=== PATIENT | male | born 1950 | race Caucasian/White ===

== ENCOUNTER 2023-10-17 10:30 | Outpatient (OUT) | payer MEDICARE, SELFPAY ==
[2023-10-17 12:21] LABS: Basophils Absolute Auto 0.1 10^3/uL (0.0-0.1); Basophils Percent Auto 1.1 % (0.2-2.0); Eosinophils Absolute Auto 0.2 10^3/uL (0.0-0.7); Eosinophils Percent Auto 2.1 % (0.9-7.0); Hematocrit 42.1 % (42.0-54.0); Hemoglobin 12.8 g/dL (14.0-18.0); Immature Granulocytes Abs Auto 0.03 10^3/uL (0.00-0.03); Immature Granulocytes Pct Auto 0.4 % (0.0-0.5); Lymphocytes Absolute Auto 1.3 10^3/uL (1.2-3.8); Lymphocytes Percent Auto 15.9 % (20.5-60.0); Mean Corpuscular HGB Conc 30.4 g/dL (29.9-35.2); Mean Corpuscular Hemoglobin 26.2 pg (25.9-34.0); Mean Corpuscular Volume 86.1 fL (80.0-94.0); Mean Platelet Volume 9.7 fL (9.5-13.5); Monocytes Absolute Auto 0.6 10^3/uL (0.3-0.8); Monocytes Percent Auto 7.6 % (1.7-12.0); Neutrophils Absolute Auto 5.9 10^3/uL (1.4-6.5); Neutrophils Percent Auto 72.9 % (43.0-75.0); Platelet Count 208 10^3/uL (150-450); Red Blood Count 4.89 10^6/uL (4.70-6.10); Red Cell Distribution Width 13.6 % (11.0-15.0)
[2023-10-17 12:27] LABS: Bilirubin Urine NEGATIVE (NEGATIVE); Blood Urine MODERATE (NEGATIVE); Clarity Urine CLEAR (CLEAR); Color Urine YELLOW (YELLOW); Glucose Urine UA >=1000 mg/dL (NEGATIVE); Ketones Urine NEGATIVE (NEGATIVE); Leukocyte Esterase Urine NEGATIVE (NEGATIVE); Nitrite Urine NEGATIVE (NEGATIVE); Protein Urine 30 mg/dL (NEG/TRACE); Specific Gravity Urine 1.025 (1.005-1.025); Urobilinogen Urine 0.2 EU/dL (0.2-1.0); pH Urine 5.5 (5.0-9.0)
[2023-10-17 12:43] LABS: Alanine Aminotransferase 48 U/L (16-63); Albumin Globulin Ratio 0.9; Albumin Level 3.4 g/dL (3.4-5.0); Alkaline Phosphatase 182 U/L (46-116); Anion Gap 10.2; Aspartate Amino Transferase 22 U/L (15-37); BUN Creatinine Ratio 10.6; Bilirubin Total 1.9 mg/dL (0.2-1.0); Calcium 9.2 mg/dL (8.5-10.1); Carbon Dioxide 30.9 mmol/L (21.0-32.0); Chloride 106 mmol/L (98-107); Estimated GFR (African America >60 (>=60); Estimated GFR (Non-African Ame >60 (>=60); Globulin 3.6 g/dL; Glucose 119 mg/dL (74-106); Potassium 4.1 mmol/L (3.5-5.1); Sodium 143 mmol/L (136-145)
== END 2023-10-17 10:31 | disposition home or self-care (01) ==
LOC: LAB 10-21 10:30
PROVIDERS: PCP Nurse Practitioner Family; Visit Provider Nurse Practitioner Family
DX: R53.83 Other fatigue (principal)
CPT/HCPCS: 36415; 80053; 81003; 85025; 87086

== ENCOUNTER 2024-12-23 11:33 | Emergency (ER) | payer MEDICARE, SELFPAY ==
[2024-12-23] VITALS (16 sets, daily range): BP systolic 109–131; BP diastolic 75–89; PULSE 76–92; TEMP 36.6; O2SAT 93–100; BMI 29.6
--- NOTE | 2024-12-23 11:45 | CA_ITS ---
Patient Name: PAU BAUER MR#: [id number] : 1950 Exam Date: 12/23/2024 Ordering Doctor: Karine Brower . ECHOCARDIOGRAM REPORT PROCEDURE: CA ECHO W/ CON INDICATIONS: LV thrombus COMPARISON: None. DESCRIPTION: LIMITED ECHOCARDIOGRAM Real-time transthoracic echocardiography with 2D and contrast study. QUALITY: Technical quality was good. LEFT VENTRICLE: Normal chamber size. Mild concentric left ventricular hypertrophy. D-shaped septum suggestive of right ventricular pressure and volume overload. LV EF: Global left ventricular systolic function is mildly decreased. Visual estimation of left ventricular ejection fraction is 40-45%. Diffuse hypokinesis. Probable heavy trabeculation of the apex; however, possible small apical thrombus cannot be ruled out. DIASTOLIC: Unable to assess diastolic function. ATRIAL SEPTUM: Inadequately seen. LEFT ATRIUM: Severe dilatation. RIGHT ATRIUM: Severe dilatation. RIGHT VENTRICLE:Moderate dilatation. Right ventricular systolic function is reduced. TRICUSPID VALVE: Normal mobility and thickness. MITRAL VALVE: Normal mobility and thickness. AORTIC VALVE: Normal trileaflet appearance. Normal leaflet mobility. AORTIC ROOT: Normal diameter and appearance. PULMONIC VALVE: Normal thickness and mobility. PERICARDIUM: No evidence of pericardial effusion. IVC: Mild dilatation. Measuring 2.2cm with no collapse. CONCLUSION: 1. Global left ventricular systolic function is mildly reduced; visually estimated ejection fraction is 40 to 45% 2. Probable apical trabeculation, however a small apical thrombus cannot be ruled out 3. The right ventricle is moderately dilated with reduced systolic function 4. Severe biatrial dilatation A Limited echocardiogram was performed Adult Echocardiography Procedure Report Left Ventricle LVEDD (3.7 - 5.6 cm): 5.31 cm LVESD (2.2 - 4.0 cm): 4.41 cm LVIVS thickness (0.6 - 1.2 cm): 1.20 cm LVPW thickness (0.5 - 1.0 cm): 1.19 cm LVOT Diameter 2.33 cm Left Ventricular Ejection Fraction: 45.28 % Left Atrium LA Volume Index (2D A2C): 91.56 ml/m2 Left Atrium Systolic Dimension: 6.11 cm Mitral Valve Right Ventricle RV Internal Diastolic Dimension: 4.58 cm Aorta AO Root Diam: 3.39 cm Aortic Valve Tricuspid Valve Pulmonic Valve Right Atrium Right Atrium Systolic Pressure: 215.67 ml, 215.67 ml Dictated by: Domenico Nielsen M.D. on 12/23/2024 at 13:23 Approved by: Domenico Nielsen M.D. on 12/23/2024 at 13:32
[2024-12-23 12:01] LABS: Basophils Absolute Auto 0.1 10^3/uL (0.0-0.1); Basophils Percent Auto 1.1 % (0.2-2.0); Eosinophils Absolute Auto 0.2 10^3/uL (0.0-0.7); Eosinophils Percent Auto 2.1 % (0.9-7.0); Hematocrit 44.3 % (42.0-54.0); Hemoglobin 13.9 g/dL (14.0-18.0); Immature Granulocytes Abs Auto 0.02 10^3/uL (0.00-0.03); Immature Granulocytes Pct Auto 0.3 % (0.0-0.5); Lymphocytes Absolute Auto 1.2 10^3/uL (1.2-3.8); Lymphocytes Percent Auto 15.2 % (20.5-60.0); Mean Corpuscular HGB Conc 31.4 g/dL (29.9-35.2); Mean Corpuscular Hemoglobin 25.7 pg (25.9-34.0); Mean Platelet Volume 9.8 fL (9.5-13.5); Monocytes Absolute Auto 0.5 10^3/uL (0.3-0.8); Monocytes Percent Auto 6.7 % (1.7-12.0); Neutrophils Absolute Auto 5.9 10^3/uL (1.4-6.5); Neutrophils Percent Auto 74.6 % (43.0-75.0); Platelet Count 188 10^3/uL (150-450); Red Cell Distribution Width 14.3 % (11.0-15.0)
[2024-12-23 12:14] LABS: INR 1.09; Prothrombin Time 11.5 sec (9.0-11.6)
--- OUTSIDE RECORDS SUMMARY | 2024-12-23 12:14 | XMS_ITS | CCD ---
Author Organization [facility] Care Team Providers Care Ore Buyer Name Role Phone PHYSICIAN, DEFAULT Admitting Unavailable PHYSICIAN, DEFAULT Attending Unavailable PHYSICIAN, DEFAULT Admitting Unavailable PHYSICIAN, DEFAULT Attending Unavailable PHYSICIAN, DEFAULT Admitting Unavailable PHYSICIAN, DEFAULT Attending Unavailable Jose Armando De La Cruz Unavailable Felipe Fajardo Unavailable Unavailable Sheree Greco Unavailable DO Sheree Greco Primary Care Provider MD Elo Tapia Attending Provider MD Aman Beck Referring Provider DO Sheree Greco Primary Care Provider DO Sheree Greco Attending Provider Lottie Castillo Unavailable DO Sheree Greco Primary Care Provider DO Sheree Greco Attending Provider Sheree Greco Attending Unavailable Sheree Greco Primary Care Unavailable Sheree Greco Admitting Unavailable ASAD ESPARZA Attending Unavailable Michelle Vieyra Attending Unavailable Michelle Vieyra Admitting Unavailable SHEREE GRECO Primary Care Unavailable SHEREE GRECO Primary Care Unavailable Macie Lau Attending Unavailable Macie Lau Admitting Unavailable [place] Attending Unavailab Anna Funes Admitting Unavailab le SHEREE GRECO Primary Care Unavailable Allergies Allergy Classification Reported Allergen(s) Allergy Type Date of Onset Reaction(s) Facility (2 sources) No Alert Propensity to adverse reactions to drug 2 [facility] (1 source) Egg; Translations: [Egg Allergy] Propensity to adverse reactions to drug (disorder) [facility] Repository Medications Current Medications Medication Drug Class(es) Dates Sig (Normalized) Sig (Original) apixaban 5 mg oral tablet (20 sources) Factor Xa Inhibitor Start: 06-25-2021 take 1 tablet by mouth twice daily Apixaban (Eliquis) 5 mg tablet Active 5 MG PO Twice daily May 15, 2022 12:00am aspirin 81 mg delayed release oral tablet (20 sources) Platelet Aggregation Inhibitor, Nonsteroidal Anti-inflammatory Drug Start: 05-15-2022 take 81 mg by mouth once daily Aspirin Active 81 MG PO Daily May 15, 2022 12:00am Aspirin 81 MG TA BS Quantity: 0 Refills: 0 Ordered: 08-Apr-2022 DO Active take 1 tablet by mouth once luh y Aspirin 81 MG 1 tablet Orally Once a day Active azithromycin 250 mg oral tablet (1 source) Macrolide Antimicrobial Start: 09-01-2023 Zithro max Z-Wes 250 MG as directed Orally once a day for 5 days Aug, Active clobetasol propionate 0.5 mg/ml topical cream (4 sources) Corticosteroid Start: 09-08-2023 Clobetasol Propionate 0.05 % 1 application Externally Twice a day for 14 days Aug, Active Start: 09-08-2023 Clobetasol Pro pionate 0.05 % 1 application Externally Twice a day for 14 days Aug, Active dapagliflozin 10 mg oral tablet (4 sources) Sodium-Glucose Cotransporter 2 Inhibitor Start: 03-05-2024 take 1 tablet by mouth once daily Dapagliflozin Propanediol (Farxiga) 10 mg tablet Active 10 MG PO Daily March 05, 2024 12:00am take 1 tablet by shayla th every twenty-four hours Farxiga 10 MG 1 tablet Orally Once a day Active metFORMIN (20 sources) Biguanide Start: 04-02-2024 take 1 tablet by mouth twice daily at mealtime Metformin Active 0 .ROUTE .COMPLEX 180 April 02, 2024 7:04am TAKE 1 TABLET BY MOUTH TWICE DAILY WITH A MEAL Start: 02-18-2022 End: 04-02-2024 take 500 mg by mouth twice daily Metformin Discontinued 500 MG PO Twice daily May 15, 2022 12:00am March 31, 2024 1:32pm 24 hr metoprolol succinate 50 mg extended release oral tablet (20 sources) beta-Adrenergic Rubens Start: 06-11-2024 take 100 mg by mouth once daily Metoprolol Succinate Active 100 MG PO Daily June 11, 2024 12:00am Start: 06-11-2024 take 50 mg by mouth once daily Metoprolol Succinate Active 50 MG PO Daily June 11, 2024 12:00am Start: 05-15-2022 End: 06-11-2024 take 50 mg by mouth twice daily Metoprolol Succinate Discontinued 50 MG PO Twice daily May 15, 2022 12:00am June 11, 2024 10:44am Start: 10-03-2021 take 1 tablet by shayla th twice daily Metoprolol Tartrate 50 MG Oral Tablet TAKE 1 TABLET BY MOUTH TWICE DAILY Quantity: 180 Refills: 0 Ordered: 07-Jan-2022 DO Start : 03-Oct-2021 Active microencapsulated potassium chloride 10 meq extended release oral tablet (11 sources) Start: 03-05-2024 take 10 mEq by mouth twice daily Potassium Chloride Active 10 MEQ PO Twice daily March 05, 2024 12:00am take 1 tablet by mouth every twe lve hours Klor-Con M10 10 MEQ 1 tablet with food Orally Twice a day for 30 day(s) Active sacubitril 49 mg / valsartan 51 mg oral tablet (20 sources) Angiotensin 2 Receptor Rubens Start: 03-05-2024 take 1 tablet by mouth twice daily Sacubitril-Valsartan (Entresto) 49-51 mg tablet Active 1 TAB PO Twice daily March 05, 2024 12:00am Start: 05-15-2022 End: 03-05-2024 take 1 tablet by mouth twice daily Sacubitril-Valsartan (Entresto) 24-26 mg Tablet Discontinued 1 TAB PO Twice daily May 15, 2022 12:00am March 05, 2024 7:17am take 1 tablet by shayla th every twelve hours Entresto 49-51 MG 1 tablet Orally bid for 14 days Active Entresto 24-26 M G Oral for 14 Days Active Completed/Discontinued Medications Medication Drug Class(es) Dates Sig (Normalized) Sig (Original) atorvastatin 10 mg oral tablet (20 sources) HMG-CoA Reductase Inhibitor Start: 02-18-2022 End: 03-18-2024 take 10 mg by mouth once daily Atorvastatin Discontinued 10 MG PO Daily May 15, 2022 12:00am March 18, 2024 1:56pm furosemide 40 mg oral tablet (20 sources) Loop Diuretic Start: 01-08-2022 End: 03-15-2024 take 40 mg by mouth once daily Furosemide Discontinued 40 MG PO Daily May 15, 2022 12:00am March 15, 2024 10:25am take 1 tablet by mouth every oth er day Furosemide 40 MG 1 tablet Orally Every other day for 30 days Active take 1 tablet by mouth every oth er day Furosemide 20 MG 1 tablet Orally Every other day for 30 days Active take 1 tablet by mouth every eig ht hours Furosemide 20 MG 1 tablet Orally tid for 30 day(s) Active methylPREDNISolone (8 sources) Corticosteroid Start: 01-06-2019 Depo-Medrol 40 mg Dec, 60 mg Potassium (8 sources) Potassium TABS Q uantity: 0 Refills: 0 Ordered: 08-Apr-2022 DO Active Problems Active Problems Problem Classification Problem Date Documented Da te Episodic/Chronic Cardiac dysrhythmias (16 sources) Permanent atrial fibrillation; Translations: [Chronic atrial fibrillation] Chronic Chronic obstructive pulmonary disease and bronchiectasis (1 source) Bronchitis, not specified as acute or chronic Episodic Coronary atherosclerosis and other heart disease (4 sources) Coronary arteriosclerosis; Translations: [Atherosclerotic heart disease of [place] coronary artery without angina pectoris] 03-04-2024 Chronic Diabetes mellitus without complication (16 sources) Type 2 diabetes mellitus without complication; Translations: [Type 2 diabetes mellitus without complications] Onset: 03-06-2022 Resolved: 03-06-2022 Chronic Disorders of lipid metabolism (15 sources) Mixed hyperlipidemia; Translations: [Mixed hyperlipidemia] Onset: 05-05-2024 Chronic Essential hypertension (15 sources) Essential hypertension; Translations: [Essential (primary) hypertension] Onset: 05-05-2024 Chronic Fluid and electrolyte disorders (8 sources) Hypokalemia; Translations: [Hypokalemia] Episodic Melanomas of skin (20 sources) Malignant melanoma of head and neck ; Translations: [Malignant melanoma of skin of ear and external auditory canal] Chronic Other gastrointestinal disorders (2 sources) History of bypass of stomach; Translations: [Bariatric surgery status] 05-17-2022 Episodic Other non-epithelial cancer of skin (8 sources) History of malignant neoplasm of skin; Translations: [Personal history of other malignant neoplasm of skin] Episodic Other screening for suspected conditions (not mental disorders or infectious disease) (4 sources) Encounter for screening for malignant neoplasm of prostate; Translations: [Encounter for screening for malignant neoplasm of colon] Onset: 05-05-2024 Episodic Other skin disorders (1 source) Rash and other nonspecific skin eruption Episodic Residual codes; unclassified (2 sources) No current problems or disability; Translations: [Other specified conditions influencing health status] Onset: 04-16-2022 Episodic Residual codes; unclassified (3 sources) Localized edema; Translations: [Edema] 03-15-2024 Episodic Past or Other Problems Problem Classification Problem Date Documented Da te Episodic/Chronic Other ear and sense organ disorders (1 source) Disorder of left external ear, unspecified Onset: 03-06-2022 Resolved: 03-06-2022 Episodic Results Test Name Value Interpretation Reference Range Facility Consent Formson 12-20-2024 Consent Forms [id number] FF [facility] US Echocardiogram Completeon 12-17-2024 US Echocardiogram Complete APPROVED REPORT EXAM: Comprehensive 2D, Doppler, and color-flow Echocardiogram BSA: 2.13 m2BP: 130/90 mmHg Rhythm: Atrial Fibrillation Indications: Paroxysmal atrial fibrillation:Acute combined systolic (congestive) and diastolic (congestive) heart failure Past Med. Hx: Afib, CAD, HLD, Former Smoker Echo Enhancing Agent Indication: Rule out apical thrombus Agent(s) / Amount(s) Used: Definity cc Conclusion Left ventricular systolic function is mild to moderately decreased. LVEF is 40-45%. There is global hypokinesis of the left ventricle. Echo contrast is indicated for questionable chronic thrombus. Cannot rule out left ventricular thrombus. Left atrium is moderately dilated. Right atrium is moderately dilated. Mild aortic regurgitation. Moderate mitral regurgitation. Moderate tricuspid regurgitation. The RVSP is 53.9 mmHg, consistent with moderate pulmonary hypertension. Left Ventricle The left ventricle is normal size. There is normal left ventricular wall thickness. Left ventricular systolic function is mild to moderately decreased. LVEF is 40-45%. There is global hypokinesis of the left ventricle. Unable to asses diastolic function in the setting of atrial fibrillation. Echo contrast is indicated for questionable chronic thrombus. Cannot rule out left ventricular thrombus. Right Ventricle Right ventricle is borderline dilated. The right ventricular systolic function is normal. Atria Left atrium is moderately dilated. Right atrium is moderately dilated. Aortic Valve Aortic valve is trileaflet. Aortic valve leaflets are mildly thickened. Adequate excursion of aortic valve leaflets. There is no aortic valvular stenosis. Mild aortic regurgitation. Mitral Valve Mitral valve leaflets are mildly thickened. Moderate mitral regurgitation. Tricuspid Valve The tricuspid valve is normal in structure. Moderate tricuspid regurgitation. The RVSP is 53.9 mmHg, consistent with moderate pulmonary hypertension. Pulmonic Valve Pulmonic valve is not well visualized. Trace pulmonic regurgitation. Great Vessels The aortic root is normal in size. The IVC is dilated. The IVC collapses <50% with inspiration. RAP 15 mmHg. Pericardium There is no pericardial effusion. 2D Dimensions RV Minor (Base)4.02 cmLV EDV (Teich) 128.92 mL IVSd 0.88 cm M: 0.6 - 1.0LV ESV (Teich) 78.54 mL LVDd 5.19 cm M: 4.2 - 5.9Left Atrium 4.90 cm M: 3.0 - 4.0 PWd 0.88 cm M: 0.6 - 1.2Aortic Root 3.11 cm M: < 4.0 LVDs 4.20 (2.1 - 4.0 cm) LV Bmlf906.29 g LVOT Diameter 2.18 cm IVC2.20 (<= 2.1cm) M-Mode Dimensions TAPSE 1.4 (>1.7) LV Volume - Method of Disks (Haq's) Single Plane 2D LV VolumesBiplane 2D LV Volumes LV EDV B1I752.3 mLLV EDV BP140.17 mL M: 62 - 150 LV ESV A4C75.1 mLLV ESV BP78.4 mL LVEF(%) A4C44.1 %LVEF(%) BP44.04 % M: 52 - 72 LV EDV H9F441.8 mLLV EDV BP Index65.80 mL/m2 M: 34 - 74 LV ESV A2C79.1 mLSV (BP)61.73 mL LVEF(%) A2C42.2 %SV (BP) Index28.95 mL/m2 CO BP5.3 L/min Left Atrium Volume Systole (Method of Disks) Single Plane 4 CH 146.45 mL Right Atrium Area Systole RA Systolic Area A4C34.57 cm2RA Systolic Vol F4F055.70 mL Aortic Valve AoV Peak Velocity1.06 m/sLVOT Peak Velocity0.77 m/s AO Mean Velocity0.70 m/sLVOT Mean Velocity0.47 m/s AO Peak PG4.45 mmHgLVOT Peak PG2.35 mmHg AO Mean PG2.27 mmHgLVOT Mean PG1.07 mmHg AO V2 VTI19.47 cmLVOT V1 VTI14.90 cm FLORENCIO (Vmax)2.70 sw6DVKC Area 3.72 cm2 FLORENCIO (VTI)2.85 cm2SV (LVOT) 55.40 mL Indexed FLORENCIO (VTI)1.33 cm2/m2 Mitral Valve MV Max Zdbxikjp089.53 m/sMV PHT34.76 ms MV E Max Velocity0.66 m/sMVA (PHT)6.33 cm2 MV Decel. Gazx644.86 msMR BUX690.96 cm MR Peak Velocity5.06 m/s TDI Med e' Velocity7.17 cm/sMV E / Medial e' 9.27 Lat e' Mrendxcw09.92 cm/sMV E / Lateral e' 6.09 TV S'8.64 cm/s Pulmonary Valve PV Peak Velocity0.62 m/sPV Peak PG1.54 mmHg [place] End Diastolic Jaguar.109.87 m/s PV Mean PG0.90 mmHg Tricuspid Valve TR Peak Velocity3.03 m/s TR Peak PG36.75 mmHg Final Signed (Electronic Signature): Ulises Head MD 12/20/24 8:42 am Technologist: [facility] Provider Orderson 12-13-2024 Provider Orders [id number] [facility] Orders Onlyon 11-25-2024 Orders Only [id number] Anna Bauer T 1950 M Date Provider Department Center 11/25/2024 GRICELDA CARUSO Family History Family history unknown: Yes Normal [facility] Office Visiton 06-16-2024 Follow-up visit [id number] Anna Bauer T 1950 M Date Provider Department Center 06/16/2024 [facility]8-ASAD ESPARZA Hos Family History Family history unknown: Yes Level of Service:00947 [place] OFFICE/OUTPATIENT ESTABLISHED LOW MDM 20 MIN Normal [facility] Orders Onlyon 06-16-2024 Orders Only [id number] Anna Bauer T 1950 Date Provider Department Center 06/16/2024 GRICELDA CARUSO Family History Family history unknown: Yes Normal [facility] Coding Summaryon 06-03-2024 Coding Summary HTMLBase 64 HfukkbarXQk9uBi+PGhlYWQ+P L6UWXKwP63ytHDdwA7eH4QQIM lOSywgQVBQTElOSyIgbmFtZT1 kaXNjZXJu IC8+IH9bHAVbMgtamTSmz1N4w AB7G07fpo9bLRsmxFU0SDOmZq Bgjmnjd0gdnUv5ZDtcHbxeFdD t HBFvfR30KCG7qF65Wp18mNPwo MVoh3orbIu5FxCvSACdYPT3fO lhEQuta2JpDGXoK13gxUFjv0N 6 MEIncUtldRRfXcUohQO0gH2pW Haqdnlaa2pcvvhaUhr0oh00oG Rcv6G3gGC9E9YdudI6OJNwuHK g WvgtzBFYmJ0lrwbsl8draoyvX tMbMCAcQGk0MBg9PROabVnsNd BcBC17QVB5GSRmlaZbO7EeJCO s fZwjZyO6v2Y2Yl4KY2ZEWxcjC 1VNTUFSWTwvdGQ+WJ67rj72I9 JmRoblMtc5YQGxUEP7kCD7oQ0 n BICuIWjoz2A9lNN6P5UmvmQid c8ua8ymNWXkVBmeG74niNVhx9 M5WZOwyQY7AOPokOkuVhNvgU0 3 Oyc+JEVubClgd1NrWdkfx3kbv 2ggcBd0ZnuoTESozeAvjEiqEY J3n3ItPd7mMYBxbAY3sCV2nE1 i LrHnByC1RJdiH031JkOmwWUzI uehR30dB2AbpJG+NYOsNwb1YN FcqLiqLX1yN7WcPVTyzrvjbNG m bBzaMK2aVRGdfkflRFJdqQ0lX EHlD7l3DbNpCbN8ISyeP2RsXZ EixmiuQh39yK9dXfTyJuD3QTn u J2EnacG2LQFwsHXaVOvxIUJ2X 61mb9G9IBWoAZIaCNT6cWD0yO 1hbGlnbjogbGVmdDsgdmVydGl j FAvqSYcqH806IYXvsRpiZiLwT GluZyBEYXRlOiAgMDgvMDgvMj AyNDwvdGQ+KUCwHEU4wUjzTCD n wKKdZSfaZp1hfUnwtLoyXI3gY FIlwhqwAECtfH4mMVGxdKDixI zcLS3qNLIpdoijv123KmQtIXG 0 OIYgxFQdH1QtvB2sOmHkZCAoH JGrM8QqtYNkEZsbX988EJooXx G5SJRtswIeC0ZyXAAujHvuUjU 0 b1N7Ez2Vz8HhlmmhY4SgcVAtO wPhHpmsHRz7R3OiFehwvWO+PC 98GORwPG53LBr7EQQ7oGueGLw i WYMpZ3ZfkC0vBmHwSIWrHMPxV yc+PHRhYmxlIHdpZHRoPScxMD IzLnMqhNewAT8vBw4yNDYxQFL v rSghuHCiXuLws8kkVXVzZYtsQ Y8drAviG9GshTX3TMSzb6r8Gq 52O19bC4MobZI+XDKeiAQ7fFU 0 zI8qKkTaXjQ5QKodS695KmDti CTlShzlo6qfw5ktzQh2PhL1SC IpjoPnpYcrMOG6o3DtRn38R23 s IHdpZHRoPSIxNSUiIHZhbGlnb e8tlF4dCg4+FANewQA4zGF0mL 3vEeCiXlS4YKtlR753GjJccPT v Ymhsh0wqi1jefRv3YoTcNEBlj fTymYfcLBD3x0DrSb70D6XrbP tba6CqUza1dy96rVSlx8V7oMY 9 F1ZyNNAvknobhURawAnlCU9dO WGqsumfFFXcqC3zWEOzU9a6Wd UgVxP0GMmzY8YkzlI5UQKmgOI g MJWedSDAdL9oscynt0ikwqloK eUhSIOwYWa6XDk5PRCwqWmoSn CfYZC5EbJ5RXY7tVGapW0sqLl n xvlxlJ4gTfz+LQM5cPWoeAPWN K4yLixxwWX+CSIwGCI6hLzqXV tjIRDuhI1iVMOsC9d8DmUfOeI 1 QCsiT3CfqgI7XQWcaETpPYFnq PFGpR8tmnixw1efxyoeOkOaHK ByBFf1DJz7QYAzhSdzAuLaDIZ 0 QqH4DXD6kNDgfM3elUpilwefc G9wOyc+JjufiLizTND4FOo6P5 GfCcr3HDHcbZewAH9pcFMlDBy u Cy9npFvikHguVP5uPMOuqfaam 372DnDjn3ebPYQaxPCyAUmsUM N7Y07mz1M1SCVhYIThIUG7bPO 4 xG4ejHphxckkgJLrdNksoqRom JxtWJocCJlfF783TZSgrWccUi IqFTq6W5HhAzb4CDYxaUffCE6 n wIDjOLolGv1yzBrnzZjzBV5kK OJyekhgs956BbCja2huXGYqnY IvPJygMTQ6G53of9I4AYPwPVY w ONJ6yWE8pZ3dsGfxviickSJyq DlxwhUmgYrlVThgDTytT907ST EmkZlzDiCtbHk8R2QpAfq0NTD z zWxcZT7cwXJiUBykSb9buNooj IbsQT9wKTUrimplu714UjHih4 icSOVvcQPtYXzdAQH2P96or4P 6 BJRiVTOeEBB8xPZ1qL7dgKimm jogbGVmdDsgdmVydGljYWwtYW tfT837CZAgoUkiXmMuvArxurR g PYsoBQc6H2DhArrrbRQ+PC90Y ZYsSK39uXKqoGMvb0sdmCq0Im RySEOsXRQ6fJlhOIkwg6UnMTC t W66inLKwx2H2GDJksObcgADxN pVvsQW9aT2gYLpxdwdmp0oore smQfdvl7ruel38bH24Y89qJUr p QKMzUUYcLFHdARDduSgcpk1cd G9wIi8+IKWhnOX5rLP5jH6qHC McDyP6PNumH800BbZojTXwPdv j c8vuu4lqzAe9MeI7JUEmchFev TzhPPJ4n8PvAz79E51kAJmsXM AwHBPpILFaVDBkuStjqg1wyL5 w Ii8+LCCwmPD0kQG7gO3oOlPpI qK5KMbfO756CmMfoHSnWagyL3 9aT0IulFQ+HONvFjx2VTScaDa s ON0olGNuNLhfPw7gGMY7AzZcX cPuICpfO3AuYBUvcevpvysfqK N3HOHlGSTppC42Ja7oaOwkAGJ w qRYLrF3hccptu3gdxmztWiBiB CLkHJr0CIz1ZPGumYgtPjXbDW Z5KyS1PBO6qZWzlC8tsPynkpw g rC2xD8ArGYUwngrrNp28zS7nU vBeDpV6IApkNfd+I6VUDVEBTT CIDM3XR9RtISkDQUHBVA48NV6 8 nSXpd7M0ePT4H1LpCUDstswui tifbWH5AWXdDKNtqF97bYLrQS bzDs1bo8K3a534PIGeZZTmpZ6 7 Tg3tgEmdSPJhcIXMlR3upgafg 3oaaebaExVaQCHpZLt3YGf6YV PjbLblFmTyEPF7MsZ4DSQ4iIY h qF5gsYcoddheuT8vZjq+MDMvM kCjOTl8MPfpfBU+UFOuXKM2uG tnAKfpTCFweW4yNTTsP1w5YoB w XaI2RQjjL1RlJIHhwneeKo22c W9vIdRbBdK6SXfwP9HhssQ6NY EgpTEnQNitVDA1L90gq0R0ZSX w VZPoODU8lBC6aU6zeZbfwiamf GVmdDsgdmVydGljYWwtYWxpZ2 67OXWkrCqiYdm5UOroFZVsSS8 0 ZC92cNNxs4W4lDB1J1WyBOMbs dejuzazsQR8LGOmWERspM89yQ UpLYrwEy8di1O7x077KQYiKVJ w oU03Wn0mgQbpEMQxuBVIaX0eq qijm7yehxvuJaSiQFWhPWg9FT n2GVRdeJegMiYxEAZ0EtK7GHB 0 yUCxqT2jfYpvquyehH1nLde+T UFMRTwvdGQ+JAEuGSR9nOgqZC ncVGMflM5aJVNpD7d6KmDuEgI 1 JGssI0VaUXDftdlfYm20dG4aM lQiWiZ2ZMarZ9QkuoW2VJDwzL AgKShnWLC1D58dr3Y3ZKEwJNC w SDA8eSV4fX7odXrvmchdhVZol UmkzgFjaProHKvyOXdzK166XB WjbGlkCzScAIBtGR2eyUkvvDC + XX18ea47L5YaRjqgBsv0BUVjF DL3uJF3tD2nUELlXEibq8B4pZ B0Q9HlwjAqbe5fr9mwFHWeYEt g Y39nbIQji2N8CREoyPT8HOHga QflFuPubL36Atm+PGNvbGdyb3 QjDdcub5rgq0zgeTt3SeMzLRR g kgGgtIdlOQW4n0IxHn89D79cJ HdpZHRoPSIzMCUiIHZhbGlnbj 4jnS0jQs1+JESijBI2lJZ0jW0 i LqWbSvM7SSoiA128LqTmhHBcA pqjr5wcv1vpvSs2TpSeWGJgtx EljOlzDWC5l9XoZz77L8FclOa y t7ZpLiy1ki49fDVqz3D1yXN0F 7RfZVTmcecbiFZxqPkuZX8lJL JwbquuDUDeaO9cJQKkI8c8XaE w PsI9JXzfN0BcegZ1BLHayUVkI CPuaULKnS5wgoqff2yxaqppCk OfERFrLJl4NMu5ZMQzvKvfUfH s VPU5CgX3HQO9oXAygX0whZjty xdmeH5sFcx+IQp5w9qmbAGqVF 8dkEL3XT39IB91mJCfe4K6qDH 9 X4VdZAAftmrqcrxccHQ8LYJeR QCeiI09Nw4wmGqePb0qJMWzQT S3LITdcQGyH9IgpC1tSnPcXLY w OAQwR1JgcJVyHBxwY933MHlaP fA3EXOnmsDbW8BhGKNvaLdpLz B1i2O1Jl9IBV36QM44AC29hLX g p0P4fCR6G1RxXYFddygvfowgy MI1ZGMpFLWnyJ42Ct4zoHsbDs 8fNSQiJSF4BLAmkETqD7MyjD8 y FpJuRWJcFQHwC5AtjHBsXHkjP 865PDirKrR6CRQyduBgE4VdCZ WecItfLpM6j3W8Xq6TYq93AV2 0 NT15lWGan8M3fHO7A9UhWKFfg eocltiebTT8WXZtZJIktO12Dq 7opCclFv1uGDBbHOD0ATUcyIO z G7BhoB5nQxGrNSGhIAVyW8Yus ICxUBkqF497MSqhBpD6LRZzrd UvO8TpXEObzFqfWuE9q7L3Dt6 Q RSiqcih0F6NhWnuahDL+PC90Y LFdQI46nEAmiUTrp7lmuSu0Sw YwYNBpQHR1zErqXLbvx6RmUAF t Y29 (more content not included)... Normal [facility] ED Clinical Summaryon 2023 ED Clinical Summary [facility] - Emergency Department [address] [place] [address] [id number] ED Clinical Summary PERSON INFORMATION Name: PAU BAUER Age: 74 Years Sex: MALE : 1950 MRN: Acct#: Visit Reason: Eye problem; RT EYE REDNESS Arrival: 05/23/2024 19:08:54 Discharge: 05/23/2024 19:47:00 LOS: 000 00:39 Check In: 05/23/2024 19:08:54 Checkout:05/23/2024 19:47:00 Address: [address] [place] [id number] PCP: SHEREE GRECO PROVIDER INFORMATION Provider Role Assigned Unassigned Christina Gould YEAST DISTILLER Nurse 05/23/2024 19:12:21 Macie Lau-C ED PA 05/23/2024 19:13:34 VITALS INFORMATION Vital Sign Triage Latest Temperature Tympanic Temperature Temporal Artery Pulse Rate 105 bpm 105 bpm O2 Sat 95 % 95 % Respiratory Rate 16 br/min 16 br/min Blood Pressure /80 mmHg /80 mmHg MEDICAL INFORMATION Medications Given: Allergy Information: Egg Allergy PHYSICIAN DOCUMENTATION DISCHARGE INFORMATION: Discharge Disposition: Home Discharge Location: Home PATIENT EDUCATION INFORMATION Instructions: Subconjunctival Hemorrhage Follow-Up: With: Address: When: DEONTE LEONEUGENE [address] [place] [address] Within 1 to 2 days DIAGNOSIS: 1:Conjunctival hemorrhage of right eye Patient Understands: Yes - Patient/family/caregiver verbalizes understanding of instructions given Comment: Normal [facility] ED Patient Summaryon 024 ED Patient Summary [facility] - Emergency Department [address] [place] [address] PATIENT DISCHARGE INSTRUCTIONS Patient Information Name: PAU BAUER Age: 74 Years Date of : 1950 Reason For Visit: Eye problem; RT EYE REDNESS Arrival Time: 05/23/2024 19:08:54 Primary Care Physician: SHEREE GRECO Attending Physician: Juan Negron MD Comment: Visit Diagnosis: Diagnoses This Visit Conjunctival hemorrhage of right eye (H11.31) Eye problem ([id number]) The Pharmacy at [facility] is open Friday through Friday from 9A to 6P and Friday and Friday from 9A to 5P Prescription Information: If you have been given a prescription for narcotics, seek immediate medical attention if you have any difficulty breathing or any sudden status changes such as confusion and sleepiness. If you or anyone you know is experiencing suicidal thoughts, mental health, alcohol and/or drug addiction problems; contact the [facility], [facility]–1983 19/05 Crisis Hotline -Text 0MLVW ct 965602. If you received any narcotics, sedation, or any other medication that causes drowsiness for the next 24 hours, unless otherwise directed: ? Do not drive a car. ? Do not operate machinery such as power tools, lawn mowers, drills, sewing machines, or stoves ? Avoid alcoholic beverages and drugs for allergies, nerves, or sleep ? Do not make important personal or business decisions or sign any legal documents With: Address: When: ALEXANDRO LEON [address] [place] [id number] Within 1 to 2 days Medication Information: The exam and treatment you received today in the [facility] Emergency Department were for an urgent problem and are not intended as complete care. It is important for you to follow up with a doctor, nurse practitioner, or physician?s food trades assistants for ongoing care. If your symptoms become worse or you do not improve as expected and you are unable to reach your usual health care provider, you should return to the Emergency Department, we are available 24 hours a day. For those patients who have received Radiology results, the interpretation of your X-ray as given to you by our Emergency Department physician is only a preliminary report. The Radiologist will review your films and if there is a change in the diagnosis you will be notified by phone. Please make sure you have provided a working phone number so we can reach you if necessary. In the event that you had a lab culture while you were a patient in the Emergency Department, you will be notified by phone if there is a need to change your antibiotic. Please make sure you have provided a working phone number so we can reach you if necessary. [facility] Emergency Department has provided you with a complete list of medications post discharge. Please inform your gas shovel operator/provider of your visit and for further instruction on these medications. Any specific questions regarding your chronic medications and dosages should be discussed with your primary care physician(s) and/or pharmacist. Additional medications on your home medication list not specifically addressed. Please contact the ordering physician if you have questions about these medications. apixaban (Eliquis 5 mg oral tablet) 1 tab(s) Oral (given by mouth) 2 times per day. aspirin (aspirin 81 mg oral tablet) 1 tab(s) Oral (given by mouth) every day. atorvastatin (atorvastatin 10 mg oral tablet) TAKE 1 TABLET BY MOUTH ONCE DAILY. dapagliflozin (Farxiga 10 mg oral tablet) 1 tab(s) Oral (given by mouth) every day. TAKE 1 TABLET BY MOUTH IN THE MORNING. furosemide (furosemide 40 mg oral tablet) 1 tab(s) Oral (given by mouth). metFORMIN (metFORMIN 500 mg oral tablet) 1 tab(s) Oral (given by mouth) 2 times per day. metoprolol (Metoprolol Tartrate 50 mg oral tablet) 1 tab(s) Oral (given by mouth) 2 times per day. nivolumab 240 Milligram Intravenous. Repeat every 14 days. potassium chloride (potassium chloride 99 mg oral tablet) 2 tab(s) Oral (given by mouth) once a day (in the evening). sacubitril-valsartan (Entresto 24 mg-26 mg oral tablet) 1 tab(s) Oral (given by mouth) 2 times per day. Visit Information Allergies: Substance Reaction Symptoms Type Comments Egg Allergy Drug Vital Signs: Vitals and Measurements this Visit (last charted value for your 05/23/2024 visit) Vital Signs This Visit Temperature Oral: 36.9 DegC Peripheral Pulse Rate: 105 bpm Respiratory Rate: 16 br/min Systolic Blood Pressure: 123 mmHg Diastolic Blood Pressure: 80 mmHg SpO2: 95 % Oxygen Therapy: Room air Measurements This Visit Height/Length Measured: 177.80 cm Weight Measured: 98.88 kg Weight Dosin.880 kg Body Mass Index: 31.28 kg/m2 Problems List: Problem Onset Comments Atrial fibrillation 10/27/[address] James Ramachandran's records CAD (coronary kymberly (more content not included)... Normal [facility] Alanine aminotransferase [En zymatic activity/volume] in Serum or PlasmaOrdered By: Sheree Greco on 05-05-2024 ALT [Catalytic activity/Vol] 8 U/L [facility] Comment on above: Order Comment: Reaso n for Exam Type 2 diabetes mellitus without complication, without long- Performed By: #### L IPID, CMP wRFX A1C, TSH3 wRFLX #### [facility] [address] Albumin [Mass/volume] in Ser um or Plasma by Bromocresol green (BCG) dye binding methoOrdered By: Sheree rGeco on 05-05-2024 Albumin BCG dye [Mass/Vol] 3.9 g/dL 3.5-5.7 [facility] Alkaline phosphatase [Enzyma tic activity/volume] in Serum or PlasmaOrdered By: Sheree Greco on 05-05-2024 ALP [Catalytic activity/Vol] 130 U/L High 34-104 [facility] Comment on above: Order Comment: Reaso n for Exam Type 2 diabetes mellitus without complication, without long- Performed By: #### L IPID, CMP wRFX A1C, TSH3 wRFLX #### [facility] [address] Aspartate aminotransferase [ Enzymatic activity/volume] in Serum or PlasmaOrdered By: Sheree Greco on 05-05-2024 AST [Catalytic activity/Vol] 11 U/L Low 13-39 [facility] Comment on above: Order Comment: Reaso n for Exam Type 2 diabetes mellitus without complication, without long- Performed By: #### L IPID, CMP wRFX A1C, TSH3 wRFLX #### [address] Automated basophil %Ordered By: Sheree Greco on 05-05-2024 Basophils/100 WBC (Bld) 1.1 % . [facility] Comment on above: Order Comment: Reaso n for Exam Type 2 diabetes mellitus without complication, without long- Performed By: #### C BC, PSAS, URMACRERAT #### [address] Automated basophil countOrde red By: Sheree Greco on 05-05-2024 Basophils (Bld) [#/Vol] 0.1 10*3/uL 0.0-0.2 [facility] Comment on above: Order Comment: Reaso n for Exam Type 2 diabetes mellitus without complication, without long- Result Comment: PERF ORMED BY: [place] [address] PATHOLOGIST PACKING AND STAMPING MACHINE OPERATOR ENZO VELASCO M.D. Performed By: #### C BC, PSAS, URMACRERAT #### [address] Automated blood monocyte cou ntOrdered By: Sheree Greco on 05-05-2024 Monocytes (Bld) [#/Vol] 0.4 10*3/uL 0.0-0.8 [facility] Comment on above: Order Comment: Reaso n for Exam Type 2 diabetes mellitus without complication, without long- Performed By: #### C BC, PSAS, URMACRERAT #### [facility] [address] Automated eosinophil %Ordere d By: Sheree Rojasjosefa on 05-05-2024 Eosinophils/100 WBC (Bld) 2.5 % . [facility] Comment on above: Order Comment: Reaso n for Exam Type 2 diabetes mellitus without complication, without long- Performed By: #### C BC, PSAS, URMACRERAT #### [address] Automated eosinophil countOr dered By: Sheree Estescrescencio on 05-05-2024 Eosinophils (Bld) [#/Vol] 0.1 10*3/uL 0.0-0.45 [facility] Comment on above: Order Comment: Reaso n for Exam Type 2 diabetes mellitus without complication, without long- Performed By: #### C BC, PSAS, URMACRERAT #### [facility] [address] [place] [address] Automated monocyte %Ordered By: Sheree Estescrescencio on 05-05-2024 Monocytes/100 WBC (Bld) 7.9 % . [facility] Comment on above: Order Comment: Reaso n for Exam Type 2 diabetes mellitus without complication, without long- Performed By: #### C BC, PSAS, URMACRERAT #### [facility] [address] [place] [address] Automated neutrophil %Ordere d By: Sheree Rojasjosefa on 05-05-2024 Neutrophils/100 WBC (Bld) 66.3 % . [facility] Comment on above: Order Comment: Reaso n for Exam Type 2 diabetes mellitus without complication, without long- Performed By: #### C BC, PSAS, URMACRERAT #### [facility] [address] [place] [address] [place] Bilirubin.total [Mass/volume ] in Serum or PlasmaOrdered By: Sheree Greco on 05-05-2024 Bilirubin [Mass/Vol] 1.3 mg/dL High 0.3-1.0 [facility] Comment on above: Samples from patient s who have taken Naproxen have shown spurious elevation in Total Bilirubin levels. A metabolite of Naproxen, O-desmethylnaproxen, has been shown to interfere with the Jendrassik-Grof method for measuring Total Bilirubin. Order Comment: Reaso n for Exam Type 2 diabetes mellitus without complication, without long- Result Comment: Samp les from patients who have taken Naproxen have shown spurious elevation in Total Bilirubin levels. A metabolite of Naproxen, O-desmethylnaproxen, has been shown to interfere with the Jendrassik-Grof method for measuring Total Bilirubin. Performed By: #### L IPID, CMP wRFX A1C, TSH3 wRFLX #### [facility] [address] [place] [address] CMP with reflex to A1Con Albumin [Mass/Vol] 3.9 g/dL Normal 3.5-5.7 [facility] Comment on above: Order Comment: Reaso n for Exam Type 2 diabetes mellitus without complication, without long- Performed By: #### L IPID, CMP wRFX A1C, TSH3 wRFLX #### [facility] [address] [place] [id number] [facility] GFR/1.73 sq M.predicted MDRD (S/P/Bld) [Vol rate/Area] mL/min/{1.73_m2} Normal [facility] Comment on above: Order Comment: Reaso n for Exam Type 2 diabetes mellitus without complication, without long- Performed By: #### L IPID, CMP wRFX A1C, TSH3 wRFLX #### [facility] [address] [place] [id number] [facility] Calcium [Mass/volume] in Ser um or PlasmaOrdered By: Sheree Greco on 05-05-2024 Calcium [Mass/Vol] 9.2 mg/dL 8.6-10.3 [facility] Comment on above: Order Comment: Reaso n for Exam Type 2 diabetes mellitus without complication, without long- Performed By: #### L IPID, CMP wRFX A1C, TSH3 wRFLX #### [facility] [address] [place] [address] [place] Carbon dioxide, total [Moles /volume] in Serum or PlasmaOrdered By: Sheree Greco on 05-05-2024 CO2 [Moles/Vol] 29.2 mmol/L 21.0-31.0 [facility] Comment on above: Order Comment: Reaso n for Exam Type 2 diabetes mellitus without complication, without long- Performed By: #### L IPID, CMP wRFX A1C, TSH3 wRFLX #### [facility] [address] [place] [address] [place] Chloride [Moles/volume] in S anahy or PlasmaOrdered By: Sheree Greco on 05-05-2024 Chloride [Moles/Vol] 106 mmol/L 98-107 [facility] Comment on above: Order Comment: Reaso n for Exam Type 2 diabetes mellitus without complication, without long- Performed By: #### L IPID, CMP wRFX A1C, TSH3 wRFLX #### [facility] [address] [place] [address] [place] Cholesterol [Mass/volume] in Serum or PlasmaOrdered By: Sheree Greco on 05-05-2024 Cholesterol [Mass/Vol] 110 mg/dL Low 140-200 [facility] Comment on above: Chol less than 200 m g/dl low riskChol 201-239 mg/dl borderline riskChol 240 mg/dl and greater high risk Order Comment: Reaso n for Exam Type 2 diabetes mellitus without complication, without long- Result Comment: Chol less than 200 mg/dl low risk Chol 201-239 mg/dl borderline risk Chol 240 mg/dl and greater high risk Performed By: #### L IPID, CMP wRFX A1C, TSH3 wRFLX #### [facility] [address] [place] [id number] [place] Cholesterol in LDL Calc [Mas s/Vol]Ordered By: Sheree Greco on 05-05-2024 Cholesterol in LDL [Mass/Vol] 57 mg/dL 0-100 [facility] Comment on above: LDL ATP III CLASSIFI CATIONLDL less than 100 mg/dL OptimalLDL 100-129 mg/dL Near or above optimalLDL 130-159 mg/dL Borderline highLDL 160-189 mg/dL HighLDL greater than 189 mg/dL Very high Cholesterol in VLDL Calc [Ma ss/Vol]Ordered By: Sheree Greco on 05-05-2024 Cholesterol in VLDL [Mass/Vol] 14 mg/dL [facility] Complete Blood Count Auto Di ffon 05-05-2024 Mean Corpuscular HGB Conc 31.9 g/dL Low 32.5-35.6 [facility] Comment on above: Order Comment: Reaso n for Exam Type 2 diabetes mellitus without complication, without long- Performed By: #### C BC, PSAS, URMACRERAT #### [facility] [address] NRBC% 0.1 /100{WBC} Normal 0-0.5 [facility] Comment on above: Order Comment: Reaso n for Exam Type 2 diabetes mellitus without complication, without long- Performed By: #### C BC, PSAS, URMACRERAT #### [facility] [address] [place] [id number] [place] Creatinine [Mass/volume] in Serum or PlasmaOrdered By: Sheree Greco on 05-05-2024 Creatinine [Mass/Vol] 1.01 mg/dL 0.70-1.30 [facility] Comment on above: Order Comment: Reaso n for Exam Type 2 diabetes mellitus without complication, without long- Performed By: #### L IPID, CMP wRFX A1C, TSH3 wRFLX #### [facility] [address] [place] [id number] [place] Creatinine [Mass/volume] in UrineOrdered By: Sheree Greco on 05-05-2024 Creatinine (U) [Mass/Vol] 110.00 mg/dL [facility] Comment on above: No reference range e stablished Erythrocyte distribution wid th [Ratio] by Automated countOrdered By: Sheree Greco on 05-05-2024 Erythrocyte distribution width (RBC) [Ratio] 15.0 % High 12.0-14.8 [facility] Comment on above: Order Comment: Reaso n for Exam Type 2 diabetes mellitus without complication, without long- Performed By: #### C BC, PSAS, URMACRERAT #### [facility] [address] [place] [address] [place] Erythrocytes [#/volume] in B lood by Automated countOrdered By: Sheree Greco on 05-05-2024 RBC (Bld) [#/Vol] 4.93 10*6/uL 3.90-5.60 [facility] Comment on above: Order Comment: Reaso n for Exam Type 2 diabetes mellitus without complication, without long- Performed By: #### C BC, PSAS, URMACRERAT #### [facility] [address] [place] [address] [place] Glucose [Mass/volume] in Ser um or PlasmaOrdered By: Sheree Greco on 05-05-2024 Glucose [Mass/Vol] 94 mg/dL 70-100 [facility] Comment on above: Order Comment: Reaso n for Exam Type 2 diabetes mellitus without complication, without long- Performed By: #### L IPID, CMP wRFX A1C, TSH3 wRFLX #### [facility] [address] [place] [address] [place] Hematocrit [Volume Fraction] of Blood by Automated countOrdered By: Sheree Greco on 05-05-2024 Hematocrit (Bld) [Volume fraction] 39.1 % 38.8-50.0 [facility] Comment on above: Order Comment: Reaso n for Exam Type 2 diabetes mellitus without complication, without long- Performed By: #### C BC, PSAS, URMACRERAT #### [facility] [address] [place], [place] [id number] [place] Hemoglobin [Mass/volume] in BloodOrdered By: Sheree Greco on 05-05-2024 Hemoglobin (Bld) [Mass/Vol] 12.5 g/dL Low 13.0-17.0 [facility] Comment on above: Order Comment: Reaso n for Exam Type 2 diabetes mellitus without complication, without long- Performed By: #### C HALLIE PSASJANEYMACRERAT #### [facility] [address] Leukocytes [#/volume] correc maksim for nucleated erythrocytes in Blood by Automated counOrdered By: Sheree Greco on 05-05-2024 WBC corrected for nucl RBC Auto (Bld) [#/Vol] 5.6 10*3/uL 4.1-10.5 [facility] Leukocytes [#/volume] in Blo od by Automated countOrdered By: Sheree Greco on 05-05-2024 WBC (Bld) [#/Vol] 5.6 10*3/uL 4.1-10.5 [facility] Comment on above: Order Comment: Reaso n for Exam Type 2 diabetes mellitus without complication, without long- Performed By: #### C SIRENA STERLING URMACREARTURO #### [facility] [address] Lipid Panelon 05-05-2024 LDL Cholesterol,Calculated 57 mg/dL Normal 0-100 [facility] Comment on above: Order Comment: Reaso n for Exam Type 2 diabetes mellitus without complication, without long- Result Comment: LDL ATP III CLASSIFICATION LDL less than 100 mg/dL Optimal LDL 100-129 mg/dL Near or above optimal LDL 130-159 mg/dL Borderline high LDL 160-189 mg/dL High LDL greater than 189 mg/dL Very high Performed By: #### L IPID, CMP wRFX A1C, TSH3 wRFLX #### [facility] [address] Triglyceride w/Reflex 72 mg/dL Normal 0-149 [facility] Comment on above: Order Comment: Reaso n for Exam Type 2 diabetes mellitus without complication, without long- Result Comment: TRIG ATP III CLASSIFICATION TRIG less than 150 mg/dL Normal TRIG 150-199 mg/dL Borderline high TRIG 200-500 mg/dL High TRIG greater than 500 mg/dL Very high Standard traceable to the Center for Disease Conrtrol and Prevention (CDC) test method. Performed By: #### L IPID, CMP wRFX A1C, TSH3 wRFLX #### [facility] [address] VLDL CHOLESTEROL 14 mg/dL Normal [facility] Comment on above: Order Comment: Reaso n for Exam Type 2 diabetes mellitus without complication, without long- Performed By: #### L IPID, CMP wRFX A1C, TSH3 wRFLX #### [address] Lymphocytes [#/volume] in Bl ood by Automated countOrdered By: Sheree Greco on 05-05-2024 Lymphocytes (Bld) [#/Vol] 1.2 10*3/uL 1.00-4.8 [facility] Comment on above: Order Comment: Reaso n for Exam Type 2 diabetes mellitus without complication, without long- Performed By: #### C BC, PSAS, URMACRERAT #### [address] Lymphocytes/100 leukocytes i n Blood by Automated countOrdered By: Sheree Greco on 05-05-2024 Lymphocytes/100 WBC (Bld) 22.2 % . [facility] Comment on above: Order Comment: Reaso n for Exam Type 2 diabetes mellitus without complication, without long- Performed By: #### C BC, PSAS, URMACRERAT #### [address] MCH [Entitic mass] by Automa maksim countOrdered By: Sheree Greco on 05-05-2024 MCH (RBC) [Entitic mass] 25.3 pg Low 27.5-35.2 [facility] Comment on above: Order Comment: Reaso n for Exam Type 2 diabetes mellitus without complication, without long- Performed By: #### C BC, PSAS, URMACRERAT #### [address] MCHC Auto (RBC) [Mass/Vol]Or dered By: Sheree Greco on 05-05-2024 MCHC (RBC) [Mass/Vol] 31.9 g/dL Low 32.5-35.6 [facility] MCV [Entitic volume] by Auto mated countOrdered By: Sheree Greco on 05-05-2024 MCV (RBC) [Entitic vol] 79.3 fL Low 83.5-101 [facility] Comment on above: Order Comment: Reaso n for Exam Type 2 diabetes mellitus without complication, without long- Performed By: #### C BC, PSAS, URMACRERAT #### [facility] [address] MicroAlb Creat Ratio,Uon Creatinine, Urine (Random) 110.00 mg/dL Normal [facility] Comment on above: Order Comment: Reaso n for Exam Type 2 diabetes mellitus without complication, without long- Result Comment: No r eference range established Performed By: #### C BC, PSAS, URMACRERAT #### [facility] [address] Microalbumin/Creatinin e Ratio 63.6 mg/g High 0.0-30.0 [facility] Comment on above: Order Comment: Reaso n for Exam Type 2 diabetes mellitus without complication, without long- Result Comment: 30-3 00 mg/g indicates an increased risk for diabetic nephropathy. Greater than 300 mg/g is consistent with clinical nephropathy. (Am. J. Kidney Disease 1995, 25:107) PERFORMED BY: [place] [address] PATHOLOGIST PACKING AND STAMPING MACHINE OPERATOR ENZO VELASCO M.D. Performed By: #### C BC, PSAS, URMACRERAT #### [facility] [address] Microalbumin [Mass/volume] i n UrineOrdered By: Sheree Greco on 05-05-2024 Albumin DL <= 20 mg/L (U) [Mass/Vol] 7.0 mg/dL High 0.0-1.8 [facility] Comment on above: Order Comment: Reaso n for Exam Type 2 diabetes mellitus without complication, without long- Performed By: #### C BC, PSAS, URMACRERAT #### [facility] [address] [place] [address] Neutrophils [#/volume] in Bl ood by Automated countOrdered By: Sheree Greco on 05-05-2024 Neutrophils (Bld) [#/Vol] 3.7 10*3/uL 1.8-7.7 [facility] Comment on above: Order Comment: Reaso n for Exam Type 2 diabetes mellitus without complication, without long- Performed By: #### C BC, PSAS, URMACRERAT #### [facility] [address] [place] [address] No Panel InformationOrdered By: Sheree Greco on 05-05-2024 Estimated GFR (CKD-EPI) > 60.0 mL/Min [facility] Creatinine Clearance (Chem N/A [facility] Nucleated erythrocytes [Pres ence] in Blood by Automated countOrdered By: Sheree Greco on 05-05-2024 Nucleated RBC Auto Ql (Bld) 0.1 /100{WBC} 0-0.5 [facility] PSA Screen (Yearly Only)on 0 05-05-2024 PSA Screen (Yearly Only) 0.870 ng/mL Normal 0.000-4.00 0 [facility] Comment on above: Order Comment: Reaso n for Exam Type 2 diabetes mellitus without complication, without long- Result Comment: Christal otoole tumor marker results determined by assays using different manufacturers or methods may not be comparable. [facility] robotic machine tender production and method: HYUN UNICEL DXI, CHEMILUMINESCENT IMMUNOASSAY. PERFORMED BY: [place] [address] PATHOLOGIST PACKING AND STAMPING MACHINE OPERATOR ENZO VELASCO M.D. Performed By: #### C BC, PSAS, URMACRERAT #### [facility] [address] [place] [address] Platelet mean volume [Entiti c volume] in Blood by Automated countOrdered By: Sheree Greco on 05-05-2024 Platelet mean volume (Bld) [Entitic vol] 8.2 fL 6.6-10.1 [facility] Comment on above: Order Comment: Reaso n for Exam Type 2 diabetes mellitus without complication, without long- Performed By: #### C BC, PSAS, URMACRERAT #### [facility] [address] [place] [address] [place] Platelets [#/volume] in Bloo d by Automated countOrdered By: Sheree Greco on 05-05-2024 Platelets (Bld) [#/Vol] 173 10*3/uL 150-450 [facility] Comment on above: Order Comment: Reaso n for Exam Type 2 diabetes mellitus without complication, without long- Performed By: #### C BC, PSAS, URMACRERAT #### [facility] [address] Potassium [Moles/volume] in Serum or PlasmaOrdered By: Sheree Greco on 05-05-2024 Potassium [Moles/Vol] 4.0 mmol/L 3.5-5.1 [facility] Comment on above: Order Comment: Reaso n for Exam Type 2 diabetes mellitus without complication, without long- Performed By: #### L IPID, CMP wRFX A1C, TSH3 wRFLX #### [facility] [address] Prostate specific Ag [Mass/v olume] in Serum or PlasmaOrdered By: Sheree Greco on 05-05-2024 Prostate specific Ag [Mass/Vol] 0.870 ng/mL 0.000-4.00 0 [facility] Comment on above: Serial tumor marker results determined by assays using different manufacturers or methods may not be comparable.[facility] robotic machine tender production and method:Online Prasad DXI, CHEMILUMINESCENT IMMUNOASSAY. Protein [Mass/volume] in Ser um or PlasmaOrdered By: Sheree Greco on 05-05-2024 Protein [Mass/Vol] 6.4 g/dL 6.4-8.9 [facility] Comment on above: Order Comment: Reaso n for Exam Type 2 diabetes mellitus without complication, without long- Performed By: #### L IPID, CMP wRFX A1C, TSH3 wRFLX #### [facility] [address] [place] [address] [place] Serum globulin measurement b y calculation (mass/volume)Ordered By: Sheree Fannie on 05-05-2024 Globulin (S) [Mass/Vol] 2.5 g/dL [facility] Comment on above: Order Comment: Reaso n for Exam Type 2 diabetes mellitus without complication, without long- Performed By: #### L IPID, CMP wRFX A1C, TSH3 wRFLX #### [facility] [address] Serum or plasma albumin/glob ulin mass ratioOrdered By: Sheree Greco on 05-05-2024 Albumin/Globulin [Mass ratio] 1.6 {ratio} [facility] Comment on above: Order Comment: Reaso n for Exam Type 2 diabetes mellitus without complication, without long- Performed By: #### L IPID, CMP wRFX A1C, TSH3 wRFLX #### [facility] [address] [place] [address] Serum or plasma anion gap de terminationOrdered By: Sheree Greco on 05-05-2024 Anion gap [Moles/Vol] 7.8 mmol/L 6.0-15.0 [facility] Comment on above: Order Comment: Reaso n for Exam Type 2 diabetes mellitus without complication, without long- Performed By: #### L IPID, CMP wRFX A1C, TSH3 wRFLX #### [facility] [address] [place] [address] Serum or plasma high density lipoprotein (HDL) cholesterol measurementOrdered By: Sheree Greco on 05-05-2024 Cholesterol in HDL [Mass/Vol] 39 mg/dL - [facility] Comment on above: HDL CHOL ATP-III CLA SSIFICATION Cardiovascular RiskHDL > or equal to 60 mg/dL LOWHDL < 40 mg/dL HIGH Order Comment: Reaso n for Exam Type 2 diabetes mellitus without complication, without long- Result Comment: HDL CHOL ATP-III CLASSIFICATION Cardiovascular Risk HDL > or equal to 60 mg/dL LOW HDL < 40 mg/dL HIGH Performed By: #### L IPID, CMP wRFX A1C, TSH3 wRFLX #### [facility] [address] [place] [id number] [facility] Serum or plasma total choles terol/high density lipoprotein (HDL) cholesterol mass ratOrdered By: Sheree Greco on 05-05-2024 Cholesterol.total/Chol esterol in HDL [Mass ratio] 2.8 {ratio} <5.0 [facility] Comment on above: Order Comment: Reaso n for Exam Type 2 diabetes mellitus without complication, without long- Performed By: #### L IPID, CMP wRFX A1C, TSH3 wRFLX #### [facility] [address] [place] [address] [place] Sodium [Moles/volume] in Ser um or PlasmaOrdered By: Sheree Greco on 05-05-2024 Sodium [Moles/Vol] 139 mmol/L 136-145 [facility] Comment on above: Order Comment: Reaso n for Exam Type 2 diabetes mellitus without complication, without long- Performed By: #### L IPID, CMP wRFX A1C, TSH3 wRFLX #### [facility] [address] Thyroid Stim Hormone w/Rflxo n 05-05-2024 Thyroid Stim Hormone w/Rflx 4.30 u[iU]/mL Normal 0.45-5.33 [facility] Comment on above: Order Comment: Reaso n for Exam Type 2 diabetes mellitus without complication, without long- Result Comment: PERF ORMED BY: [place] [address] PATHOLOGIST PACKING AND STAMPING MACHINE OPERATOR ENZO VELASCO M.D. Performed By: #### L IPID, CMP wRFX A1C, TSH3 wRFLX #### [facility] [address] [id number] [place] Thyrotropin [Units/volume] i n Serum or PlasmaOrdered By: Sheree Greco on 05-05-2024 TSH Qn 4.30 m[IU]/L 0.45-5.33 [facility] Triglyceride [Mass/volume] i n Serum or PlasmaOrdered By: Sheree Greco on 05-05-2024 Triglyceride [Mass/Vol] 72 mg/dL 0-149 [facility] Comment on above: TRIG ATP III CLASSIF ICATIONTRIG less than 150 mg/dL NormalTRIG 150-199 mg/dL Borderline highTRIG 200-500 mg/dL High TRIG greater than 500 mg/dL Very highStandard traceable to the Center for Disease Conrtrol and Prevention (CDC) test method. Urea nitrogen [Mass/volume] in Serum or PlasmaOrdered By: Sheree Greco on 05-05-2024 Urea nitrogen [Mass/Vol] 17 mg/dL 05-20 [facility] Comment on above: Order Comment: Reaso n for Exam Type 2 diabetes mellitus without complication, without long- Performed By: #### L IPID, CMP wRFX A1C, TSH3 wRFLX #### [facility] [address] Urine microalbumin/creatinin e mass ratioOrdered By: Sheree Greco on 05-05-2024 Albumin/Creatinine DL <= 20 mg/L (U) [Mass ratio] 63.6 mg/g High 0.0-30.0 [facility] Comment on above: 30-300 mg/g indicate s an increased risk for diabetic nephropathy. Greater than 300 mg/g is consistent with clinical nephropathy. (Am. J. Kidney Disease 1995, 25:107) Coding Summaryon 03-19-2024 Coding Summary HTMLBase 64 DsdewbvfEYg6fQy+PGhlYWQ+P M2LJEKhH67jtTGvdO4wW0KEIH lOSywgQVBQTElOSyIgbmFtZT1 kaXNjZXJu IC8+IO5fNUOnTqtocIEga2X7d YY6O69hou8cMEbukVV2OVOmRv Qjeqfqg7vaqFe0ZNoiEbjzJtU t GSCnfZ34WTJ8lX40Ur76mUBda GYgt0nqdOb0PcVnBLRvCWY1vN pmXQlgy7LnYGEoI67bnQMmy5I 6 CRFtuTtjtHBgTpNnfSY7qQ6iT Amimsfib4ntvdiqLtu3wc94aW Lbb6T1pIG2K4QbwgY0XBIetZF g JhbtiIFVaL7mdzebc9xhccvmI rJvRXByOSp1HXa6WTBisSdhIf QoEO71CEX2IXVollBdF4RiCCJ s bMipUrL9j9K6Ln3JF4YGUrfcM 1VNTUFSWTwvdGQ+HT96vh38F5 QqMnwiKfm0MWTxSRN4dPF1dP0 n RTLqNUnvk8N3bHB0U1HaqpUxk w9nf9nfRGStWGxlP68wkOTsx4 G0CPTipYW2DILuoWnuPxAorO4 3 Oyc+SHBhaKkbv2InJzyzc4jdr 8paiAi2PehbGCAehvTvrXnuRZ T7s4KeEo5hPKUnmGL9sQQ1zT7 i DgJqDuT5MXyxA625MqJzkSBoN iikR12aA9TsgWD+YPQuCvx5NS VynWsjGT3nF8OmMLVnlkqkpSZ m pSuqOI0oGWJkqmjpPSVtjU9zH ONaI6o9CgLcCfJ1LBdbI7MxVH FqroyuPd45pN1eNfOhFwB0LQb u J1QdrtE8GUJelRQmQZbxVQW4H 13ow5L2XHVbFQNhFUZ9wWG7vN 1hbGlnbjogbGVmdDsgdmVydGl j JHkgTJagZ164SWPgqEqnZfCjT GluZyBEYXRlOiAgMDUvMjQvMj AyNDwvdGQ+UOWbPWJ5lJncCAX n lENsJRvaPc9reGdecHllFU4qW DZrddwkOKZifI9nRZSymCDobC lxCA3iDFHygocjy248BaTeTWM 0 NEVeaLYnW2AylM6rOrUrRFCoU VYbL3CaxVMvIUivP594CTgjVz X5CUKepcNmF1LvRSHeqWcgAnC 0 g7A5Pi0Xw6UsgzplQ0VkyHSwY oOuKghyVSh8Z6JnBcltlRC+PC 95ZXTzJO30RHi5PMD1hXarWDs i AGXqP5ArkK7iKlIxUAHyYXEgR yc+PHRhYmxlIHdpZHRoPScxMD SmInOyhDvoPI1wIt4lAOZjOXP v zBuxaOKrHoCva8nvTGAzGQneV Y8jfYyiA5VynCL5HKRto8b9Vp 47K18bB3GizUQ+RBIhkOB6sUI 0 hN2rVqOjOhW8EHluH632QtQax YShCabyh8sjx7wwkIg8ToU7MU SrymGczAxvQTV3r7UaMj04S37 s IHdpZHRoPSIxNSUiIHZhbGlnb c1puQ5jRo7+DHHcaLA7iLP2rV 1kDyCjUuK1SDraY976DoZavVM v Lzkrn2anf1lieZr8LzHwDBUrp fMrzTlwTZD0y1JgPl95Y4DgdG nnw9XhIzq8tr49ySIyb9W4yFX 9 P8OnKTDitfgkuSLxhNhwMC6jG XLllljbTSZwpY5gHNDdI5q0Bw UhGbX9LTxbK9AnwnB2CLIjeHE g FSLszZTGfK9kwuemd3fglfybH zWnILXoHGu1EHr0CROyfBdgMf EnCZP5JaS2JXW0hQEtcP3neDn n irpycH9bXla+GRJ3tQVhdNLQO Q5xGrssdEG+CPPyVNW5pGgqFF rlSWXpyK4yLAAwW4h2SjAhSgU 1 ETzbO1FjvzN4ZJDbzRImWOZfi WMQtC4wcifcr4oygkonAiDkWO CdXBp0OPs6NFTbqItgNkFgOVI 0 FvD0SVX7hEDfkQ0ciIlpcvsml G9wOyc+UvwlzNkgXNV3WBs7V2 YbHrt4XZXbqIawSW8mzYXlPVp u Hf9okIurwMhjGF9eZMMhemjtg 116TmWxg3ztSIYbcLLjKZxcDN S3J81sx8W3ISOfASKaOIR2vLL 4 hM5jvKjnqfifvFFrnFmtblWzg HmiFNeeLBroI706SMIqvJfeSt BhUMr0M4UcAiy9ZZLxgVtdHG2 n hBUoCXfjOl7epRkveIrnTC2fI TPvhqfmf411CyDke7bdPTUxkR RnJVamSXY8L45gw0K1WMGlRAQ w VIH1mHX9sY1xlVlniohddOEfm KhahzMrsKslXUcfLGedF242SZ OtdBhgXaTwtDb6K5WhXpw8ZGB z sQadMZ5ocDBuGWpjQx5vuKjev NeyLB1nIDBbgmrus015IgNvc6 ahDPQhlOKiDZpcKRB7D53kx3Y 6 RQPxXRQwSVA7jTS5vR5aqSdul jogbGVmdDsgdmVydGljYWwtYW bcT583YHXcdApkNoWkqDtgeqU g PAibEZm2M9OfNrgalKG+PC90Y TIeUR66vNAxzJFvd3eajQe9Vi YqASTtKRA5aAbeDDiaw9MxWHY t C79unJVfk4Z6YZNibVvzsVGhC dBubGN6pK2pECcozluzy8xole rtPghnw7dwwh79mZ78O17bKHa p CLZpVNNdCTVaCVKcjKpjdp3gq G9wIi8+EPSqqPK9fDB1fH6iAA RtTuS1HHddQ203TvUouZIbOwh j f3cim8zikPp6JoX5ZTWtxcDqh JlkUES2k4CfYz68T15iIOiwHG McFZMgBBOcGOQwyQjlvw0mmH1 w Ii8+MYCinNX8lBM7aZ7cBhFlB fM9IRwoB575ImYlnUXxIrqdS4 8mL6LwoUW+ICDfZds0DMMmwXx s SZ9ydNHqSEklGk8mKAE6MjDsD sXrCWdyE9WmMFObumiezwxilY Q5PGEfXIWroG54Cc6ulZcwODE w fRMFmF9hmaynm9gbuhkeCuBtK GEuIIs9FRg1PEXeeTnvFjQsKY F2QmF0PKY1nWUryG3rwYgjnzz g tG4fM1ZiCUZtkggaKy61lN9xF vOpNcM7BHfpWxx+L5SHPGAAYI KTCO3DK2UuAYgZIYDAVX39BN0 8 iNGxd1L7jSL5O4OfPHDwptmcy jlekQH1VRUcLZIgnA48jURnAL gcCh1tg3R5x927MIKdDFSifY2 7 Ws2xyGgqKRRxgIWLpU2hoiwvy 0ejpqzbHkGaFWUoPCg4HTq0FQ FwtUmeEtNwUQN0CmL6MXA1eGG h kB1eoNzjinoacP5kGok+MDMvM wPkCCr7TIwmpLY+UXMtKLI9tZ zvYUsnPIOicM3pBBBxF7a5PpX w KtG5FVyyB5NyKVGfcxeeRw92d O7qUeDsGvK6XLhyT5GaeuG7MS LfuGLiWQwtZAF5H39hx7A0ZEZ w UXOfGWH2hVX3yL1nzHuacfgyj GVmdDsgdmVydGljYWwtYWxpZ2 51ZNBbeFutBhj5OPrgCOUvYX8 0 UE45nAZau3M7nDN7R0PpNGHap bpnlmcdhUJ0YZFhZJLvuC37vT VnFCwoHp4su1K1i725XEGiRUV w kM24Rn3oeGgmQVNhpJKFqK2wc gqcd5ydwfmeFzMfHLVaSEf7YE q8YUPhyQxwLsIkYJB0FvH2DIR 0 lLMquK4knZgghjhkrQ8bFys+T UFMRTwvdGQ+HCZuSRO3qAtlRE dcTISugY4aNCIeA6g4BmDaPfX 1 JAyyZ6RpDGXjdffqKd21vK8iH hFrEjN3WEycC9EhabM9KEQenG QdDOsvEPT5A12ae9Y8INHdSMB w HEV3iJM5sN8fnDtpotvzkIJzp QjvfpSknSgsCHklQNqeE639KV MzgFidZmUiARKxVU7euQkvmOK + ZW06lj32A6XgYcvmWqy9KARhV EF3aZK5zK6mCXLtLImnk0M6nK L6Y4NypzPoaj6da2ojQROaPWi g J14uaLDpu7H6PUBypUL2WGXwq RfrMnCefS38Yxq+PGNvbGdyb3 AxPpwng8dls2gpiRl4BzNxMRD g xbEnqGmhGZK1u8OlCj30V31hV HdpZHRoPSIzMCUiIHZhbGlnbj 7jvD6aJs8+DDLsfZN1bCN9oO6 i UwVpQeZ4TFfvT023RoBtgZJdZ toyv0sdh2vxyRk3JnFeKHRhox PbnEzlKKB4e2YxYw21D9PfbAt y q5RhCdc5sf16pGUxc8T9sSS4H 3BqSZHbejpiaJZzzTttOM5qJH TwujhvJNNftY1qPYTnW9q4NdB w GnU2RSwsF5CcesC6ITPgkNGwS OYefDNRaN2uadfnf1vmwmrvEp VyOSPtKOu6XDq9NBQuxKykEgV s SVX9MeI9NAZ6jLLblL1hmOmtz vgeyH5bSms+QHf1o6lbbQWbYC 2vdXV2SW99GR95rYWyk5U3kTX 9 X9PwQDOjuvtrnncynYJ0JROoI MBgvN05Rq6yvZrgDr8qYUZxTU J4WOCioSMqP5VgmC9yRjEaNPS w MGPkQ2PrdNBhLZorU736UDmhX zM6CFOvxeRzX8VpTJIqwLdmAh W3x3E9Va8WGY61CH38JI17jIC g s9M8ySU9P2ZsIHJxmvaasootk ZD0NPGvMDAxhZ09Xn1lhAyhUt 7vHUTgDTY8XLUnvWQcK8WneK5 y QzDqYITdMVPlT7OrxCNkIWjiM 512CDhtKnO4FKKjgvLtN7HuDQ GpqGpzWjA2b1P4Ow6IXs63DL1 0 RC96pAHwx9K7xWE9Q6BgCLNlg kmwwgksnFT9HEEiHLCpxH29Qb 7wsBtlXi6vFBHqIZQ9URYonWN z F9VumH9dUjPhTXJhIUBaH0Ctp ABjCNsiK978XYcbPbW8DGResv LrU4WlWRIudPfxPtH1u3C0Gp5 Q HDgqyou6F0MiOuhbaPG+PC90Y GErGX78hIVndGKez1owpAd3Rc AyWZKyAIZ7sMwkTDrzf7GzTZP t Y29 (more content not included)... Normal [facility] .Auto Diff 103-11-2024 Auto [place] % 7 % Normal 11-07 [facility] Comment on above: Performed By: #### 1 [id number], [id number], [id number], [id number], [id number] ####[place] (DEFAULT)[address] [place] [address] Baso Abs# 0.0 x10 Normal 0.0-0.2 [facility] Comment on above: Performed By: #### 1 [id number], [id number], [id number], 39467123, 3222592 ####[place] (DEFAULT)[address] [place] [address] Basophils/100 WBC (Bld) 0.7 % Normal 0.2-2.0 [facility] Comment on above: Performed By: #### 1 [id number], [id number], [id number], 39168040, 9370350 ####[place] (DEFAULT)[address] [place] [address] Eos Abs# 0.1 x10 Normal 0.0-0.4 [facility] Comment on above: Performed By: #### 1 [id number], [id number], [id number], 33845315, 4755315 ####[place] (DEFAULT)[address] [place] [address] 995[address] Eosinophils/100 WBC (Bld) 1.2 % Normal 0.9-4.0 [facility] Comment on above: Performed By: #### 1 [id number], [id number], [id number], 79062962, 5595127 ####[place] (DEFAULT)[address] [place] [address] Lymph Abs# 0.9 x10 Low 1.3-2.9 [facility] Comment on above: Performed By: #### 1 [id number], [id number], [id number], 74938417, 3830392 ####[place] (DEFAULT)[address] [place] [address] 957[address] Lymphocytes/100 WBC (Bld) 14 % Normal 14-48 [facility] Comment on above: Performed By: #### 1 [id number], [id number], [id number], 16453028, 2060788 ####[place] (DEFAULT)[address] [place] [address] [place] Abs# 0.4 x10 Normal 0.0-0.8 [facility] Comment on above: Performed By: #### 1 [id number], [id number], 4053604187, 28170538, 8594131 ####[place] (DEFAULT)[address] [place] [address] 01761 Neut Abs# 5.0 x10 Normal 1.5-9.2 [facility] Comment on above: Performed By: #### 1 [id number], [id number], 7148286922, 74596259, 9534986 ####[place] (DEFAULT)[address] [place] [address] Neutrophils/100 WBC (Bld) 77 % Normal 44-88 [facility] Comment on above: Performed By: #### 1 [id number], [id number], 4183547199, 04387242, 0437564 ####[place] (DEFAULT)[address] [place] [address] BNP.on 03-11-2024 Internal Control Pass Normal [facility] Comment on above: Performed By: #### 1 [id number], [id number], 3019123782, 06093027, 1252362 ####[place] (DEFAULT)[address] [place] [address] Natriuretic peptide B (Bld) [Mass/Vol] 687.0 pg/mL High 0.0-100.0 [facility] Comment on above: Result Comment: BNP results greater than 100 pg/mL are considered abnormal and suggestive of patients with CHF. Higher BNP concentrations measured in the first 72 hours after an acute coronary syndorme are associated with an increased risk of , myocardial infarction, and CHF. Performed By: #### 1 [id number], [id number], [id number], 61196212, 6133470 ####[place] (DEFAULT)[address] [place] [address] 20531 CBC w/ Auto Diffon Erythrocyte distribution width (RBC) [Ratio] 14.9 % Normal 11.5-15.0 [facility] Comment on above: Performed By: #### 1 [id number], [id number], 7840832908, 11199861, 8887510 ####[place] (DEFAULT)[address] [place] [address] Hematocrit (Bld) [Volume fraction] 38.9 % Normal 34.8-51.9 [facility] Comment on above: Performed By: #### 1 [id number], [id number], 8727455244, 43197657, 5927966 ####[place] (DEFAULT)[address] [place] [address] Hemoglobin (Bld) [Mass/Vol] 12.6 g/dL Normal 11.8-17.7 [facility] Comment on above: Performed By: #### 1 [id number], [id number], 5929421331, 15633890, 0009478 ####[place] (DEFAULT)[address] [place] [address] Man Diff? Auto Invalid Interpretation Code [facility] Comment on above: Performed By: #### 1 [id number], [id number], 7858861120, 08552908, 0593315 ####[place] (DEFAULT)[address] [place] [address] 66703 MCH (RBC) [Entitic mass] 26 pg Normal 24-34 [facility] Comment on above: Performed By: #### 1 [id number], [id number], 7758370938, 03973040, 0158821 ####[place] (DEFAULT)[address] [place] [address] 34034 MCHC (RBC) [Mass/Vol] 32 g/dL Normal 26-37 [facility] Comment on above: Performed By: #### 1 [id number], [id number], 1458842506, 99989543, 0225601 ####[place] (DEFAULT)[address] [place] [address] 22239 MCV (RBC) [Entitic vol] 81 fL Normal 81-100 [facility] Comment on above: Performed By: #### 1 [id number], [id number], 2430071858, 68430803, 5804077 ####[place] (DEFAULT)[address] [place] [address] 45566 Platelet 158 x10 Normal 138-427 [facility] Comment on above: Performed By: #### 1 [id number], 4671042881, 5093413946, 37248317, 0278162 ####[place] (DEFAULT)[address] [place] [address] 22584 Platelet mean volume (Bld) [Entitic vol] 8.3 fL Normal 6.3-10.2 [facility] Comment on above: Performed By: #### 1 [id number], [id number], 8060699777, 42326560, 8575047 ####[place] (DEFAULT)[address] [place] [address] RBC 4.82 x10 Normal 3.70-5.30 [facility] Comment on above: Performed By: #### 1 [id number], [id number], 2876869669, 22096749, 4315662 ####[place] (DEFAULT)[address] [place] [address] WBC 6.4 x10 Normal 3.5-10.5 [facility] Comment on above: Performed By: #### 1 [id number], [id number], 8770705807, 67641986, 4631622 ####[place] (DEFAULT)[address] [place] [address] CMP Standardon 03-11-2024 Breakpoint Chem Normal [facility] Comment on above: Performed By: #### 1 [id number], [id number], 9938455596, 19566108, 7832110 ####[place] (DEFAULT)[address] [place] [address] 27962 eGFR Non AA >60 Invalid Interpretation Code [facility] Comment on above: Performed By: #### 1 [id number], [id number], 0317702962, 43969144, 3642081 ####[place] (DEFAULT)[address] [place] [address] 51317 eGFR AA >60 Invalid Interpretation Code [facility] Comment on above: Performed By: #### 1 [id number], 3355105560, 4687664412, 43241748, 3180014 ####[place] (DEFAULT)[address] [place] [address] 06455 Albumin [Mass/Vol] 3.7 g/dL Normal 3.5-5.0 [facility] Comment on above: Performed By: #### 1 [id number], [id number], 3095039879, 12865458, 9890754 ####[place] (DEFAULT)[address] [place] [address] 37652 Albumin/Globulin [Mass ratio] 1.2 {ratio} Low 1.4-2.6 [facility] Comment on above: Performed By: #### 1 [id number], [id number], 7097680136, 00094769, 0339533 ####[place] (DEFAULT)[address] [place] [address] 58078 Alk Phos 113 IU/L High 32-91 [facility] Comment on above: Performed By: #### 1 [id number], 3533479289, 4960613533, 72777625, 4820565 ####[place] (DEFAULT)[address] [place] [address] 30200 ALT [Catalytic activity/Vol] 21.0 U/L Normal 17.0-63.0 [facility] Comment on above: Performed By: #### 1 [id number], 7761574474, 5915115745, 82130277, 9118709 ####[place] (DEFAULT)[address] [place] [address] 10617 Anion gap [Moles/Vol] 10.3 mmol/L Normal 5.0-19.0 [facility] Comment on above: Performed By: #### 1 [id number], [id number], 3362497854, 22992781, 6018529 ####[place] (DEFAULT)[address] [place] [address] 11994 AST [Catalytic activity/Vol] 29 U/L Normal 15-41 [facility] Comment on above: Performed By: #### 1 [id number], [id number], 3929330040, 82314972, 9342341 ####[place] (DEFAULT)[address] [place] [address] 09072 Bili Total 2.3 mg/dL High 0.3-1.2 [facility] Comment on above: Performed By: #### 1 [id number], [id number], 2838904340, 78705599, 1917487 ####[place] (DEFAULT)[address] [place] [address] 46424 Calcium [Mass/Vol] 9.2 mg/dL Normal 8.9-10.3 [facility] Comment on above: Performed By: #### 1 [id number], [id number], 7889460044, 36702259, 4931075 ####[place] (DEFAULT)[address] [place] [address] 35543 Chloride [Moles/Vol] 105 mmol/L Normal 101-111 [facility] Comment on above: Performed By: #### 1 [id number], [id number], 3604486548, 41632727, 1266772 ####[place] (DEFAULT)[address] [place] [address] CO2 [Moles/Vol] 27 mmol/L Normal 21-32 [facility] Comment on above: Performed By: #### 1 [id number], [id number], 3936119890, 22863641, 0121196 ####[place] (DEFAULT)[address] [place] [address] 24923 Creatinine [Mass/Vol] 1.03 mg/dL Normal 0.90-1.30 [facility] Comment on above: Performed By: #### 1 [id number], [id number], 7731216066, 29252369, 6254352 ####[place] (DEFAULT)[address] [place] [address] 24014 Globulin (S) [Mass/Vol] 3.0 g/dL Normal 1.5-4.3 [facility] Comment on above: Performed By: #### 1 [id number], 7977493601, 7817088735, 18066993, 4200272 ####[place] (DEFAULT)[address] [place] [address] 63000 Glucose [Mass/Vol] 106.0 mg/dL Normal 74.0-118.0 [facility] Comment on above: Performed By: #### 1 [id number], [id number], 6626505724, 52524391, 2038095 ####[place] (DEFAULT)[address] [place] [address] 71881 Osmolality 278 mOsm/L Invalid Interpretation Code [facility] Comment on above: Performed By: #### 1 [id number], [id number], 7970595476, 97424123, 2408898 ####[place] (DEFAULT)[address] [place] [address] 68906 Potassium [Moles/Vol] 4.3 mmol/L Normal 3.6-5.1 [facility] Comment on above: Performed By: #### 1 [id number], 0664287893, 8514649664, 57935659, 9824956 ####[place] (DEFAULT)[address] [place] [address] 04966 Protein [Mass/Vol] 6.7 g/dL Normal 6.5-8.1 [facility] Comment on above: Performed By: #### 1 [id number], 1068634823, 7207913740, 35009233, 3674109 ####[place] (DEFAULT)[address] [place] [address] 57621 Sodium [Moles/Vol] 138.0 mmol/L Normal 136.0-144 . 0 [facility] Comment on above: Performed By: #### 1 [id number], [id number], 3764321411, 92953425, 7758213 ####[place] (DEFAULT)[address] [place] [address] 89211 Urea nitrogen [Mass/Vol] 19 mg/dL Normal 8-26 [facility] Comment on above: Performed By: #### 1 [id number] ####[place] (DEFAULT)[address] [place] [address] Urea nitrogen/Creatinine [Mass ratio] 18.4 mg/mg High 4.6-16.2 [facility] Comment on above: Performed By: #### 1 [id number], [id number] ####[place] (DEFAULT[address] [address] ED Clinical Summaryon 2023 ED Clinical Summary [facility] - Emergency Department [address] [place] [address] ED Clinical Summary PERSON INFORMATION Name: PAU BAUER Age: 74 Years Sex: MALE : 1950 MRN: Acct#: Visit Reason: Knee pain-swelling; RT KNEE PAIN/SWELLING Arrival: 03/11/2024 12:35:14 Discharge: 03/11/2024 15:42:00 LOS: 000 03:07 Check In: 03/11/2024 12:35:14 Checkout:03/11/2024 15:42:00 Address: [facility] [address] PCP: SHEREE GRECO PROVIDER INFORMATION Provider Role Assigned Unassigned Anna Mills MD ED Provider 03/11/2024 12:59:08 Jyothi Medeiros YEAST DISTILLER Nurse 03/11/2024 13:16:26 VITALS INFORMATION Vital Sign Triage Latest Temperature Tympanic Temperature Temporal Artery Pulse Rate O2 Sat 94 % 94 % Respiratory Rate 14 br/min 14 br/min Blood Pressure /88 mmHg /88 mmHg MEDICAL INFORMATION Medications Given: Medication Dose Route furosemide (Lasix) 40 mg Oral Allergy Information: Egg Allergy PHYSICIAN DOCUMENTATION DISCHARGE INFORMATION: Discharge Disposition: Home Discharge Location: Home PATIENT EDUCATION INFORMATION Instructions: Peripheral Edema; Edema; Acute Knee Pain, Adult Follow-Up: With: Address: When: SHEREE GRECO [address] [place] [address] Within 1 to 2 days DIAGNOSIS: 1:Knee joint pain; 2:Lower extremity edema Patient Understands: Yes - Patient/family/caregiver verbalizes understanding of instructions given Comment: [facility] ED Note-Nursingon 03-11-2024 ED Note-Nursing Patient arrives with c/o right knee pain. Patient states that for weeks his right knee has been slightly painful, but this morning when he woke up the pain was worse than before and decided to come in. Patient denies recent injury to site. Bilateral leg swelling is normal per patient. [facility] ED Patient Summaryon 024 ED Patient Summary [facility] - Emergency Department [address] [place], [place] [id number] PATIENT DISCHARGE INSTRUCTIONS Patient Information Name: PAU BAUER Age: 74 Years Date of : 1950 Reason For Visit: Knee pain-swelling; RT KNEE PAIN/SWELLING Arrival Time: 03/11/2024 12:35:14 Primary Care Physician: SHEREE GRECO Attending Physician: Anna Mills MD Comment: Visit Diagnosis: Diagnoses This Visit Knee joint pain (M25.569) Knee pain-swelling ([id number]) Lower extremity edema (R60.0) The Pharmacy at [facility] is open Friday through Friday from 9A to 6P and Friday and Friday from 9A to 5P Prescription Information: If you have been given a prescription for narcotics, seek immediate medical attention if you have any difficulty breathing or any sudden status changes such as confusion and sleepiness. If you or anyone you know is experiencing suicidal thoughts, mental health, alcohol and/or drug addiction problems; contact the [facility], [facility]–1983 19/05 Crisis Hotline -Text 1GWRH [place] 061461. If you received any narcotics, sedation, or any other medication that causes drowsiness for the next 24 hours, unless otherwise directed: ? Do not drive a car. ? Do not operate machinery such as power tools, lawn mowers, drills, sewing machines, or stoves ? Avoid alcoholic beverages and drugs for allergies, nerves, or sleep ? Do not make important personal or business decisions or sign any legal documents With: Address: When: SHEREE GRECO [address] [place] [id number] Within 1 to 2 days Medication Information: The exam and treatment you received today in the [facility] Emergency Department were for an urgent problem and are not intended as complete care. It is important for you to follow up with a doctor, nurse practitioner, or physician?s food trades assistants for ongoing care. If your symptoms become worse or you do not improve as expected and you are unable to reach your usual health care provider, you should return to the Emergency Department, we are available 24 hours a day. For those patients who have received Radiology results, the interpretation of your X-ray as given to you by our Emergency Department physician is only a preliminary report. The Radiologist will review your films and if there is a change in the diagnosis you will be notified by phone. Please make sure you have provided a working phone number so we can reach you if necessary. In the event that you had a lab culture while you were a patient in the Emergency Department, you will be notified by phone if there is a need to change your antibiotic. Please make sure you have provided a working phone number so we can reach you if necessary. [facility] Emergency Department has provided you with a complete list of medications post discharge. Please inform your gas shovel operator/provider of your visit and for further instruction on these medications. Any specific questions regarding your chronic medications and dosages should be discussed with your primary care physician(s) and/or pharmacist. Medications to Continue That Have Not Changed Other Medications apixaban (Eliquis 5 mg oral tablet) 1 tab(s) Oral (given by mouth) 2 times a day (scheduled). aspirin (aspirin 81 mg oral tablet) 1 tab(s) Oral (given by mouth) every day. atorvastatin (atorvastatin 10 mg oral tablet) TAKE 1 TABLET BY MOUTH ONCE DAILY. 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 Refills: 0. diazePAM (Valium 5 mg oral tablet) 1 tab(s) PO 30 min prior to procedure then second dose 5 min before procedure prn. Need hazmat tanker driver.. Refills: 0. furosemide (furosemide 40 mg oral tablet) 1 tab(s) Oral (given by mouth). metFORMIN (metFORMIN 500 mg oral tablet) 1 tab(s) Oral (given by mouth) 2 times a day (scheduled). metoprolol (Metoprolol Tartrate 50 mg oral tablet) 1 tab(s) Oral (given by mouth) 2 times a day (scheduled). nivolumab 240 Milligram Intravenous. Repeat every 14 days. potassium chloride (potassium chloride 99 mg oral tablet) 2 tab(s) Oral (given by mouth) once a day (in the evening). sacubitril-valsartan (Entresto 24 mg-26 mg oral tablet) 1 tab(s) Oral (given by mouth) 2 times a day (scheduled). Visit Information Allergies: Substance Reaction Symptoms Type Comments Egg Allergy Drug Vital Signs: Vitals and Measurements this Visit (last charted value for your 03/11/2024 visit) Vital Signs This Visit Temperature Oral: 37.0 DegC Heart Rate Monitored: 79 bpm Respiratory Rate: 14 br/min Systolic Blood Pressure: 123 mmHg Diastolic Blood Pressure: 88 mmHg SpO2: 94 % Oxygen Therapy: Room air Measurements This Visit Height/Length Measured: 167.6 cm Weight Measured: (more content not included)... [facility] Extra Greenon 03-11-2024 Tube Collected Yes Invalid Interpretation Code [facility] Comment on above: Performed By: #### 1 [id number] ####[place] (DEFAULT)[address] [place] [address] XR Knee Complete Righton XR Knee Complete Right EXAM: XR Knee Com plete Right HISTORY: knee pain and swelling COMPARISON: No prior available for comparison. TECHNIQUE: Right knee radiograph, FINDINGS/IMPRESSION: Degenerative changes noted, mostly involving the medial compartment with moderate to severe joint space narrowing. No obvious acute or suspicious osseous abnormality. No dislocation. No focal areas of soft tissue swelling. No joint effusion. 2.2 cm radiopaque object overlies the lateral aspect of the knee on the sunrise view. Correlate if this corresponds with the reported external artifact on the patient's clothing. Final Dictated by: Berlin Ruiz MD Dictated DT/TM: 03/11/24 3:00 Signed (Electronic Signature): Berlin Ruiz MD 03/11/24 3:06 pm Technologist: SHELBY [facility] A1C HEMOGLOBINon 09-08-2023 HbA1c (Bld) [Mass fraction] 7.2 % hhgregg Other HbA1c (Bld) [Mass fraction]o n 09-08-[address] [facility] Other Alanine aminotransferase [En zymatic activity/volume] in Serum or PlasmaOrdered By: Sheree Greco on 03-10-2023 ALT [Catalytic activity/Vol] 9 U/L 7-52 [facility] Albumin [Mass/volume] in Ser um or Plasma by Bromocresol green (BCG) dye binding methoOrdered By: Sheree Greco on 03-10-2023 Albumin BCG dye [Mass/Vol] 4.0 g/dL 3.5-5.7 [facility] Alkaline phosphatase [Enzyma tic activity/volume] in Serum or PlasmaOrdered By: Sheree Greco on 03-10-2023 ALP [Catalytic activity/Vol] 148 U/L 34-104 [facility] Aspartate aminotransferase [ Enzymatic activity/volume] in Serum or PlasmaOrdered By: Sheree Greco on 03-10-2023 AST [Catalytic activity/Vol] 13 U/L 13-39 [facility] Basophils Auto (Bld) [#/Vol] Ordered By: Sheree Greco on 03-10-2023 Basophils (Bld) [#/Vol] 0.1 10*3/uL 0.0-0.2 [facility] Basophils/100 WBC Auto (Bld) Ordered By: Sheree Greco on 03-10-2023 Basophils/100 WBC (Bld) 1.2 % . [facility] Bilirubin.total [Mass/volume ] in Serum or PlasmaOrdered By: Sheree Greco on 03-10-2023 Bilirubin [Mass/Vol] 1.4 mg/dL 0.3-1.0 [facility] Comment on above: Samples from patient s who have taken Naproxen have shown spurious elevation in Total Bilirubin levels. A metabolite of Naproxen, O-desmethylnaproxen, has been shown to interfere with the Cedric-Nani method for measuring Total Bilirubin. Calcium [Mass/volume] in Ser um or PlasmaOrdered By: Sheree Greco on 03-10-2023 Calcium [Mass/Vol] 9.3 mg/dL 8.6-10.3 [facility] Carbon dioxide, total [Moles /volume] in Serum or PlasmaOrdered By: Sheree Greco on 03-10-2023 CO2 [Moles/Vol] 29.7 mmol/L 21.0-31.0 [facility] Chloride [Moles/volume] in S anahy or PlasmaOrdered By: Sheree Greco on 03-10-2023 Chloride [Moles/Vol] 102 mmol/L 98-107 [facility] Cholesterol [Mass/volume] in Serum or PlasmaOrdered By: Sheree Greco on 03-10-2023 Cholesterol [Mass/Vol] 141 mg/dL 140-200 [facility] Comment on above: Chol less than 200 m g/dl low riskChol 201-239 mg/dl borderline riskChol 240 mg/dl and greater high risk Cholesterol in LDL Calc [Mas s/Vol]Ordered By: Sheree Greco on 03-10-2023 Cholesterol in LDL [Mass/Vol] 78 mg/dL 0-100 [facility] Comment on above: LDL ATP III CLASSIFI CATIONLDL less than 100 mg/dL OptimalLDL 100-129 mg/dL Near or above optimalLDL 130-159 mg/dL Borderline highLDL 160-189 mg/dL HighLDL greater than 189 mg/dL Very high Cholesterol in VLDL Calc [Ma ss/Vol]Ordered By: Sheree Greco on 03-10-2023 Cholesterol in VLDL [Mass/Vol] 20 mg/dL [facility] Creatinine [Mass/volume] in Serum or PlasmaOrdered By: Sheree Greco on 03-10-2023 Creatinine [Mass/Vol] 1.08 mg/dL 0.70-1.30 [facility] Creatinine [Mass/volume] in UrineOrdered By: Sheree Greco on 03-10-2023 Creatinine (U) [Mass/Vol] 257.0 mg/dL 14.0-26.0 [facility] Eosinophils Auto (Bld) [#/Vo l]Ordered By: Sheree Greco on 03-10-2023 Eosinophils (Bld) [#/Vol] 0.1 10*3/uL 0.0-0.45 [facility] Eosinophils/100 WBC Auto (Bl d)Ordered By: Sheree Greco on 03-10-2023 Eosinophils/100 WBC (Bld) 1.7 % . [facility] Erythrocyte distribution wid th Auto (RBC) [Ratio]Ordered By: Sheree Greco on 03-10-2023 Erythrocyte distribution width (RBC) [Ratio] 13.7 % 12.0-14.8 [facility] Globulin Calc (S) [Mass/Vol] Ordered By: Sheree Greco on 03-10-2023 Globulin (S) [Mass/Vol] 2.7 g/dL [facility] Glucose [Mass/volume] in Ser um or PlasmaOrdered By: Sheree Greco on 03-10-2023 Glucose [Mass/Vol] 136 mg/dL 70-100 [facility] Comment on above: ADA recommended refe rence rangeRandom Glucose Reference Range is dependent on time and content of last meal. Glucose of more than 200 mg/dL in a nonstressed, ambulatory subject supports the diagnosis of Diabetes Mellitus. Hematocrit Auto (Bld) [Volum e fraction]Ordered By: Sheree Greco on 03-10-2023 Hematocrit (Bld) [Volume fraction] 43.1 % 38.8-50.0 [facility] Hemoglobin [Mass/volume] in BloodOrdered By: Sheree Greco on 03-10-2023 Hemoglobin (Bld) [Mass/Vol] 14.0 g/dL 13.0-17.0 [facility] Leukocytes [#/volume] correc maksim for nucleated erythrocytes in Blood by Automated counOrdered By: Sheree Greco on 03-10-2023 WBC corrected for nucl RBC Auto (Bld) [#/Vol] 7.0 10*3/uL 4.1-10.5 [facility] Lymphocytes Auto (Bld) [#/Vo l]Ordered By: Sheree Greco on 03-10-2023 Lymphocytes (Bld) [#/Vol] 1.6 10*3/uL 1.00-4.8 [facility] Lymphocytes/100 WBC Auto (Bl d)Ordered By: Sheree Greco on 03-10-2023 Lymphocytes/100 WBC (Bld) 22.5 % . [facility] MCH Auto (RBC) [Entitic mass ]Ordered By: Sheree Greco on 03-10-2023 MCH (RBC) [Entitic mass] 26.7 pg 27.5-35.2 [facility] MCHC Auto (RBC) [Mass/Vol]Or dered By: Sheree Greco on 03-10-2023 MCHC (RBC) [Mass/Vol] 32.4 g/dL 32.5-35.6 [facility] MCV Auto (RBC) [Entitic vol] Ordered By: Sheree Greco on 03-10-2023 MCV (RBC) [Entitic vol] 82.2 fL 83.5-101 [facility] Microalbumin [Mass/volume] i n UrineOrdered By: Sheree Greco on 03-10-2023 Albumin DL <= 20 mg/L (U) [Mass/Vol] 2.4 mg/dL 0.0-1.8 [facility] Monocytes Auto (Bld) [#/Vol] Ordered By: Sheree Greco on 03-10-2023 Monocytes (Bld) [#/Vol] 0.4 10*3/uL 0.0-0.8 [facility] Monocytes/100 WBC Auto (Bld) Ordered By: Sheree Greco on 03-10-2023 Monocytes/100 WBC (Bld) 5.6 % . [facility] Neutrophils Auto (Bld) [#/Vo l]Ordered By: Sheree Greco on 03-10-2023 Neutrophils (Bld) [#/Vol] 4.9 10*3/uL 1.8-7.7 [facility] Neutrophils/100 WBC Auto (Bl d)Ordered By: Sheree Greco on 03-10-2023 Neutrophils/100 WBC (Bld) 69.0 % . [facility] No Panel InformationOrdered By: Sheree Greco on 03-10-2023 Estimated GFR (CKD-EPI) > 60.0 mL/Min [facility] Creatinine Clearance (Chem N/A [facility] Nucleated erythrocytes [Pres ence] in Blood by Automated countOrdered By: Sheree Greco on 03-10-2023 Nucleated RBC Auto Ql (Bld) 0.2 /100{WBC} 0-0.5 [facility] Platelet mean volume Auto (B ld) [Entitic vol]Ordered By: Sheree Greco on 03-10-2023 Platelet mean volume (Bld) [Entitic vol] 8.4 fL 6.6-10.1 [facility] Platelets Auto (Bld) [#/Vol] Ordered By: Sheree Greco on 03-10-2023 Platelets (Bld) [#/Vol] 212 10*3/uL 150-450 [facility] Potassium [Moles/volume] in Serum or PlasmaOrdered By: Sheree Greco on 03-10-2023 Potassium [Moles/Vol] 4.4 mmol/L 3.5-5.1 [facility] Prostate specific Ag [Mass/v olume] in Serum or PlasmaOrdered By: Sheree Greco on 03-10-2023 Prostate specific Ag [Mass/Vol] 0.540 ng/mL 0.000-4.00 0 [facility] Protein [Mass/volume] in Ser um or PlasmaOrdered By: Sheree Greco on 03-10-2023 Protein [Mass/Vol] 6.7 g/dL 6.4-8.9 [facility] RBC Auto (Bld) [#/Vol]Ordere d By: Sheree Greco on 03-10-2023 RBC (Bld) [#/Vol] 5.25 10*6/uL 3.90-5.60 [facility] Serum or plasma albumin/glob ulin mass ratioOrdered By: Sheree Greco on 03-10-2023 Albumin/Globulin [Mass ratio] 1.5 {ratio} [facility] Serum or plasma anion gap de terminationOrdered By: Sheree Greco on 03-10-2023 Anion gap [Moles/Vol] 10.7 mmol/L 6.0-15.0 [facility] Serum or plasma high density lipoprotein (HDL) cholesterol measurementOrdered By: Sheree Greco on 03-10-2023 Cholesterol in HDL [Mass/Vol] 42 mg/dL 29-71 [facility] Comment on above: HDL CHOL ATP-III CLA SSIFICATION Cardiovascular RiskHDL > or equal to 60 mg/dL LOWHDL < 40 mg/dL HIGH Serum or plasma total choles terol/high density lipoprotein (HDL) cholesterol mass ratOrdered By: Sheree Greco on 03-10-2023 Cholesterol.total/Chol esterol in HDL [Mass ratio] 3.4 {ratio} <5.0 [facility] Sodium [Moles/volume] in Ser um or PlasmaOrdered By: Sheree Greco on 03-10-2023 Sodium [Moles/Vol] 138 mmol/L 136-145 [facility] Thyrotropin [Units/volume] i n Serum or PlasmaOrdered By: Sheree Greco on 03-10-2023 TSH Qn 3.36 m[IU]/L 0.45-5.33 [facility] Triglyceride [Mass/volume] i n Serum or PlasmaOrdered By: Sheree Greco on 03-10-2023 Triglyceride [Mass/Vol] 103 mg/dL 0-149 [facility] Comment on above: TRIG ATP III CLASSIF ICATIONTRIG less than 150 mg/dL NormalTRIG 150-199 mg/dL Borderline highTRIG 200-500 mg/dL High TRIG greater than 500 mg/dL Very highStandard traceable to the Center for Disease Conrtrol and Prevention (CDC) test method. Urea nitrogen [Mass/volume] in Serum or PlasmaOrdered By: Sheree Greco on 03-10-2023 Urea nitrogen [Mass/Vol] 18 mg/dL 7-25 [facility] Urine microalbumin/creatinin e mass ratioOrdered By: Sheree Greco on 03-10-2023 Albumin/Creatinine DL <= 20 mg/L (U) [Mass ratio] 9.0 mg/g 0.0-30.0 [facility] Comment on above: 30-300 mg/g indicate s an increased risk for diabetic nephropathy. Greater than 300 mg/g is consistent with clinical nephropathy. (Am. J. 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 : No What are the patient's signs and symptoms? : melanoma of left ear, evaluate for disease PET/CT Melanoma Initial; Status:Active; Requested for:[id number]; Radiologist to Determine Optimal Study : Y What are the patient's signs and symptoms? 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 s/p partial auriculectomy and SLNB. Margins negative, depth 7 mm with cartilage involvement and micrometastatic disease. Stage 3 -We will get MRI brain and PET scan -will discuss at friday -f/u in 6 weeks Chief Complaint Melanoma left posterior ear History of Present [id number] male referred by Nemo Smith for management of a melanoma on the left posterior ear. Past medical history includes hyperlipidemia, arrhythmia, coronary artery disease, diabetes. Prior surgeries include gastric bypass and orthopedic procedures. He has never had a adverse reaction anesthesia. He denies any drug allergies. His family's past medical history was reviewed and noncontributory. He has a history of smoking but he quit in 1986. He drinks socially. He is and currently retired. He lives alone He is now s/p partial auriculectomy and SLNB. Margins negative, depth 7 mm with cartilage involvement and micrometastatic disease Review of Systems All other systems have been reviewed and are negative for complaint. 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) Past Medical History History of malignant neoplasm of skin (V10.83) (Z85.828) Surgical History History of Gastrointestinal surgery History of Knee surgery Family History Family history of Family history of Family history of Old age Family history of Social History Drinks beer (V49.89) (Z78.9) Drinks whiskey Former smoker (V15.82) (Z87.891) Lives alone (V60.3) (Z60.2) Retired from employment Allergies No Known Drug Allergies Recorded By: Malorie Braun; 04/08/2022 4:15:22 PM No Known Environmental Allergies Recorded By: Malorie Braun; 04/08/2022 4:15:22 PM No Known Food Allergies Recorded By: Malorie Braun; 04/08/2022 4:15:22 PM Current Meds Medication NameInstruction Aspirin 81 MG TABS Atorvastatin Calcium 10 MG Oral TabletTAKE 1 TABLET BY MOUTH ONCE DAILY Eliquis 5 MG Oral TabletTAKE 1 TABLET BY MOUTH TWICE DAILY Entresto 24-26 MG Oral Tablet Furosemide 40 MG Oral TabletTAKE 1 TABLET BY MOUTH ONCE DAILY metFORMIN HCl - 500 MG Oral TabletTAKE 1 TABLET BY MOUTH TWICE DAILY WITH A MEAL Metoprolol Tartrate 50 MG Oral TabletTAKE 1 TABLET BY MOUTH TWICE DAILY Potassium TABS Vitals Vital Signs Recorded: [id number] 10:04AM Tapoinhxlqy87.3 F Height5 ft 7 in Slhudf765 lb 6 oz BMI Qqizlafhgd81.18 kg/m2 BSA Calculated2.17 Tobacco Useb) No Falls Screening (Age 18+)a) No falls within the last year Pain Scale0/10 Physical Exam neck and ear incisions healing well, no sign of infection 'Scores and Scales' Signatures Electronically signed by : Aman Beck MD; May 12 2022 8:01AM EST (Author) Normal [employer] Tobacco Screening.on 022 Fall risk assessment a) No falls within the last year [facility] Work Phone: Tobacco use status [facility] b) No [facility] Work Phone: CORONAVIRUS 2019, SCREEN ASY MPTOMATICon 04-24-2022 SARS-CoV-2 (COVID-19) RNA ARIANNE+probe Ql (Unsp spec) Not detected Normal Not Detected [facility] Comment on above: Result Comment: . This assay is designed to detect the N, ORF1ab and/or S genes of SARS-CoV-2 via nucleic acid amplification. A Negative (NOT DETECTED) result does not preclude 2019-nCoV infection since the adequacy of sample collection and/or low viral burden may result in presence of viral nucleic acids below the clinical sensitivity of this test method. Negative (NOT DETECTED) result should not be used as the sole basis for treatment or other patient management decisions. Rather negative results should be combined with clinical observations, patient history, and epidemiological information to make patient management decisions. Fact sheet for providers: https://www.fda.gov/media/864906/download Fact sheet for patients: https://www.fda.gov/media/454714/download This test has received FDA Emergency Use Authorization (EUA) and has been verified by [facility] ([facility]). This test is only authorized for the duration of time that circumstances exist to justify the authorization of the emergency use of in vitro diagnostic tests for the detection of SARS-CoV-2 virus and/or diagnosis of COVID-19 infection under section 564(b)(1) of the Act, 21 U.S.C. 360bbb-3(b)(1), unless the authorization is terminated or revoked sooner. [facility] is certified under CLIA-88 as qualified to perform high complexity testing. Testing is performed in the [facility] laboratories located at [address] [place] [address]. Performed By: #### C [facility] #### [address] [place] [address] Covid 19 Resultson 2 SARS-CoV-2 (COVID-19) RNA ARIANNE+probe Ql (Unsp spec) NEGATIVE COVID-19 Test Coronaviruses are common world-wide and are the cause of many common colds. SARS-COV2 is a new coronavirus that began circulating worldwide in 2019 so we are calling it COVID-19. It has been estimated that four out of five patients with COVID-19 will recover at home without the need for medical attention. Symptoms of COVID-19 may include cough, fever, shortness of breath, loss of taste or smell and other flu-like symptoms including chills, sore muscles, sore throat, and headache. Severe illness is more common in older people and people with other health problems such as high blood pressure, obesity, and immune system problems. If the test is positive, you have COVID-19. You will be contacted by the ordering physicians office and instructed to remain on home isolation, in accordance with CDC guidelines. You may also be contacted by the [facility] to see if any of your close contacts may have been exposed to the virus and need to quarantine. If the test is negative, you likely do not have COVID-19 at this time, but you still may have a different illness that can spread to other people (like Influenza, or the Flu) and could still be at risk for getting COVID-19. We recommend that you stay away from other people to limit the spread of illness until your symptoms are improving and you are fever-free for 24 hours without the use of fever lowering medications such as acetaminophen or ibuprofen. No test is 100% accurate so if you are still concerned you may have COVID-19, talk to your doctor about the need to continue to stay away from others. Medicines Unless your provider told you not to use the following: Acetaminophen (Tylenol and others) is generally safe. Anti-inflammatory medications, such as Ibuprofen (Advil or Motrin) or Naproxen (Aleve) can also be used. Mbak-byp-imuodny cough and cold medicines can be used according to the instructions on the package. Some kqin-yzu-sjdhrtc medicines also contain acetaminophen. Make sure you are not taking more than your recommended dose. For those not hospitalized, there is no specific treatment available for this illness. Antibiotics do not treat Coronaviruses. Follow-Up Follow up with your doctor by scheduling a virtual visit or consider follow-up at one of our urgent care fever clinics. If you are having difficulty breathing, or are very weak and having difficulty standing, this is a medical emergency. Call 911 or have someone take you to the nearest emergency room immediately. If possible, wear a facemask. Additional guidance from the CDC for patients who tested POSITIVE for COVID-19 How to isolate: Isolate yourself in a specific room at home and limit your contact with others. Use a separate bathroom from other members of the household, when possible. Leave home only to get essential medical care. Do not go to work, school or public areas. Avoid using public transportation, ride-sharing, or taxis. Restrict contact with pets and other animals. If you must care for your pet or be around animals while you are sick, wash your hands before and after your interaction and wear a facemask. Make sure that shared spaces in the home have good airflow, such as by an air conditioner or an opened window, weather permitting. Personal Hygiene Procedures: Wear a face mask when in the same room as other people or pets. If a face mask interferes with your breathing, others should wear a mask when sharing space with you. Frequent hand-washing: wash your hands with soap and water for at least 20 seconds. If soap and water are not available, use alcohol-based hand over hauler helper. Avoid touching your eyes, nose, and mouth with unwashed hands. Household Hygiene Procedures: Avoid sharing personal household items such as dishes, glassware, cups, eating utensils, towels or bedding with other people or pets in your home. After use, these items should be washed with soap and hot water. Disinfect all high-touch surfaces every day with antibacterial cleaning solutions such as Lysol wipes, bleach, cleansers, etc. High-touch surfaces include tabletops, doorknobs, bathroom fixtures, toilets, phones, keyboards, tablets and bedside tables. Immediately clean any surfaces that may have blood, poop or body fluids on them, using antibacterial cleaning solutions such as Lysol wipes, bleach, cleansers, etc. If clothing or bedding come into contact with blood, poop or body fluids, they should be washed immediately. Follow the directions on the laundry detergent and clothing labels but hot water is recommended when possible. Stopping home isolation precautions: If possible, consult your doctor before stopping home isolation precautions. According to the CDC, you can discontinue home isolation precautions when you have met both of these criteria: Your fever and respiratory symptoms have been gone for 24 lay (more content not included)... Normal [facility] Dermatopathologyon 2 Dermatopathology Name PAU BAUER Pathologist: MONET MORGAN MD Date of Procedure: 04/24/2022 Date Received: 04/25/2022 Date Reported 05/02/2022 Submitting Physician: AMAN BECK MD Location: [facility] Other External # FINAL DIAGNOSIS A. SKIN, LEFT PARTIAL AURICULECTOMY, MELANOMA OF LEFT EAR, EXCISION: ULCERATED MALIGNANT MELANOMA, BRESLOW THICKNESS 7 MM, INKED MARGINS FREE IN PLANES OF SECTIONS EXAMINED AND DERMAL NEVUS, INKED MARGINS FREE IN PLANES OF SECTIONS EXAMINED, SEE NOTE. Note: Microscopic examination reveals a specimen that extends into cartilage. There are nests of atypical melanocytes along the dermal-epidermal junction in addition to nests of atypical melanocytes filling the dermis and abutting the cartilage. There is dense solar elastosis and there is a separate focus of nested and single benign appearing melanocytes in the dermis. The melanocytes are present in blocks A4 through A6 and there are nerves embedded in the main tumor mass. Step sections were performed. B. NODE, SENTINEL LYMPH NODE # 1 LEFT INTRAPAROTID, EXCISION: BENIGN LYMPH NODE. C. NODE, SENTINEL LYMPH NODE # 2 LEFT INFERIOR PAROTID, EXCISION: CAPSULAR NEVUS AND FOCAL MELAN-A AND SOX-10 POSITIVE CELLS, SEE NOTE. Note: Microscopic examination reveals a lymph node. In the capsule there are benign appearing melanocytes that stain with antibodies against Melan-A and SOX-10, and do not stain with antibodies against HMB45. In the subcapsular space there are two SOX-10 positive cells that do not appear to be associated with a blood vessel. One of the cells has a nucleus smaller than the average melanoma size in the excision specimen but is within the range of some of the smaller melanoma cells in the primary melanoma. Therefore a metastatic malignant melanoma with a deposit size of 0.03 mm without extracapsular extension is favored. These cells are not seen on the HMB45 stain. All control slides stain appropriately. D. NODE, SENTINEL LYMPH NODE # 3, LEFT SUPRACLAVICULAR, EXCISION: BENIGN LYMPH NODE. Electronically Signed Out by MONET MORGAN M.D. Note One or more of the reagents used to perform assays on this specimen MAY have contained components considered to be analyte specific reagents (ASR's). ASR's have not been cleared or approved by the U.S. Food and Drug Administration. These assays were developed and their performance characteristics determined by the Department of Pathology at [facility]. The FDA does not require this test to go through premarket FDA review. This test is used for clinical purposes. It should not be regarded as investigational or for research. This laboratory is certified under the Clinical Laboratory Improvement Amendments (CLIA) as qualified to perform high complexity clinical laboratory testing. The assays were performed with appropriate positive and negative controls which stained appropriately. CANCER SUMMARY REPORT A. SKIN, LEFT PARTIAL AURICULECTOMY, MELANOMA OF LEFT EAR: SPECIMEN Procedure: Re-excision [place] node(s) biopsy Specimen Laterality: Left TUMOR Tumor Site: External ear: Left partial auriculectomy Histologic Type: Lentigo maligna melanoma Maximum Tumor (Breslow) Thickness (Millimeters): 7 mm Macroscopic Satellite Nodule(s): Not identified Ulceration: Present Extent of Ulceration (Millimeters): 4.8 mm Anatomic (David) Level: V (Melanoma invades subcutis) Mitotic Rate: 2 mitoses per mm2 Microsatellite(s): Not identified Lymphovascular Invasion: Not identified Neurotropism: Present Tumor-Infiltrating Lymphocytes: Present, nonbrisk Tumor Regression: Not identified MARGINS Margin Status for Invasive Melanoma: All margins negative for invasive melanoma Closest Margin Location(s) to Invasive Melanoma: A posterior and mid margin. Distance from Invasive Melanoma to Peripheral Margin: 2.25 mm Distance from Invasive Melanoma to Deep Margin: 0.6 mm Margin Status for Melanoma in situ: All margins negative for melanoma in situ Distance from Melanoma in Situ to Peripheral Margin: 18 mm Distance from Melanoma in Situ to Deep Margin: 18 mm REGIONAL LYMPH NODES Regional Lymph Node Status: Tumor present in regional lymph node(s) Total Number of Lymph Nodes with Tumor: 1 Number of [place] Lymph Nodes with Tumor: 1 [place] Site(s) with Tumor: Subcapsular Size of Largest [place] Node Metastatic Deposit: 0.03 mm Size of Largest [place] Metastatic Deposit: 0.03 mm Extranodal Extension: Not identified Matted Nodes: Not identified Total Number of Lymph Nodes Examined: 3 Number of [place] Nodes Examined: 3 DISTANT METASTASIS PATHOLOGIC STAGE CLASSIFICATION (pTNM, AJCC 8th Edition) Reporting of pT, pN, and (when applicable) pM categories is based on information available to the pathologist at the time the report is issued. As per the AJCC (Chapter 1, 8th Ed.) it (more content not included)... Normal [facility] Comment on above: Performed By: #### D ####Dermatopathology GLUCOSE-POCTon 04-24-2022 Glucose [Mass/Vol] 164 mg/dL High 74 - 99 [facility] Comment on above: Performed By: #### G COURTNEY #### [facility] [address] [place] [address] Glucose [Mass/Vol] 118 mg/dL High 74 - 99 [facility] Comment on above: Performed By: #### G COURTNEY #### [facility] [address] [place] [address] LYMPH GLANDon 04-24-2022 LYMPH GLAND Patient Name: PAU BAUER STUDY: LYMPH GLAND; 04/24/2022 9:57 am INDICATION: 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 COMPARISON: None. ACCESSION NUMBER(S): [id number] ORDERING CLINICIAN: AMAN BECK TECHNIQUE: DIVISION OF NUCLEAR MEDICINE RADIONUCLIDE SENTINEL LYMPH NODE LYMPHOSCINTIGRAPHY A total of 0.52 millicuries of Tc-99m tilmanocept (Lymphoseek) was injected intradermally in a circumferential pattern surrounding the patient's right ear melanoma biopsy site. Sequential images were then acquired. FINDINGS: Dynamic images revealed activity to extend inferomedially from the right ear injection site. There is a great deal of scatter from the injection site given the small anatomic space, but just distal are 2 adjacent foci of intense activity which are felt to likely reflect activity within a left intraparotid lymph node and node adjacent/superior to the parotid gland, respectively. There also low counts statistics within the remainder of the body, likely again due to the constrained anatomic site, which leads to a great deal of image noise in the remainder of the study. There is a small focus of more discrete activity in the region of the left supraclavicular fossa, which could reflect more focal image noise versus a small lymph node. IMPRESSION: Limited study, as detailed above, but probable sentinel lymph node localization in nodes within and just adjacent to the left parotid gland, respectively. Mild focal activity in the left supraclavicular fossa could reflect focal image noise versus activity in a more distant node. Intraoperative correlation recommended. Relevant images were sent to PACS. This study was interpreted at [facility]. Electronically signed by: COREY SELLERS MD Normal [facility] Laboratory - Chemistry and C hemistry - challengeon 04-24-2022 Glucose [Mass/Vol] 164 mg/dL above high threshold 74 - 99 [facility] Work Phone: Glucose [Mass/Vol] 118 mg/dL above high threshold 74 - 99 [facility] Work Phone: NM Lymph Glandon 04-24-2022 NM Lymph node Views Normal [facility] Work Phone: NM Tumor Loc Spec/CTon 04-24 NM Tumor Loc Spec/CT Normal [facility] Work Phone: No Panel Informationon 04-24 [facility] Work Phone: Order Reconciliationon 04-24 Order Reconciliation Page 1 Discharge Reconciliation Document Reconciliation Type: Discharge requested on behalf of Brad Chandler (Resident) done by Bard Chandler ( (Resident)) Discharge - Partial Reconciliation: 24-Apr-2022 07:47 by: Brad Chandler ( (Resident)) Discharge - Reconciliation: 24-Apr-2022 12:53 by: Brad Chandler ( (Resident)) Discharge - Reset to Incomplete: 24-Apr-2022 13:33 by: Brad Chandler ( (Resident)) Discharge - Reconciliation: 24-Apr-2022 13:34 by: Brad Chandler (Resident)) Home Medications EnteredHOME MEDICATIONS AT DISCHARGE DateReconciliation Comment/ Additional Information aspirin 24-Apr-2022 10:25 aspirin 24-Apr-2022 10:25 aspirin is continued as aspirin atorvastatin 10 mg oral tablet 1 tab(s) oral once a day 18-Apr-2022 14:40 atorvastatin 10 mg oral tablet 1 tab(s) oral once a day 18-Apr-2022 14:40 atorvastatin 10 mg oral tablet is continued as atorvastatin 10 mg oral tablet Eliquis 1 tab(s) orally 2 times a day 24-Apr-2022 10:21 Eliquis 1 tab(s) orally 2 times a day restart 7/1/22 01-Mitchell-2022 12:51 Discontinued; Copy/Discontinue Eliquis is continued and modified Entresto 24 mg-26 mg oral tablet 1 tab(s) oral 18-Apr-2022 14:40 Entresto 24 mg-26 mg oral tablet 1 tab(s) oral 18-Apr-2022 14:40 Entresto 24 mg-26 mg oral tablet is continued as Entresto 24 mg-26 mg oral tablet metFORMIN 500 mg oral tablet 1 tab(s) oral 18-Apr-2022 14:40 metFORMIN 500 mg oral tablet 1 tab(s) oral 18-Apr-2022 14:40 metFORMIN 500 mg oral tablet is continued as metFORMIN 500 mg oral tablet metoprolol 24-Apr-2022 10:24 metoprolol 24-Apr-2022 10:24 metoprolol is continued as metoprolol Potassium Gluconate 1 tab(s) oral once a day 18-Apr-2022 14:40 Potassium Gluconate 1 tab(s) oral once a day 18-Apr-2022 14:40 Potassium Gluconate is continued as Potassium Gluconate Current OrdersDateHOME MEDICATIONS AT DISCHARGE DateReconciliation Comment/ Additional Information Acetaminophen Tablet (TYLENOL)DOSE = 650 mg Oral Every 4 Hours, PRN Pain - Mild (1-3) (PACU) when able to take OralClinician Notes: Daysi-operative order ONLY 24-Apr-2022 11:37 Acetaminophen is not required Albuterol 2.5 mg/ 3 mL Nebulizer Soln (PROVENTIL)DOSE = 3 mL Inhalation Once via Nebulizer, PRN Wheezing (PACU)Clinician Notes: Daysi-operative order ONLY 24-Apr-2022 11:37 Albuterol 2.5 mg/ 3 mL Nebulizer Soln is not required HYDROmorphone Injectable (DILAUDID)DOSE = 0.2 mg IntraVenous Push Every 5 Minutes, PRN Pain - Mod (4-6) (PACU) if unable to take oralClinician Notes: Daysi-operative order ONLYMax total of 4 mg regardless of dose. 24-Apr-2022 11:37 HYDROmorphone Injectable is not required HYDROmorphone Injectable (DILAUDID)DOSE = 0.4 mg IntraVenous Push Every 5 Minutes, PRN Pain - Severe (7-10) (PACU)Clinician Notes: Daysi-operative order ONLYMax total of 4 mg regardless of dose. 24-Apr-2022 11:37 HYDROmorphone Injectable is not required Lactated Ringers Infusion IV Bag Volume = 1,000 mL Run at: 100 mL/hr IntraVenous Clinician Notes: Daysi-operative order ONLY 24-Apr-2022 11:37 Lactated Ringers Infusion is not required Ondansetron Injectable (ZOFRAN)DOSE = 4 mg IntraVenous Push Once, PRN PONV, first lineClinician Notes: Daysi-operative order ONLY 24-Apr-2022 11:37 Ondansetron Injectable is not required oxyCODONE Immediate Release Tablet (OXYIR, ROXICODONE)DOSE = 5 mg Oral Every 4 Hours, PRN Pain - Mod (4-6) (PACU) when able to take OralClinician Notes: Daysi-operative order ONLY 24-Apr-2022 11:37 oxyCODONE Immediate Release is not required Home Medications Added During Discharge Reconciliation Activity as Tolerated 24-Apr-2022, Routine, Assistance Level: None, Restrictions: None, Limit your activities and rest today. Additional Patient Instructions Additional post-operative instructions were given to the patient by the provider in the pre-op office visit Additional Patient Instructions Do not consume alcoholic beverages for 24 hours. Additional Patient Instructions Do not engage in sports, heavy work or lifting. Additional Patient Instructions Do not smoke for 24 hours. Additional Patient Instructions Keep Surgical incision dry and clean. Call Physician For: excessive bleeding (slow general oozing that completely soaks dressing or fresh bright red bleeding) or bleeding that will not stop. Apply pressure to the area and elevate. Call Physician For: inability to urinate every 8-12 hours and your bladder becomes too full or painful. Call Physician For: persistant nausea and/or vomiting Over 24 hours Call Physician For: signs and sypmtoms of infection Increased redness or swelling at incision site, increased pain/tenderness at surgical site, increased temperature greater than 100 degress, increasing and/or progressive drainage from surgical site, and/or unusual odor from surgical site. cephalexin 500 mg oral capsule 1 cap(s) or (more content not included)... Normal [facility] Patient Profile - Preop v3on 04-24-2022 Patient Profile - Preop v3 Patient Profile - Preop: Initial Info: Patient DemographicsName: PAU BAUER Date: 1950 Address: [address], [place] [address] Primary Phone [phone] How to be Addressedgeorge Spoken Language PreferredEnglish Stated Reason for Admissionlet ear Primary Contact Name and [phone] Medications Brought to Hospitalno General Health: Weight in kg104.1 kilogram(s) Weight in zln857.5 pound(s) Weight Methodactual (measured) Scale Typestanding Height in feet5 feet Height in inches0 inch(es) Height in cm152.4 centimeter(s) Height Methodstated BMI (kg/m2)44.82 square meter Patient or Family Member Reaction to Anesthesiano previous reaction Blood Avoidance/Restrictionsnon e Previous Transfusion Reactionnot applicable Health Mgmt: Symptoms/Conditions Managed at Homecardiovascular Cardiovascular Symptoms/Conditions CommentHTN Barriers to Managing Healthnone Relationship/Environ: Lives Withalone Living Arrangementsmobile home Resource/Environmental Concernsnone [facility]ticipated [facility] Anticipated at Transitionnone Tobacco Use: Tobacco Useno Pre-op Checklist: Arrival [id number] Arrival Time10:00 Procedure Typeleft auriculectomy lymph node bx NPOyes Last Food [id number] 20:00 Last Clear Fluid [id number] 23:59 ID Band On Patientpatient ID (name) Consent Signedyes H&P Completeyes Anesthesia Assessment Completedyes EKG Performednot ordered Chest X-Ray Performednot ordered Beta-rubens Last Dose Date/[id number] 09:00 Beta-rubens Commentmetoprolol COVID 19 Results in Last 7 daysnegative 6-27 Glucose [id number] Type and Screen Resultedyes Chlorhexadine Bath Givennot applicable Nasal Antiseptic Appliednot applicable Hair Washed with Shampooyes Bowel Prepno Surgical Site Infection Preventionyes Pain Scales and Managementyes Additional Information: Information Review: Allergies, Home Meds and Significant Events have been Reviewed and Verified with Patient/Familyyes Allergy, Intolerance, Adverse Event: Allergies: No Known Allergies: Active Significant Events: 24-Apr-2022 gastric bypass: Past Surgical History, Active 24-Apr-2022 non insulin dependent: Past Medical History, Active 24-Apr-2022 nephrolithiassis: Past Medical History, Active 24-Apr-2022 heart failure: Past Medical History, Active 24-Apr-2022 HLD: Past Medical History, Active 24-Apr-2022 chronic a-fib: Past Medical History, Active 24-Apr-2022 CAD: Past Medical History, Active 24-Apr-2022 HTN: Past Medical History, Active Electronic Signatures: Rachel Friedman (CARO) (Signed 24-Apr-2022 10:26) Authored: Initial Info, General Health, Health Mgmt, Relationship/Environ, Tobacco Use, Pre-op Checklist, Additional Information Last Updated: 24-Apr-2022 10:26 by Rachel Friedman (CARO) Normal [facility] TUMOR LOC SPECT/CTon 022 TUMOR LOC SPECT/CT Patient Name: PAU BAUER STUDY: LYMPH GLAND; 04/24/2022 9:57 am INDICATION: 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 COMPARISON: None. ACCESSION NUMBER(S): [id number] ORDERING CLINICIAN: AMAN BECK TECHNIQUE: DIVISION OF NUCLEAR MEDICINE RADIONUCLIDE SENTINEL LYMPH NODE LYMPHOSCINTIGRAPHY A total of 0.52 millicuries of Tc-99m tilmanocept (Lymphoseek) was injected intradermally in a circumferential pattern surrounding the patient's right ear melanoma biopsy site. Sequential images were then acquired. FINDINGS: Dynamic images revealed activity to extend inferomedially from the right ear injection site. There is a great deal of scatter from the injection site given the small anatomic space, but just distal are 2 adjacent foci of intense activity which are felt to likely reflect activity within a left intraparotid lymph node and node adjacent/superior to the parotid gland, respectively. There also low counts statistics within the remainder of the body, likely again due to the constrained anatomic site, which leads to a great deal of image noise in the remainder of the study. There is a small focus of more discrete activity in the region of the left supraclavicular fossa, which could reflect more focal image noise versus a small lymph node. IMPRESSION: Limited study, as detailed above, but probable sentinel lymph node localization in nodes within and just adjacent to the left parotid gland, respectively. Mild focal activity in the left supraclavicular fossa could reflect focal image noise versus activity in a more distant node. Intraoperative correlation recommended. Relevant images were sent to PACS. This study was interpreted at [facility]. Electronically signed by: COREY SELLERS MD Normal [facility] CORONAVIRUS 2019, SCREEN ASY MPTOMATICon 04-23-2022 Lab Specimen Source Nasal, Nasopharyngeal Normal [facility] Comment on above: Performed By: #### C OVSC #### [facility] [address] [place] [address] Coronavirus 2019 RNA by PCR, Screening Asymptomticon 04-23-2022 Coronavirus 2019 RNA by PCR, Screening Asymptomtic Not detected Normal See Below [facility] Work Phone: Comment on above: SOURCE: Nasal, Nasop haryngealReference Range: Not Detected.This assay is designed to detect the N, ORF1ab and/or S genes of SARS-CoV-2 via nucleic acid amplification. A Negative (NOT DETECTED) result does not preclude 2019-nCoV infection since the adequacy of sample collection and/or low viral burden may result in presence of viral nucleic acids below the clinical sensitivity of this test method. Negative (NOT DETECTED) result should not be used as the sole basis for treatment or other patient management decisions. Rather negative results should be combined with clinical observations, patient history, and epidemiological information to make patient management decisions.Fact sheet for providers: https://www.fda.gov/media/605208/downloadFact sheet for patients: https://www.fda.gov/media/163379/downloadThis test has received FDA Emergency Use Authorization (EUA) and has been verified by [facility] ([facility]). This test is only authorized for the duration of time that circumstances exist to justify the authorization of the emergency use of in vitro diagnostic tests for the detection of SARS-CoV-2 virus and/or diagnosis of COVID-19 infection under section 564(b)(1) of the Act, 21 U.S.C. 360bbb-3(b)(1), unless the authorization is terminated or revoked sooner. [facility] is certified under CLIA-88 as qualified to perform high complexity testing. Testing is performed in the [facility] laboratories located at [address] [place] [id number]. CBC AND DIFFERENTIALon 04-18 % AUTOMATED IMMATURE GRAN 0.4 % Normal 0.0 - 0.9 [facility] Comment on above: Result Comment: Joycelyn ture Granulocyte Count (IG) includes promyelocytes, myelocytes and metamyelocytes but does not include bands. Percent differential counts (%) should be interpreted in the context of the absolute cell counts (cells/L). Performed By: #### C BCDF #### [address] [address] Basophils (Bld) [#/Vol] 0.04 10*3/uL Normal 0.00 - 0.10 [facility] Comment on above: Performed By: #### C BCDF #### [address] [address] Basophils/100 WBC (Bld) 0.5 % Normal 0.0 - 2.0 [facility] Comment on above: Performed By: #### C BCDF #### [address] [address] Eosinophils (Bld) [#/Vol] 0.07 10*3/uL Normal 0.00 - 0.40 [facility] Comment on above: Performed By: #### C BCDF #### [address] [address] Eosinophils/100 WBC (Bld) 1.0 % Normal 0.0 - 6.0 [facility] Comment on above: Performed By: #### C BCDF #### [address] [address] Erythrocyte distribution width (RBC) [Ratio] 12.7 % Normal 11.5 - 14.5 [facility] Comment on above: Performed By: #### C BCDF #### [address] [address] Hematocrit (Bld) [Volume fraction] 43.6 % Normal 41.0 - 52.0 [facility] Comment on above: Performed By: #### C BCDF #### [facility] [address] [place] [address] Hemoglobin (Bld) [Mass/Vol] 13.9 g/dL Normal 13.5 - 17.5 [facility] Comment on above: Performed By: #### C BCDF #### [facility] [address] [place] [address] Lymphocytes (Bld) [#/Vol] 1.70 10*3/uL Normal 0.80 - 3.00 [facility] Comment on above: Performed By: #### C BCDF #### [facility] [address] [place] [address] Lymphocytes/100 WBC (Bld) 23.2 % Normal 13.0 - 44.0 [facility] Comment on above: Performed By: #### C BCDF #### [facility] [address] [place] [address] MCHC (RBC) [Mass/Vol] 31.9 g/dL Low 32.0 - 36.0 [facility] Comment on above: Performed By: #### C BCDF #### [facility] [address] [place] [address] MCV (RBC) [Entitic vol] 84 fL Normal 80 - 100 [facility] Comment on above: Performed By: #### C BCDF #### [facility] [address] [place] [address] Monocytes (Bld) [#/Vol] 0.54 10*3/uL Normal 0.05 - 0.80 [facility] Comment on above: Performed By: #### C BCDF #### [facility] [address] [place] [address] Monocytes/100 WBC (Bld) 7.4 % Normal 2.0 - 10.0 [facility] Comment on above: Performed By: #### C BCDF #### [facility] [address] [place] [address] Neutrophils (Bld) [#/Vol] 4.95 10*3/uL Normal 1.60 - 5.50 [facility] Comment on above: Performed By: #### C BCDF #### [facility] [address] [place] [address] Neutrophils/100 WBC (Bld) 67.5 % Normal 40.0 - 80.0 [facility] Comment on above: Performed By: #### C BCDF #### [facility] [address] [place] [address] NUCLEATED RBC 0.0 /100 WBC Normal 0.0-0.0 [facility] Comment on above: Performed By: #### C BCDF #### [facility] [address] [place] [address] Platelets (Bld) [#/Vol] 230 10*3/uL Normal 150 - 450 [facility] Comment on above: Performed By: #### C BCDF #### [facility] [address] [place] [address] RBC 5.19 x10E12/L Normal 4.50 - 5.90 [facility] Comment on above: Performed By: #### C BCDF #### [facility] [address] [place] [address] WBC (Bld) [#/Vol] 7.3 10*3/uL Normal 4.4 - 11.3 [facility] Comment on above: Performed By: #### C BCDF #### [facility] [address] [place] [address] COMPREHENSIVE PANELon 2021 Albumin [Mass/Vol] 4.0 g/dL Normal 3.4 - 5.0 [facility] Comment on above: Performed By: #### C MP #### [facility] [address] [place] [address] ALP [Catalytic activity/Vol] 122 U/L Normal 33 - 136 [facility] Comment on above: Performed By: #### C MP #### [facility] [address] [place] [address] ALT [Catalytic activity/Vol] 9 U/L Low 10 - 52 [facility] Comment on above: Result Comment: Chloé ents treated with Sulfasalazine may generate falsely decreased results for ALT. Performed By: #### C MP #### [facility] [address] [place] [address] Anion gap [Moles/Vol] 12 mmol/L Normal 10 - 20 [facility] Comment on above: Performed By: #### C MP #### [facility] [address] [place] [address] AST [Catalytic activity/Vol] 14 U/L Normal 9 - 39 [facility] Comment on above: Performed By: #### C MP #### [place] [address] [place] [address] Bilirubin [Mass/Vol] 1.4 mg/dL High 0.0 - 1.2 [facility] Comment on above: Performed By: #### C MP #### [facility] [address] [place] [address] Calcium [Mass/Vol] 9.6 mg/dL Normal 8.6 - 10.6 [facility] Comment on above: Performed By: #### C MP #### [place] [address] [place] [address] Chloride [Moles/Vol] 102 mmol/L Normal 98 - 107 [facility] Comment on above: Performed By: #### C MP #### [facility] [address] [place] [address] Creatinine [Mass/Vol] 0.99 mg/dL Normal 0.50 - 1.30 [facility] Comment on above: Performed By: #### C MP #### [facility] [address] [place] [address] GFR/1.73 sq M.predicted among non-blacks MDRD (S/P/Bld) [Vol rate/Area] 81 mL/min/{1.73_m2} Normal >90 [facility] Comment on above: Result Comment: CALC ULATIONS OF ESTIMATED GFR ARE PERFORMED USING THE 2020 CKD-EPI STUDY REFIT EQUATION WITHOUT THE RACE VARIABLE FOR THE IDMS-TRACEABLE CREATININE METHODS. https://jasn.asnjournals.org/content/early//ASN.69419 29958 Performed By: #### C MP #### [facility] [address] [place] [address] Glucose [Mass/Vol] 147 mg/dL High 74 - 99 [facility] Comment on above: Performed By: #### C MP #### [facility] [address] [place] [address] HCO3 (Bld) [Moles/Vol] 29 mmol/L Normal 21 - 32 [facility] Comment on above: Performed By: #### C MP #### [facility] [address] [place] [address] Potassium [Moles/Vol] 3.9 mmol/L Normal 3.5 - 5.3 [facility] Comment on above: Performed By: #### C MP #### [facility] [address] [place] [address] Protein [Mass/Vol] 6.7 g/dL Normal 6.4 - 8.2 [facility] Comment on above: Performed By: #### C MP #### [facility] [address] [place] [address] Sodium [Moles/Vol] 139 mmol/L Normal 136 - 145 [facility] Comment on above: Performed By: #### C MP #### [facility] [address] [place] [address] Urea nitrogen [Mass/Vol] 15 mg/dL Normal 6 - 23 [facility] Comment on above: Performed By: #### C MP #### [facility] [address] [place] [address] Complete Blood Count + Diffe rentialon 04-18-2022 Basophils/100 WBC (Bld) 0.5 % 0.0 - 2.0 MG-Otolaryngo [employer] Work Phone: Erythrocyte distribution width (RBC) [Ratio] 12.7 % See Below MG-Otolaryngo [employer] Work Phone: Comment on above: Reference Range: 11. 5 - 14.5 Hematocrit (Bld) [Volume fraction] 43.6 % See Below [employer] Work Phone: Comment on above: Reference Range: 41. 0 - 52.0 Hemoglobin (Bld) [Mass/Vol] 13.9 g/dL See Below [employer] Work Phone: Comment on above: Reference Range: 13. 5 - 17.5 Lymphocytes/100 WBC (Bld) 23.2 % See Below [employer] Work Phone: Comment on above: Reference Range: 13. 0 - 44.0 MCHC (RBC) [Mass/Vol] 31.9 g/dL below low threshold See Below [employer] Work Phone: Comment on above: Reference Range: 32. 0 - 36.0 MCV (RBC) [Entitic vol] 84 fL 80 - 100 [employer] Work Phone: Monocytes/100 WBC (Bld) 7.4 % 2.0 - 10.0 [employer] Work Phone: Neutrophils/100 WBC (Bld) 67.5 % See Below [employer] Work Phone: Comment on above: Reference Range: 40. 0 - 80.0 Platelets (Bld) [#/Vol] 230 10*3/uL 150 - 450 [employer] Work Phone: RBC (Bld) [#/Vol] 5.19 {x10E12/L} See Below [employer] Work Phone: Comment on above: Reference Range: 4.5 0 - 5.90 WBC (Bld) [#/Vol] 7.3 10*3/uL 4.4 - 11.3 [employer]-Darryl laryngo YR[employer]MRKT Work Phone: Complete Blood Count + Differential 0.04 {x10E9/L} See Below [employer] Work Phone: Comment on above: Reference Range: 0.0 0 - 0.10 Complete Blood Count + Differential 0.07 {x10E9/L} See Below [employer] Work Phone: Comment on above: Reference Range: 0.0 0 - 0.40 Complete Blood Count + Differential 0.54 {x10E9/L} See Below [employer] Work Phone: Comment on above: Reference Range: 0.0 5 - 0.80 Complete Blood Count + Differential 1.70 {x10E9/L} See Below [employer] Work Phone: Comment on above: Reference Range: 0.8 0 - 3.00 Complete Blood Count + Differential 4.95 {x10E9/L} See Below [employer] Work Phone: Comment on above: Reference Range: 1.6 0 - 5.50 Complete Blood Count + Differential 1.0 % 0.0 - 6.0 [employer] Work Phone: Complete Blood Count + Differential 0.4 % 0.0 - 0.9 [employer] Work Phone: Comment on above: Immature Granulocyte Count (IG) includes promyelocytes, myelocytes and metamyelocytes but does not include bands. Percent differential counts (%) should be interpreted in the context of the absolute cell counts (cells/L). Complete Blood Count + Differential 0.0 {/100_WBC} 0.0-0.0 [employer] Work Phone: Laboratory - Chemistry and C hemistry - challengeon 04-18-2022 Albumin BCP dye [Mass/Vol] 4.0 g/dL 3.4 - 5.0 [employer] Work Phone: ALP [Catalytic activity/Vol] 122 U/L 33 - 136 [facility]tolaryng[facility] [employer] Work Phone: ALT With P-5'-P [Catalytic activity/Vol] 9 U/L below low threshold 10 - 52 [facility]tolaryng[facility] [employer] Work Phone: Comment on above: Patients treated wit h Sulfasalazine may generate falsely decreased results for ALT. Anion gap [Moles/Vol] 12 mmol/L 10 - 20 [facility] Otolaryngo [employer] Work Phone: AST With P-5'-P [Catalytic activity/Vol] 14 U/L 9 - 39 [facility]aryng[facility] [employer] Work Phone: Bilirubin [Mass/Vol] 1.4 mg/dL above high threshold 0.0 - 1.2 [facility]aryng[facility] [employer] Work Phone: Calcium [Mass/Vol] 9.6 mg/dL 8.6 - 10.6 [employer] l[employer] Work Phone: Chloride [Moles/Vol] 102 mmol/L 98 - 107 [facility]O tolaryngo [employer] Work Phone: CO2 [Moles/Vol] 29 mmol/L 21 - 32 [employer]Otolar yngo [employer]KT Work Phone: Creatinine [Mass/Vol] 0.99 mg/dL See Below [employer]- Otolaryngo [employer] Work Phone: Comment on above: Reference Range: 0.5 0 - 1.30 Glucose [Mass/Vol] 147 mg/dL above high threshold 74 - 99 [facility]Otolaryng[facility] [employer] Work Phone: Potassium [Moles/Vol] 3.9 mmol/L 3.5 - 5.3 MG- Otolaryngo [employer] Work Phone: Protein [Mass/Vol] 6.7 g/dL 6.4 - 8.2 MG-Almyra laryngo logy-Riky Work Phone: Sodium [Moles/Vol] 139 mmol/L 136 - 145 [employer]Darryl laryngo logy[employer] Work Phone: Urea nitrogen [Mass/Vol] 15 mg/dL 6 - 23 MG-Otolaryngo [employer] Work Phone: No Panel Informationon 04-18 81 {mL/min/1.73m2} >90 MG-Almyra laryngo [employer] Work Phone: Comment on above: CALCULATIONS OF AXEL MATED GFR ARE PERFORMED USING THE 2020 CKD-EPI STUDY REFIT EQUATION WITHOUT THE RACE VARIABLE FOR THE IDMS-TRACEABLE CREATININE METHODS.https://jasn.asnjournals.org/content//A SN.3629911348 Initial Visit (Otolaryngolog y)on 04-08-2022 Initial Visit (Otolaryngology) Diagnoses/Problems 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 The outside biopsy shows an ulcerated melanoma that is at least 0.7 mm deep however clinically this lesion appears much deeper. It also looks like it is potentially 2 separate nodules adjacent to each other. I cannot palpate any lymphadenopathy. We discussed management which would include auriculectomy, sentinel node biopsy, skin graft. We discussed that he will likely lose his majority of his ear however we will try to save a portion superiorly for his hearing aid if possible and there is also a small chance we can preserve the skin anteriorly and skin graft the posterior side. All questions answered and consent was obtained Chief Complaint Melanoma left posterior ear History of Present [id number] male referred by Nemo Smith for management of a melanoma on the left posterior ear. A shave biopsy was obtained which showed an ulcerated malignant melanoma measuring at least 0.7 mm. Patient reports that he has noticed something behind that ear for some time and that had been growing in size. He has had some bleeding from the lesion since the time of the biopsy. He has no other history of skin cancers. He has not noticed any mass on the neck Past medical history includes hyperlipidemia, arrhythmia, coronary artery disease, diabetes. Prior surgeries include gastric bypass and orthopedic procedures. He has never had a adverse reaction anesthesia. He denies any drug allergies. His family's past medical history was reviewed and noncontributory. He has a history of smoking but he quit in 1986. He drinks socially. He is and currently retired. He lives alone Review of Systems All other systems have been reviewed and are negative for complaint. Past Medical History History of malignant neoplasm of skin (V10.83) (Z85.828) Surgical History History of Gastrointestinal surgery History of Knee surgery Family History Family history of Family history of Family history of Old age Family history of Social History Drinks beer (V49.89) (Z78.9) Drinks whiskey Former smoker (V15.82) (Z87.891) Lives alone (V60.3) (Z60.2) Retired from employment Allergies No Known Drug Allergies Recorded By: Malorie Braun; 04/08/2022 4:15:22 PM No Known Environmental Allergies Recorded By: Malorie Braun; 04/08/2022 4:15:22 PM No Known Food Allergies Recorded By: Malorie Braun; 04/08/2022 4:15:22 PM Current Meds Medication NameInstruction Aspirin 81 MG TABS Atorvastatin Calcium 10 MG Oral TabletTAKE 1 TABLET BY MOUTH ONCE DAILY Eliquis 5 MG Oral TabletTAKE 1 TABLET BY MOUTH TWICE DAILY Entresto 24-26 MG Oral Tablet Furosemide 40 MG Oral TabletTAKE 1 TABLET BY MOUTH ONCE DAILY metFORMIN HCl - 500 MG Oral TabletTAKE 1 TABLET BY MOUTH TWICE DAILY WITH A MEAL Metoprolol Tartrate 50 MG Oral TabletTAKE 1 TABLET BY MOUTH TWICE DAILY Potassium TABS Vitals Vital Signs Recorded: 08Apr2022 03:13PM Cwnpthiuzdl20 F Height5 ft 7.72 in [place]287 lb BMI Sktmwznpkt41.25 kg/m2 BSA Calculated2.21 Tobacco Useb) No Fall Screeninga) No falls within the last year Pain Scale0/10 Physical Exam CONSTITUTIONAL: Vitals -deferred due to COVID precautions, well developed, well nourished. VOICE: Normal RESPIRATION: Breathing comfortably, no stridor. CV: No clubbing/cyanosis/edema in hands. EYES: EOM Intact, sclera normal. NEURO: Alert and oriented times 3, Cranial nerves II-XII intact and symmetric bilaterally. HEAD AND FACE: Symmetric facial features, no masses or lesions, sinuses nontender to palpation. SALIVARY GLANDS: Parotid and submandibular glands normal bilaterally. EARS: Right external ear, ear canal, TM normal. Left posterior external ear with thick melanoma that is potentially 2 separate nodules adjacent to each other. 2 cm margins will include most of the year and we can only potentially spare the most anterior aspect of the helix superiorly and the lobule inferiorly NOSE: External nose midline, anterior rhinoscopy is normal with limited visualization to the anterior aspect of the interior turbinates. No lesions noted. ORAL CAVITY/OROPHARYNX/LIPS: Normal mucous membranes, normal floor of mouth/tongue/OP, no masses or lesions are noted. PHARYNGEAL DUNCAN : No masses noted. Mucosa appears clean and moist NECK/LYMPH: No palpable LAD, no thyroid masses. Trachea palpably midline SKIN: Neck skin is without scar or injury PSYCH: Alert and oriented with appropriate mood and affect 'Scores and Scales' Signatures Electronically signed by : Aman Beck MD; Apr 12 2022 5:14AM EST (Author) Normal [employer] Tobacco Screening.on 022 Fall risk assessment a) No falls within the last year MG-Otolaryngo [facility] Work Phone: Tobacco use status CPHS b) No MG-Otolaryngo [employer]y[facility] Work Phone: Dermatopathologyon 2 Dermatopathology Name: PAU BAUERRoxanna Pathologist: MONET MORGAN MD Date of Procedure: 04/05/2022 Date Received: 04/05/2022 Date Reported 04/11/2022 Submitting Physician: AMAN BECK MD Location: ADE Copy To/Referring/Attending: FELIPE FAJARDO MD FINAL DIAGNOSIS 1 SLIDE/5 UNSTAINED SLIDES, [facility] #[id number] (BX: 03/27/2022) SKIN, LEFT POST EAR, SHAVE BIOPSY: ULCERATED MALIGNANT MELANOMA, BRESLOW THICKNESS AT LEAST 0.7 MM, PRESENT ON THE DEEP MARGIN, SEE NOTE. Note: Microscopic examination reveals a specimen that extends into the mid dermis. There is an ulcer and there are atypical epithelioid and slightly spindled cells in the dermis. There are also benign appearing nests of melanocytes. The atypical cells stain with antibodies against SOX-10. All control slides stain appropriately. There is no epidermal involvement by melanoma in situ which raises a possibility of a metastatic or recurrent malignant melanoma. Alternatively, the ulceration may explain the lack of visualized epidermal melanoma in situ. If this is a primary melanoma it would have features as outlined in the synoptic report below. Electronically Signed Out by MONET MORGAN M.D. Note One or more of the reagents used to perform assays on this specimen MAY have contained components considered to be analyte specific reagents (ASR's). ASR's have not been cleared or approved by the U.S. Food and Drug Administration. These assays were developed and their performance characteristics determined by the Department of Pathology at [facility]. The FDA does not require this test to go through premarket FDA review. This test is used for clinical purposes. It should not be regarded as investigational or for research. This laboratory is certified under the Clinical Laboratory Improvement Amendments (CLIA) as qualified to perform high complexity clinical laboratory testing. The assays were performed with appropriate positive and negative controls which stained appropriately. CANCER SUMMARY REPORT A. 1 SLIDE/5 UNSTAINED SLIDES, [facility] #[id number] (BX: 03/27/2022): SPECIMEN Procedure: Biopsy, shave Specimen Laterality: Left TUMOR Tumor Site: External ear: Left post ear Histologic Type: Either primary dermal, lentigo maligna melanoma or nodular melanoma. Maximum Tumor (Breslow) Thickness (Millimeters): At least: 0.7 mm Broadly transected on the deep margin. Ulceration: Present Extent of Ulceration (Millimeters): 3.5 mm Anatomic (David) Level: At least level: III Broadly transected on the deep margin. Mitotic Rate: 1 mitoses per mm2 Microsatellite(s): Not identified Lymphovascular Invasion: Not identified Neurotropism: Not identified Tumor-Infiltrating Lymphocytes: Present, nonbrisk Tumor Regression: Not identified MARGINS Margin Status for Invasive Melanoma: Invasive melanoma present at margin Margin(s) Involved by Invasive Melanoma: Deep PATHOLOGIC STAGE CLASSIFICATION (pTNM, AJCC 8th Edition) Reporting of pT categories is based on information available to the pathologist at the time the report is issued. As per the AJCC (Chapter 1, 8th Ed.) it is the managing physician?s responsibility to establish the final pathologic stage based upon all pertinent information, including but potentially not limited to this pathology report. pT Category: pT1b ADDITIONAL FINDINGS Additional Findings: Associated nevus: Dermal nevus ADDITIONAL TESTING [employer] Blocks: Normal Block: None Tumor Block: A1 Electronically Signed Out By MONET MORGAN MD/[facility] Diagnostic interpretation performed at [facility] [address] [id number], [facility] [address] Clinical History: SHAVE/ 2.5X2.5CM KA VS. SCC VS. BCC Specimens Submitted As: A: 1 SLIDE/5 UNSTAINED SLIDES, [facility] #[id number] (BX: 03/27/2022) Gross Description: Received for consultation from [facility] is one slide labeled [id number] (BX: 03/27/2022) along with the corresponding pathology report. Received five unstained slides 04/10/22 upon request. Slide/Block Description 1 SLIDE/5 UNSTAINED SLIDES, [id number]. Keep Slides: N Slides Returned: N Personal Consult: N Normal [facility] Comment on above: Performed By: #### D ####Dermatopathology No Panel Informationon 04-05 -Otolaryngo [facility]y[employer] Work Phone: A1C HEMOGLOBINon 03-06-2022 HbA1c (Bld) [Mass fraction] 6.7 % [facility] Other HbA1c (Bld) [Mass fraction]o n 03-06-2022 A1C HEMOGLOBIN [employer] Other PROGRESSon 11-26-2019 PROGRESS HNO ID: [id number] Author: Mukund Phipps V Service: ? Author Type: Physician Type: Progress Notes Filed: 11/26/2019 1:38 PM Note Text: HPI Patient is seen in follow up. Last visit , vital signs, labs , Xrays ( if applicable) reviewed. Moving back to [place], Patient has no new cardiac symptoms since the last visit. Specifically, there is no history of angina, dyspnea, orthoponea, paroxysmal nocturnal dyspnea , dizziness or syncope. There is no leg edema. Has rare palpitations but not sustained or bothersome. There is no history of intermittent claudication, amaurosis fugax . No TIA. No significant weight gain or loss. Memory is not impaired. Medications were reviewed and are af follows: Current Outpatient Medications Medication Sig - furosemide (LASIX) 20 mg tablet Take 1 tablet by mouth twice daily. - potassium chloride ER (K-DUR, KLOR-CON) 10 mEq tablet Take 1 tablet by mouth once daily. - metoprolol tartrate, short acting, (LOPRESSOR) 50 mg tablet Take 1 tablet by mouth twice daily. - metFORMIN (GLUCOPHAGE) 500 mg tablet Take 500 mg by mouth twice daily with meals. - aspirin, enteric coated (ASPIRIN, ENTERIC COATED) 81 mg EC tablet Take 81 mg by mouth once daily. Eliquis 5 mg BID No current facility-administered medications on file prior to visit. Review of Systems Constitutional: Negative for diaphoresis and weight loss. Respiratory: Negative for shortness of breath. Cardiovascular: Negative for chest pain, palpitations, orthopnea, claudication, leg swelling and PND. Gastrointestinal: Negative. Negative for heartburn. Musculoskeletal: Negative for myalgias. Endo/Heme/Allergies: Does not bruise/bleed easily. All other systems reviewed and are negative. BP 130/70 Pulse 80 Resp 12 Ht 175.3 cm (5' 9 ) Wt 108 kg (238 lb) BMI 35.15 kg/m? Physical Exam Constitutional: He is oriented to person, place, and time and well-developed, well-nourished, and in no distress. No distress. HENT: Head: Normocephalic. Neck: No JVD present. No thyromegaly present. Cardiovascular: Normal rate, normal heart sounds and intact distal pulses. An irregularly irregular rhythm present. Exam reveals no gallop and no friction rub. No murmur heard. Pulmonary/Chest: No respiratory distress. He has no wheezes. He has no rales. He exhibits no tenderness. Abdominal: Soft. Bowel sounds are normal. Musculoskeletal: General: No edema. Lymphadenopathy: He has no cervical adenopathy. Neurological: He is alert and oriented to person, place, and time. Skin: Skin is warm and dry. No rash noted. He is not diaphoretic. No erythema. Vitals reviewed. Encounter Diagnosis ICD-10-CM 1. Chronic atrial fibrillation (HCC) I48.20 2. Acute on chronic systolic congestive heart failure (HCC) I50.23 3. Controlled type 2 diabetes mellitus without complication, without long-term current use of insulin ([facility]) E11.9 4. Mixed hyperlipidemia E78.2 5. Morbid obesity due to excess calories ([facility]) E66.01 Suggest: Continue current medications. CHF stable OK ASA 81 mg qs Normal [facility] Vital Signs Date Time Vital Sign Value Performing Clinician Facility 06-11-2024 10:37-0400 Body height 174.63 cm DO Sheree Greco Work Phone: [facility] 06-11-2024 10:37-0400 Body mass index (BMI) [Ratio] 31.9 kg/m2 DO Sheree Greco Work Phone: [facility] 06-11-2024 10:37-0400 Body weight 97.52 kg DO Sheree Greco Work Phone: [facility] 06-11-2024 10:37-0400 Diastolic blood pressure 78 mm[Hg] DO Sheree Greco Work Phone: [facility] 06-11-2024 10:37-0400 Heart rate 70 /min DO Sheree Greco Work Phone: [facility] 06-11-2024 10:37-0400 Respiratory rate 16 /min DO Sheree Greco Work Phone: [facility] 06-11-2024 10:37-0400 SaO2% (BldA) [Mass fraction] 92 % DO Sheree Greco Work Phone: [facility] 06-11-2024 10:37-0400 Systolic blood pressure 114 mm[Hg] DO Sheree Greco Work Phone: [facility] 03-15-2024 09:49-0400 Body height 174.63 cm [facility] 03-15-2024 09:49-0400 Body mass index (BMI) [Ratio] 35.2 kg/m2 [facility] 03-15-2024 09:49-0400 Body weight 107.5 kg [facility] 03-15-2024 09:49-0400 Diastolic blood pressure 84 mm[Hg] [facility] 03-15-2024 09:49-0400 Heart rate 81 /min [facility] 03-15-2024 09:49-0400 Respiratory rate 18 /min [facility] 03-15-2024 09:49-0400 SaO2% (BldA) [Mass fraction] 94 % [facility] 03-15-2024 09:49-0400 Systolic blood pressure 121 mm[Hg] [facility] 09-08-2023 10:30-0500 Body height 174.63 cm Sheree Estescrescencio Other [facility] [employer] Other 09-08-2023 10:30-0500 Body mass index (BMI) [Ratio] 33.91 kg/m2 Sheree Esteschavojosefa Other [employer] Other 09-08-2023 10:30-0500 Body weight 103.42 kg Sheree Greco Other [employer] Other 09-08-2023 10:30-0500 Diastolic blood pressure 79 mm[Hg] Sheree Esteschavojosefa Other [employer] Other 09-08-2023 10:30-0500 Respiratory rate 16 /min Sheree Esteschavojosefa Other [employer] Other 09-08-2023 10:30-0500 SaO2% (BldA) [Mass fraction] 96 % Sheree Estescrescencio Other [employer] Other 09-08-2023 10:30-0500 Systolic blood pressure 119 mm[Hg] Sheree Esteschavojosefa Other [employer] Other 09-01-2023 15:00-0500 Body height 174.63 cm Lottie Tompkinsrahowie Other [facility] Other 09-01-2023 15:00-0500 Body mass index (BMI) [Ratio] 34.21 kg/m2 Lottie Navratil Other [employer] Other 09-01-2023 15:00-0500 Body weight 104.33 kg Lottie Navratil Other [facility] Other 09-01-2023 15:00-0500 Diastolic blood pressure 88 mm[Hg] Lottie Navratil Other [facility] Other 09-01-2023 15:00-0500 SaO2% (BldA) [Mass fraction] 98 % Lottie Navratil Other [employer] Other 09-01-2023 15:00-0500 Systolic blood pressure 124 mm[Hg] Lottie Navratil Other [facility] Other 03-03-2023 16:00-0400 Body height 174.63 cm Sheree Frankelmarcelina Other [facility] Other 03-03-2023 16:00-0400 Body mass index (BMI) [Ratio] 35.25 kg/m2 Sheree Estescrescencio Other [facility] Other 03-03-2023 16:00-0400 Body weight 107.5 kg Sheree Greco Other [facility] Other 03-03-2023 16:00-0400 Diastolic blood pressure 70 mm[Hg] Sheree Greco Other [employer] Other 03-03-2023 16:00-0400 Respiratory rate 18 /min Sheree Greco Other [facility] Other 03-03-2023 16:00-0400 SaO2% (BldA) [Mass fraction] 99 % Sheree Greco Other [employer] Other 03-03-2023 16:00-0400 Systolic blood pressure 116 mm[Hg] Sheree Greco Other [facility] [employer] Other 05-16-2022 15:30-0400 Body temperature 97.8 [degF] DO Sheree Rojasi Work Phone: [facility] 05-16-2022 15:30-0400 Body weight 107.5 kg DO Sheree Rojasi Work Phone: [facility] 05-16-2022 15:30-0400 Diastolic blood pressure 81 mm[Hg] DO Sheree Estescki Work Phone: [facility] 05-16-2022 15:30-0400 Heart rate 67 /min DO Sheree Estescki Work Phone: [facility] 05-16-2022 15:30-0400 Respiratory rate 16 /min DO Sheree Estescki Work Phone: [facility] 05-16-2022 15:30-0400 SaO2% (BldA) [Mass fraction] 98 % DO Sheree Braniecki Work Phone: [facility] 05-16-2022 15:30-0400 Systolic blood pressure 115 mm[Hg] DO Sheree Greco Work Phone: [facility] 05-16-2022 15:28-0400 Body height 171.45 cm DO Sheree Greco Work Phone: [facility] 05-10-2022 10:04-0400 Body height 170.18 cm Jose Armando De La Cruz Work Phone: TG-Nrdpcimrssofwm-Ra [place] Work Phone: 05-10-2022 10:04-0400 Body mass index (BMI) [Ratio] 37.18 kg/m2 Jose Armando De La Cruz Work Phone: HM-Zljgaaucfsxlrn-Rc [place] Work Phone: 05-10-2022 10:04-0400 Body surface area Derived from formula 2.17 m2 Jose Armando De La Cruz Work Phone: ZY-Gmrccszlcqqqpg-Mi [place] Work Phone: 05-10-2022 10:04-0400 Body temperature 98.3 [degF] Jose Armando De La Cruz Work Phone: TY-Wuhxijehvgzbkf-Zz [place] Work Phone: 05-10-2022 10:04-0400 Body weight 107.68 kg Jose Armando De La Cruz Work Phone: PB-Umscdhsqmcsjqx-Ey [place] Work Phone: 05-10-2022 10:04-0400 0 1 Jose Armando De La Cruz Work Phone: MR-Dnrwpohuwdxaxc-Wq [place] Work Phone: Comment on above: [employer] 04-08-2022 15:13-0400 Body height 172.01 cm Jose Armando De La Cruz Work Phone: ZK-Itropvaelwmopm-Mc [place] Work Phone: 04-08-2022 15:13-0400 Body mass index (BMI) [Ratio] 37.25 kg/m2 Jose Armando De La Cruz Work Phone: JK-Uzmxexbedmeiyx-Dr [place]man Work Phone: 04-08-2022 15:13-0400 Body surface area Derived from formula 2.21 m2 Jose Armando De La Cruz Work Phone: ZS-Pqdskijwbigylh-Kr idman Work Phone: 04-08-2022 15:13-0400 Body temperature 98 [degF] Jose Armando De La Cruz Work Phone: AO-Ljwwsrbxlbuzgv-Mu idman Work Phone: 04-08-2022 15:13-0400 Body weight 110.22 kg Jose Armando De La Cruz Work Phone: FL-Nyknqwnetcxnbf-No idman Work Phone: 04-08-2022 15:13-0400 0 1 Jose Armando De La Cruz Work Phone: ON-Pjezyxyeqvazyr-Ro idman Work Phone: Comment on above: [employer] 03-06-2022 16:00-0400 Body height 174.63 cm Sheree Greco Other [facility] Other 03-06-2022 16:00-0400 Body mass index (BMI) [Ratio] 36.14 kg/m2 Sheree Greco Other [facility] Other 03-06-2022 16:00-0400 Body weight 110.22 kg Sheree Greco Other [facility] Other 03-06-2022 16:00-0400 Diastolic blood pressure 64 mm[Hg] Sheree Greco Other [facility] Other 03-06-2022 16:00-0400 SaO2% (BldA) [Mass fraction] 97 % Sheree Greco Other [facility] Other 03-06-2022 16:00-0400 Systolic blood pressure 102 mm[Hg] Sheree Greco Other [facility] Other 1950 23:00-0500 >na< Felipe Fajardo Dept. of Dermato logy Encounters Encounter Date Encounter Type Care Provider Facility Start: 12-17-2024 End: 12-17-2024 ambulatory [facility] Facility:[facility] Start: 06-16-2024 End: 06-16-2024 ambulatory [facility] Start: 06-11-2024 End: 06-11-2024 ambulatory DO Sheree Esteschavojosefa Work Phone: [facility] Work Phone: Start: 06-11-2024 End: 06-11-2024 Patient encounter procedure DO Sheree Branmarcelina Work Phone: [facility] Work Phone: Start: 05-24-2024 Non-patient / Non-visit DO Sheree Estescrescencio Work Phone: [facility] Work Phone: Start: 05-23-2024 End: 05-23-2024 Emergency department patient visit SHEREE A FANNIE Facility:[facility] Start: 05-05-2024 End: 05-05-2024 Patient encounter procedure DO Sheree Greco Work Phone: [facility] [place] Work Phone: Start: 05-05-2024 End: 05-05-2024 ambulatory DO Sheree Greco Work Phone: [facility] Work Phone: Start: 03-15-2024 Non-patient / Non-visit DO Sheree Greco Work Phone: [facility] Work Phone: Start: 03-15-2024 End: 03-15-2024 ambulatory [facility] Work Phone: Start: 03-15-2024 End: 03-15-2024 Patient encounter procedure [facility] Work Phone: Start: 03-11-2024 End: 03-11-2024 Emergency department patient visit [place] Facility:[facility] Start: 10-14-2023 End: 10-14-2023 ambulatory Sheree Greco Other [facility] Other Start: 10-14-2023 Telephone encounter Sheree Rojas i [facility] Start: 09-22-2023 End: 09-22-2023 ambulatory Sheree Greco Other [facility] Other Start: 09-22-2023 Telephone encounter Sheree Rojas i [facility] Start: 09-08-2023 End: 09-08-2023 ambulatory Sheree Greco Other [facility] Other Start: 09-08-2023 Office outpatient visit 25 minutes Sheree Greco [facility] Start: 09-08-2023 Telephone encounter Sheree Rojas i [facility] Start: 09-01-2023 End: 09-01-2023 ambulatory Lottie Castillo Other [employer] Other Start: 09-01-2023 Office outpatient visit 15 minutes Lottie Castillo [facility] Start: 03-10-2023 Telephone encounter Sheree Rojas i [facility] Start: 03-10-2023 End: 03-10-2023 ambulatory DO Sheree Greco Work Phone: [facility] Work Phone: Start: 03-10-2023 End: 03-10-2023 Patient encounter procedure DO Sheree Greco Work Phone: [facility] [place] Work Phone: Start: 03-03-2023 End: 03-03-2023 ambulatory Sheree Greco Other [facility] Other Start: 03-03-2023 Patient encounter procedure Sheree Greco [facility] Start: 05-18-2022 Chart Update Jose Armando mann Work Phone: PC-Msckupitvaiqjs-Ufnvj day Work Phone: Start: 05-16-2022 End: 05-16-2022 Registered Recurring DO Sheree Greco Work Phone: [facility] Start: 05-14-2022 Felipe Fajardo Dept. of D ermatology Start: 05-10-2022 Postop follow up vis it related to original px Jose Armando De La Cruz Work Phone: UF-Gsipotnislulth-Cichf day Work Phone: Start: 04-29-2022 Chart Update Jose Armando mann Work Phone: NB-Cmjdppnwitfxdc-Uxtqx day Work Phone: Start: 04-24-2022 Chart Update Jose Armando mann Work Phone: CT-Jfzrqebozeshgq-Uhvbw day Work Phone: Start: 04-16-2022 Felipe Fajardo Dept. of D ermatology Start: 04-08-2022 Office outpatient ne w 45 minutes Jose Armando De La Cruz Work Phone: VI-Lnqypmvxmzpalv-Irqtf day Work Phone: Start: 04-08-2022 Patient encounter procedure Jose Armando De La Cruz Work Phone: KQ-Hrmtdkwwifmkwt-Ndrtb an Work Phone: Start: 03-06-2022 End: 03-06-2022 ambulatory Sheree Greco Other [facility] Other Start: 03-06-2022 Office outpatient visit 25 minutes Sheree Greco [facility] Start: 03-09-2019 End: 03-10-2019 Patient encounter procedure DEFAULT PHYSICIAN Facility:[facility] Start: 03-01-2019 End: 03-02-2019 Patient encounter procedure DEFAULT PHYSICIAN Facility:[facility] Start: 02-09-2019 End: 02-10-2019 Patient encounter procedure DEFAULT PHYSICIAN Facility:[facility] Procedures Date Procedure Procedure Detail Performing Clinician Start: 05-14-2022 Felipe amaya Start: 04-16-2022 Felipe amaya Operation on gastroi ntestinal tract Jose Armando De La Cruz Work Phone: Operative procedure on knee Jose rAmando De La Cruz Work Phone: Plan of Treatment Date Care Activity Detail Author Start: 06-11-2024 Patient referral [facility] Work Phone: Start: 06-21-2022 [facility], Provider: Aman Beck, Status: Pen, Time: 11:00 AM [facility], Provider: Aman Beck, Status: Pen, Time: 11:00 AM KQ-Mstvjzdiupbgrk-[place] Work Phone: Start: 04-25-2022 [facility], Provider: Aman Beck, Status: Pen, Time: 9:00 AM FG-Enmagjznmaljks-[place]reo [place] Work Phone: Start: 04-24-2022 [facility], Provider: Aman Beck, Status: Pen, Time: 12:00 PM [facility], Provider: Aman Beck, Status: Pen, Time: 12:00 PM TX-Ueattenlhronku-[place]ax [place] [facility] [address] Work Phone: CT Abdomen and Pelvi s W contrast IV [facility] MR Unspecified body region [facility] Work Phone: Patient referral [facility] Work Phone: [facility] Immunizations Immunization Date Immunization Notes Care Provider Fa [facility] 1950 pneumococcal conjuga te vaccine, 7 valent Felipe Fajardo Dept. of Dermatology Payers Date Payer Category Payer Private Health Insurance [id number] 2019 Medicare [id number] 1950 Unknown [id number] 1950 Unknown [id number] 1950 Unknown [id number] 1950 Unknown [id number] 1950 Unknown [id number] 1950 Unknown [id number] Medicare [id number] [id number] [id number] Medicare Medicare [id number] Self-pay Self Pay [id number] Unknown Social History Date Type Detail Facility Former smoker Former smoker [facility]-Otolaryngo logy[facility] Work Phone: Start: 04-16-2022 Dept. of D ermatology Start: 1950 Sex Assigned At Male F [facility] Sex Assigned At Sex Assigned At Bir th [facility] [employer] Other Start: 10-28-2018 Tobacco smoking status NHIS Never smoked tobacco (finding) [facility] Goals Date Patient Goal Desired Activity /State Clinical Notes 03-06-2022 to 06-16-2024 Note Date & Type Note Facility 06-16-2024 Note Cardiovascular Medic ine [facility] SUBJECTIVE No chief complaint on file. Pau Bauer is a 74 y.o. male here for follow-up. HPI PMHx: HFrEF with EF 40-45%, HTN, chronic a.fib, HPL, DM type II Patient adamantly denies any cardiac complaints or concerns. Patient denies any chest pain or shortness of breath. Patient denies any lower extremity edema, orthopnea, or proximal nocturnal dyspnea. No near-syncope or syncope. No dizziness or lightheadedness. 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) Obesity (BMI 30-39.9) Overweight and obesity Ventricular premature beats Malignant melanoma of left pinna (CMS/HCC) Type 2 diabetes mellitus without complication, without long-term current use of insulin (CMS/HCC) Past Medical History: Diagnosis Date Cancer (CMS/HCC) CHF (congestive heart failure) (CMS/HCC) Permanent atrial fibrillation (CMS/HCC) 07/24/2022 Family History Family history unknown: Yes Social History Tobacco Use Smoking status: Former Types: Cigarettes Quit date: 2009 Years since quittin.7 Substance Use Topics Alcohol use: Yes Comment: 1-2 times a month No Known Allergies ROS Cardiovascular: Positive for dyspnea on exertion and leg swelling. All other systems reviewed and are negative. OBJECTIVE Visit Vitals BP 112/70 (BP Location: Right arm, Patient Position: Sitting) Pulse 73 Ht 1.753 m (5' 9 ) Wt 98 kg (216 lb) SpO2 99% BMI 31.90 kg/m??? Smoking Status Former BSA 2.18 m??? Medications: Current Outpatient Medications: apixaban (Eliquis) 5 mg tablet, TAKE 1 TABLET BY MOUTH IN THE MORNING AND AT BEDTIME, Disp: 20 tablet, Rfl: 2 aspirin 81 mg EC tablet, Take 1 tablet every day by oral route., Disp: , Rfl: dapagliflozin propanediol (Farxiga) 10 mg, Take 1 tablet (10 mg) by mouth in the morning., Disp: 30 tablet, Rfl: 11 metFORMIN (Glucophage) 500 mg tablet, TAKE 1 TABLET BY MOUTH TWICE DAILY WITH A MEAL, Disp: , Rfl: metoprolol succinate XL (Toprol-XL) 100 mg 24 hr tablet, Take 1 tablet (100 mg) by mouth in the morning. Take in addition to metoprolol succinage 50 mg daily, Disp: 90 tablet, Rfl: 3 metoprolol succinate XL (Toprol-XL) 50 mg 24 hr tablet, Take 1 tablet (50 mg) by mouth in the morning. Take in addition to metoprolol succinate 100 mg daily, Disp: 90 tablet, Rfl: 3 metoprolol tartrate (Lopressor) 50 mg tablet, TAKE 1 TABLET BY MOUTH IN THE MORNING AND AT BEDTIME, Disp: 180 tablet, Rfl: 3 potassium chloride CR (Klor-Con) 10 mEq ER tablet, Take 20 mEq by mouth in the morning., Disp: , Rfl: sacubitril-valsartan (Entresto) 24-26 mg tablet, Take 1 tablet by mouth in the morning and at bedtime. (Patient taking differently: Take 0.5 tablets by mouth two times daily.), Disp: 28 tablet, Rfl: 0 atorvastatin (Lipitor) 10 mg tablet, Take 1 tablet by mouth in the morning., Disp: , Rfl: furosemide (Lasix) 40 mg tablet, Take 1 tablet (40 mg) by mouth if needed (for weight gain, leg swelling, worsening SOB). (Patient not taking: Reported on 06/16/2024), Disp: 90 tablet, Rfl: 3 Physical Exam Constitutional: Appearance: Normal appearance. He is normal weight. HENT: Head: Normocephalic and atraumatic. Right Ear: External ear normal. Left Ear: External ear normal. Eyes: Extraocular Movements: Extraocular movements intact. Pupils: Pupils are equal, round, and reactive to light. Neck: Vascular: No carotid bruit. Cardiovascular: Rate and Rhythm: Normal rate. Rhythm irregular. Pulses: Normal pulses. Heart sounds: Normal heart sounds. Pulmonary: Effort: Pulmonary effort is normal. Breath sounds: Normal breath sounds. Abdominal: General: Bowel sounds are normal. Palpations: Abdomen is soft. Musculoskeletal: General: Normal range of motion. Cervical back: Neck supple. Right lower leg: Edema present. Left lower leg: Edema present. Comments: Trace edema Skin: General: Skin is warm and dry. Neurological: General: No focal deficit present. Mental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 diabetes. Prior surgeries include gastric bypass and orthopedic procedures. He has never had a adverse reaction anesthesia. He denies any drug allergies. His family's past medical history was reviewed and noncontribut ory. He has a history of smoking but he quit in 1986. He drinks socially. He is and currently retired. He lives alone [facility] Work Phone: History of Present illness Narrative* 72-year-old male referred by Nemo Smith for management of a melanoma on the left posterior ear.A shave biopsy was obtained which showed an ulcerated malignant melanoma measuring at least 0.7 mm.Patient reports that he has noticed something behind that ear for some time and that had been growing in size. He has had some bleeding from the lesion since the time of the biopsy. He has no other history of skin cancers. He has not noticed any mass on the neck * Past medical history includes hyperlipidemia, arrhythmia, coronary artery disease, diabetes. Prior surgeries include gastric bypass and orthopedic procedures. He has never had a adverse reaction anesthesia. He denies any drug allergies. His family's past medical history was reviewed and noncontribut ory. He has a history of smoking but he quit in 1986. He drinks socially. He is and currently retired. He lives alone [facility] Work Phone: History of Present illness Narrative* 72-year-old male referred by Nemo Smith for management of a melanoma on the left posterior ear. * Past medical history includes hyperlipidemia, arrhythmia, coronary artery disease, diabetes. Prior surgeries include gastric bypass and orthopedic procedures. He has never had a adverse reaction anesthesia. He denies any drug allergies. His family's past medical history was reviewed and noncontribut ory. He has a history of smoking but he quit in 1986. He drinks socially. He is and currently retired. He lives alone * He is now s/p partial auriculectomy and SLNB. 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 of Dermatology Summary Purpose Family History No Family History Records FoundUnknown Family Member Name Dates Details : Mother, Father, Br other Status:Active Old age: Father Status:Active Unknown Family Member Name Dates Details : Mother, Father, Br other Status:Active Old age: Father Status:Active Unknown Family Member Name Dates Details : Mother, Father, Br other Status:Active Old age: Father Status:Active Unknown Family Member Name Dates Details : Mother, Father, Br other Status:Active Old age: Father Status:Active Unknown Family Member Name Dates Details Old age: Father Status:Active : Mother, Father, Br other Status:Active Unknown Family Member Name Dates Details : Mother, Father, Br other Status:Active Old age: Father Status:Active Unknown Family Member Name Dates Details : Mother, Father, Br other Status:Active Old age: Father Status:Active Relationship Condition Age at Onset Recorded Date/T eemlina Not Specified No pertinent family history Unknown Not Specified Asthma Unknown Unknown Family Member Name Dates Details : Mother, Father, Br other Status:Active Old age: Father Status:Active Relationship Condition Age at Onset Recorded Date/T emelina Not Specified No pertinent family history Unknown Not Specified Asthma Unknown brother Unknown father Unknown Unknown sister Asthma Unknown Relationship Condition Age at Onset Recorded Date/T emelina Not Specified No pertinent family history Unknown mother Asthma Unknown brother Unknown father Unknown Unknown sister Asthma Unknown Advance Directives No Advanced Directives Records Found Advance Directive Response Recorded Date/ Time Advance Directives No April 30 9 11:55am Chief Complaint Melanoma left posterior earMelanoma left posterior earMelanoma left posterior earMelanoma left posterior earMelanoma left posterior ear Reason for Referral Reason Ulceration skin lesi on on the left ear, concerning for underlying malignancy Diagnosis 1 Skin lesion of left ear (H61.92) Referral Organization [facility] [place] Referring Provider First Name Sheree Referring Provider Last Name Fannie Referring Provider Specialty Family Prac dary Referred Provider Specialty Dermatology Referral Priority Routine Chief Complaint and Reason for Visit Chief Complaint Melanoma of the LF e ar Chief Complaint [facility] f/u/Righ t knee pain/swelling Reason for Visit Edema of right lower extremity Chief Complaint [facility] f/u/Righ t knee pain/swelling Amb Documentation E11.9 E78.2 I10 Z12.5 Reason for Visit Edema of right lower extremity Chief Complaint [facility] f/u/Righ t knee pain/swelling Amb Documentation E11.9 E78.2 I10 Z12.5 Amb Documentation smawv Reason for Visit Edema of right lower extremity Coronary artery disease Essential hypertension Malignant melanoma of left pinna Mixed hyperlipidemia Permanent atrial fibrillation [id number] Encounter for subsequent annual wellness visit in Medicare patient Screening for colon cancer Additional Source Comments (unrecognized sect ion and content) No Status Records FoundNo Status Records FoundNo Status Records FoundNo Status Records FoundNo Status Records FoundNo Status Records FoundNo Status Records Found INFORMATION SOURCE (unrecogn ized section and content) DATE CREATED AUTHOR 03/15/2019 [facility] DATE CREATED AUTHOR AUTHOR'S ORGANIZ ATION 11/26/2019 [facility] DATE CREATED AUTHOR AUTHOR'S ORGANIZ ATION 05/16/2022 [employer] DATE CREATED AUTHOR AUTHOR'S ORGANIZ ATION 06/23/2022 [facility] DATE CREATED AUTHOR AUTHOR'S ORGANIZ ATION 05/12/2024 [facility] DATE CREATED AUTHOR AUTHOR'S ORGANIZ ATION 11/29/2024 [facility] DATE CREATED AUTHOR AUTHOR'S ORGANIZ ATION 12/21/2024 [facility] REASON FOR VISIT (unrecogniz ed section and content) spot on earSMAWNo Informatio ncough, congestionNo Information6 month follow upupdateUPDATE Care Teams (unrecognized sec tion and content) Team Status: Active Member Role Status Dates Sheree Greco , DO Primary Care Provider Active Elo Tapia MD Attending Provider Active Aman Beck MD Referring Provider Active Team Status: Active Member Role Status Dates Sheree Greco , DO Primary Care Provider Active Team Status: Inactive Member Role Status Dates Sheree Greco , DO Primary Care Provider, Attendin g Provider Active Team Status: Inactive Member Role Status Dates Sheree Greco DO Primary Care Prov ider, Attending Provider Active Start: March 15, 2024 End: March 15, 2024 Team Status: Active Member Role Status Dates Sheree Greco DO Primary Care Provider Active Start: March 15, 2024 Laney Fields LPN Attending Provider Active Star t: March 15, 2024 Team Status: Inactive Member Role Status Dates Sheree Greco DO Primary Care Prov ider, Attending Provider Active Start: May 05, 2024 End: May 05, 2024 Team Status: Active Member Role Status Dates Sheree Greco DO Primary Care Provider Active Start: May 24, 2024 Laney Fields LPN Attending Provider Active Star t: May 24, 2024 Team Status: Inactive Member Role Status Dates Sheree Greco DO Primary Care Prov ider, Attending Provider Active Start: June 11, 2024 End: June 11, 2024 Goals (unrecognized section and content) Goals may be documented in a n alternate section FOR RECORDS PERTAINING TO PATIENTS WHO ARE OR HAVE BEEN ENROLLED IN A CHEMICAL DEPENDENCY/SUBSTANCEABUSE PROGRAM, SOME INFORMATION MAY BE OMITTED. This clinical summary was aggregated from multiple sources. Caution should be exercised in using it in the provision of clinical care. This summary normalizes information from multiple sources, and as a consequence, information in this document may materially change the coding, format and clinical context of patient data. In addition, data may be omitted in some cases. CLINICAL DECISIONS SHOULD BE BASED ON THE PRIMARY CLINICAL RECORDS. [facility] [employer] [facility]. provides no warranty or guarantee of the accuracy or completeness of information in this document.
[2024-12-23 12:19] LABS: Alanine Aminotransferase 12 U/L (16-63); Albumin Globulin Ratio 0.9; Albumin Level 3.4 g/dL (3.4-5.0); Alkaline Phosphatase 193 U/L (46-116); Anion Gap 12.1; Aspartate Amino Transferase 26 U/L (15-37); BUN Creatinine Ratio 16.7; Bilirubin Total 1.6 mg/dL (0.2-1.0); Calcium 9.3 mg/dL (8.5-10.1); Carbon Dioxide 26.1 mmol/L (21.0-32.0); Chloride 103 mmol/L (98-107); Estimated GFR (African America >60 (>=60 mL/min/1.73m^2); Estimated GFR (Non-African Ame 59 (>=60 mL/min/1.73m^2); Globulin 3.7 g/dL; Glucose 125 mg/dL (74-106); Potassium 5.2 mmol/L (3.5-5.1); Sodium 136 mmol/L (136-145); Total Protein 7.1 g/dL (6.4-8.2)
--- NOTE | 2024-12-23 12:57 | ED.GENADUL1 ---
HPI HPI - General Adult General Chief complaint: Recheck/Abnormal Lab/Rx Stated complaint: SENT BY DR AZAEL RENE FOR ECHO Time Seen by Provider: 12/23/24 11:45 Source: patient Mode of arrival: walk-in Limitations: no limitations History of Present Illness HPI narrative: Patient does not have any active symptoms he have a history of chronic A-fib has been taking Eliquis , the patient had an outpatient echo that shows possibly ventricular thrombus and he was sent to the ER to be evaluated for that with the IV contrast echo The patient denies any active symptoms Related Data Home Medications ?Medication ?Instructions ?Recorded ?Confirmed atorvastatin 10 mg tablet 10 mg PO DAILY 12/23/24 12/23/24 dapagliflozin propanediol 10 mg 10 mg PO DAILY 12/23/24 12/23/24 tablet (Farxiga) metformin 500 mg tablet 500 mg PO BID 12/23/24 12/23/24 metoprolol succinate 100 mg 100 mg PO DAILY 12/23/24 12/23/24 tablet,extended release 24 hr metoprolol succinate 50 mg 50 mg PO DAILY 12/23/24 12/23/24 tablet,extended release 24 hr Previous Rx's ?Medication ?Instructions ?Recorded enoxaparin 100 mg/mL subcutaneous 93 mg (0.93 mL) subcut Q12H 5 days 12/23/24 syringe (Lovenox) #9.3 mL warfarin 5 mg tablet 5 mg PO DAILY #7 tabs 12/23/24 Allergies Allergy/AdvReac Type Severity Reaction Status Date / Time No Known Drug Allergies Allergy Verified 12/23/24 11:40 Opioid HPI Opioid Management Most Recent Opioid Data: No Data to Display Review of Systems ROS Status of ROS 10 or more systems reviewed and unremarkable except as noted in history and below [facility] Medical History (Updated 12/23/24 @ 15:17 by Karine Brower MD) Atrial fibrillation ?I48.91 - Unspecified atrial fibrillation (ICD-10) Social History Little interest or pleasure in doing things: not at all Feeling down, depressed, or hopeless: not at all Exam Narrative Exam Narrative: Nurses notes and vital signs reviewed and patient is not hypoxic. General: Well-appearing and in no apparent distress. Skin: Warm, dry, no pallor noted. No rash. Head: Normocephalic, atraumatic. Neck: Supple, non-tender. Eye: Pupils are equal, round and EOMI. No scleral icterus. Ears, Nose, Mouth, and Throat: TM are clear, no nasal mucosal hypertrophy. Oral mucosa is moist, no posterior oropharynx erythema, uvula is mid-line Cardiovascular: Regular Rate and Rhythm without murmur, gallop or rub. Respiratory: No accessory muscle use or respiratory distress. Lungs are clear to auscultation, no wheezing, rales or rhonchi Chest Wall: no tenderness Back: No midline thoracic or lumbar vertebral tenderness. No CVA tenderness Musculoskeletal: normal ROM, no calf or popliteal tenderness, no lower extremity edema/swelling GI: Abdomen is soft, non-distended. Normal bowel sounds. No masses appreciated. No tenderness to palpation. No rebound, guarding, or rigidity noted. Neurological: A&O x4. No cranial nerve dysfunction observed. No truncal ataxia. Moves all extremities. Sensation intact. Psychiatric: Cooperative and interactive. Normal mood and affect. Constitutional Vital Signs, click to edit/add: Last Vital Signs Temp 97.8 F 12/23/24 11:40 Pulse 92 H 12/23/24 11:40 Resp 26 H 12/23/24 11:40 BP 114/75 12/23/24 13:30 Pulse Ox 98 12/23/24 13:50 O2 Del Method Room Air 12/23/24 11:40 Course Vital Signs Vital signs: Vital Signs Temperature 97.8 F 12/23/24 11:40 Pulse Rate 81 12/23/24 11:40 Respiratory Rate 20 12/23/24 11:40 Blood Pressure 131/89 12/23/24 11:40 Pulse Oximetry 99 12/23/24 11:40 Oxygen Delivery Method Room Air 12/23/24 11:40 Temperature 97.8 F 12/23/24 11:40 Pulse Rate 92 H 12/23/24 11:40 Respiratory Rate 26 H 12/23/24 11:40 Blood Pressure 114/75 12/23/24 13:30 Pulse Oximetry 98 12/23/24 13:50 Oxygen Delivery Method Room Air 12/23/24 11:40 Medical Decision Making [facility] Narrative Medical decision making narrative: The patient EKG showing A-fib with a heart rate of [address] elevation or depression Patient CBC and chemistry showed no acute significant pathology and he had the echo done with contrast The echo reading still not conclusive of a thrombus in the left ventricle and after discussion with the cardiology team and [facility] and by recommendation of Dr. Cortez , the patient was started on Lovenox and Coumadin with stopping the Eliquis Lovenox will be started tonight and the patient will stop taking his Eliquis in addition to Coumadin 5 mg daily until he gets his anticoagulation clinic visit on Friday at 12 noon The patient also will have an echo done by [facility] as outpatient, In case of any concern or new complaint the patient is to come back to the ER Lab Data Labs: Lab Results 12/23/24 12/23/24 Range/Units 11:54 13:55 WBC 8.0 (4.0-11.0) 10^3/uL RBC 5.40 (4.70-6.10) 10^6/uL Hgb 13.9 L (14.0-18.0) g/dL Hct 44.3 (42.0-54.0) % MCV 82.0 (80.0-94.0) fL MCH 25.7 L (25.9-34.0) pg MCHC 31.4 (29.9-35.2) g/dL RDW 14.3 (11.0-15.0) % Plt Count 188 (150-450) 10^3/uL MPV 9.8 (9.5-13.5) fL Neut % (Auto) 74.6 (43.0-75.0) % Lymph % (Auto) 15.2 L (20.5-60.0) % [place] % (Auto) 6.7 (1.7-12.0) % Eos % (Auto) 2.1 (0.9-7.0) % Baso % (Auto) 1.1 (0.2-2.0) % Neut # (Auto) 5.9 (1.4-6.5) 10^3/uL Lymph # (Auto) 1.2 (1.2-3.8) 10^3/uL [place] # (Auto) 0.5 (0.3-0.8) 10^3/uL Eos # (Auto) 0.2 (0.0-0.7) 10^3/uL Baso # (Auto) 0.1 (0.0-0.1) 10^3/uL Abs Immat Gran (auto) 0.02 (0.00-0.03) 10^3/uL Imm/Tot Granulo (auto) 0.3 (0.0-0.5) % PT 11.5 (9.0-11.6) sec INR 1.09 Sodium 136 (136-145) mmol/L Potassium 5.2 H 4.2 (3.5-5.1) mmol/L Chloride 103 (98-107) mmol/L Carbon Dioxide 26.1 (21.0-32.0) mmol/L Anion Gap 12.1 BUN 20.0 H (7.0-18.0) mg/dL Creatinine 1.20 (0.70-1.30) mg/dL Est GFR ( Amer) >60 (>=60 mL/min/1.73m^2) Est GFR (Non-Af Amer) 59 L (>=60 mL/min/1.73m^2) BUN/Creatinine Ratio 16.7 Glucose 125 H (74-106) mg/dL Calcium 9.3 (8.5-10.1) mg/dL Total Bilirubin 1.6 H (0.2-1.0) mg/dL AST 26 (15-37) U/L ALT 12 L (16-63) U/L Alkaline Phosphatase 193 H (46-116) U/L Total Protein 7.1 (6.4-8.2) g/dL Albumin 3.4 (3.4-5.0) g/dL Globulin 3.7 g/dL Albumin/Globulin Ratio 0.9 Discharge Plan Discharge Chief Complaint: Recheck/Abnormal Lab/Rx Clinical Impression: Anticoagulation management encounter, Echocardiogram abnormal Patient Disposition: Home, Self-Care Time of Disposition Decision: 15:17 Condition: Good Prescriptions / Home Meds: New warfarin 5 mg tablet 5 mg PO DAILY Qty: 7 0RF enoxaparin [Lovenox] 100 mg/mL syringe 93 mg subcut Q12H 5 Days Qty: 9.3 0RF Discontinued Eliquis 5 mg tablet 5 mg PO Q12H No Action atorvastatin 10 mg tablet 10 mg PO DAILY dapagliflozin propanediol [Farxiga] 10 mg tablet 10 mg PO DAILY metformin 500 mg tablet 500 mg PO BID metoprolol succinate 100 mg tablet extended release 24 hr 100 mg PO DAILY metoprolol succinate 50 mg tablet extended release 24 hr 50 mg PO DAILY Print Language: Hungarian Instructions: Warfarin (By mouth), Vitamin K in Foods (ED), Blood Thinners (ED) Additional Instructions: Please follow up with [facility] Wednesday 12/27/at 12 noon [address] [phone] phone number : Referrals: AZAEL RENE APRN [Primary Care Provider] - 1 week
[2024-12-23 14:11] LABS: Potassium 4.2 mmol/L (3.5-5.1)
[2024-12-23] MEDS: SULFUR HEXAFLUORIDE MICROSPHR 25 MG/5 ML VIAL IV (14:21)
[2024-12-23] MEDS: WARFARIN SODIUM 5 MG TABLET PO (15:22)
--- NOTE | 2024-12-23 19:20 | ECG_ITS ---
[facility] Test Date: 2024-12-23 Pat Name: PAU BAUER Department: Room: - Gender: Male Neurology Specialist: : 1950 Requested By: Michelle Vieyra Order Number: [id number] Reading MD: SY LYN Measurements Intervals [place] Rate: 78 P: -[id number] GA: -[id number] QRS: 96 QRSD: 100 T: 37 QT: 394 QTc: 428 Interpretive Statements 1210 Atrial fibrillation 7102 Moderate right axis deviation 9140 abnormal rhythm ECG No previous ECG available for comparison Electronically Signed On 12-24-2024 6:49:34 EST by SY LYN
== END 2024-12-23 15:45 | disposition home or self-care (01) ==
PROVIDERS: Emergency Provider Emergency Medicine; PCP Nurse Practitioner Family
DX: R93.1 Abnormal findings on diagnostic imaging of heart and coronary circulation (principal); I48.20 Chronic atrial fibrillation, unspecified; Z79.01 Long term (current) use of anticoagulants
CPT/HCPCS: 36415; 80053; 84132; 85025; 85610; 93005; 99284; C8929; Q9950

== ENCOUNTER 2025-03-31 14:17 | Outpatient (OUT) | payer MEDICARE, SELFPAY ==
[2025-03-31 15:46] LABS: Anion Gap 9.5; BUN Creatinine Ratio 17.1; Calcium 10.2 mg/dL (8.5-10.1); Carbon Dioxide 30.4 mmol/L (21.0-32.0); Chloride 102 mmol/L (98-107); Estimated GFR (African America >60 (>=60 mL/min/1.73m^2); Estimated GFR (Non-African Ame 54 (>=60 mL/min/1.73m^2); Glucose 106 mg/dL (74-106); Potassium 4.9 mmol/L (3.5-5.1); Sodium 137 mmol/L (136-145)
== END 2025-03-31 14:18 | disposition home or self-care (01) ==
LOC: LAB 14:22
PROVIDERS: PCP Student in an Organized Health Care Education/Training Program; Visit Provider Nurse Practitioner Family
DX: I50.22 Chronic systolic (congestive) heart failure (principal); R06.09 Other forms of dyspnea
CPT/HCPCS: 36415; 80048

== ENCOUNTER 2025-08-04 12:08 | Outpatient (OUT) | payer MEDICARE, SELFPAY ==
--- OUTSIDE RECORDS SUMMARY | 2025-07-29 06:54 | XMS_ITS | Continuity of Care Document ---
Author Organization [facility] Address [address] [place] [address] Phone Care Team Providers Care Lamination Operator Name Role Phone David Calixto DO Primary Care Provider [phone] Laney Fields LPN Attending Provider Unavailable David Calixto DO Attending Provider Care Teams Patient Care Team Team Status: Active Member Role Status Dates David Calixto DO Primary Care Provider Active Patient Care Team Team Status: Active Member Role Status Dates David Calixto DO Primary Care Provider Active Start: June 29, 2025 Laney Fields LPN Attending Provider Active Star t: June 29, 2025 Patient Care Team Team Status: Inactive Member Role Status Dates David Calixto DO Primary Care Provider Active Start: July 29, 2025 End: July 29, 2025 David Calixto DO Attending Provider Active Start: July 29, 2025 End: July 29, 2025 Chief Complaint and Reason for Visit Chief Complaint Admit Date Amb Documentation June 29, 2025 9:29am 6 month f/u July 29, 2025 10 :19am Reason for Visit Admit Date Coronary artery disease July 29 10:19am Essential hypertension July 29, 2025 10:19am Malignant melanoma of left pinna July 29, 2025 10:19am Microcytic anemia July 29, 2025 10 :19am Mixed hyperlipidemia July 29, 2025 1 0:19am Permanent atrial fibrillation July 10:19am Type 2 diabetes mellitus wit hout complication, without long-term current us July 29, 2025 10:19am Screening for colon cancer July 29, 2025 10:19am Allergies, Adverse Reactions, Alerts Allergen Type Severity Reaction Last Updated Verified Status No Known Allergies Allergy Unknown Octobe r 2024 10:27am Yes Active seasonal Allergy Unknown Unknown Reaction February 7:15am No Active Social History Smoking Status Status Start Date End Date Date of Observa tion Never smoked tobacco (finding) October 28, 2018 9:10am Observation Status Observation Response Date of Response Legal Sex Male (finding) Sex Assigned At Male December Family History Relationship Condition Age at Onset Recorded Date/T emelina Not Specified No pertinent family history Unknown mother Asthma Unknown brother Unknown father Unknown mother Asthma Unknown Unknown sister Asthma Unknown Problems Active Problems Medical Problem Onset Date Status Coronary artery disease Unknown Active Malignant melanoma of left pinna Unknown Active Mixed hyperlipidemia Unknown Active Microcytic anemia Unknown Active Essential hypertension Unknown Active Permanent atrial fibrillation Unknown Ac tive Type 2 diabetes mellitus wit hout complication, without long-term current use of insulin Unknown Active Medications Medication Status Dose Units Route Directions Qty Days St art Date Stop Date End Date Instructions Adherence Atorvastati n 10 mg tablet Discont inued 10 MG PO Daily 90 90 March 18, 2024 1:55pm 2023 12:15 pm Metformin 500 mg tablet Discont inued 500 MG PO Twice daily 180 90 March 31, 2024 1:31pm April 02, 2024 7:07a m Metformin 500 mg tablet Discont inued 0 .ROUTE .COMPLEX 180 April 02, 2024 7:04am Septe mb2023 1:03p m TAKE 1 TABLET BY MOUTH TWICE DAILY WITH A MEAL Sod Picosulf-Ma g Ox-Citric Ac (Clenpiq) 10 mg-3.5 gram- 12 gram/175 mL solution Discont inued 175 ML PO Every morning 175 1 June 22, 2024 12:00a m January 25, 2025 10:59 am Follow instructions given by office Metformin 500 mg tablet Discont inued 0 .ROUTE .COMPLEX 180 2023 1:03pm January 13, 2025 12:44 pm TAKE 1 TABLET BY MOUTH TWICE DAILY WITH A MEAL Atorvastati n 10 mg tablet Discont inued 10 MG PO Daily 90 90 Novemb er 2023 1:13pm Febru karen 2024 2:55p m Atorvastati n 10 mg tablet Discont inued 10 MG PO Daily 90 90 Februa ry 2024 2:55pm Augus t 2024 6:33a m Metformin 500 mg tablet Discont inued 500 MG PO Twice daily January 13, 2025 12:43p m February 14, 2025 10:38 am Metformin 500 mg tablet Discont inued 500 MG PO Twice daily 60 February 14, 2025 10:38a m Septe mb2024 7:30a m Atorvastati n 10 mg tablet Active 0 .ROUTE .COMPLEX 90 June 17, 2025 6:33am TAKE 1 TABLET BY MOUTH DAILY Complies with drug therapy Metformin 500 mg tablet Discont inued 0 .ROUTE .COMPLEX 180 90 Septem 2024 7:29am Septe mb2024 2:48p m TAKE 1 TABLET BY MOUTH 2 TIMES A DAY FOR Metformin 500 mg tablet Active 0 .ROUTE .COMPLEX 180 90 Septem shayla 2024 2:48pm TAKE 1 TABLET BY MOUTH 2 TIMES A DAY FOR Complies with drug therapy Furosemide 40 mg Tablet Discont inued 40 MG PO Daily May 15, 2022 12:00a m March 15, 2024 10:25 am Metformin 500 mg Tablet Discont inued 500 MG PO Twice daily May 15, 2022 12:00a m March 31, 2024 1:32p m Atorvastati n 10 mg tablet Discont inued 10 MG PO Daily May 15, 2022 12:00a m March 18, 2024 1:56p m Metoprolol Succinate 50 mg Tablet Extended Release 24 Hr Discont inued 50 MG PO Twice daily May 15, 2022 12:00a m [facility] t 2023 10:44 am Aspirin 81 mg Tablet,Criss yed Release (Dr/Ec) Active 81 MG PO Daily May 15, 2022 12:00a m Complies with drug therapy Apixaban (Eliquis) 5 mg tablet Active 5 MG PO Twice daily May 15, 2022 12:00a m Complies with drug therapy Sacubitril- Valsartan (Entresto) 24-26 mg Tablet Discont inued 1 TAB PO Twice daily May 15, 2022 12:00a m March 05, 2024 7:17a m Sacubitril- Valsartan (Entresto) 49-51 mg tablet Active 1 TAB PO Twice daily March 05, 2024 12:00a m Complies with drug therapy Dapaglifloz in Propanediol (Farxiga) 10 mg tablet Active 10 MG PO Daily March 05, 2024 12:00a m Complies with drug therapy Potassium Chloride 10 mEq tablet,ER particles/c rystals Active 10 MEQ PO Twice daily March 05, 2024 12:00a m Complies with drug therapy Furosemide 40 mg tablet Active 40 MG PO Daily as needed for edema March 15, 2024 10:25a m Complies with drug therapy Metoprolol Succinate 50 mg tablet extended release 24 hr Active 50 MG PO Daily June 11, 2024 12:00a m Complies with drug therapy Metoprolol Succinate 100 mg tablet extended release 24 hr Active 100 MG PO Daily June 11, 2024 12:00a m Complies with drug therapy Atorvastati n 10 mg tablet Discont inued 10 MG PO Daily 90 90 Novemb er 2023 12:15p m Novem shayla 2023 1:13p m Vital Signs Vital Reading Result Reference Range Collection Date/Time Height 68.75 [in_i] July 29 10:27am Weight 89.35 kg July 29 10:27am Heart Rate 78 /min 60-100 July 29 10:27am Respiratory rate 16 /min -July 10:27am Oxygen saturation by Pulse oximetry 98 % 95-100 July 29, 2025 10 :27am BP Systolic 118 mm[Hg] 100-140 July 29 10:27am BP Diastolic 75 mm[Hg] 60-100 July 29 10:27am BMI (Body Mass Index) 29.2 kg/m2 Octobe r 2024 10:27am Advance Directives Advance Directive Response Recorded Date/ Time Advance Directives No April 30 11:55am Insurance Providers Guarantor Kervin Rodarte Address [address] [facility] [phone] Contact Info. Home Phone: Payer Policy Id Subscriber's Name Subscriber Id Effective Date Expiration Date Medicare [id number] Kervin Rodarte [id number] [facility] [id number] Kervin Rodarte [id number] [facility] PF [id number] Kervin Rodarte [id number] [place] [facility] [id number] Kervin Rodarte [id number] Encounters Encounter Location(s) Arrival/Admit Date Discharge/Depart Date Provider(s) Non-patient / Non-visit -[facility] June 29, 2025 9:29am Laney Fields LPN Departed Physician/Prov ider Office Visit -[facility] July 29, 2025 10:19am July 29, 2025 10:53am David Calixto , Recent Diagnosis Onset Date Admit Date Coronary artery disease Unknown July 29, 2025 10:19am Essential hypertension Unknown July 292024 10:19am Malignant melanoma of left pinna Unknown July 29, 2025 10:19am Microcytic anemia Unknown July 29, 025 10:19am Mixed hyperlipidemia Unknown July 10:19am Permanent atrial fibrillation Unknown Oc tober 2024 10:19am Type 2 diabetes mellitus wit hout complication, without long-term current us Unknown July 29, 2025 10:19am Screening for colon cancer Unknown Octob er 2024 10:19am Assessments Diagnosis Onset Date Resolution Status Admit Date Coronary artery disease acute O ctober 2024 10:19am Essential hypertension acute Oc tober 2024 10:19am Malignant melanoma of left pinna acute July 29 10:19am Microcytic anemia acute July 29, 2025 10:19am Mixed hyperlipidemia acute Octo shayla 2024 10:19am Permanent atrial fibrillation acute July 29, 2025 10:19am Type 2 diabetes mellitus without complication, without long-term current us acute July 10:19am Screening for colon cancer noneactiv e July 29, 2025 10:19am Plan of Treatment Author David Calixto [facility] Authored July 29, 2025 10 :39am Patient noted to have a mild microcytic anemia on labs from 04/2024. I arranged for him to have a colonoscopy, which was scheduled for 07/2024, but he ended up canceling this and is now declining. I've encouraged him to go forward with his colonoscopy, but again, he declines. I will repeat labs now and continue to advise. Controlled (A1C 6.7% today). Noted to have an elevated microalbumin/creat ratio on most recent labs. He is on an ARB via Entresto. He's also on Farxiga. Continue current care. Go for yearly dilated eye exam. Check feet daily for sores/ulcers. Controlled. Continue current care. Continue to monitor at home and bring cuff/logs to f/u visits. Call with questions/concerns. Most recent labs reviewed (04/2024). Controlled. Continue current care. Rate controlled. He is anticoagulated. He will f/u with cardiology as scheduled. Currently asymptomatic. Immediate medical attention for any CP, palpitations, dyspnea, orthopnea, or other change/worsening in his condition. He will f/u with cardiology as scheduled. Patient to f/u with derm and oncology for surveillance as scheduled. Patient is due for colonoscopy. This was scheduled for 07/2024 but patient ended up canceling this. He was noted to be slightly anemic on labs from 04/2024, so I've encouraged him to get this done, but again, he declines. I will repeat labs (including CBC) now with further recommendations pending. Future Tests Future scheduled test information is unavailable Pending Tests Pending diagnostic test information is unavailable Future Visits Future appointment information is unavailable Referrals to Other Providers Referral information is unavailable Future Procedures Future procedure information is unavailable Future Medications Future medication information is unavailable Patient Instructions Patient instructions are unavailable
--- OUTSIDE RECORDS SUMMARY | 2025-08-04 12:16 | XMS_ITS | CCD ---
Author Organization [facility] Care Team Providers Care Director Selection And Administration Name Role Phone PHYSICIAN, DEFAULT Admitting Unavailable PHYSICIAN, DEFAULT Attending Unavailable PHYSICIAN, DEFAULT Admitting Unavailable PHYSICIAN, DEFAULT Attending Unavailable PHYSICIAN, DEFAULT Admitting Unavailable PHYSICIAN, DEFAULT Attending Unavailable Jose Armando De La Cruz Unavailable Felipe Fajardo Unavailable Unavailable Sheree Greco Unavailable Fannie, DO Hernandez Primary Care Provider MD Elo Tapia Attending Provider MD Aman Beck Referring Provider [phone] Fannie, DO Hernandez Primary Care Provider Fannie, DO Hernandez Attending Provider Lottie Castillo Unavailable Fannie, DO Hernandez Primary Care Provider Fannie, DO Hernandez Attending Provider Sheree Greco Attending Unavailable Sheree Greco Primary Care Unavailable Sheree Greco Admitting Unavailable RICH, KATERIN Referring Unavailable LEONORA VIEYRAINDA Attending Unavailable GARRETT VIEYRAA Attending Unavailable GARRETT VIEYRAA Attending Unavailable LEONORA VIEYRAINDA Referring Unavailable VILLANUEVA, KATERIN Admitting Unavailable RICH, KATERIN Attending Unavailable ASAD ESPARZA Attending Unavailable SHEREE GRECO A Primary Care Unavailable Jarrell, Azael Admitting Unavailable Leonora Vieyrainda Attending Unavailable SHEREE GRECO A Primary Care Unavailable Jarrell, Azael Admitting Unavailable Leonora Vieyrainda Attending Unavailable Dioni Strong Admitting Unavailable Dioni Strong Attending Unavailable SHEREE GRECO Primary Care Unavailable SHEREE GRECO Primary Care Unavailable Jesus De Ante L Admitting Unavailable Salguero Ante L Attending Unavailable Azael Vieyra Attending Unavailable SHEREE GRECO Primary Care Unavailable Azael Vieyra Admitting Unavailable SHEREE GRECO Primary Care Unavailable Katerin Villanueva Admitting Unavailable Katerin Villanueva Attending Unavailable Sheree Greco DO Primary Care Provider Laney Fields LPN Attending Provider Unavailable Sheree Greco DO Attending Provider Allergies Allergy Classification Reported Allergen(s) Allergy Type Date of Onset Reaction(s) Facility (2 sources) No Alert Propensity to adverse reactions to drug 2 [facility] (1 source) Egg; Translations: [Egg Allergy] Propensity to adverse reactions to drug (disorder) [facility] Repository (1 source) Seasonal allergy Allergy to substance 4 Unknown Reaction [facility] Medications Current Medications Medication Drug Class(es) Dates Sig (Normalized) Sig (Original) apixaban 5 mg oral tablet (20 sources) Factor Xa Inhibitor Start: 06-25-2021 take 1 tablet by mouth twice daily Apixaban (Eliquis) 5 mg tablet Active 5 MG PO Twice daily May 15, 2022 12:00am Complies with drug therapy aspirin 81 mg delayed release oral tablet (20 sources) Platelet Aggregation Inhibitor, Nonsteroidal Anti-inflammatory Drug Start: 05-15-2022 take 1 tablet by mouth once daily Aspirin 81 mg Tablet,Delayed Release (Dr/Ec) Active 81 MG PO Daily May 15, 2022 12:00am Complies with drug therapy Aspirin 81 MG TA BS Quantity: 0 Refills: 0 Ordered: 08-Apr-2022 DO Active take 1 tablet by mouth once luh y Aspirin 81 MG 1 tablet Orally Once a day Active atorvastatin 10 mg oral tablet (20 sources) HMG-CoA Reductase Inhibitor Start: 06-17-2025 take 1 tablet by mouth once daily Atorvastatin 10 mg tablet Active 0 .ROUTE .COMPLEX 90 June 17, 2025 6:33am TAKE 1 TABLET BY MOUTH DAILY Complies with drug therapy Start: 02-18-2022 End: 06-17-2025 take 1 tablet by mouth once daily Atorvastatin 10 mg tablet Discontinued 10 MG PO Daily 90 90 September 20, 2024 12:15pm September 20, 2024 1:13pm azithromycin 250 mg oral tablet (1 source) [...] Aug, Active dapagliflozin 10 mg oral tablet (6 sources) Sodium-Glucose Cotransporter 2 Inhibitor Start: 03-05-2024 take 1 tablet by mouth once daily Dapagliflozin Propanediol (Farxiga) 10 mg tablet Active 10 MG PO Daily March 05, 2024 12:00am Complies with drug therapy take 1 tablet by shayla th every twenty-four hours Farxiga 10 MG 1 tablet Orally Once a day Active metFORMIN hydrochloride 500 mg oral tablet (20 sources) Biguanide Start: 07-04-2025 End: 07-04-2025 take 1 tablet by mouth twice daily Metformin 500 mg tablet Active 0 .ROUTE .COMPLEX 180 90 July 04, 2025 2:48pm TAKE 1 TABLET BY MOUTH 2 TIMES A DAY FOR Complies with drug therapy Start: 01-13-2025 End: 07-04-2025 take 1 tablet by mouth twice daily Metformin 500 mg tablet Discontinued 500 MG PO Twice daily 60 30 February 14, 2025 10:38am July 04, 2025 7:30am Start: 04-02-2024 End: 01-13-2025 take 1 tablet by mouth twice daily at mealtime Metformin 500 mg tablet Discontinued 0 .ROUTE .COMPLEX 180 July 06, 2024 1:03pm January 13, 2025 12:44pm TAKE 1 TABLET BY MOUTH TWICE DAILY WITH A MEAL Start: 04-02-2024 take 1 tablet by shayla th twice daily at mealtime Metformin Active 0 .ROUTE .COMPLEX 180 April 02, 2024 7:04am TAKE 1 TABLET BY MOUTH TWICE DAILY WITH A MEAL Start: 02-18-2022 End: 04-02-2024 take 1 tablet by mouth twice daily Metformin 500 mg Tablet Discontinued 500 MG PO Twice daily May 15, 2022 12:00am March 31, 2024 1:32pm 24 hr metoprolol succinate 50 mg extended release oral tablet (20 sources) beta-Adrenergic Rubens Start: 06-11-2024 take 1 tablet by mouth once daily Metoprolol Succinate 100 mg tablet extended release 24 hr Active 100 MG PO Daily June 11, 2024 12:00am Complies with drug therapy Start: 06-11-2024 take 1 tablet by shayla th once daily Metoprolol Succinate 50 mg tablet extended release 24 hr Active 50 MG PO Daily June 11, 2024 12:00am Complies with drug therapy Start: 05-15-2022 End: 06-11-2024 take 1 tablet by mouth twice daily Metoprolol Succinate 50 mg Tablet Extended Release 24 Hr Discontinued 50 MG PO Twice daily May 15, 2022 12:00am June 11, 2024 10:44am Start: 10-03-2021 take 1 tablet by shayla twice daily Metoprolol Tartrate 50 MG Oral Tablet TAKE 1 TABLET BY MOUTH TWICE DAILY Quantity: 180 Refills: 0 Ordered: 07-Jan-2022 DO Start : 03-Oct-2021 Active microencapsulated potassium chloride 10 meq extended release oral tablet (13 sources) Start: 03-05-2024 take 1 tablet by mouth twice daily Potassium Chloride 10 mEq tablet,ER particles/crystals Active 10 MEQ PO Twice daily March 05, 2024 12:00am Complies with drug therapy take 1 tablet by mouth every twe [...] PO Twice daily March 05, 2024 12:00am Complies with drug therapy Start: 05-15-2022 End: 03-05-2024 take 1 tablet [...] Drug Class(es) Dates Sig (Normalized) Sig (Original) furosemide 40 mg oral tablet (20 sources) Loop Diuretic Start: 01-08-2022 End: 03-15-2024 take 1 tablet by mouth once daily Furosemide 40 mg Tablet Discontinued 40 MG PO Daily May 15, [...] 60 mg Potassium (8 sources) Potassium TABS Quantity: 0 Refills: 0 Ordered: 08-Apr-2022 DO Active Sod Picosulf-Mag Ox-Citric Ac (2 sources) Start: 06-22-2024 End: 01-25-2025 take 1 mL by mouth once daily in the morning Sod Picosulf-Mag Ox-Citric Ac (Clenpiq) 10 mg-3.5 gram- 12 gram/175 mL solution Discontinued 175 ML PO Every morning 175 1 June 22, 2024 12:00am January 25, 2025 10:59am Follow instructions given by office Problems Active Problems Problem Classification Problem Date Documented Da te Episodic/Chronic Cardiac dysrhythmias (20 sources) Permanent atrial fibrillation; Translations: [Chronic atrial fibrillation] Chronic Chronic obstructive pulmonary disease and bronchiectasis (1 source) Bronchitis, not specified as acute or chronic Episodic Congestive heart failure; nonhypertensive (6 sources) Acute on chronic systolic (congestive) heart failure; Translations: [Congestive heart failure] Onset: 01-11-2025 Chronic Coronary atherosclerosis and other heart disease (8 sources) Coronary arteriosclerosis; Translations: [Atherosclerotic heart disease of [place] coronary artery without angina pectoris] 03-04-2024 Chronic Deficiency and other anemia (3 sources) Microcytic anemia; Translations: [Iron deficiency anemia, unspecified] 01-25-2025 Episodic Deficiency and other anemia (1 source) Iron deficiency anemia, unspecified; Translations: [Iron deficiency anemia, unspecified] 01-25-2025 Episodic Diabetes mellitus without complication (20 sources) Type 2 diabetes mellitus without complication; Translations: [Type 2 diabetes mellitus without complications] Onset: 03-06-2022 Resolved: 03-06-2022 Chronic Disorders of lipid metabolism (19 sources) Mixed hyperlipidemia; Translations: [Mixed hyperlipidemia] Onset: 05-05-2024 Chronic Essential hypertension (20 sources) Essential hypertension; Translations: [Essential (primary) hypertension] Onset: 05-05-2024 Chronic Fluid and electrolyte disorders (8 sources) Hypokalemia; Translations: [Hypokalemia] Episodic Melanomas of skin (20 sources) Malignant melanoma of head and neck ; Translations: [Malignant melanoma of skin of ear and external auditory canal] Chronic Other and ill-defined heart disease (2 sources) Intracardiac thrombosis, not elsewhere classified; Translations: [Intracardiac thrombosis, not elsewhere classified] Onset: 01-14-2025 Chronic Other gastrointestinal disorders (2 sources) History of bypass of stomach; Translations: [Bariatric surgery status] 05-17-2022 Episodic Other non-epithelial cancer of skin (8 sources) History of malignant neoplasm of skin; Translations: [Personal history of other malignant neoplasm of skin] Episodic Other screening for suspected conditions (not mental disorders or infectious disease) (8 sources) Encounter for screening for malignant neoplasm [...] sources) Localized edema; Translations: [Edema] 03-15-2024 Episodic Unclassified (2 sources) Longstanding persistent atrial fibrillation; Translations: [Longstanding persistent atrial fibrillation] Onset: 05-26-2025 Past or Other Problems Problem Classification Problem Date Documented Da te Episodic/Chronic Other ear and sense organ disorders (1 source) Disorder of left external ear, unspecified Onset: 03-06-2022 Resolved: 03-06-2022 Episodic Results Test Name Value Interpretation Reference Range Facility Coding Summaryon 07-04-2025 Coding Summary HTMLBase 64 HncenvwdZFw8uJy+PGhlYWQ+P Q4LYRTwB44odVQfiR5xA8SYFI lOSywgQVBQTElOSyIgbmFtZT1 kaXNjZXJu IC8+NM1uMKRlPjqktQDbo5Q0g QV5Q42omg2cZRsipUA7LSIxKw Brpwatq6hceLz4CIrwXqylNdI t YYNauT95SAC0fY32Of35dVSer CIwr1oemNb5ZrVgYIPtUZN1wR jcIZwfb9YtDBCeL60juNXwq1B 6 SPKlcCsgzJNoUwOdbAD9hU0iI Gvkwulvt7otpoheJax4kz83fD Umy4M4jGC1C6DfzzM2KGMkfIT g IvuelLBLhO3siausw0aoysukT cAiQQGuAOf9DHu3WSOuzLriKs YeHK60XUA2GBEduvVcF2RjACQ s dJfnEqL1c7R0As9IN6IIQrvdQ 1VNTUFSWTwvdGQ+WJ24ku62J2 DhXbbzChk1ISCnSLR3bIH6mG0 n JANjMQcqt3O2fUZ6G9OuqhFhs b9na0cvEPRcESrhG41erTZch0 D3YTIncUT7QLJziTdtMjDahF9 3 Oyc+HEMyqCgyq4LvFthvi2qpp 1rehMo6WgnhUCUnumNqvUjvCP R7q3WwJi9sTLQzhHF2bNI0wU0 i SmRwPbF3SCxgL683HsSlxGZqZ znbM28tT2WymXN+VTAgTix8UX DzeWpvKB1uP3BxCQKcxasniUA m oHvjGV7pLSMbqusqJFOpqO2bI JHbB5m7EdYnHdS8AKoaQ1BiGQ MlsugbNg22eX3vMoKzJmG5FMs u V9HysdR5PMKpcXQeLXcjDPA1U 98ze5A6DWEeHVGjMRC6rXA5pK 1hbGlnbjogbGVmdDsgdmVydGl j BYunNSdtZ153MEHrlLljZnXjD GluZyBEYXRlOiAgMDkvMDgvMj AyNTwvdGQ+KQJcIMN6yEkdEYZ n lSOyHZfkOc2piXgxvZgyGX2lJ IGxxsqmDOLacC4pZHWcxWQvmC rrIY5mPCCyaakpx482ZqMnEWP 0 CWNozDVoP6OcjG1hWsFkMVBaK VNcG3RfrHOdDIuzM273VGmqNe H7INPjohQcC0PlVJIwgNrfBeS 0 k6Z3Oj2Lr4AtotvuQ9KdhGAsW cGeVuofTQl6R9PgAkbbsPU+PC 78KVRfEN19GDm3DYN9uBwwSIu i XRBdO6QdrJ2gYhFfTUHfPRDhS yc+PHRhYmxlIHdpZHRoPScxMD RmIwWvzZirYV2iUi1jUPRlRDW v lSddkQYpHyIfy3fmYKTqVYqaV S3kfCpnJ8RonJQ0LLQvk1l5Ex 70I66lD1GhvSX+WETrpLQ2mIP 0 mO4wQdVsPpS2SAurP963RgWuy CQrZwhal1ftu5cncCo7QgP9PS BfxkFfmXykSLW1c7WuVo30X07 s IHdpZHRoPSIxNSUiIHZhbGlnb c0vdI8iPk8+VZRhiAV2sBZ5gH 8cJdAaFhJ4CKoxV745LhZyyKU v Vmvln1ijo1kqmQc7TwAoAFRtk uTkbDuaLXU2m7FlUz59T4IvvR chs9UbSjs3lu26oUWjh3R3yJM 9 W8NtYZOrnlcupSXxjUekKJ4yZ GGtnsxrOVDlfM7fPOMwM3g3Vs OrWfD2AHxnZ1GmxiH7EVAwgKE g XDDqnOYAmL6jepbjw5ynzimhB bGoYYQpBTr3HVx4GOSveTemGa FuWGX2PrX3PKA2wDHgjI1zcXk n blwtoQ2yFbw+OHD6sAZvzNUAJ U5bPatajNG+CMMzIBC9gIwzHB edDDUqsF5dYRFcA2r1TbNxFbB 1 DIfqY7MzbbM2WOWggLRgWQOrv WLNpG7ezjaen1giycykBrDsJS EnSGn3ZJg7LHKwuDlnYoPmQRK 0 QxT7ERQ2yMYqkT5nwAsleelhd G9wOyc+LnplwTshHGS7FCf3L7 NrOwy8PDQovPupPO3kjBPkJSa u Kf1zeLigtYoaOB3bUZEshwbbx 512KzCjt9geWMUdmCLdMFblZO C7J41mk9I6WJKhANXvLPR6vRN 4 nC1jwFtesjrymTEuyOrswcIfk KtnNZjlHNuzM422XGXcxKjbAr OwPHa0B8McFli6YCTvhKzvNX5 n bPFlFKkaHv2ooEaweFrrZA0uJ AGvfwssw880ZaBhe9xrBVZheJ QsGFtgHUB4E26nd7S7LYDtNFN w FNR0aQI6fA0goBjypjowbBJdm XvtpwJriRvdPNaxMJxwZ739EM RenEgdVtRhoBm7L5NiSyv0PQI z zVcnQZ9mzWPeHUrlSq1dxXims DdwWH4aFPHddwfst873YoJjk9 orPGNzfDBuJLfiIPZ8K29cq6T 6 QDFxIDDmTVW3bJR0zT6okHmgd jogbGVmdDsgdmVydGljYWwtYW vbC144ZEGmfPwwHyMddBzjjaT g YPrxNAm6U2YgEitdzNG+PC90Y GDzOV75qDCmkSZwn6ggiRl2Ir YwTGPiWYV0tTjjVIgtp5VzCUC t U37sqXDue6B0GAJniGamuUDwG mSjySX6uQ8mDLndxaxmg5ajpv rwRpjud9pwkz40bE97K83zLOm p EJOjNMWzCIElNRLmcJkfzf1at G9wIi8+MMEmyCH7mSL2tM9dFA IkHvV3UNcuE827ByShcVUwCeq j q6hky9rvyZy1CgS0JJUfrwNus JgmWDI0e0GoUh09G74rZHmmBO DyPFAaHYAxOVRouDnvbb4jlW4 w Ii8+SPMwfKV9oRK1pN7cSoFgC yR4PZwgA362FcOhzRDcRxdyC0 6xB1LgjMW+LWJzCgy3RTLufIj s CS0xrCEwMOwrAa8gBXW2HtPyK eGxLCboH3ExHQXyzhbqbezjrF N7AELyQEQxeM88Ba9ujJmgVEN w yQLDkT5wmsocg7ikqffhAkFwN IOfNQi1QEq3WOOpgKkzIeVtTZ G4RyM9SMU3kANpbS5xyQcouel g rZ4rR0IxQUFzugzmWi37qN0gF mOmOdT7PLwpJqz+Z7JVIAYGGE JEVJ3FO0EjLQpLKOLJJQ23IW3 8 oHBek6V1zFW1Q9QpMCFnylylu kojcBF6BUGhSONemV46pXLpXG csAo8ey6D5b090SSUpHROvaO2 7 Pw1htReePIJhlJLRtQ7tegbus 7khaxyeMxJpJIFhBBg5ONo9YD AmhEfgAgRtJHG0IiW7AVS9nFQ h rE4oeVcolulcuB9kRmr+MDMvM kCaQPr7NXdviOP+VHTxNTM6oZ enKSfvJHYtpW3zGUZdG2y9PaZ w NuW3LAdqW9IjIAGujwaiNr89l L9dFaVuQpD3JWfiW5YhglZ0OR KpuHXmZGwnCDQ9J39zg9M7UDU w PZYwTHT7zKJ4iR0xaDxuetdyr GVmdDsgdmVydGljYWwtYWxpZ2 57AKLvmYdeMlk2JJurOCOnAS8 0 CS52eUGvu9J1aSI4A3MjLUQnk uuryljdiGI5ZNTlVGYzhI33lA PuFGjxZj5ma1H9z783KWFhZNC w fM90Dz1dlShkUYSrkDIGnC4nh uamd4umpjmpMwBoKVLkVPe1YF q7BPNilDjxPhVpLLY7IcQ7AHV 0 nEBaeM9buKjxtcxuaC8pJiu+T UFMRTwvdGQ+MRPfLPX0wZecER maUFHixG2fGAWoJ4r4NdQrAmK 1 FTfxS3KrIWAtihynLb49fK3mQ mYyKiB0YHjaR8DrwtC6NDXitW XzAXwvNXM2F16au0A9ELKaJZC w QVC6fOI1xZ4dhVftgljunBBrm GmmtsHmfOjbXBjuHVqcE844FI GdtOsxUdNfJNIvRU7zlYvokCQ + AG03uc18U6RiHorjDah3JIYsU CX2tCQ5wO9rYOQaUZfhj6E9eW G5G5OldhLhoz0fo6mkYEJxLBx g Y67gjGRvx1G6FWLsxOJ0XQSsz OyvIoNmyJ24Joz+PGNvbGdyb3 VqUalrf5nfj0wnhIf7MmPaCLL g trOywGdvXDF5h8RrVw73X07bR HdpZHRoPSIzMCUiIHZhbGlnbj 2fdV2tPq7+TIEjdPN2nVG5bM7 i WcQlUiT8DQrpF922MfSbfOYbF mbrg5tws3eoqVf1QnNgPJSxnp ZvpIhcTRB7y2EfYp43T4GlwVd y f4JeBxs2vx30mCRzo5K6aVE0T 2CuGSNkeqofuNNkcSnwWK1iFF BptzgxCJJfgV3mCEQtC7x4IkL w BmE4XRlbJ5LmylS3KVFgsLJxT JTzwETNkF9lfcpcu6zqqpnwHv MdGGVnGMo4SMf7CDNrnUvuDkZ s MOJ3DsL9OUV6oXSrcL5hoXqir vgbxL5gElh+RUi0y7xzrOYvWX 1rlRS5LY85IW92gIOuj7T4nGS 9 T9LwEOHrvpdxhpwkxVE0FKGhG KMarZ35Gs1qwXbvEe5jRBWgOU Q1FCRitMKvX6DreL7kInUyVHL w FEYcW4IygSVqZJjhO367TMnqL tO6FDWvlqMrA1WnNLZotXfsQl J7p3Q5Tb7LDI45SD50XU38iDV g x9K1aCG5X6RaWUEjdyjevgnnv DC5WTBgIQHhhR99Kl2fzIgxTt 3oAHBwGTU3ECLynDZgJ0AveB7 y KdHoJTGsLLYcR0HegTZpYMnwX 320HRckVcK7RVMbitXjB0WzGT UjrGosZhL4l9I8Cq7GXs76LV7 0 QM99gQAok8U0iWS3O9ZzXAZmn zjgqhwqfFH8XBIdOTBhnP83Qm 5maDcyUs7pIBKuMXU3WDAvdJI z A6PlzJ7kZeJrUYFeAYPmT1Uwq VYtTIsoR490ZTznQzM5TVZmqc SpL9ArYNFklZlkZqC2s7J5Fe1 Q FRtokag0A9QqPqmuaYU+PC90Y YVrGZ55jLBhfWGwg6unrGc2Oo TjEZOhOZY7eWgtDTdgs0UuMPQ t Y29 (more content not included)... [facility] Coding Summary HTMLBase 64 BilkhapbJQw0iTv+PGhlYWQ+P R3BEIKeV64scZQlkE7oX1CMHD lOSywgQVBQTElOSyIgbmFtZT1 kaXNjZXJu IC8+OO0cLBAaUenueAWul3X5r HN8B71fhc4pTNsuoRW6MPClPy Cbdpftl0xqmDn4YVkrOrdtBrC t VNIvpL98EDG2tF54Uf91nUSyk LEdb1oztAq7TlUrRBPeJJQ1zO fyGWwvc7OjUMJhJ87mhLDom3Q 6 YXRotVndoTYsRcPktAZ3iR8vU Zjfmzldf5fsxxbwLpu1zk87vF Lcl4S1lXE6P5OedkP9JHSliRM g AzbydWDFfZ9bpmeoa8dihokmS yCfRXXxLZg1WOx3DMAtwHrfRd VwXQ11XIS0DXQroxSrD0SbZGR s lHxwOjH1d9H1Ph0KH6HWYmrvE 1VNTUFSWTwvdGQ+OS42py03R1 DyDllrZbr6AMQnCCT2pQJ7oL9 n HZDuQMbrp5X0cRO6C0XzjaVdy u8ca4nrEVYoSOphF84avLPpd7 K7XQBjuGM6STEamWziSfFwpR7 3 Oyc+ICYwvHydb6OmUfnwu0czy 6jfhNj9XhydAWTudpSjtFihCP Q7h2QlUk2lYTSrcHF5rHG2bM4 i DlWtXiF9PKlgC388OqYmrFJpP fkpD27iS1UuiQQ+MDHwOyc7VW GuzVwpBN0aI7KyWLKerssbvAF m gGfxVR4sLPTesjpdWLOrjD1hM SVzS5a2KjIiDcO2LHkuY0OeYR OvkufeZm81kW5yXqLwMrX3GVk u B2YvegU2KYTljFVvMKysXLG1Z 44cn2B7WCFtYTVcOPM2aVO3vI 1hbGlnbjogbGVmdDsgdmVydGl j DNtbEWlbO098FTWuoIuwXxJkQ GluZyBEYXRlOiAgMDkvMDgvMj AyNTwvdGQ+UNMlKAT7yQomNNC n hYOfNWuqOb1ghCaprGnaPD5fD WPuzrwiPUXokX6zGCBerYCjnE sqOO1eDFMgstfmv631MsHpCTL 0 ROEjmYCyP5WsrF3fNqJgTOWcN WOoP5FsmWCgCYrlA889CTdpMv C4MMGftyKoT1AtSKAgcSphEbN 0 y7X4Vx0Zb0BgfwvgN8LxhABpI lOsXtbhRZg0A4OyOsbabUL+PC 38JTZgRI34WKc7UIN5oYvyMZu i MRApD0TbrK5bZgWsPEIgUPYyZ yc+PHRhYmxlIHdpZHRoPScxMD XfFzZnxWeaUC8zKg3mERZeXGF v xXhlxEAaJjSbc2ndGGAcQOinV Q8xnJnfT9KdmJE8NCKus0n0Tr 90U70tR4FjoFH+VNKjzCC9ePB 0 mH9rJjYaAxD9PKrpB681NrKau CSyGpybv6pdo2qyiKg4EmF9QJ JaeyDfuRlpAUX6s7UhMv02X68 s IHdpZHRoPSIxNSUiIHZhbGlnb g7ncM1pMz1+XALxwOZ3fNL3xZ 4aFfOzQaO5UYsdZ713CiYmnBC v Dtuhr7dav9jmtWi1WyUaPZCtl aFphIxiXKV1t3DvCp55B8OduE qrf2IuMnc9qn92rAWld5T9tNX 9 L1NgUQJwlolsiXLciEloEO5hT WRzvqfpKVPseF8sDBShS3b3Vz YuJiM8OVvdG3CcxbX5XQCrxMV g MJQgaHMJcG2kaidmd7gkjnljM wXgBZHzVJb2EXz3PMLqeRpkMm AyECK6UvL6GQC2lFQsfF5rfKl n cohfgR3pFmy+WMV3yWOmrTUDM D7gBumotOQ+ORJkRZB1oYzeJK hqFMAngD1eIPNrK1a1CmInAaR 1 KScqN6BnnjF1XENwaDCrRYSyy TYRgD6neqcgy7ypcuykHtPtZP VwAYm4XHq4TZPbdYntBtFhHHE 0 IvQ7FSF2bJZfwS4jtGircwdsh G9wOyc+GfrrpLkfUHM8BOo7W4 OsObo8UVVcxWxmQK7vuSZaLUi u Wq7gwNvvcWsqFW6eIWLhwiifi 128PfNfe1ylXTPpuTSyRCilCA W7U47tl1N6LYMwKFGzDVB5xQA 4 uM5jpUqwlbiwbVNinCunqlWqa BdxKCaqIAofZ726WZCfiLijLl RtXZf1S2VvKab6SERnsSkuEY2 n kOEgPKzjQh7skXdogEodAU5hW XRadmfyz856GkDnc2xnJPVezG ImOYwqDWP4E36pi3D9GOChDHI w IOV6vVO5eD1oiFtdrumsyUCsm EhmjtCptVvuCCzjQUlfO886MH SnuUesFeDpvRw2Z7UgCtb7AGH z bQqcBJ2dmSYcSBpvBh8ccXhgr LzhWH8jMNYztwvqd435OqEwf4 pnHNHegUUjETatXVR2M71su4G 6 EMMwPZOfBEI5eHY7yO0mzDcdc jogbGVmdDsgdmVydGljYWwtYW sdV733WBVgxXflXxMbhFinhjA g KYwsEMu7W2UiIvcfcDS+PC90Y GZzFZ35tDSegCRee4hyeWc9Fa TeOXTmIZN7xMewPLwmt8YfFHD t V03dwTAry6P1CKHucAwtiHPjE vTcyFN5wQ8xTPjxxqjri8eaue tiSxprq3ypnf68kO54Q81gVSn p NPThOYUhDSZzDCKkqNunsl4uz G9wIi8+NPSufPW8cYJ3yF4qMK DxYsF3GGzhV713TjZdxRQtZfe j c7ccy8qnmXa8QbS4XCMteeQhs DxwKWJ5b8GlGr12P45hEBnvYA TgRMPzJXYsJAYbvVzwlx2lbQ4 w Ii8+XDBtuDX2pGB6mU4qNkObS dU7WUfeF582KoGpiCYdOnjyD1 4mL4XfcOI+UKOiBbo3USMcmEp s JN5liHUvYRbmRv6fICR7YoOoZ yQhSYifE4ZuIPEgdfgyqjrzmR Q5BGHgGFPapS73Gl6jdBwoMWA w vHLBpE2slggzo6tshufyJyVxX GEdODs9FNo8BZMwbUljNxRpBG D2AjG2YFQ5sFQurD1vdCdhwsd g bU5nS8MiHSLxpxjkAs29mT9nT mNyFjQ5BPcqFfg+A4HCCPWHRG ZXBZ7MS9ZdGHbGMKIYER51CA5 8 uUHtv1X2rID8J4YlMCUxqtroh nuqhYU4UIYaPHDcuT64eYZeFM shXc1bs2U6h279IMReNDPysP6 7 Gf3ffMehAMFdlUYDeX8nwzxzk 1jmpylaMlUcATSlVWf2ZKb3CC DgkNgsBbBlXRG2IsG5TWE5wUX h vA9tbGxsurtecH0fIqk+MDMvM zOwMGd9KXidjWK+GMJuOHG9gV pzARxgFYDssK2iPZZxI4e5OnV w YuX9CSuhL7KjZOTabmmsRf96k O8iEkIhOmM3HBovW6RvpkE5WM XkzFCpVYorBHM0J44cj4T3TMT w MYVfTYB5oJR6yS9bqDnyneddz GVmdDsgdmVydGljYWwtYWxpZ2 14OTRicRaePxi9YUoqVTGuBZ2 0 IJ87eZTsg2W0fEG5E9YlHIYof azsmfpybUE7DZGgUTHypR59eU GiCAuyUy3ev7Q9j036OSFbYNT w eN35Cb8utVncKZCpiIUMyL5kw zkkw0yegxooWvRbSBJnJQp4AA j5FVFjiBdfQrFrVQJ2QeR5BIR 0 nNLtgF5voTbajgpvuC5cHqp+T UFMRTwvdGQ+UWVgYEZ6cYuzHL yiCWMgvW9hGQKmF8v3IuMbDsG 1 ZVrvG3MtYAXicxufLf01wH1uB pBdNuX0VDosJ4ObiqI3DHEvzA EdGPquJPV9G47es9D8NOFuNEJ w OYX2pJW4zA8mkWeelelxoFPty KnymvFowLjmQZhhWKhdP551LM JoaRbnPkXgAYBhRT2sdNwjiLB + FK17uz36U5MyPembWlo3MLAlC FB4dYF0cG8oVDNcWZpxq7L3dG X9D6YycyEclh2na5evQGPbGBv g U95ijXBsn6X9BKPyhLS4UMYmm QyzQtKmsY14Lnz+PGNvbGdyb3 QcDxgjc6yvo1fkcEc7IxIuUEC g txLlvIkpQOC2y1BvUw76V55zB HdpZHRoPSIzMCUiIHZhbGlnbj 9jpH0kRi1+SBAgbKJ6zTM3gY8 i LcFkDuL1ALoaQ570AcTguOFzP fuxl5cwf8ffeEo3OrEoCTMssh XixHhvVNZ7c7VwGt69X9FivMc y m6DrVie8oj21vFYgy6H6lTI6Q 9YsDJFhefzrxRBgvRmtYD8dHC PckascKBJbbP0kKUXaY8s3BbK w VzL6YLnsX1FqfgQ8UESriKUyR KEvjZJRaI1uaqisy5fpiukmBr UcWHFvWAg9AUv7RHItmFyjNqO s GAC7UdD8AYW9sZXkwW7zzSbtg pntwJ8oByl+NYw8a1orbLWkBE 3omGL5QX95YL17aETio2H2hWQ 9 S0StUHQubomyukeyuTK9YOFqW ITpsC87Cm7tcUyqQm1sWLOtCM U5GGMvcVCyK9ZjjZ3dOxYlSFX w LRQvX6TiyPYoEMyxH100UUarS aA6KXLwwoGwY1QvPDScjJmgJb X8o7A4Jq9ZUR67MO93SS68wLQ g k4L0cSC9I8QwCKNgiwueozkqp AL9EYLpPFDheC52Yt9xzMenEy 1lPUYsSJK8LZZsuCYwJ9EgeL3 y HbQyXILyFNNwL5DwiDEgOEonU 265KLiySfT7ALCosgAkI7WtIM WbpDbmBkN2y3M0Lb1YWv04NW8 0 SI25rXBgw6B0dCR4F3JxWOXqb sfbgpiioIJ6GRDjLOMwaQ32Lx 0ycVmqWt6xLGLmPBV9DTJnmXR z J7ZnmD4wRmStMXQmRUKdL9Dhe DRiCYxwO309LNazWpY1ECBzwl QmE5UvXPVwiDgxHfR4d1M7Gr4 Q ZAfwtwb2A8KrKeacyVE+PC90Y PSmRY80jRLbbVRzx0gyqHe8Ds WjSJIzMWU6zTfgLLufo0TxICQ t Y29 (more content not included)... [facility] Coding Summaryon 06-28-2025 Coding Summary HTMLBase 64 KiabhwmzKSg7tXv+PGhlYWQ+P B0HAYWvI04fkOOolH2iF4NUYA lOSywgQVBQTElOSyIgbmFtZT1 kaXNjZXJu IC8+TX3wQZDoInairUCup8I0v FL4Z03yxq4eHHketMJ7JHObXw Wokkfcx7wwxRd3APfuHmmbFbN t QUDogA34BEN6fS43Sa78bPGsr GCow5vlwMv7DeYqVSCeGGV1dT baMFshy4CgVOJhX28odHUfu0Y 6 UJVlzWarqTHyKfEdeTJ7zM5vG Cjwfndxz9dfdutzGra1em41uA Zpe4G9dMP3L5YfcwB1ZGMvmZG g PrketEYJjJ1pqnwsu6zpwoyxQ pFvRBUoMJw8OSk0AHJybJhkRh CkAF80YZD0YWSseeKpT5LmIAJ s sDowUaP0c0O5Hy9JO9MJNonvG 1VNTUFSWTwvdGQ+MY17ia44R8 RjCjqcQvd5ZETxIHY9vTZ7uX6 n TWGcDAtwz2S9cDQ4Y1XblcOwt p7wu0ytOPFmFEizK95osPVwz0 U9FOWwbDL1EZJusKmpQsFzaA3 3 Oyc+WKVtlRdgi9UcJsgei4gjq 1ufcQw0ZakpWRQkiuSnfTctHO A7x5IyAw0gEBRtbQK8hLG9aR1 i RgBbGsM9ALrtR143CcTssCAwK isuQ79mX4YixLN+DAFkEfq6YI XynKiaPA3dZ1MeFRGvlmmjjNT m yNvcRO7wMLNhjcipWBRpcU7kQ POeG7o2JtWuRzL3TSykO5IpUO HvxpsoTy92wE4pUyIbWnN5QFl u P0TlndL5PYXefKToZPpiLHW0C 81la1N5YEJhAYRlXAY9bJA8bS 1hbGlnbjogbGVmdDsgdmVydGl j XZhiMQndM897VLZrbTueLpCkL GluZyBEYXRlOiAgMDkvMDIvMj AyNTwvdGQ+FBNiDTL4rLncLRS n hECfGDiqVn0ioUrbaHhoJL2jN OLbdbkpLKWjuK5jNARmyKJubU yoGT8kHCAdlchxi439XdIgQVS 0 VQHsdADiZ3TgeS2uDmVsUCIoO OXuR9XoaFDvSMxcM008IWklHm M5DZHswzCaR1YzWKCftEebTvS 0 g7Z7Fc5Cy9NswqylC0UogWYiX rWpJdhrYRt9G8EvQaflmAL+PC 07KVEwYJ52DQx5PVT0gWwvZOg i TRTjP2RlwX7oHbHiKRZrWYAvQ yc+PHRhYmxlIHdpZHRoPScxMD OsJjYgrQofCZ3fSx4fWHUyDHA v dYzovNRwRgOui9gyRYXvJOapZ B5neIllC2NwwOW3MLPho7z4Mr 14E60kA3NtxGK+EZSnzOL5kMY 0 yM9rEaAaVtZ3AZvtK849BdVkh AEeWspej6xnh8merEz8XmA2WA WkvyEstNwbTQA3g7AnSo64X85 s IHdpZHRoPSIxNSUiIHZhbGlnb a3kgB5bVs5+KYDoePA2cTY3mN 6fViVqZjO5SPvpF877WzRswHN v Hedmm1lly8xtyIh1EuTfNMLvs bGwzDoaOEP9m6FyIe05A7NecV uti5RgLqe2ib04nGJff3M5jOZ 9 W9ZqOFLudosnaJKyvMejYD6fM KDqbaubKOOveH2kBDIuS8d7Lo McJpF1GEusS5OivwD6ILKdkGM g ZAOhgBAYxV1utdltk1aatnxwU xRsLHZoHHv7OJw9FPGhmHcgMl DhTRZ1BvB1SRT1cFClbW2viQt n ovownC7vTea+TJI0rIFkgIRFH F5mRiznmLY+TGPtEBA1aPenXS vaSWUdvM2gWPClE4d2LmKeSwK 1 ITpyT9CzsxM7EQWnzJUzIDSqc FLBwE8wsivud9sdyuptKpQiFD QyTTn7AFx4IEAuuInxYvCbCFO 0 CuZ6LPQ6bDSyhB1suXuexlmfr G9wOyc+ZdzvqWrwPGB2SXe9Q5 SaNup8UMRnePwgGX0yhINrLZb u Fh5btGsmdRmeAJ2xTFLggjkkj 400XtBur8bwPUNvsZUoLArsDV B7I91zn5T8KFRjDPLqSEN1cGC 4 jP7zuLkbhsqssPDiwOqxunEtg JraISxrTSomX320QVPzwHtwRl KmUIt0R9YbFtk9ANXvwDphHY2 n eMDwCZwyCa5nxCeuhKydYE1zR JOgyfpaq011UqGth2pwKHCcpP RhONebZDU1V90ea7Q6BYRmDEZ w JFF8dRQ5cU1xlNjwawbxhFVzt OqdjgJqsIelXBkqXCbsM337DA GcyNviViUemId9X7OcHow2HYL z uDwoLF7qjGCeHWfjTy3geZcpr PugDI6oSIPqzshik218RuElc0 osYJXavNAkWHfkUEO9N20ds7G 6 TZBpDWCmCTB4iZE8rR0lpDpix jogbGVmdDsgdmVydGljYWwtYW daM334HTBqeMdrAqRuyXsvupE g RRddRSd0W7JnKqigvAI+PC90Y EEqMD36rQHxzMWdx1pydLu3Lu XlSXKoKAG5sPtzWFxfr6KzRHC t O38ikRNfe8F9BEKbjOjjqRNuU cTvcEE8rC7xKKertkhcv0ntdg vxDyyek5vdse22xA22X45jVVp p HKDiUTSxQXHkJMVooMelqt8ma G9wIi8+CMTzhIS7eNK0rN7kPW IeIgE6CKnuQ853SnPzkERyEpw j w6vpb2ctuNv4CxA7MSCmtqSim XycYXY7i3VkEp45U47gUHluFY SpRELwFXQpAXMwcMujby3fyF5 w Ii8+HBRdqCA9oGL5oZ1eMbHiG lS5BPpuY370SiIqsTPaHfziT7 4eY7VfpUR+XYZcTsa3TRFtcUe s QJ0dcYQpLEdtUq0hVTX0GkIcP qYfZZgzX2QjVXQvhbjcbhjjnK S1PQAyLTOfuC82Pg1zeZbtWEZ w cFCAgZ5kaqsyq8idyuzwPxFiK MLfQFx8SYv7EMUdkLxaTsWsPI F1CjE9JFF0dRKedW1epZmalqn g gY1fB1ErNWLyrptgVj70zT1aW sVwLcM0VPnyFoz+R6ASZZHMCI SDZC0JZ7OqKXoCGIZYBQ60BT9 8 sCExn0C2oGV3D3ZtRLXsdnutf iywpMX7UQHuGAKjlW86yCKyMK udGc0ma3F1f283LXVtELKlhV9 7 Ad0opZxqOEStdMBRqO6pcgyip 8ssbhakNwUwPGFzIBz7NTi3JQ NyqUlbTgGrYXN6UiF0OWW6yED h aH2vjBoreijwkX4eZlx+MDMvM tRbJUk9CUzbeSN+KXMbXQC9yL emBTpiPPTsvI2sUKUuR5a4GjC w IhY4XVvnK9ZeWJDeargkMi33x M9aCcHrMpR6KQxtL9UnkqW9TU SluIKzYBpkAOV7X16jb6S4RWI w ZUMuEZY7nUS1yG8zhJqxzidhg GVmdDsgdmVydGljYWwtYWxpZ2 98BDVfpSorOuk9PVeuQOGqGG5 0 XW65vVAwt8R0eFV9S1GoXCVrq guiycvhhKL0LJXmDTJqrX21pB GgWTtwHu4ns0J8p838BWZvNAK w iL58Mb2rqFcrYGWvvMONbN6fw jmvk3ytobmeKeBbLDFwQLo9CC t5MIGkwPqcCjVtOQK6DwH5FUA 0 sPMesF7eaTgbwfsblH0bWxn+T UFMRTwvdGQ+XEUvFIN9zZmgUV fdWZNehK6yFYExS8r5PaAdJlQ 1 CBliN8CqEYBqvwdxMw21sA9sR fLvCmL5YVdyV8ZzmgY0FMUupT HdKAjhDLJ7K64ed0Q5REFaXEG w SRI5oPQ8jE5tcXscdtryaPQeh WrkwvIdwSjgTStqIUwxD982CN LaaHwcZpYnAHTeQK1zfStpmBA + DB73nh00J6NlPumgWcv0ZZJkF CQ3bNJ2uL3dAYJcLJvsp9K6wI M2E6OfgoYsnf1oi1qnJHIbHBc g K03wuCPtb5J0CKWieYG2KLDqn LmvSsKmiL48Ugv+PGNvbGdyb3 FcVgskk8yqh5zcrJn3LlAwYHT g jhWxpFawNWR6z9CgIn00G85eB HdpZHRoPSIzMCUiIHZhbGlnbj 2gsV3vSa8+EDZaxEZ7zSP9qD3 i NuOeYxY4GQseG428GnZsrVPmW wxtw9ztg9ihiBe7JpLdWTPywb AirFxhIHK0x5SoWd56V0DykPz y j9BrKez2rg94sPRye4A9aLE2Q 2WbTJOpsasktYDwxLbzTW7xKL SazqzeMLPmkF4tECBoU2w6BmN w YgE8WWyeT0XvwsB4LWWrdOEkF KAgtQQSmR3pknfxs5mxpjsiXh AbDWUbZWy8AXp3ZNRbrBdyMlS s WNY5NmJ9QWX8bVVauB7hqGwyk kcqfE7uHsw+QEd6k0lrsTJrQQ 6tpAJ3RM95ZQ66wMYhy0W8wWX 9 I0QnPGCbtcwfamzbeEX9FVPeL KKyqV69Nb2zyLtkEp7pSYXtHG B6ATAlpNOmP8NcvV8xQfXtMBJ w HNCkQ7YudNWgJRkkI845IRqpP eO4SLXurqDhZ1RqGWSryThcTv M4h2X4Nf9RIF69DI64EH14pAL g h0Q8wTL7Q2OlFJYowzjbcnqjj CO6NGWgMWWoqS74Gw5qfYbwHz 6iJAWmISJ1TCMrePXpU2WycK6 y TgRfXYIbBNHrX5UrwVLbCPtbT 252WNqtPpF4LNEeelMhF1DrEE HrfXcfWsZ8j8R5Rv0FPy21VS4 0 DH85nRQgo7V0aFG0V3ZpXGGgs ezdccljjPF5APJwYBNegF51Ht 5ujMynLi3hBKGsWFZ0VRQdnRZ z J0KkhN0tLkHyZRTxUJBkK6Rci FUsEJqyI951HDejFsB7AIXbdp JuX6LoWPRyxThtXuG7z2B4Rg3 Q QFvlsjj1V1TjPxoolOL+PC90Y BMmMY28dTQkkADjn1apsZm4Gn ZlKHQyUYK1zZocDVhdv4AiLLE t Y29 (more content not included)... [facility] Progress Note - Nurseon - Progress Note - Nurse Patient walks to [facility] 12. Pt. is alert and oriented X 4. pt. states he is here for get rhino rocket removed from right nare. States he had it put in on Friday for a nose bleed. States he has not had any nose bleed since then. Denies any symptoms. [Electronically Signed on: 06/27/2025 14:27 EDT] Kennedi January CARO [Verified on: 06/27/2025 14:27 EDT] Kennedi January RN [facility] Progress Note - Nurseon 05-28 Progress Note - Nurse Patient walks to r oom 8. Pt. is alert and oriented X 4. Pt. is here for C/O right sided nose bleed. States nose bleed started approx. 45 minutes before arrival to ED. Pt. is on Eliquis and aspirin. [Electronically Signed on: 06/24/2025 13:07 EDT] Kennedi January RN [Verified on: 06/24/2025 13:07 EDT] Kennedi January RN [facility] Office Visiton 05-26-2025 Follow-up visit [id number] Anna Bauer 1950 M Date Provider Department Center 05/26/[address] [facility] Family History Family history unknown: Yes Family Status - Relation Status Age at Mother Father Level of Service:[address] [place] OFFICE/OUTPATIENT ESTABLISHED MOD MDM 30 MIN Reason for Visit and Comments: Atrial Fibrillation [80] Congestive Heart Failure [127] Coronary Artery Disease [187] Post-Cath [731] [facility] Coding Summaryon 04-21-2025 Coding Summary [facility]Base 64 FswutrjfJDo4dKc+PGhlYWQ+P O8AQGLbH87eaORbpV7lU4LBQR lOSywgQVBQTElOSyIgbmFtZT1 kaXNjZXJu IC8+BC3fGUWuFrbfxGJmo1O1d QF2H38uxp0eFIvpkEY4DQTmUj Kwoqrta8izdFy7IIotHdbtPjT t IAPnnB35URX2hW69De61lGXuj HQck4qviGv9WbVxBLRlOBG2yC gwYTkau7KtSPQeM03hkDSsp1L 6 NMCioNknfNXxKmFuzRK2fB0oH Yvrljhlh3zigneaKxr6cy12iQ Nju8L8pWP3M7KeapQ3WRMxjKI g YqcmqRROwC8asogci7mafmzfG aFrASCwJEk4FZh9NSMdjGkyHg DjPF13TIH5JIGpnkObO7KtMWL s qByhRpB9g9N3No0RJ8CIThphT 1VNTUFSWTwvdGQ+GY54ja95P6 JrPapfOyx4AGGvGIR5pIB3oP6 n NQCuTBhyu2C9xQL1F5NnsrWsn m3ck0qiXJCsBAtsD06wlAGxn2 Q8AYBozSN5MGImoLrbKcLtzG9 3 Oyc+OBKqwRzop4AuVgzns2dnh 9jnjBw0TmssRGCwnxAqpHrdXW L8t3WbLy6qWFYodOY8pJC9kF9 i BvWcZkN4YSidO833UdBfxQMfY iimQ59iX8VntQO+ALZpFjr1LL ZpoVlhIT1vE5MwNDCgzsengDX m nDkeHE2hUBRwycuqEMWydY0jP OJuO3j2ZwPmZnX1PMdeL7JiFA TopnwtOs25wZ9cYdEoAbI7SNl u X7DfevG6UCSejJXqEYqsCRU3A 86ql3P8FYAcCJFjNPO1qKW5lN 1hbGlnbjogbGVmdDsgdmVydGl j GAspRSzwB095ISMlyXbySaKlA GluZyBEYXRlOiAgMDYvMjYvMj AyNTwvdGQ+UTTzIOI4dKfvXGT n eZWkDPzkSf5xfDjcfGqrWI8sC ZBcgmvfBFRpoX9yYYPciBKdkI ruGJ7qAGCzynumk384SgDuLEJ 0 MBLeeQVpN0ZzaU0xJwDjYSVnR OHdC0MeyOZuUXnbH106BQssBy N6DOLfnmBeH1FaMRPdyKvvKgM 0 k6O4Qh3Be5NapkzcB5PfrNGlU qJgPfhkZNr1O1DnPjqovKZ+PC 82RYAtSQ78HUd4VIY5gMssOAr i LZSbR3OisX6iQqNcUITdAEVfV yc+PHRhYmxlIHdpZHRoPScxMD FlJfAmcPohMQ1nZq1yQYOxTBZ v eKtjpWInDbEdo3nfLSUtSAhfC M1piIxsQ8DbvCS0PKPrn3v2Uc 77C40iL5PppPD+OOThlWC5aNM 0 iP2iAtDbIbO6XDyuD275IrGzm DNbWerum3mvc0mxaZh5IdQ4HS KfiqGkfHjcNCA1d1RoPr77Z82 s IHdpZHRoPSIxNSUiIHZhbGlnb a7yrQ8iAa6+HMVytQB6nGH0nW 2qLxMgGdM4DUhiE134JbPdwWZ v Gkjib0ron0wodSd5FeXmHQJjr oGmpLmoOYG4r8IhYy51E1DeqX smj3UvAzb2pw08xVGzu9G2xXH 9 E4AiXVPpnfzkqVPylHknQE8yD QDnfutwEXFkhH9eYRYnP1d9Vv NnXsH3TNrwB9AablJ7HSNvmXO g CNRbmXHYgQ9gpuaoe8jdnijxG zPfMPNpPOu7VHz6PDAxbJkrPc OsQOQ8UtH2FJG4fIQzyM1ecOe n rufwaX1mEir+GUR9aPOwgMYMT Q4pEkgxqJH+QKGiQSM3lNhyGL vwEDWyrR2wVBBsD5y2IhQmRaP 1 VNuqI6ZuflV8YNHplOVtYJOhm QRUrC8qwnydv6xcefesCiGvMC FjFEb1WPl4YUBodQwtFbOuKHJ 0 NyN1QAG1kKDolZ6gaBdyunugd G9wOyc+VviboPpsNES4NRh3Q9 KqAze1ZVLdpMjvFN1uoXMpMSn u Cf5uaLkjiYtgKN8pNPEmwtrna 179YoOtw5fgBZStmFZpSXiqSP P4V92dn0N2DOOxUCQnVPQ3bCW 4 qW2bjDlbtwqetDPrrGkabjWub IbdDSftPBbiT298TVZelFyfCx TnOEt8U1NwOhr4SVOveUzzUX1 n aDGbBNepNf9iyCwpjMckYO5aT YDwkynhi437IkJzo9lcYWDhqM PrLInmELE1H44gs1R4PWCdIGQ w USA8rEQ4wG4nzLoimczrxDJki GsnrpTsuLvuZRgiQHkuM455SO CbzGmiUcBvoJg9A0CqAus5LYV z uKajLE8jkAAhYDhnGo8nrEkzd WzeEI0yXKNjicajs473QiLot7 seYEJclDHgZCbdGVT9J57qh8E 6 XSYmMEEnHLT8zIF7wU1uyQrcl jogbGVmdDsgdmVydGljYWwtYW duO325ZSZviVlkSbMohKfokkK g UHcyHRp2N3LjFrdrpBY+PC90Y LSfAF76aEVypMOou6pzoAc0Ca YcLUPwORH1gOpeXJtox1EpMYR t Q61zxRMdu9F1KKRcbLcsxCUuV kOxnLB1xT4mWMtkftmoc5ytro cpAliky5azkx66uL33S50nOOd p CSKjSILnZFMvOEJwkFyslq7sv G9wIi8+OWYygBK2jVO8fT0hUI TnGkY2BQdsW090KbLbmPUyUig j f4lbt1uoxRc2DaF3PYJexpWee DtgCIE5s6SwRp95U66xICecQN MiNNNeVMJdAAGotFozay7leO8 w Ii8+DFGrkHF2vEL3uK1wHkCaB qO8UJtkS098OiVyvOUaFbsaC4 8aN7HjrUC+ZYMsAtq8RDGsySx s PY4slMWoNOioYq6pOEW6KuUhV bLiZTdpC0TaAQAmnocywhfkzT P1TJTfQNQrrL11Yz2iyGqdTOP w pVTHgR1cywhkj3crvheyFrEqC HYwSMi0MFx8ETNnnUqrXyJbJE G2CpP6PPU2vVDvcK5qmLujqzu g lU3kF4UaXWFyyibrXx69vZ9xY vInVfX7KIfeTde+Y4UZQLAXAC SWER0ZS7LnIFjJLJVDFH26GB8 8 eYTzu5W3iMQ7Q7SoHKGzkpwes yimgCE7SAMeUJCuoE25cSNyCW mfRz9av2W6f739YMKoJTJmjQ8 7 Am3ayUhaZEIvtZXEoR1jxkyqm 3fxqtueCfYrDOThMCg2BVk7MA OjiBafYvFsZNR3AxQ6JGE7xKS h zH6vkWzwacolyO3sQbx+MDMvM xJfJNo7MBsavNT+EKEdUWV8xO wqJTpkHOFujN2xBZBlA8m6GkJ w KmW1DFxoY5LiZXTiynggQe91k V3jMyIqBqF0HLueI1UpryP3GY OojBXlNQzyBHK2B36op8L7TBD w NZZyPPI6wYL3zV2hxInwebykc GVmdDsgdmVydGljYWwtYWxpZ2 18SWRahHopFjp4JWrzCDYuLA9 0 IF43yYHwa7S2lHQ4J4SxLKXgt gfeqqqulAV6KKHuVCJhzB47dI MdFGcqNz8dc4B9c211MNZlOPE w dQ22Ar9niBjcSHGpbUUJoS4cy abjg8digdsuYiDoLYUtSNh9NC d4DICwgSytGsFbSRT4KqN1RGP 0 vPNgtN2vtZwygmalrD6fEyk+T UFMRTwvdGQ+ODAeISV9hDbbQE tkEPDcbN6hCGRoA9b8RlMbZwU 1 IUsfF1RpMZMocmjcTw62lY0qC iDpOgI5AEpkD3AjesG9QYTjrV SfTAjuRBI9P72rz9O8NNFrMGF w VAD3oZY2dU3msJtcxcsbxAFin DfysdGygWorHCamBEomO336TP FtfYrfAi4XNC39XM08U9TfLnw v dGFibGU+PHRhYmxlIHdpZHRoP AnpJJAvKrZbbOfjAB2sSa5wEG EpNJAwxKslbHXhMwFvw9knDFJ z XZdlHD1ynQpxZ2PgmWY9ALGiy 7c5Rd17C60iX1UxjEA+PGNvbC G4eNM7qB7tDmWiTmS5YDajF32 9 LmWiiULhVsczm6qxz5eagBt9T bKdQHDwfuYjqEphZJL0m6ZvCq 98J84xDCmpKTJuTSYxXIKnVXQ h fPsypz8iaN1oFg3+IVNsbIA7b FB9vO8aToAiYkZ6JQuuI852Ky CdoWVwYlgtI35vB8DbuQU+PHR y Zvz5YGJzvYzeOJ0lkDMsRJncU s6uRMD5FqPkZvMoJQffT3MlQX LyylncyqorbVO9URYrMJIlaF3 7 Hr0vbTyuFo8qARHzWML0VCYpa BUbE6WayV9aRaYzMVZyQKAjD5 FcmCJfSMnbX527YCqoKqY2QTJ l qwZnE3UcRXNudBsvZsS4b3Y9C w0RhQcdpAWtNT2hGnPdQMo6R0 TmIap8MRAroKriYD8exQKzPKb u Mb7nyMpwvJjqFX6gAPDgbncsq 234MqFey1yoDSShrXXuDBbpUV Z4N58rs5E3ATFbRLUjJIN8jDJ 4 iJ4gbPhwwpxkfQArtWsyuoRhw BydPMqxOWtdZ249XQQiiGncVb IKWhl2T7MxWuq1XZLnrBjjAW8 n oYCuXXzzBi7xkErfdTdvMW9oT BJnexkis577JlQcz7taXSFgvD KjBVlkMBM0Z18ut3E9YMVvKNE w GGY6hQS7mO7voTtitjnwlTIse RqyhzGszLsaOVhdMYwhD732BG AzqDmbBv5OHqn6Z9OvWjp3ZPQ z fBsrXR3qbYBpDBthSz7hfQyoh XyqXI6jRNWthkqao675PqVos3 ltSTPueEEpWVepHWV3R34tt5C 6 XGYqCLMnECZ1fXL8bP5miDuwd jogbGVmdDsgdmVydGljYWwtYW rmH373UGAvxAcgQlYcpSTrKxu v dGQ+OW85xl05F9MiWqbhAdr9R VRoNUD2eRR7nO1jNIOsDGwxd0 J6nGO6S1VncaIegi8vi0rzXSM z ZTo (more content not included)... [facility] 04-13-2025 H&P reviewed. The or tient was examined and there are no changes to the H&P. Will proceed with coronary angiogram in the setting of positive stress test with reversible perfusion defect in the anterior, posterior and apex with low EF. Procedure was explained to patient at length and in detail. Risks, benefits, and alternatives were discussed. Patient is informed that risks of this invasive procedure include, but are not limited to, bleeding, hematoma, kidney injury, CVA, arrythmia requiring defibrillation, need for emergent open heart surgery, and . Patient understands these risks and wishes to proceed. May Melvin MD PGY-6 Md Pediatric Allergist [facility] NURSNOTEon 04-13-2025 NURSNOTE RN educated pt on d/ c instructions. This included: site care, limited physical activity, resume normal diet, future appointments, medications, and moderate sedation instructions. RN educated pt on when to notify physician and when to go to the hospital. RN provided pt with arm sling and educated pt on importance of not using arm for 24 hours for radial sites. RN encouraged pt to voice any questions or concerns, and answered any questions or concerns if pt verbalized. Pt was wheeled off of unit with all of belongings. [facility] .Auto Diff 104-08-2025 Auto [place] % 7 % Normal 1-12 [facility] Comment on above: Performed By: #### 7 [id number], [id number] ####[facility] (DEFAULT)[address] [place] [address] 15744 Baso Abs# 0.1 x10 Normal 0.0-0.2 [facility] Comment on above: Performed By: #### 7 [id number], [id number] ####[facility] (DEFAULT)[address] [place] [address] 70293 Basophils/100 WBC (Bld) 1.0 % Normal 0.2-2.0 [facility] Comment on above: Performed By: #### 7 [id number], [id number] ####[facility] (DEFAULT)[address] [place] [address] 17305 Eos Abs# 0.1 x10 Normal 0.0-0.4 [facility] Comment on above: Performed By: #### 7 [id number], [id number] ####[facility] (DEFAULT)[address] [place] [address] 26124 Eosinophils/100 WBC (Bld) 1.1 % Normal 0.9-4.0 [facility] Comment on above: Performed By: #### 7 [id number], [id number] ####[facility] (DEFAULT)[address] [place] [address] 13861 Lymph Abs# 1.2 x10 Low 1.3-2.9 [facility] Comment on above: Performed By: #### 7 [id number], [id number] ####[facility] (DEFAULT)[address] [place] [address] 70060 Lymphocytes/100 WBC (Bld) 22 % Normal 14-48 [facility] Comment on above: Performed By: #### 7 [id number], [id number] ####[facility] (DEFAULT)[address] [place] [address] Haralson Abs# 0.4 x10 Normal 0.0-0.8 [facility] Comment on above: Performed By: #### 7 [id number], [id number] ####[facility] (DEFAULT)[address] [place] [address] Neut Abs# 3.9 x10 Normal 1.5-9.2 [facility] Comment on above: Performed By: #### 7 [id number], [id number] ####[facility] (DEFAULT)[address] [place] [address] Neutrophils/100 WBC (Bld) 70 % Normal 44-88 [facility] Comment on above: Performed By: #### 7 [id number], [id number] ####[facility] (DEFAULT)[address] [place] [address] CBC w/ Auto Diffon 5 Erythrocyte distribution width (RBC) [Ratio] 15.7 % High 11.5-15.0 [facility] Comment on above: Performed By: #### 7 [id number], [id number] ####[facility] (DEFAULT)[address] [place] [address] Hematocrit (Bld) [Volume fraction] 44.9 % Normal 34.8-51.9 [facility] Comment on above: Performed By: #### 7 [id number], [id number] ####[facility] (DEFAULT)[address] [place] [address] Hemoglobin (Bld) [Mass/Vol] 14.8 g/dL Normal 11.8-17.7 [facility] Comment on above: Performed By: #### 7 [id number], [id number] ####[facility] (DEFAULT)[address] [place] [address] MCH (RBC) [Entitic mass] 26 pg Normal 24-34 [facility] Comment on above: Performed By: #### 7 [id number], [id number] ####[facility] (DEFAULT)[address] [place] [address] MCHC (RBC) [Mass/Vol] 33 g/dL Normal 26-37 [facility] Comment on above: Performed By: #### 7 [id number], [id number] ####[facility] (DEFAULT)[address] [place] [address] MCV (RBC) [Entitic vol] 80 fL Low 81-100 [facility] Comment on above: Performed By: #### 7 [id number], [id number] ####[facility] (DEFAULT)[address] [place] [address] Platelet 173 x10 Normal 138-427 [facility] Comment on above: Performed By: #### 7 [id number], [id number] ####[facility] (DEFAULT)[address] [place] [address] Platelet mean volume (Bld) [Entitic vol] 8.1 fL Normal 6.3-10.2 [facility] Comment on above: Performed By: #### 7 [id number], [id number] ####[facility] (DEFAULT)[address] [place] [address] RBC 5.59 x10 High 3.70-5.30 [facility] Comment on above: Performed By: #### 7 [id number], [id number] ####[facility] (DEFAULT)[address] [place] [address] WBC 5.7 x10 Normal 3.5-10.5 [facility] Comment on above: Performed By: #### 7 [id number], [id number] ####[facility] (DEFAULT)[address] [place] [address] Man Diff? Auto Invalid Interpretation Code [facility] Comment on above: Performed By: #### 7 [id number], [id number] ####[facility] (DEFAULT)[address] [place] [address] Orders Onlyon 04-08-2025 Orders Only [id number] Anna Bauer 1950 M Date Provider Department Center 04/08/2025 OG [facility] Family History Family history unknown: Yes Family Status - Relation Status Age at Mother Father [facility] Provider Orderson 04-08-2025 Provider Orders [id number] FF [facility] Coding Summaryon 04-01-2025 Coding Summary HTMLBase 64 WpzvjmfwPSa6qDl+PGhlYWQ+P I5GNXWqJ17tlJCqbI1zY1YTEI lOSywgQVBQTElOSyIgbmFtZT1 kaXNjZXJu IC8+NY7dJRTuOtonbEAiy8E9s ZX3A35oay7gCRydpRJ6WSAgJn Qtwbthx6lmoYz5HUpyPudgJbB t BAJddP14GUN9sD54Ze01dWHsp TWck8wkiAg6SuDrIAMgCRU6sX mzIAgmq8LxVSZgJ21ddOMwh2C 6 XCPikGvvbAQyXiWmsNH2lZ1uK Zykffhvq0ngswhtJek9uz35tC Jvi2C1yRO4Z3StpuC4IENrxCP g DnhpwDHMqZ1rpvclv8chjqtbX uNfMKSyQBb9LSa7GMHlxIdjOz IfUS71ZNA2NFAcjlOsQ6EqGBF s lNihOqS4z0U5Bs8OC8NYZxnvY 1VNTUFSWTwvdGQ+BK41lh45I8 HvUjjtFku0LTWiRMG1bKA9cP6 n QJRaXIpri1G4uKV7G5ZymgFod r3uq1brRJZvTIzxZ92kfPRjk8 P7IIAhxAP6VRRtvUquAhWinQ8 3 Oyc+XEVxdUoce2RlJvmhh2acl 3ikdNk6BxkaHXPluuApdIudZO N6q5UcLn4rZFIgiAJ2oUU4hO5 i TsPgHdK6NTkrX963XtPobENpV qziG58fG4RrrJS+CBMwYxp5TM EhoAdzTI9sX4RgPDPrsiooxDA m eLjaLS9aBXDeupzxCHCruA7sR QQfT1o4PjGoSwZ4AQkvX7AeCW YxczprZw98wZ2aCnYiCtX4XYq u H9KoyiR4OWDggSSvYNgnDPQ3H 47tx1O6UGTpNQCwMLD2aMQ6bA 1hbGlnbjogbGVmdDsgdmVydGl j PIweRXqoE034YJDivRqgVvKiN GluZyBEYXRlOiAgMDYvMDYvMj AyNTwvdGQ+LUEpJHP8mChyILH n yOBoHNtnBn2fsRisvQltXJ5vP EQnhqjyLCFflA7qFGKmaIJhbL ftLO9uJPCjfilww546KmLfPJP 0 FUJawHIlL1BrvH4xRuDwHWTnB DDoG6JcvEPnRFtkG991HMxtZh J8JRNlesNfO3KdUIPvbKvuQoO 0 q8A1Ka9Xt1MrojkbO2DbbZIqA uGnRrshBNh5K4FmXejwaEP+PC 29YDWeFH36GSl4EGC6oBnbQHw i FQLcY2RiaU5xKmMpBVPzCRKwL yc+PHRhYmxlIHdpZHRoPScxMD YrJeYvtOusAG5pMl6hYHTxMOE v xPtgeXVeUeCca2ahFEDlMZiyZ W4gmTcsO8JxmLB9USDar8x3Bu 35P21qJ9NxuPG+DVNjiQG4rRU 0 vF6gDwZaFxS8FGldJ961YpHlm QIxCvtqv5irl3cfoHf4QkH4PN PotyFwnYvySSB3h5BpLz28G27 s IHdpZHRoPSIxNSUiIHZhbGlnb l1ntE9pLr0+RTUluSP1tIF2lM 8iEtOsKzH9NOazB034BhYsdWA v Smqww1zmv3srbDc7OyVmHHWvj gHbfJjkLCI4q4InPo13E4VbpT pfk8NjMve2ah38aCFzc3H2pQG 9 V3FdVMCqmggdcNLyeAnyKC1kE YJmgaihWVAteX0eDHEqH2p9Mw SiYoF6GOceL8EzaoG9HPXrlEP g CJAlqFRBwP5ahmgbl3qanccgQ tMmHJPmMMs7VUw4RUPvzElrQe IaMZN1FeI6QHD5tJQieP0ocXz n dretaM7bPlc+ELK1rYFqwTYOW I6dSlvvlDI+QLBtOPB8qOvfZD wvONYinO0nZJPlL4c1AvWoMoL 1 GLdoI0PfeyM6EJJthQVkWXRyq OXZuU5zozqkj5zcnvivGqXdXO VeCRd5PGo3JQAhwHzuEoKwJDD 0 GiL1WBM4dRBbxI4cxQptiwgcs G9wOyc+YlxtcAlnXQF8YOn5X1 ZwWif5YEWzxUuhWL6hvUJaXFe u Fj0xzKtmpAqiEH4gZWKapzxov 822QoCda2giNMYlfLIqMBbqSO K8Q37bp6M1NSJgHNWzUKY5wCI 4 gL4rnOtzzrqbmITarFandhPbz LavYPjiKQcpQ883XLAfiIqtIw IfRKr8W2FbQqq4UZRqjUzcPB5 n eNFuHWvlCm3cpDqmrApkAN6rB KSqbgxew950IuVzp2mqRHSjhR EsSYsyCZY5N62pz2X8LBBiHBP w PEZ6iZD8tY3nlUpjwxnasTEkl DltbmJrpLstEUhtNFhnE531BY NplKhlMtAbdPf9W6CeKzn1NHA z qNlcCH9ugKUyWCtgFj3htLwci PkjNW1tTFMstluqu753AlDii3 coDWBmoDCrRWgqCBQ8O43zj6D 6 RZTgJUSaQJU7dCY2mQ9uqWsjl jogbGVmdDsgdmVydGljYWwtYW quY963SNExgUdaVzDofQbqsnV g PLanDCc1S4DoCnfznIO+PC90Y VUqGS43fELapLYfm6fbjJz4Za BsOXSoDZT8vSbjZLxsg7SpQJK t N01mgSXxc9J9UMOgkTksiAQfB fGgzWU0vT1jGAehwnsep2rasr vhAsire5rhhu19sI64M98cALu p YJJgYGFfTQYrWNLudVcqdd0xn G9wIi8+MSXkwED8iEB7lO6wFP RqVxW1ETsiW172VcLnoEYiWkg j l9vpg2vohYv3WzA7UHEqwyYnq FsuGSY9m2QnHj29A33cYIzeXI WyOSJhEGNaUPAvqBrvpl3npS5 w Ii8+HAXjwRF4qHA5mL4pUyLyE mS8LKghU931RbUfuLJlUyrqV5 3mP2PxpZP+OEUhCat3EYQnvMo s CA2biNMeTBpcHv3zLKG1OySbO wVmLYtdC2PaPUYsqfhtdnsfmF M1FMYxQGBktG08Pl4oqLgbAKS w jFWJuK4pfzmpp1wprrciIyQjU AUmGDw6WKf1ZSWpyNoaQnUoXU V5UcV6HZO6sMMeuK9ujBqcxkf g fJ1iJ9EpGEKmuebnCh74vS5lE uPfYbY7HBhfLma+O4KUNWXQKD CMNH5EJ7BxUFrRVLWJUP66MD7 8 lEIxw9E1mEY3J2NlSITgknpcc ifniFM9YRDjJYPjqM26gCRdFF dlMq9qs2U9v088UIPpECAziF1 7 Pv3qyRvuFLMwiBJTcJ4mpokgx 5dakdxtXpQzXRCgLCd9MTo9EZ VrkUzgIhOgJSO3LpK5MIY1fJC h fI5ymOdsqbwwnH3eZig+MDMvM cBfOYx3CQbwuVP+LAJsZAO5vZ cdPIwrEXVgiM6xJZHaH2u1UaA w JwA9ZXxsE2QpVCEeyebpYq89m E5gKgZxLsI9RRotI2TqwmS2JS VreKCwYAdkOWD7B47uw8R9AIU w LIIvWSR1mQE7oL3rpKtqocftc GVmdDsgdmVydGljYWwtYWxpZ2 62UNGowJmaLtc0VWwzZBXcVK3 0 XW77eXXgw5Y2wHV5M0NdJSTuz sgdacasvBA1HEMqWGHhrT34tP TlTVyeOg3fi5C0e773OLVyCNF w mU85Ka3zzUyvDURacTBAsK8aj svei3xvnqwtRuLfXNXsAQs4GR z6PNVpiQjiDgVwRNM2AjB1EVR 0 qMSsnU9maWsrwllntR7sIqn+T UFMRTwvdGQ+OHBoLNP5eUoxGQ ocKJQcpU4tMBTwV1t1MiKuKdP 1 NHdjD6GvAOCszuioDk74vN8iO tNfXgW3CImpL2LskmZ5OLXceK HhUGhzVVP7Y91xa8Y8AUXcFNQ w QTN5yTR0gD3uyFacvzjqbQRkj YaumpVtqQviRMcbFUgsZ151JS EdzRldHt64tBEemMbtbfFwxF0 g LZBHZPD7F0HuNrekoEP+PC90Y FDcFZ16fITytEBqz0wdqAz6Uu JgAWEmGNV4tDdePWjel2NqXMT t E15qaSTpa7X8COAfgRlodTIeG nSuuFV1sE0wLQrhhtnof9mast sjNugtm5hwkx34uJ58T69tNVa p AYKbPFOcQXEfBIMseGycsj0xs G9wIi8+EJZinMI1mYW5jG9cVn ThYdA0YWxzB721QsVcyRSuDrl j f0sab7psxBr3VzEcOQPosrZpi PiiUCS6j7QqKc19Z25oHFeoZV MyZYNdJQYcKWApcEidph6igS9 w Ii8+KI1jw8rvli09vD93zMS+P DYaEXH3aTxwWOhgOHPssV6fNC nkVvR8QHOeOzAsuJ39mSCnHPx u Vz0wlHejuTglQC5aZTYkuegug 635ZxPst7qiXEZyeXDvLHseDP E1U48ca0J5BNLyYXPiRUY8fJN 4 pU9deNfvvdsvmNLnyBhydxMdz YhmFJwdDFgtG105KRRlxPtoId YamRDkE4uqnsIOWN8gMrsuuIY + WTAdFEL2jMpyFQaqUPKynS6lS ZCsW4w8QsCyXjD4QXjtC9Wbek A1OBKlyXYhQDPjiVCRnO2isvs j m0vzegcwIdNpMMDcJCx1MHe2D WSfdZkfFlEvAPW6UtM0ZCV7lV XpxN6yxJpdxscxbC5sLka+Rkl O OjwvdGQ+VYNkIQX3mVjtWValU UQdhN5iNHVfA2l5CzGpSdT8HC naR9AtkrW8TSTjkJXlFBVivIX U qS0mklfol5biqrjzLrSrEBJkO Gi6BGy0NAHsqUkvPiRyAJC2Eb S0NOA5xPAnuS0wzMjdkijjfO5 w Oyc+TVJOOjwvdGQ+LALpTYX8q CcoIRtsVZOkzT0fYSClK3m5Ag YjTpR9BKxqH7AnqnT3YMGdwVD g HHKvgRHWvX2jphxuk1knudhxL jYpJRKeSHq5WFf0CIBcpIvhKi EhAGX1WwB5VWI1pKYjiF0kaUk n kysmoP5pNov+AIW9PJC8AR12M C07B8LdWedneHNlhLU+PHRhYm xlIHdpZHRoPScxMDAlJyBzdHl s ZT0 (more content not included)... [facility] Orders Onlyon 04-01-2025 Orders Only [id number] Anna Bauer 1950 M Date Provider Department Center 04/01/2025 [id number], HISTORICAL [facility] Family History Family history unknown: Yes Family Status - Relation Status Age at Mother Father [facility] 03-31-2025 Cardiovascular Medic [facility] SUBJECTIVE Chief Complaint Patient presents with Congestive Heart Failure Hypertension Atrial Fibrillation Pau Bauer is a 75 y.o. male here for follow-up. HPI PMHx: HFrEF with EF 45%, HTN, chronic a.fib, HPL, DM type II 03/31/2025 He denies any changes since last seen. He had his stress test done last week. His CANTU is unchanged. LE edema is better since starting spironolactone. He has rare episodes of palpitations that last 30-15 seconds. Denies c/p CP, orthopnea, PND. 01/11/2025 Since last seen, he underwent an ECHO at [facility] which noted possible LV thrombus. Follow-up ECHO at [facility] showed similar findings. He is scheduled for a follow-up ECHO at [facility] on 01/14/2025. We had switched his Eliquis to coumadin in light of this. He has been walking with his dog without issues. He has CANTU with walking long distances - feels like it has worsened over the years. Denies c/o CP, orthopnea, PND, LE edema, dizziness/LH, palpitations, syncope. 10/01/2023 He denies any changes since last seen. His CANTU is unchanged. He is trying to lose weight. He has had rare occurences of palpitations, lasts seconds then resolves on its own. He has some mild leg swelling, this worsens during the summer or with elevation. He has noticed he's slowed down in his activities. He denies c/o CP, orthopnea, PND, dizziness/LH, syncope, bleeding issues. Patient Active Problem List Diagnosis Dyspnea on exertion Chest pain Permanent atrial fibrillation ([facility]) Benign essential HTN Chronic systolic CHF (congestive heart failure), NYHA class 2 ([facility]) CAD (coronary artery disease) Calculus of kidney Carotid stenosis, asymptomatic, bilateral History of bronchitis Hyperlipidemia Hypertensive disorder Malignant melanoma of head and neck ([facility]) Obesity (BMI 30-39.9) Overweight and obesity Ventricular premature beats Malignant melanoma of left pinna ([facility]) Type 2 diabetes mellitus without complication, without long-term current use of insulin ([facility]) Past Medical History: Diagnosis Date Cancer ([facility]) Carotid stenosis CHF (congestive heart failure) ([facility]) Coronary artery disease Diabetes mellitus ([facility]) Hyperlipidemia Hypertension Permanent atrial fibrillation ([facility]) 07/24/2022 Family History Family history unknown: Yes Social History Tobacco Use Smoking status: Former Current packs/day: 0.00 Types: Cigarettes Quit date: 2009 Years since quittin.4 Substance Use Topics Alcohol use: Yes Comment: 1-2 times a month Drug use: Never Comment: former cocaine user No Known Allergies ROS Constitutional: Positive for weight loss (14# since May 2024). Cardiovascular: Positive for leg swelling. Hematologic/Lymphatic: Bruises/bleeds easily. Skin: Positive for color change (redness in LE). All other systems reviewed and are negative. OBJECTIVE Visit Vitals BP 96/60 (BP Location: Left arm, Patient Position: Sitting) Pulse 69 Ht 1.753 m (5' 9 ) Wt 90.3 kg (199 lb) SpO2 96% BMI 29.39 kg/m??? Smoking Status Former BSA 2.1 m??? Medications: Current Outpatient Medications: aspirin 81 mg EC tablet, Take 1 [...] Take 1 tablet (100 mg) by mouth once daily as directed. Take in addition to metoprolol succinage 50 mg daily, Disp: 90 tablet, Rfl: 3 metoprolol succinate XL (Toprol-XL) 50 mg 24 hr tablet, Take 1 tablet (50 mg) by mouth in the morning. Take in addition to metoprolol succinate 100 mg daily, Disp: 90 tablet, Rfl: 3 sacubitril-valsartan (Entresto) 24-26 mg tablet, Take 1 tablet by mouth in the morning and at bedtime., Disp: 28 tablet, Rfl: 0 spironolactone (Aldactone) 25 mg tablet, Take 0.5 tablets (12.5 mg) by mouth in the morning., Disp: 45 tablet, Rfl: 3 atorvastatin (Lipitor) 10 mg tablet, Take 1 tablet by mouth in the morning., Disp: , Rfl: furosemide (Lasix) 40 mg tablet, Take 1 tablet (40 mg) by mouth if needed (for weight gain, leg swelling, worsening SOB). (Patient not taking: Reported on 03/31/2025), Disp: 90 tablet, Rfl: 3 Physical Exam [...] heart sounds. Pulmonary: Effort: Pulmonary effort is nor (more content not included)... Normal [facility] Office Visiton 03-31-2025 Follow-up visit [id number] Anna Bauer 1950 M Date Provider Department Center 03/31/2025 AZAEL CAMACHO [facility] Family History Family history unknown: Yes Family Status - Relation Status Age at Mother Father Level of Service:23943 [place] OFFICE/OUTPATIENT ESTABLISHED HIGH [facility] 40 MIN Reason for Visit and Comments: Congestive Heart Failure [127] Hypertension [427276] Atrial Fibrillation [80] Normal [facility] Stress Teston 03-28-2025 Stress Test [id number]#[id number] F [facility] Consent Formson 03-25-2025 Consent Forms [id number]#[id number] F [facility] CV Stress ECGon 03-24-2025 CV Stress ECG Lexiscan protocol st ress test was performed. With baseline blood pressure of 120/80 baseline heart rate of 71 bpm. Baseline EKG demonstrating atrial fibrillation with intraventricular conduction delay noted with no evidence of ischemia or prior infarction. Regadenoson was then given for maximal hyperemia. With blood pressure remaining stable at 118/70. Heart rate remained stable at 89 bpm. EKG remained stable without evidence of regadenoson induced ischemia. The patient denied any chest pain. 1. Negative stress ECG for regadenoson induced ischemia. 2. Please see separate imaging report for nuclear portion. Final Signed (Electronic Signature): Jaswant Green MD 03/24/25 3:54 pm Technologist: EBENEZER [facility] NM Myocardial Spect Multi Re st/Stresson 03-24-2025 NM Myocardial Spect Multi Rest/Stress EXAMINATION: NM Myocardial Spect Multi Rest/Stress HISTORY: Chronic systolic (congestive) heart failure COMPARISON: No relevant comparison available. TECHNIQUE: Stress - rest protocol as indicated by order type with gated SPECT. Please see tech notes recorded in PACS system for additional details. FINDINGS: PERFUSION DEFECT - LOCATION: Anterior and posterior duncan involving the basal, mid, and apical portions along with the apex. SIZE: Large (5 or more segments) SEVERITY: Moderate to severe TYPE: Fixed WALL MOTION: Normal LV SIZE: Enlarged. EDV: 129 mL TID / TCD: Normal 0.75 LVEF: Normal. Calculated EF: 67% IMPRESSION: 1. No acute or reversible ischemia. 2. Large moderate to severe perfusion defects involving the anterior wall, posterior wall, and apex. While the diaphragm and breast attenuation could contribute to this finding is felt less likely. 3. Mild ventriculomegaly, 129 mL. 4. Normal wall motion and ejection fraction. Final Dictated by: Juice Patel MD Dictated DT/TM: 03/31/25 8:09 Signed (Electronic Signature): Juice Patel MD 03/31/25 8:15 am Technologist: KATHERYN [facility] Progress Note - Nurseon - Progress Note - Nurse Patient presents w ith a 20 gauge IV Catheter to the Left Forearm (LFA). THe IV was started via Deysi Correa. The site was positive for blood return and flushed without difficulty. A total of 0.4 mg or 5 cc of Regadenoson was administered, followed by a NS 10 cc flush. The IV catheter was left in-situ. The patient tolerated the procedure without issue. [Electronically Signed on: 03/24/2025 15:56 EDT] Keely Robledo RN [Verified on: 03/24/2025 15:56 EDT] Keely Robledo RN [facility] Provider Orderson 02-17-2025 Provider Orders [id number]#1.00OTG TIFF [facility] Anti-coagulation Progress No donna 01-24-2025 Anti-coagulation Progress Note Pt is a 74 yo male with a history of Afib presenting today for his last appointment of anticoagulation monitoring and adjustment. INR of 1.8 is now subtherapeutic for this patient (goal range: 2-3) and is reflective of holding warfarin since his last appointment where the INR was 4.5. Patient is switching back to Eliquis and requires an INR of <2 to transition back. Patient is educated on signs/symptoms of DVTs as he transitions back to eliquis. As the INR is now subtherapeutic then the patient is instructed to start Eliquis this morning and BID going forward. He is aware and thankful for our help in the transition. Educated patient that we are happy to help and please reach out if he ever goes back to warfarin or needs help with prescriptions in the future. Pt verifies current dosing regimen and pt able to verbally recall dose. Pt reports 0 missed doses since last INR. Pt denies any current N/V or diarrhea. Pt denies s/sx of clotting and/or stroke. Pt denies hematuria, epistaxis, and rectal bleeding. Pt denies changes in diet, alcohol or tobacco use. Reviewed medication list and drug allergies with pt, updated any medication additions or modifications accordingly. Pt denies any pending medical or dental procedures scheduled at this time. Pt was instructed to discontinue warfarin at this time. Patient asks if he should keep the warfarin just in case and is counseled that this is a risk that I would not prefer, of him accidentally ingesting warfarin at some point in the future. Patient asks me to throw away the warfarin for him and so I delabeled his bottle with 8.5 tabs remaining and disposed of it in our hazardous medication waste container. Patient will start Eliquis 5 mg BID today and will be discharged from our clinic. [Electronically Signed on: 01/24/2025 16:00 EDT] Mukund Alex PharmD [Verified on: 01/24/2025 16:00 EDT] Mukund Alex PharmD [facility] Anti-coagulation Progress No donna 01-21-2025 Anti-coagulation Progress Note Pt is a 74 yo male with a history of Afib presenting today for his third appointment of anticoagulation monitoring and adjustment. INR of 4.5 is now supratherapeutic for this patient (goal range: 2-3) and is reflective of continuing 32.5mg TWD. Patient is switching back to Eliquis and requires an INR of <2 to transition back. We talked at length about the choice of eliquis and what to watch out for/be aware of regarding the differences in these medications. Patient is aware that we are trying to avoid anticoagulant effect of both medications being active at the same time while making the switch back to Eliquis. Pt verifies current dosing regimen and pt able to verbally recall dose. Pt reports 0 missed doses since last INR. Pt denies any current N/V or diarrhea. Pt denies s/sx of clotting and/or stroke. Pt denies hematuria, epistaxis, and rectal bleeding. Pt denies changes in diet, alcohol or tobacco use. Reviewed medication list and drug allergies with pt, updated any medication additions or modifications accordingly. Pt denies any pending medical or dental procedures scheduled at this time. Pt was instructed to hold warfarin until his next appointment on Friday at which we would expect the INR to be at or below 2.0 and we can initiate eliquis at that time. [Electronically Signed on: 01/21/2025 14:48 EDT] Mukund Alex PharmD [Verified on: 01/21/2025 14:48 EDT] Mukund Alex PharmD [facility] 36on 01-18-2025 36 Thank you! [facility] 36 Please let him know his trip to [place] was worth it. His follow-up ECHO showed no LV thrombus. He can switch back to Eliquis, stop coumadin. His ECHO showed he is carrying some extra fluid. Would like him to start spironolactone 12.5mg daily which will help with extra fluid along with his heart function. He will need a follow-up BMP in 1 week. He also needs a stress test. I ordered it. Please schedule him for follow-up in 1 month. Thanks! Normal [facility] Telephoneon 01-18-2025 Telephone [id number] Anna Bauer Michael 1950 M Date Provider Department Center 01/18/[address] [facility] Family History Family history unknown: Yes Normal [facility] Anti-coagulation Progress No donna 01-13-2025 Anti-coagulation Progress Note Pt is a 74 yo male with a history of Afib presenting today for his third appointment of anticoagulation monitoring and adjustment. INR of 2.8 is therapeutic for this patient (goal range: 2-3) and is reflective of reducing to 35mg TWD. Pt verifies current dosing regimen and pt able to verbally recall dose. Pt reports 0 missed doses since last INR. Pt denies any current N/V or diarrhea. Pt denies s/sx of clotting and/or stroke. Pt denies hematuria, epistaxis, and rectal bleeding. Pt denies changes in diet, alcohol or tobacco use. Reviewed medication list and drug allergies with pt, updated any medication additions or modifications accordingly. Pt denies any pending medical or dental procedures scheduled at this time. Pt was instructed to continue 32.5mg TWD (2.5 mg Fridays and 5mg all other days) and RTC in 2 weeks. [Electronically Signed on: 01/13/2025 14:22 EDT] Armando Biswas PharmD [Verified on: 01/13/2025 14:22 EDT] Armando Biswas PharmD [facility] Orders Onlyon 01-13-2025 Orders Only [id number] Anna Bauer [employer] T 1950 Date Provider Department Center 01/13/2025 AZAEL CAMACHO Family History Family history unknown: Yes [facility] 36on 01-12-2025 36 Is it 100mg + 50mg o nce daily [facility] 37on 01-11-2025 37 *You can take furose mide 40mg daily if needed for leg swelling. *Please get your heart ultrasound done (ECHO) as scheduled on 01/14/2025 *After your heart ultrasound, we will let you know if we will proceed with a stress test *Call cardiology when you get home to let us know what medications you are taking, check metoprolol, is it metoprolol tartrate or metoprolol succinate [facility] Office Visiton 01-11-2025 Follow-up visit [id number] Anna Bauer [employer] T 1950 Date Provider Department Center 01/11/2025 AZAEL CAMACHO Family History Family history unknown: Yes Level of Service:13059 [place] OFFICE/OUTPATIENT ESTABLISHED MOD MDM 30 MIN Reason for Visit and Comments: Congestive Heart Failure [127] Atrial Fibrillation [80] [facility] 36on 01-06-2025 36 I tried to call him again x2, no answer. Would really like for him to have this [place]CHO done [place] so we can try to confirm if he really has a blood clot in his heart. If we rule it out, then we can switch him back to Eliquis. [facility] 36 Attempted to call hi m, no answer. I'll try again later. [facility] Anti-coagulation Progress No donna 01-06-2025 Anti-coagulation Progress Note Pt is a 74 yo male with a history of Afib presenting today for his third appointment of anticoagulation monitoring and adjustment. INR of 3.2 is therapeutic for this patient (goal range: 2-3) and is reflective continuing 35mg TWD. Patient denies any medication changes or differences from usual. Denies alcohol, greens, cranberry, or other causes of a high INR. Pt verifies current dosing regimen and pt able to verbally recall dose. Pt reports 0 missed doses since last INR. Pt denies any current N/V or diarrhea. Pt denies s/sx of clotting and/or stroke. Pt denies hematuria, epistaxis, and rectal bleeding. Pt denies changes in diet, alcohol or tobacco use. Reviewed medication list and drug allergies with pt, updated any medication additions or modifications accordingly. Pt denies any pending medical or dental procedures scheduled at this time. Pt was instructed to reduce to 32.5mg TWD (2.5 mg Fridays and 5mg all other days) and RTC in 1 week. [Electronically Signed on: 01/06/2025 16:26 EDT] Mukund Alex PharmD [Verified on: 01/06/2025 16:26 EDT] Mukund Alex PharmD [facility] Coding Summaryon 01-03-2025 Coding Summary HTMLBase 64 FtlfaeghVUu7lJl+PGhlYWQ+P Q5GEPPnW84ngMUamB9vO3BIJL lOSywgQVBQTElOSyIgbmFtZT1 kaXNjZXJu IC8+XW2vLNAtQbitzKFyi2P4g GA4L54ppa6bYEwstDQ6CEYxAz Exsrfri2sirOu6FBszFhsuPqP t QRWvvJ12EGL5gP13Se21yCVrw HCmv6vxkCh9WmSqBLYxCXL3pM mxLRjrw3SeWVHoP59bfDAnh5F 6 ISLafFdibDEwOmRgiTP2oO3cH Hdbeimuv9tmpqkcKoa9to24zW Hwe4N2oLP3M8EqdaL5PVOpaOA g DxbkjPRWuT2lxnpuz8ufiqcrA aLsMPOaYVs3EVk3GLMioWcgYx FqVR62GFY6PQPlbpYvX9HnQAP s uGzkKfH4j8K3Cv3SR7OCNpjxN 1VNTUFSWTwvdGQ+AX31oo42C2 PnDjxyIwl2UIAqYAE6vOI9rS1 n VWGjIXaqf8Y5pMR8P1QusxPdp f8ai2crXPFgULvzK41pxNBvq8 B8XALemBR7LWPshWlwZfZhnR2 3 Oyc+YYZgrCdbj9HpHcwmy2nog 7pnwUg0JnfhKHGtkiXgyWunFS J7g5KoYt0oRDTeoRE3bNT4cY0 i UxVbLqH4JVntI885WaMrhEErZ ukxO54xT7KvyBF+QFEgHat4TB SvzLujBX6rH8FoPYWrvmltfVE m fEgvID0dTKIcuwjzMUXrbG5rF ULyU1g1RgMsMuW3BPdrA3ThGQ ZmwzfgNn25tI8rZxAuNmV9BKf u V2NbyvP3RAYlpVVxBQvbTIP6G 59lh1W7UUAtFDUrOVL1hYD3lP 1hbGlnbjogbGVmdDsgdmVydGl j EYskZZjuB325GNQioDckZgCeT GluZyBEYXRlOiAgMDMvMTAvMj AyNTwvdGQ+DMJxGSV6mXpsIES n eWYyENrpJj7xmLalgHriYC8fG XPszmpeNAOweN8gKDLoaFZegQ pgEN6rGBOqqjnor573MjIuEMA 0 DDQhiLZiW9JjjW8wYrKxBAPjZ JFxQ9McmUInJRovH009MZdfTe F4XCYdmaHeI2DhRNDwmFamDeA 0 x9D9Ob9Dh7RwozokV1SzsMImA uIjJgfhDTp6X3MvHffbfZQ+PC 91UVEqXM48XFd5RCS9oTdrCQg i QCVzG5VprD4mOtGlTDLoHZDoN yc+PHRhYmxlIHdpZHRoPScxMD UmOqQbmXywCY2wCp2tTTOrOEK v jGmokFIeHiSwd6ehPDPtLGyuD H9ihIfdY3BalDV6JYGpy3s9Hs 88C37bR5ChbGH+HSJqsCQ4sIT 0 vA4nVdKhRpT4KObcG571AnRow VTjGojak9qdw4ntnCm4SaJ9MK ZnaaNaeGarIRZ6g3BeCh77Y84 s IHdpZHRoPSIxNSUiIHZhbGlnb b6skZ2sZb0+YTMcjSE7jCV4dA 2yWbRhUsZ5LUpvQ260ItWlvJQ v Auqqs1msa4xewJq4YtFrIQFnk rXwbBhxNNZ7a2RtDa05I5UvmJ ixb1BgOyq8dy59fKLjz0Y2yAF 9 I8WoGMCsnrjdwCVshJldYH3uS CTjghsrPXWixL1xAKNgO1e4Pm KuUkN7LBcbC9WigmV6UETmnHD g QIYfqJUQjU9ixnboh1gvukcnE zEcTONdWSu3LOt8BWHjaKitGv RhZSF3RsL1YTH3nCJmxO3vtPi n ldmpaH3eRdo+CGU2fLOsnPEUS C0pWkdmdEM+OUAxCWH1aVloSE nnBUOguR8qTABdR4y7KyRsVvQ 1 KXnhI1AdlmQ9SJTkpPObQSOya DXUhS5vsjyaj8yffxwcNkPtSE FlFRd5FWa2ANEjtGkkHcXqOSL 0 RwQ3LFI9nBCquI2bmQuuamegr G9wOyc+GdqllFteINX6QMa6M5 TuZnh3UWRqqAohSQ4fsBTmAFk u Sm3arBadkFieAO1oKLQklpawg 475OwLzl8ryHCXjbWBcJVfnRK C8Z74ls7A0AWNdDWOuYTZ2iGS 4 dG7hmJuszqenbNDkbIiwysMly YzhGNboZZsiV133ZNKrnLuwEp BnYXp5E4XcDiz9LGPdpLytZS9 n cWLqINanWm5fqHymeMshHV0cH EFmqaxka148WdSww1apDMTviV EhAHapJZG4G53js1E3ERAhCDW w FSH4eSZ8zM5xgBwfxzsenMIdt IdvfuMxgSusJNxlPFszA941UP BrcTatZcLajUi4O1FjIyb5ICX z xAsnLB4fbOEhFSfwGe8ukGwpg MpfNX1bROXjflvpv785ZjIot8 uwVJDooUVnTHzmJLI9A54nw6H 6 XRXpPZMwMOM0bWW0zT2lqHnso jogbGVmdDsgdmVydGljYWwtYW xnN126PAFtrGcdKiOrjMosweT g LZvnSFd4N8YlZfzlvTR+PC90Y KSgVT18tGMyaSXok5xooIp6Xm RrYSQsRYN1uDopDLtux9DiCSX t C57wlDEin1R8UHMpdDdeiKIkX qRmqGZ4eO6cGKelschbz5pkyk sxRlshe3uqwu23cS91P89wYLx p IMVmWGAtHFDjXTCseCslqb6nb G9wIi8+XFSpuYS5zNL4lZ8rKO RnJoY4PCemQ536VoFdsMPgDtt j r4vzp2firAo0NhS6LAQbivLum BdiENZ8g6VhRf60H97zLQngUR GbXOXqPIMdTVPcaLvjme3qgQ5 w Ii8+KBSytWT5nNS7mA5kAjHvE xI8PBsxU931WxVdgVYiTgkcP7 2nH9HalTP+OIVlPlv6MJPanSd s OR8vhXOrQYmjFg0eWSC6DzSwO qPnOKpuL2ElWOFdpasmhhwliV M5OYStVVAmuL71Gg0mjMcrTTK w oIOTtO6lpjurt3kasoqmJhXgD EUeHUg0AVg1RSSzsBesVePpKP Z9LaJ7UAD5eKTlcY6eePoxjtt g jG7vN7ZlLRLmiyulFq58jP8hG vAlQgH7EYgoLsf+K6VZSQIXIW NHVB6YO5IzCMtFJUMHJX47YG3 8 cOFck0C4mXY9W4OgFBGlznwdb vmmdXX8EKCoTQKveP02sRNaNI ueEn5jw8H6k640USKyFCUyeR4 7 Df7vdMfrFFXuxLJJtN2kwxbeu 4mkkrodAvGgVKTfYAy3ZIz8MJ NwtYyzEiNiSMU8HuL5PRI9dKI h lA6jhPjkgtlvhT2zIer+MDMvM iJtYLe9HDgouQE+SNPnYTI5nK lnECbgJUXwoJ7nLHMwG6e2XpJ w NsR8HOsbL5MdUNBbhkddSy64k J3xLmEoRmT8QChfQ2OackD7UI TctOTuWLusMZJ9G36cm7Y5DBR w QTDvGHM4zSY6eH6vjJupjywsn GVmdDsgdmVydGljYWwtYWxpZ2 35LUTlhVmsJrz4PMkzZILsXI7 0 WK30sYNbf0W0sPN7W1FaRNMza pspdjztdCZ9GWWeBUMjaS41uX WqEFroNc7lc8Y5n070OUCzQZV w wM11Qg2ljVsgIUCcdVVZdF2ka tfxc5hmorzaBnAzSZRvPCk4VC q4EWIxaKzhMuRiEYC1DyF7DBX 0 zXRxwT5mkXoakshecQ3eWoo+T UFMRTwvdGQ+ZXReYOT6wGljHB ybSZRpnE6rOFLqB3k6IyAgMeD 1 ZQtxB6EiLACqqfiiOc31xS8oO mYuQoS1EEzdS6DhboB2AKGgmW WjQIvfEPV5Q36oo6G0IONrINB w NAZ1qET1rA9qfIbctveocTAgu MyhxaImwEuoPLjkHPtsK081KC RfnCbcTaGhR3IxpyxoNsMTmWS w SZEtCC54QM64RU37H5NgKtoup GFibGU+PHRhYmxlIHdpZHRoPS ltLPJvRoZrnXwnMN8rIm6pLVW y WNGjvZtriSEzHdZkl0jnEZWoV MqzAI7pzAftD6JloDY3UXHze6 u3Qg12B18hP1KbyUO+PGNvbCB 3 xVY8uX9eMvMmQsB3IHvfR699M gTtoFZyFvike7uft0okeHk4Xu GtPJOmehXuiTosQAG8l2HzZp5 8 L51qWGuwPPDyMORfJEOjLJBqc Fbyna1xzP8eIn8+YOLowPQ5gA Z3nA2bKeXqAzP2KHujL896SxL v gWDoLhfiQ53eK8WqqJD+PHRyP us6FLDckHdqXZ0ejDWbDApaBu 5uAWZ6ToKgDmUhWYwtI0UvDXO p scofcerxnDG8ATWjJQUffE00Q s8owTooPk0cCPNnETF3RJBskA CnP1JilH4wFwXbRQPyFEFbH8M l rRLwHKkqI431WXldZnU8RBKok xEkD7ImRIHxgGhpTwS1a3I7Bz 1FaUvdbKSjBY1bSzXbFBz7C1W k Vdb3SPYfgKpjTV0xpBWxOTmeK y9rtImtxZeoYW5oVNUjzzrwz7 29ZrAfq0usBKKipJDtQLxcPVC 7 E21ti0P3JNZrFIAjQLM3fFM7d S4jbWtzifhpnCWrwExcwpGhmL bmFLmgACcxY176NGWxaLwtHlN J Gjl7E2RgTzg0WAIpjZuaEO1ez JCbVIqtJx3nkYrtkPqwET0xCY Gzqlgcb656XdNtd5gcOXBhgYS g SXffHOM8W51tx7B1PDKbWIWjJ XX4oOQ0uC7stZpcuvqmqYSzvU azzcRfiCvuKIxjBOcuZ024LCI v yWjyWh0XLqp3O0InLwb7KOAfx XloSZ8jbNFjMBluSg6xzLqdzY adEU4kTQIanuxsp815JpOhw8f k UTSjoGHrQOrgUOM3U40bw5V7Z WNgEAWqPIY4qTU2pA3nrYypoo ogbGVmdDsgdmVydGljYWwtYWx p B674NURhhPnmCaHcuXLmBkqbh GQ+TS70hu26X9PlFbdlUch7HG ZgPZE9vTL2wF5xAPUvSPmoi2C 5 bGU (more content not included)... Normal [facility] Anti-coagulation Progress No donna 12-30-2024 Anti-coagulation Progress Note Pt is a 74 yo male with a history of Afib presenting today for anticoagulation monitoring and adjustment. INR of 2.2 is therapeutic for this patient (goal range: 2-3) and is reflective continuing 35mg TWD. Pt stopped taking lovenox yesterday because he ran out. Pt verifies current dosing regimen and pt able to verbally recall dose. Pt reports 0 missed doses since last INR. Pt denies any current N/V or diarrhea. Pt denies s/sx of clotting and/or stroke. Pt denies hematuria, epistaxis, and rectal bleeding. Pt denies changes in diet, alcohol or tobacco use. Reviewed medication list and drug allergies with pt, updated any medication additions or modifications accordingly. Pt denies any pending medical or dental procedures scheduled at this time. Pt was instructed to continue 35mg TWD (5mg QD) and RTC in 1 week. [Electronically Signed on: 12/30/2024 14:49 EST] Armando Biswas PharmD [Verified on: 12/30/2024 14:49 EST] Armando Biswas PharmD [facility] Anti-coagulation Progress No donna 12-27-2024 Anti-coagulation Progress Note Pt is a 74 yo male with a history of Afib presenting today for anticoagulation monitoring and adjustment. INR of 1.7 is sub-therapeutic for this patient (goal range: 2-3) and is reflective of starting warfarin on 12/24/24 at 35mg TWD. Bridging with Lovenox 100mg Q12h. Pt verifies current dosing regimen and pt able to verbally recall dose. Pt reports 0 missed doses since last INR. Pt denies any current N/V or diarrhea. Pt denies s/sx of clotting and/or stroke. Pt denies hematuria, epistaxis, and rectal bleeding. Pt denies changes in diet, alcohol or tobacco use. Reviewed medication list and drug allergies with pt, updated any medication additions or modifications accordingly. Pt denies any pending medical or dental procedures scheduled at this time. Pt was instructed to take an addition ? tablet today (7.5mg) and continue 35mg TWD and RTC 2 days to verify patient no longer needs bridging with Lovenox. [Electronically Signed on: 12/27/2024 16:00 EST] Sheree Bowman PharmD [Verified on: 12/27/2024 16:00 EST] Sheree Bowman PharmD [facility] Anti-coagulation Progress Note Prescription called in to [facility] ? [place] Pharmacist: Jaron Weiner Warfarin 5mg Take 1 tablet by mouth once daily or as directed by clinic #30 No refills Prescriber: Azael Vieyra APRN Called in by Sheree Bowman on 12/27/24 at 15:45 [Electronically Signed on: 12/27/2024 15:56 EST] Sheree Bowman PharmD [Verified on: 12/27/2024 15:56 EST] Sheree Bowman PharmD [facility] Anti-coagulation Progress Note Pt is a 74 yo male with a history of Afib presenting today for anticoagulation monitoring and adjustment. INR of 1.7 is sub-therapeutic for this patient (goal range: 2-3) and is reflective of starting warfarin on 12/24/24 at 35mg TWD. Pt verifies current dosing regimen and pt able to verbally recall dose. Pt reports 0 missed doses since last INR. Pt denies any current N/V or diarrhea. Pt denies s/sx of clotting and/or stroke. Pt denies hematuria, epistaxis, and rectal bleeding. Pt denies changes in diet, alcohol or tobacco use. Reviewed medication list and drug allergies with pt, updated any medication additions or modifications accordingly. Pt denies any pending medical or dental procedures scheduled at this time. Pt was instructed to take an addition ? tablet today (7.5mg) and continue 35mg TWD and RTC 5-7 days. [Electronically Signed on: 12/27/2024 15:55 EST] Sheree Bowman PharmD [Verified on: 12/27/2024 15:55 EST] Sheree Bowman PharmD [facility] Coding Summaryon 12-23-2024 Coding Summary HTMLBase 64 LhjjzriyLEp3bAz+PGhlYWQ+P J0JYCLcT97lgGWudJ3bV2CQYE lOSywgQVBQTElOSyIgbmFtZT1 kaXNjZXJu IC8+WI1mARCxRnigvMJfu2O7r NT4Q23boi1nLJtgaFB3CRNyVh Dlpmrnv0mviAa6YXptRrkfDqO t WECmyX64NXH7jH91Ht64rPBib RBtp7joyYj3MoGaKFXiXNV2kT fvILfsu7OtRHDnN19zzDQgm7Z 6 PJSslCedrNDeDyEtoJR2vX6pF Bdgzldpa3dcsufxOqz4fy87gE Ddv0H0uQK4H8DmtdX7RBAjeZZ g XpxzcOVWwL4cqmrna9mzwfkxC eNrMEKgXWc0VQr1DEPduLzmFh IbJD43DMJ1XUUlqxZdP5DsVVR s nMxoBgV7h2P5Yc2PT3IRTiidB 1VNTUFSWTwvdGQ+XQ05nk68A6 YjTikoToa9EKUaXUJ9gJS1dH1 n FQCmQLbgx4B7cJY9H4SkuuThf d8dw7vgBCOmTNqkC37azZCtz2 J1RVOvtJQ7NJTrpAveUzEmdD7 3 Oyc+WFMppVvdm0JhEmyxd4low 2ocnYv7PoejPIMxxcWlsDcqRN H2q9OvCs6iUIRpcVE9pOB7uR9 i XfZnKrC1RUbtI514PoGmnXPpI ubnA50oA5GurJW+BQMwKvf9VX WtcMfnLZ3fY2SbDAVkvackiDW m rPppKO4iSPStkbtuPPXuxX1sL ZWqO8w6XwRuOrP3TVhqN0TzLP IymitvPf66eS0vDuShSeM3OHf u Z5SrepG4NAUivMQxXAywYYO2A 08cf9F2FNUmMIVuRXU9fSP9cO 1hbGlnbjogbGVmdDsgdmVydGl j RSbtLCkvN988AGZipVeqYyQbX GluZyBEYXRlOiAgMDIvMjcvMj AyNTwvdGQ+SPUbWIT0eXxjGDM n rXNdQDkfJz6tpDwrlVssFA8lV TFxrfevDFPdcL7pMYGitZSokR psUJ8sSCYcqfjfd014BhVuFKZ 0 YPTatWGrP0MayB5gMyXxYORfN AXtZ4VslVWxBKvhE233FTlePj Q3IUOabiByL1VwGJLagYcxEnC 0 s9O3Zl6Nv7NmorwkN4KcrYTiS xHkSzzyMUq9A9QzMgtuqAN+PC 56KWAvOQ24TRu9CIH9vEysBYp i UBOtF9BftY9tHzOrFZYuSWPkG yc+PHRhYmxlIHdpZHRoPScxMD XqAwQiqVuzVP8cBe8eVFArXCQ v gVvxaHGsKqXsv4ddSVCgUTeeF I4qnQpjA2GtlXX3IWQjz4x1Uv 47G74zL5YspDU+HNSehFK7pNN 0 fD4fZmVeGtN2NAbcC801LbEvq ZChMbkyh9dwt5zfuTv2NmM4BP DcucUcdUjzPCA5k5PuWl85U52 s IHdpZHRoPSIxNSUiIHZhbGlnb d9rrY3mZn6+JVTfcEI8bPC5lY 6eKiEiQaJ2CEqeG875XxLrzXT v Gfioa6aeg7ayvBx4CuGyTJLmx xAleBvfOSZ8d0GsIo63F6OfaI tht3MfVob9or43zWGvw9I6uEP 9 L1OxGXRrsfpqzPVdmBarUZ9qY LAqbdigOPMkaI5aJNUkU3v7Vk QvWtY5IVkgL2VnzuQ2ZJLzlGQ g GCLsoJKMqI8udxdji0pddhruO xRwKIIpOSf8JAs0RSBumUgtPs HlONQ2NpD1EFE0oFXbaU7msCg n lnopzF9kKyh+JNR4yWWohZBDH H1gLygcxIK+ZNDsJCJ3bVrzUA roUTAklF3aKYAtV8q8KoPwFrP 1 QCauD4LhzaW8QBGtoFKlCMOtr COZkM1njkzlu7govzplBbAuGW NyVBu5AJy9RSGvjKhxClZiRSQ 0 SlR4GZS5aXXrpW4abKjvifkqe G9wOyc+YjsrtGgoJUY4WBb1N5 IfXsh8YTCtrKhvBN4enWCkTPc u Jq2rsSmaeGnrCD2jLFThqobes 034XuNgb1xbACAmpTIfJTnoNI J6I53so9D0OVXvDYGpOQX6yXS 4 aT2wsLvarrmfxHZrxJxcaaRqs ItgFXoyGZgqY635ZTJngWfzPo HjIPh1R4LuDtg1BRGvwBrfRT1 n yKTiUVjqPw6rnUblaKwqVI2nF DZncerbq498DeOcz1bfJQQvvJ YtMKfbCKY9V01zo5C2TYWvRPK w LID5aGU5mH9mnWcqagatlNUfu MklguMllNcpNFozAOvtH005WG GfoCogUqVjzNp7S8TjIhy2NKL z aTkmBM8roQIbMBlrRx1jnQfrq PztLH7fJOKimcmiz216FqZix7 poRIMowEPpUVobNPN1I70lv0Z 6 DTPoLVVuLEX4eXH4lY0jkBlzl jogbGVmdDsgdmVydGljYWwtYW jhD562QKWvsEkmCiKfwTpahgF g TLriXLs3S2ZnHjfiqXF+PC90Y JZuTZ98xYEuvCKai2hdvYb9Tj ZcGQDiITY7hQhgSDipa5SuSVO t S18owFFkg9N3UNPjgUsjsQHvL fHpkME0aG2oPIhdeuwnt0oivz djTjuxy9bodh28bM71O79cMWc p CNHmDTZwSLUuIJKejOzgda6gc G9wIi8+JRYqcSY2pBM0kQ7zRG JeJhF2DGrfZ758FaOcoHLpJvq j e0kqt5ejxUy7LkG2TVZawfVpw MxpKFM1l9OxSd54R84wTDrvXH CtRJFaXFCmSCQcmFwesj7fgG7 w Ii8+OZTmqQN1aZL8iO4jMbBnG oS3YTsjC233CbUaqBXzHbymH8 7eU6BsaGJ+HUZkDba7NDUykJo s AC8vbIIvCKfkXh0xLFJ8JzFcZ qCyBFcjH8RoUSZssqfjqayegZ Q0YMBoBJBltP66Cj2usTmdSCF w vZPGbP1yoipbk4wbexvgMvMgL NWhKTk3WOj5HJLtoWojJoEzUH M5LoK5FSL3fFBmfT5ivLrsxrr g pL1mC1BwBOJevybbEr84iX6lL nJwKtV0WZfaRqh+I5LGWPAWSE DHMT0VP8XvNMwCEYKVLP59BL8 8 lGGav3H1kMK4J3AgJZJnfejfb nnxbAV2CGBbSDToyE47iNCkSS zsSo9un5I8m530WONmNMFezK2 7 Vf4fuWmwPDKurANToK3dkiwmh 0sgqcdvKoXfXQCoFJe1CYx1EI GrwGdrLkScDNF5DbQ5XTR8vAZ h dC8gpKvrbbpzyU7oVzw+MDMvM yQdMFy9WPqpkFP+BOOmFOQ2xW xqVGtvSGUseD1nXBIlT7l9BpJ w PwJ8ZGruO4GjNINcqzieJy81a V2rTgXpShC6RCryU4HuyhJ9XT QxjIKtPCepFUO6O17bs5T1ECL w DLOaHKA3kVC4oJ7cuLflmvnea GVmdDsgdmVydGljYWwtYWxpZ2 70CFZgaYtnTey4RCmrRPIgPR5 0 GY89aAIpt1T8lYJ2N4WaSOBhp lowtcohqBW7YNAwYRSjfR31gG UfBGvbKk0op6V7p737CLKfWIS w iO96Vj8ypPvrAONxhPDGoV2fd kgoa0lnwnxxNrYyTVCsNIf9ZX p7TMZhfGewYkTwMDP9PcK1TMB 0 rWRvfF7seZphkqodyE9tTgm+T UFMRTwvdGQ+BIVdELN4yCemBL uwTYJvmD1aEEMkK6q5JgBoRdU 1 PBszW6AsZSSsmieyJt57aJ1dI dOhRqV8CCczI3IveaR3SNUjbH QdUGgdAEL4Q63it1N8OMKfCGU w ENN4cSE0aT0yfHibqhgsvEIao ErdjkWlhXlxAUoxBVxnD430MV RhtUxsXj0KMQ90KI89N6KoUuh v dGFibGU+PHRhYmxlIHdpZHRoP VozJQBjEgUvoJmnXV9wBb9rUT ZiWRZieWoyvPEsTwFhb2ffUNO z RKrnCV7jgCtcB4LdyBQ2BOPod 6u4Hj80Z40nI9OiaXM+PGNvbC X7pRJ5tV7iOdXoPeL9GHupF80 9 EwYtuCCfTbgsu0yoo1udaOn3D kIqGRJktsGhmRpuEZV6h2EfXm 93R73lORcbKGIhWMDgTGYuTMK h jLkttg4cbM2lSw2+LTRioLS4c PM3dG9sSrGlOyX4ROxnX274Be AbxTWpWquyY59sH3KgyWH+PHR y Dku6YAFplWgtJN4laIMrURwsU v1fKRZ5MuXtCfSlUWgfD7KpRA HzpnwiclzlxPE8VIMqDVMwmC4 7 Mz5meUrbUl3eTTThKWX4JGBso TYuX2IzpZ5hXmEpTNPqGXXyV7 SrxOCqFBjiZ361AYnsQvF0GVR l esSgZ1PvSITuuOclAmW3a8G9E j8OtLwasRAgUI0fQsLjFZo1J6 HeCdj3SYChkCzkKU4upLUmWGh u Hx3cuVefvJsbHL2lPNWgrfgvb 675JfRbd3zpIJUugNDlPFrzBH H7X36aj1A5GLAsYABcZGN9bSJ 4 pG0bxNwglsfoqKSklWneklMrh YprNSsyNTltF202EGKboGrxNa WDZig5M6PrQex8GUPpoLlpLV4 n pKZkZXwbJz4uyVhxlVjmWQ2sS TXcskdke658WfOkj2ewZTAsyC SvXOuhKWC3C47sl5U0EUPkTQA w JXN2eDK6cK8qpExohedirLEpz VubdnYewPunRAmdXLknU620YK JlmQomNe9XDjk9V8NzMla0NTP z vBxdHD1lfNVvGVlkRa0vlLuud FcvRR3tBLFahxpnt793VaUqk4 zeWOXytBOzROxhLVI4N89jf0W 6 GAZzFYGxNTZ2pTT1tF4qlAodk jogbGVmdDsgdmVydGljYWwtYW chT849RMTcjEqbLfAhpPRiEky v dGQ+YH47cd31B4RwUbrmTpc2U ESxDNJ6iPZ0iZ2pRTPjSDaoy7 V1gWG1J2OmvcDjfz2yh4smZYB z ZTo (more content not included)... [facility] Provider Orderson 12-23-2024 Provider Orders [id number]#[id number] [facility] Consent Formson 12-20-2024 Consent Forms [id number]#[id number] [facility] US Echocardiogram Completeon 12-17-2024 US Echocardiogram Complete [...] LVDs 4.20 (2.1 - 4.0 cm) LV Uins766.29 g LVOT Diameter 2.18 cm IVC2.20 (<= 2.1cm) M-Mode Dimensions TAPSE 1.4 (>1.7) LV Volume - Method of Disks (Haq's) Single Plane 2D LV VolumesBiplane 2D LV Volumes LV EDV M6N120.3 mLLV EDV BP140.17 mL M: 62 - 150 LV ESV A4C75.1 mLLV ESV BP78.4 mL LVEF(%) A4C44.1 %LVEF(%) BP44.04 % M: 52 - 72 LV EDV H1B690.8 mLLV EDV BP Index65.80 mL/m2 M: 34 - 74 LV ESV A2C79.1 mLSV (BP)61.73 mL LVEF(%) A2C42.2 %SV (BP) Index28.95 mL/m2 CO BP5.3 L/min Left Atrium Volume Systole (Method of Disks) Single Plane 4 CH 146.45 mL Right Atrium Area Systole RA Systolic Area A4C34.57 cm2RA Systolic Vol E8D829.70 mL Aortic Valve AoV Peak Velocity1.06 m/sLVOT Peak Velocity0.77 m/s AO Mean Velocity0.70 m/sLVOT Mean Velocity0.47 m/s AO Peak PG4.45 mmHgLVOT Peak PG2.35 mmHg AO Mean PG2.27 mmHgLVOT Mean PG1.07 mmHg AO V2 VTI19.47 cmLVOT V1 VTI14.90 cm FLORENCIO (Vmax)2.70 ok3PJNJ Area 3.72 cm2 FLORENCIO (VTI)2.85 cm2SV (LVOT) 55.40 mL Indexed FLORENCIO (VTI)1.33 cm2/m2 Mitral Valve MV Max Sygssqii582.53 m/sMV PHT34.76 ms MV E Max Velocity0.66 m/sMVA (PHT)6.33 cm2 MV Decel. Ypkr410.86 msMR CHT022.96 cm MR Peak Velocity5.06 m/s TDI Med e' Velocity7.17 cm/sMV E / Medial e' 9.27 Lat e' Xsrjaczu77.92 cm/sMV E / Lateral e' 6.09 TV S'8.64 cm/s Pulmonary Valve PV Peak Velocity0.62 m/sPV Peak PG1.54 mmHg WA End Diastolic Jaguar.109.87 m/s PV Mean PG0.90 mmHg Tricuspid Valve TR Peak Velocity3.03 m/s TR Peak PG36.75 mmHg Final Signed (Electronic Signature): Ulises Head MD 12/20/24 8:42 am Technologist: [facility] Provider Orderson 12-13-2024 Provider Orders [id number] FF [facility] Orders Onlyon 11-25-2024 Orders Only [id number] Anna Bauer ge T 1950 Date Provider Department Center 11/25/2024 GRICELDA CARUSO Family History Family history unknown: Yes Normal [facility] Office Visiton 06-16-2024 Follow-up visit [id number] Anna Bauer T 1950 Date Provider Department Center 06/16/2024 ASAD ALFORD Family History Family history unknown: Yes Level of Service:46506 [place] OFFICE/OUTPATIENT ESTABLISHED LOW MDM 20 MIN Normal [facility] Orders Onlyon 06-16-2024 Orders Only [id number] Anna Bauer T 1950 Provider Department Center 06/16/2024 GRICELDA CARUSO Family History Family history unknown: Yes Normal [facility] Alanine aminotransferase [En zymatic activity/volume] in Serum or PlasmaOrdered By: Sheree Greco on 05-05-2024 ALT [Catalytic activity/Vol] 8 U/L 7-52 [facility] Comment on above: Order Comment: Reaso n for Exam Type 2 diabetes mellitus without complication, without long- Performed By: #### L IPID, CMP wRFX A1C, TSH3 wRFLX #### [facility] [address] Albumin [Mass/volume] in Ser um or Plasma by Bromocresol green (BCG) dye binding methoOrdered By: Sheree Greco on 05-05-2024 Albumin BCG dye [Mass/Vol] 3.9 g/dL 3.5-5.7 [facility] Alkaline phosphatase [Enzyma tic activity/volume] in Serum or PlasmaOrdered By: Sheree Greco on 05-05-2024 ALP [Catalytic activity/Vol] 130 U/L High 34-104 [facility] Comment on above: Order Comment: Reaso n for Exam Type 2 diabetes mellitus without complication, without long- Performed By: #### L IPID, CMP wRFX A1C, TSH3 wRFLX #### [address] Aspartate aminotransferase [ Enzymatic activity/volume] in Serum or PlasmaOrdered By: Sheree Rojasjosefa on 05-05-2024 AST [Catalytic activity/Vol] 11 U/L Low 13-39 [facility] Comment on above: Order Comment: Reaso n for Exam Type 2 diabetes mellitus without complication, without long- Performed By: #### L IPID, CMP wRFX A1C, TSH3 wRFLX #### [address] Automated basophil %Ordered By: Sheree Fannie on 05-05-2024 Basophils/100 WBC (Bld) 1.1 % . [facility] Comment on above: Order Comment: Reaso n for Exam Type 2 diabetes mellitus without complication, without long- Performed By: #### C BC, PSAS, URMACRERAT #### [address] Automated basophil countOrde red By: Shereelori Greco on 05-05-2024 Basophils (Bld) [#/Vol] 0.1 10*3/uL 0.0-0.2 [facility] Comment on above: Order Comment: Reaso n for Exam Type 2 diabetes mellitus without complication, without long- Result Comment: PERF ORMED BY: [place] [address] PATHOLOGIST UNHAIRING INSPECTOR ENZO VELASCO M.D. Performed By: #### C BC, PSAS, URMACRERAT #### [address] Automated blood monocyte cou ntOrdered By: Sheree Fannie on 05-05-2024 Monocytes (Bld) [#/Vol] 0.4 10*3/uL 0.0-0.8 [facility] Comment on above: Order Comment: Reaso n for Exam Type 2 diabetes mellitus without complication, without long- Performed By: #### C BC, PSAS, URMACRERAT #### [address] [place] [address] [place] Automated eosinophil %Ordere d By: Sheree Fannie on 05-05-2024 Eosinophils/100 WBC (Bld) 2.5 % . [facility] Comment on above: Order Comment: Reaso n for Exam Type 2 diabetes mellitus without complication, without long- Performed By: #### C BC, PSAS, URMACRERAT #### [facility] [address] Automated eosinophil countOr dered By: Sheree Fannie on 05-05-2024 Eosinophils (Bld) [#/Vol] 0.1 10*3/uL 0.0-0.45 [facility] Comment on above: Order Comment: Reaso n for Exam Type 2 diabetes mellitus without complication, without long- Performed By: #### C BC, PSAS, URMACRERAT #### [facility] [address] Automated monocyte %Ordered By: Sheree Greco on 05-05-2024 Monocytes/100 WBC (Bld) 7.9 % . [facility] Comment on above: Order Comment: Reaso n for Exam Type 2 diabetes mellitus without complication, without long- Performed By: #### C BC, PSAS, URMACRERAT #### [facility] [address] Automated neutrophil %Ordere d By: Sheree Greco on 05-05-2024 Neutrophils/100 WBC (Bld) 66.3 % . [facility] Comment on above: Order Comment: Reaso n for Exam Type 2 diabetes mellitus without complication, without long- Performed By: #### C BC, PSAS, URMACRERAT #### [facility] [address] [place] [address] [place] Bilirubin.total [Mass/volume ] in Serum or PlasmaOrdered By: Sheree Greco on 05-05-2024 Bilirubin [Mass/Vol] 1.3 mg/dL High 0.3-1.0 [facility] Comment on above: Samples from patient s [...] IPID, CMP wRFX A1C, TSH3 wRFLX #### [facility] [address] [place], [place] [id number] [facility] CMP with reflex to A1Con Albumin [Mass/Vol] 3.9 g/dL Normal 3.5-5.7 [facility] Comment on above: Order Comment: Reaso n for Exam Type 2 diabetes mellitus without complication, without long- Performed By: #### L IPID, CMP wRFX A1C, TSH3 wRFLX #### [place] [address] [place] GFR/1.73 sq M.predicted MDRD (S/P/Bld) [Vol rate/Area] mL/min/{1.73_m2} Normal [facility] Comment on above: Order Comment: Reaso n for Exam Type 2 diabetes mellitus without complication, without long- Performed By: #### L IPID, CMP wRFX A1C, TSH3 wRFLX #### [facility] [address] [place], [place] [id number] [place] Calcium [Mass/volume] in Ser um or PlasmaOrdered By: Sheree Greco on 05-05-2024 Calcium [Mass/Vol] 9.2 mg/dL 8.6-10.3 [facility] Comment on above: Order Comment: Reaso n for Exam Type 2 diabetes mellitus without complication, without long- Performed By: #### L IPID, CMP wRFX A1C, TSH3 wRFLX #### [facility] [address] [place], [place] [id number] [place] Carbon dioxide, total [Moles /volume] in Serum or PlasmaOrdered By: Sheree Greco on 05-05-2024 CO2 [Moles/Vol] 29.2 mmol/L 21.0-31.0 [facility] Comment on above: Order Comment: Reaso n for Exam Type 2 diabetes mellitus without complication, without long- Performed By: #### L IPID, CMP wRFX A1C, TSH3 wRFLX #### [facility] [address] [place] [id number] [place] Chloride [Moles/volume] in S anahy or PlasmaOrdered By: Sheree Greco on 05-05-2024 Chloride [Moles/Vol] 106 mmol/L 98-107 [facility] Comment on above: Order Comment: Reaso n for Exam Type 2 diabetes mellitus without complication, without long- Performed By: #### L IPID, CMP wRFX A1C, TSH3 wRFLX #### [facility] [address] [place] [address] [place] Cholesterol [Mass/volume] in Serum or PlasmaOrdered By: Sheree Greco on 05-05-2024 Cholesterol [Mass/Vol] 110 mg/dL Low 140-200 [facility] Comment on above: Chol less than 200 [...] IPID, CMP wRFX A1C, TSH3 wRFLX #### [facility] [address] [place] [address] [place] Cholesterol in LDL Calc [Mas s/Vol]Ordered By: Sheree Greco on 05-05-2024 Cholesterol in LDL [Mass/Vol] 57 mg/dL 0-100 [facility] Comment on above: LDL ATP III CLASSIFI CATIONLDL less than 100 mg/dL OptimalLDL 100-129 mg/dL Near or above optimalLDL 130-159 mg/dL Borderline highLDL 160-189 mg/dL HighLDL greater than 189 mg/dL Very high Cholesterol in VLDL Calc [Ma ss/Vol]Ordered By: Sheree Greco on 05-05-2024 Cholesterol in VLDL [Mass/Vol] 14 mg/dL [facility] Complete Blood Count Auto Di ffon 05-05-2024 Mean Corpuscular HGB Conc 31.9 g/dL Low 32.5-35.6 [facility] Comment on above: Order Comment: Reaso n for Exam Type 2 diabetes mellitus without complication, without long- Performed By: #### C BC, PSAS, URMACRERAT #### [facility] [address] NRBC% 0.1 /100{WBC} Normal 0-0.5 [facility] Comment on above: Order Comment: Reaso n for Exam Type 2 diabetes mellitus without complication, without long- Performed By: #### C BC, PSAS, URMACRERAT #### [facility] [address] [place] [address] Creatinine [Mass/volume] in Serum or PlasmaOrdered By: Sheree Greco on 05-05-2024 Creatinine [Mass/Vol] 1.01 mg/dL 0.70-1.30 [facility] Comment on above: Order Comment: Reaso n for Exam Type 2 diabetes mellitus without complication, without long- Performed By: #### L IPID, CMP wRFX A1C, TSH3 wRFLX #### [facility] [address] [place] [address] Creatinine [Mass/volume] in UrineOrdered By: Sheree Greco on 05-05-2024 Creatinine (U) [Mass/Vol] 110.00 mg/dL [facility] Comment on above: No reference range e stablished Erythrocyte distribution wid th [Ratio] by Automated countOrdered By: Sheree Greco on 05-05-2024 Erythrocyte distribution width (RBC) [Ratio] 15.0 % High 12.0-14.8 [facility] Comment on above: Order Comment: Reaso n for Exam Type 2 diabetes mellitus without complication, without long- Performed By: #### C BC, PSAS, URMACRERAT #### [facility] [address] [place] [address] [place] Erythrocytes [#/volume] in B lood by Automated countOrdered By: Sheree Greco on 05-05-2024 RBC (Bld) [#/Vol] 4.93 10*6/uL 3.90-5.60 [facility] Comment on above: Order Comment: Reaso n for Exam Type 2 diabetes mellitus without complication, without long- Performed By: #### C BC, PSAS, URMACRERAT #### [place] [address] [place] Glucose [Mass/volume] in Ser um or PlasmaOrdered By: Sheree Greco on 05-05-2024 Glucose [Mass/Vol] 94 mg/dL 70-100 [facility] Comment on above: Order Comment: Reaso n for Exam Type 2 diabetes mellitus without complication, without long- Performed By: #### L IPID, CMP wRFX A1C, TSH3 wRFLX #### [place] [address] [place] Hematocrit [Volume Fraction] of Blood by Automated countOrdered By: Sheree Greco on 05-05-2024 Hematocrit (Bld) [Volume fraction] 39.1 % 38.8-50.0 [facility] Comment on above: Order Comment: Reaso n for Exam Type 2 diabetes mellitus without complication, without long- Performed By: #### C BC, PSAS, URMACRERAT #### [facility] [address] [place] [address] [place] Hemoglobin [Mass/volume] in BloodOrdered By: Sheree Greco on 05-05-2024 Hemoglobin (Bld) [Mass/Vol] 12.5 g/dL Low 13.0-17.0 [facility] Comment on above: Order Comment: Reaso n for Exam Type 2 diabetes mellitus without complication, without long- Performed By: #### C BC, PSAS, URMACRERAT #### [place] [address] [place] Leukocytes [#/volume] correc maksim for nucleated erythrocytes in Blood by Automated counOrdered By: Sheree Greco on 05-05-2024 WBC corrected for nucl RBC Auto (Bld) [#/Vol] 5.6 10*3/uL 4.1-10.5 [facility] Leukocytes [#/volume] in Blo od by Automated countOrdered By: Sheree Greco on 05-05-2024 WBC (Bld) [#/Vol] 5.6 10*3/uL 4.1-10.5 [facility] Comment on above: Order Comment: Reaso n for Exam Type 2 diabetes mellitus without complication, without long- Performed By: #### C BC, PSAS, URMACRERAT #### [facility] [address] Lipid Panelon 05-05-2024 LDL Cholesterol,Calculated 57 mg/dL Normal 0-100 [facility] Comment on above: Order Comment: [...] IPID, CMP wRFX A1C, TSH3 wRFLX #### [facility] [address] Triglyceride w/Reflex 72 mg/dL Normal 0-149 [facility] Comment on above: Order [...] IPID, CMP wRFX A1C, TSH3 wRFLX #### [facility] [address] VLDL CHOLESTEROL 14 mg/dL Normal [facility] Comment on above: Order Comment: Reaso n for Exam Type 2 diabetes mellitus without complication, without long- Performed By: #### L IPID, CMP wRFX A1C, TSH3 wRFLX #### [facility] [address] [place] [address] [place] Lymphocytes [#/volume] in Bl ood by Automated countOrdered By: Shereelori Greco on 05-05-2024 Lymphocytes (Bld) [#/Vol] 1.2 10*3/uL 1.00-4.8 [facility] Comment on above: Order Comment: Reaso n for Exam Type 2 diabetes mellitus without complication, without long- Performed By: #### C BC, PSAS, URMACRERAT #### [facility] [address] [place] [address] Lymphocytes/100 leukocytes i n Blood by Automated countOrdered By: Sheree Greco on 05-05-2024 Lymphocytes/100 WBC (Bld) 22.2 % . [facility] Comment on above: Order Comment: Reaso n for Exam Type 2 diabetes mellitus without complication, without long- Performed By: #### C BC, PSAS, URMACRERAT #### [address] MCH [Entitic mass] by Automa maksim countOrdered By: Sheree Greco on 05-05-2024 MCH (RBC) [Entitic mass] 25.3 pg Low 27.5-35.2 [facility] Comment on above: Order Comment: Reaso n for Exam Type 2 diabetes mellitus without complication, without long- Performed By: #### C BC, PSAS, URMACRERAT #### [facility] [address] [place] [address] MCHC Auto (RBC) [Mass/Vol]Or dered By: Sheree Greco on 05-05-2024 MCHC (RBC) [Mass/Vol] 31.9 g/dL Low 32.5-35.6 [facility] MCV [Entitic volume] by Auto mated countOrdered By: Sheree Greco on 05-05-2024 MCV (RBC) [Entitic vol] 79.3 fL Low 83.5-101 [facility] Comment on above: Order Comment: Reaso n for Exam Type 2 diabetes mellitus without complication, without long- Performed By: #### C BC, PSAS, URMACRERAT #### [address] MicroAlb Creat Ratio,Uon Creatinine, Urine (Random) 110.00 mg/dL Normal [facility] Comment on above: Order Comment: Reaso n for Exam Type 2 diabetes mellitus without complication, without long- Result Comment: No r eference range established Performed By: #### C BC, PSAS, URMACRERAT #### [facility] [address] Microalbumin/Creatinin e Ratio 63.6 mg/g High 0.0-30.0 [facility] Comment on above: Order Comment: Reaso n for Exam Type 2 diabetes mellitus without complication, without long- Result Comment: 30-3 00 mg/g indicates an increased risk for diabetic nephropathy. Greater than 300 mg/g is consistent with clinical nephropathy. (Am. J. Kidney Disease 1995, 25:107) PERFORMED BY: [place] [address] PATHOLOGIST UNHAIRING INSPECTOR ENZO VELASCO M.D. Performed By: #### C BC, PSAS, URMACRERAT #### [address] Microalbumin [Mass/volume] i n UrineOrdered By: Sheree Greco on 05-05-2024 Albumin DL <= 20 mg/L (U) [Mass/Vol] 7.0 mg/dL High 0.0-1.8 [facility] Comment on above: Order Comment: Reaso n for Exam Type 2 diabetes mellitus without complication, without long- Performed By: #### C BC, PSAS, URMACRERAT #### [address] Neutrophils [#/volume] in Bl ood by Automated countOrdered By: Sheree Greco on 05-05-2024 Neutrophils (Bld) [#/Vol] 3.7 10*3/uL 1.8-7.7 [facility] Comment on above: Order Comment: Reaso n for Exam Type 2 diabetes mellitus without complication, without long- Performed By: #### C BC, PSAS, URMACRERAT #### [facility] [address] No Panel InformationOrdered By: Sheree Greco on 05-05-2024 Estimated GFR (CKD-EPI) > 60.0 mL/Min [facility] Creatinine Clearance (Chem N/A [facility] Nucleated erythrocytes [Pres ence] in Blood by Automated countOrdered By: Sheree Greco on 05-05-2024 Nucleated RBC Auto Ql (Bld) 0.1 /100{WBC} 0-0.5 [facility] PSA Screen (Yearly Only)on 0 05-05-2024 PSA Screen (Yearly Only) 0.870 ng/mL Normal 0.000-4.00 0 [facility] Comment on above: Order Comment: Reaso n for Exam Type 2 diabetes mellitus without complication, without long- Result Comment: Seri al tumor marker results determined by assays using different manufacturers or methods may not be comparable. [facility] foundation director and method: Granular DXI, CHEMILUMINESCENT IMMUNOASSAY. PERFORMED BY: [place] [address] PATHOLOGIST UNHAIRING INSPECTOR ENZO VELASCO M.D. Performed By: #### C BC, PSAS, URMACRERAT #### [facility] [address] [place] [address] Platelet mean volume [Entiti c volume] in Blood by Automated countOrdered By: Sheree Greco on 05-05-2024 Platelet mean volume (Bld) [Entitic vol] 8.2 fL 6.6-10.1 [facility] Comment on above: Order Comment: Reaso n for Exam Type 2 diabetes mellitus without complication, without long- Performed By: #### C BC, PSAS, URMACRERAT #### [facility] [address] [place] [address] Platelets [#/volume] in Bloo d by Automated countOrdered By: Sheree Greco on 05-05-2024 Platelets (Bld) [#/Vol] 173 10*3/uL 150-450 [facility] Comment on above: Order Comment: Reaso n for Exam Type 2 diabetes mellitus without complication, without long- Performed By: #### C BC, PSAS, URMACRERAT #### [facility] [address] [place] [address] [place] Potassium [Moles/volume] in Serum or PlasmaOrdered By: Sheree Greco on 05-05-2024 Potassium [Moles/Vol] 4.0 mmol/L 3.5-5.1 [facility] Comment on above: Order Comment: Reaso n for Exam Type 2 diabetes mellitus without complication, without long- Performed By: #### L IPID, CMP wRFX A1C, TSH3 wRFLX #### [facility] [address] [place] [address] [place] Prostate specific Ag [Mass/v olume] in Serum or PlasmaOrdered By: Sheree Greco on 05-05-2024 Prostate specific Ag [Mass/Vol] 0.870 ng/mL 0.000-4.00 0 [facility] Comment on above: Serial tumor marker results determined by assays using different manufacturers or methods may not be comparable.[facility] foundation director and method:Granular DXI, CHEMILUMINESCENT IMMUNOASSAY. Protein [Mass/volume] in Ser um or PlasmaOrdered By: Sheree Greco on 05-05-2024 Protein [Mass/Vol] 6.4 g/dL 6.4-8.9 [facility] Comment on above: Order Comment: Reaso n for Exam Type 2 diabetes mellitus without complication, without long- Performed By: #### L IPID, CMP wRFX A1C, TSH3 wRFLX #### [facility] [address] [place] [address] [place] Serum globulin measurement b y calculation (mass/volume)Ordered By: Sheree Greco on 05-05-2024 Globulin (S) [Mass/Vol] 2.5 g/dL [facility] Comment on above: Order Comment: Reaso n for Exam Type 2 diabetes mellitus without complication, without long- Performed By: #### L IPID, CMP wRFX A1C, TSH3 wRFLX #### [facility] [address] Serum or plasma albumin/glob ulin mass ratioOrdered By: Sheree Greco on 05-05-2024 Albumin/Globulin [Mass ratio] 1.6 {ratio} [facility] Comment on above: Order Comment: Reaso n for Exam Type 2 diabetes mellitus without complication, without long- Performed By: #### L IPID, CMP wRFX A1C, TSH3 wRFLX #### [facility] [address] Serum or plasma anion gap de terminationOrdered By: Sheree Greco on 05-05-2024 Anion gap [Moles/Vol] 7.8 mmol/L 6.0-15.0 [facility] Comment on above: Order Comment: Reaso n for Exam Type 2 diabetes mellitus without complication, without long- Performed By: #### L IPID, CMP wRFX A1C, TSH3 wRFLX #### [facility] [address] Serum or plasma high density lipoprotein (HDL) cholesterol measurementOrdered By: Sheree Greco on 05-05-2024 Cholesterol in HDL [Mass/Vol] 39 mg/dL 23- [facility] Comment on above: HDL CHOL ATP-III CLA [...] IPID, CMP wRFX A1C, TSH3 wRFLX #### [facility] [address] Serum or plasma total choles terol/high density lipoprotein (HDL) cholesterol mass ratOrdered By: Sheree Greco on 05-05-2024 Cholesterol.total/Chol esterol in HDL [Mass ratio] 2.8 {ratio} <5.0 [facility] Comment on above: Order Comment: Reaso n for Exam Type 2 diabetes mellitus without complication, without long- Performed By: #### L IPID, CMP wRFX A1C, TSH3 wRFLX #### [facility] [address] [place] [address] [place] Sodium [Moles/volume] in Ser um or PlasmaOrdered By: Sheree Greco on 05-05-2024 Sodium [Moles/Vol] 139 mmol/L 136-145 [facility] Comment on above: Order Comment: Reaso n for Exam Type 2 diabetes mellitus without complication, without long- Performed By: #### L IPID, CMP wRFX A1C, TSH3 wRFLX #### [facility] [address] [place] [address] Thyroid Stim Hormone w/Rflxo n 05-05-2024 Thyroid Stim Hormone w/Rflx 4.30 u[iU]/mL Normal 0.45-5.33 [facility] Comment on above: Order Comment: Reaso n for Exam Type 2 diabetes mellitus without complication, without long- Result Comment: PERF ORMED BY: [place] [address] PATHOLOGIST UNHAIRING INSPECTOR ENZO VELASCO M.D. Performed By: #### L IPID, CMP wRFX A1C, TSH3 wRFLX #### [facility] [address] [place] [address] Thyrotropin [Units/volume] i n Serum or PlasmaOrdered By: Sheree Greco on 05-05-2024 TSH Qn 4.30 m[IU]/L 0.45-5.33 [facility] Triglyceride [Mass/volume] i n Serum or PlasmaOrdered By: Sheree Greco on 05-05-2024 Triglyceride [Mass/Vol] 72 mg/dL 0-149 [facility] Comment on above: TRIG ATP III CLASSIF ICATIONTRIG less than 150 mg/dL NormalTRIG 150-199 mg/dL Borderline highTRIG 200-500 mg/dL High TRIG greater than 500 mg/dL Very highStandard traceable to the Center for Disease Conrtrol and Prevention (CDC) test method. Urea nitrogen [Mass/volume] in Serum or PlasmaOrdered By: Sheree Greco on 05-05-2024 Urea nitrogen [Mass/Vol] 17 mg/dL 05-20 [facility] Comment on above: Order Comment: Reaso n for Exam Type 2 diabetes mellitus without complication, without long- Performed By: #### L IPID, CMP wRFX A1C, TSH3 wRFLX #### [facility] [address] Urine microalbumin/creatinin e mass ratioOrdered By: Sheree Greco on 05-05-2024 Albumin/Creatinine DL <= 20 mg/L (U) [Mass ratio] 63.6 mg/g High 0.0-30.0 [facility] Comment on above: 30-300 mg/g indicate s an increased risk for diabetic nephropathy. Greater than 300 mg/g is consistent with clinical nephropathy. (Am. J. Kidney Disease 1995, 25:107) A1C HEMOGLOBINon 09-08-2023 HbA1c (Bld) [Mass fraction] 7.2 % [employer] Other HbA1c (Bld) [Mass fraction]o n 09-08-2023 A1C HEMOGLOBIN [facility] [employer] Other Alanine aminotransferase [En zymatic activity/volume] in Serum or PlasmaOrdered By: Sheree Greco on 03-10-2023 ALT [Catalytic activity/Vol] 9 U/L [facility] Albumin [Mass/volume] in Ser um or Plasma by Bromocresol green (BCG) dye binding methoOrdered By: Sheree Greco on 03-10-2023 Albumin BCG dye [Mass/Vol] 4.0 g/dL 3.5-5.7 [facility] Alkaline phosphatase [Enzyma tic activity/volume] in Serum or PlasmaOrdered By: Sheree Greco on 03-10-2023 ALP [Catalytic activity/Vol] 148 U/L 34-104 [facility] Aspartate aminotransferase [ Enzymatic activity/volume] in Serum or PlasmaOrdered By: Sheree Greco on 03-10-2023 AST [Catalytic activity/Vol] 13 U/L 13-39 [facility] Basophils Auto (Bld) [#/Vol] Ordered By: Sheree rGeco on 03-10-2023 Basophils (Bld) [#/Vol] 0.1 10*3/uL 0.0-0.2 [facility] Basophils/100 WBC Auto (Bld) Ordered By: Sheree Greco on 03-10-2023 Basophils/100 WBC (Bld) 1.2 % . [facility] Bilirubin.total [Mass/volume ] in Serum or PlasmaOrdered By: Sheree Greco on 03-10-2023 Bilirubin [Mass/Vol] 1.4 mg/dL 0.3-1.0 [facility] Comment on above: Samples from patient s who have taken Naproxen have shown spurious elevation in Total Bilirubin levels. A metabolite of Naproxen, O-desmethylnaproxen, has been shown to interfere with the Sheryl method for measuring Total Bilirubin. Calcium [Mass/volume] in Ser um or PlasmaOrdered By: Sheree Greco on 03-10-2023 Calcium [Mass/Vol] 9.3 mg/dL 8.6-10.3 [facility] Carbon dioxide, total [Moles /volume] in Serum or PlasmaOrdered By: Sheree Greco on 03-10-2023 CO2 [Moles/Vol] 29.7 mmol/L 21.0-31.0 [facility] Chloride [Moles/volume] in S anahy or PlasmaOrdered By: Sheree Greco on 03-10-2023 Chloride [Moles/Vol] 102 mmol/L 98-107 [facility] Cholesterol [Mass/volume] in Serum or PlasmaOrdered By: Sheree Greco on 03-10-2023 Cholesterol [Mass/Vol] 141 mg/dL 140-200 [facility] Comment on above: Chol less than 200 m g/dl low riskChol 201-239 mg/dl borderline riskChol 240 mg/dl and greater high risk Cholesterol in LDL Calc [Mas s/Vol]Ordered By: Sheree Greco on 03-10-2023 Cholesterol in LDL [Mass/Vol] 78 mg/dL 0-100 [facility] Comment on above: LDL ATP III CLASSIFI CATIONLDL less than 100 mg/dL OptimalLDL 100-129 mg/dL Near or above optimalLDL 130-159 mg/dL Borderline highLDL 160-189 mg/dL HighLDL greater than 189 mg/dL Very high Cholesterol in VLDL Calc [Ma ss/Vol]Ordered By: Sheree Greco on 03-10-2023 Cholesterol in VLDL [Mass/Vol] 20 mg/dL [facility] Creatinine [Mass/volume] in Serum or PlasmaOrdered By: Sheree Greco on 03-10-2023 Creatinine [Mass/Vol] 1.08 mg/dL 0.70-1.30 [facility] Creatinine [Mass/volume] in UrineOrdered By: Sheree Greco on 03-10-2023 Creatinine (U) [Mass/Vol] 257.0 mg/dL 14.0-26.0 [facility] Eosinophils Auto (Bld) [#/Vo l]Ordered By: Sheree Greco on 03-10-2023 Eosinophils (Bld) [#/Vol] 0.1 10*3/uL 0.0-0.45 [facility] Eosinophils/100 WBC Auto (Bl d)Ordered By: Sheree Greco on 03-10-2023 Eosinophils/100 WBC (Bld) 1.7 % . [facility] Erythrocyte distribution wid th Auto (RBC) [Ratio]Ordered By: Sheree Greco on 03-10-2023 Erythrocyte distribution width (RBC) [Ratio] 13.7 % 12.0-14.8 [facility] Globulin Calc (S) [Mass/Vol] Ordered By: Sheree Greco on 03-10-2023 Globulin (S) [Mass/Vol] 2.7 g/dL [facility] Glucose [Mass/volume] in Ser um or PlasmaOrdered By: Sheree Greco on 03-10-2023 Glucose [Mass/Vol] 136 mg/dL 70-100 [facility] Comment on above: ADA recommended refe rence rangeRandom Glucose Reference Range is dependent on time and content of last meal. Glucose of more than 200 mg/dL in a nonstressed, ambulatory subject supports the diagnosis of Diabetes Mellitus. Hematocrit Auto (Bld) [Volum e fraction]Ordered By: Sheree Greco on 03-10-2023 Hematocrit (Bld) [Volume fraction] 43.1 % 38.8-50.0 [facility] Hemoglobin [Mass/volume] in BloodOrdered By: Sheree Greco on 03-10-2023 Hemoglobin (Bld) [Mass/Vol] 14.0 g/dL 13.0-17.0 [facility] Leukocytes [#/volume] correc maksim for nucleated erythrocytes in Blood by Automated counOrdered By: Sheree Greco on 03-10-2023 WBC corrected for nucl RBC Auto (Bld) [#/Vol] 7.0 10*3/uL 4.1-10.5 [facility] Lymphocytes Auto (Bld) [#/Vo l]Ordered By: Sheree Greco on 03-10-2023 Lymphocytes (Bld) [#/Vol] 1.6 10*3/uL 1.00-4.8 [facility] Lymphocytes/100 WBC Auto (Bl d)Ordered By: Sheree Greco on 03-10-2023 Lymphocytes/100 WBC (Bld) 22.5 % . [facility] MCH Auto (RBC) [Entitic mass ]Ordered By: Sheree Greco on 03-10-2023 MCH (RBC) [Entitic mass] 26.7 pg 27.5-35.2 [facility] MCHC Auto (RBC) [Mass/Vol]Or dered By: Sheree Greco on 03-10-2023 MCHC (RBC) [Mass/Vol] 32.4 g/dL 32.5-35.6 [facility] MCV Auto (RBC) [Entitic vol] Ordered By: Sheree Greco on 03-10-2023 MCV (RBC) [Entitic vol] 82.2 fL 83.5-101 [facility] Microalbumin [Mass/volume] i n UrineOrdered By: Sheree Greco on 03-10-2023 Albumin DL <= 20 mg/L (U) [Mass/Vol] 2.4 mg/dL 0.0-1.8 [facility] Monocytes Auto (Bld) [#/Vol] Ordered By: Sheree Greco on 03-10-2023 Monocytes (Bld) [#/Vol] 0.4 10*3/uL 0.0-0.8 [facility] Monocytes/100 WBC Auto (Bld) Ordered By: Sheree Greco on 03-10-2023 Monocytes/100 WBC (Bld) 5.6 % . [facility] Neutrophils Auto (Bld) [#/Vo l]Ordered By: Sheree Greco on 03-10-2023 Neutrophils (Bld) [#/Vol] 4.9 10*3/uL 1.8-7.7 [facility] Neutrophils/100 WBC Auto (Bl d)Ordered By: Sheree Greco on 03-10-2023 Neutrophils/100 WBC (Bld) 69.0 % . [facility] No Panel InformationOrdered By: Sheree Greco on 03-10-2023 Estimated GFR (CKD-EPI) > 60.0 mL/Min [facility] Creatinine Clearance (Chem N/A [facility] Nucleated erythrocytes [Pres ence] in Blood by Automated countOrdered By: Sheree Greco on 03-10-2023 Nucleated RBC Auto Ql (Bld) 0.2 /100{WBC} 0-0.5 [facility] Platelet mean volume Auto (B ld) [Entitic vol]Ordered By: Sheree Greco on 03-10-2023 Platelet mean volume (Bld) [Entitic vol] 8.4 fL 6.6-10.1 [facility] Platelets Auto (Bld) [#/Vol] Ordered By: Sheree Greco on 03-10-2023 Platelets (Bld) [#/Vol] 212 10*3/uL 150-450 [facility] Potassium [Moles/volume] in Serum or PlasmaOrdered By: Sheree Greco on 03-10-2023 Potassium [Moles/Vol] 4.4 mmol/L 3.5-5.1 [facility] Prostate specific Ag [Mass/v olume] in Serum or PlasmaOrdered By: Sheree Greco on 03-10-2023 Prostate specific Ag [Mass/Vol] 0.540 ng/mL 0.000-4.00 0 [facility] Protein [Mass/volume] in Ser um or PlasmaOrdered By: Sheree Greco on 03-10-2023 Protein [Mass/Vol] 6.7 g/dL 6.4-8.9 [facility] RBC Auto (Bld) [#/Vol]Ordere d By: Sheree Greoc on 03-10-2023 RBC (Bld) [#/Vol] 5.25 10*6/uL 3.90-5.60 [facility] Serum or plasma albumin/glob ulin mass ratioOrdered By: Sheree Greco on 03-10-2023 Albumin/Globulin [Mass ratio] 1.5 {ratio} [facility] Serum or plasma anion gap de terminationOrdered By: Sheree Greco on 03-10-2023 Anion gap [Moles/Vol] 10.7 mmol/L 6.0-15.0 [facility] Serum or plasma high density lipoprotein (HDL) cholesterol measurementOrdered By: Sheree Greco on 03-10-2023 Cholesterol in HDL [Mass/Vol] 42 mg/dL 29-71 [facility] Comment on above: HDL CHOL ATP-III CLA SSIFICATION Cardiovascular RiskHDL > or equal to 60 mg/dL LOWHDL < 40 mg/dL HIGH Serum or plasma total choles terol/high density lipoprotein (HDL) cholesterol mass ratOrdered By: Sheree Greco on 03-10-2023 Cholesterol.total/Chol esterol in HDL [Mass ratio] 3.4 {ratio} <5.0 [facility] Sodium [Moles/volume] in Ser um or PlasmaOrdered By: Sheree Greco on 03-10-2023 Sodium [Moles/Vol] 138 mmol/L 136-145 [facility] Thyrotropin [Units/volume] i n Serum or PlasmaOrdered By: Sheree Greco on 03-10-2023 TSH Qn 3.36 m[IU]/L 0.45-5.33 [facility] Triglyceride [Mass/volume] i n Serum or PlasmaOrdered By: Sheree Greco on 03-10-2023 Triglyceride [Mass/Vol] 103 mg/dL 0-149 [facility] Comment on above: TRIG ATP III CLASSIF ICATIONTRIG less than 150 mg/dL NormalTRIG 150-199 mg/dL Borderline highTRIG 200-500 mg/dL High TRIG greater than 500 mg/dL Very highStandard traceable to the Center for Disease Conrtrol and Prevention (CDC) test method. Urea nitrogen [Mass/volume] in Serum or PlasmaOrdered By: Sheree Greco on 03-10-2023 Urea nitrogen [Mass/Vol] 18 mg/dL 7-25 [facility] Urine microalbumin/creatinin e mass ratioOrdered By: Sheree Greco on 03-10-2023 Albumin/Creatinine DL <= 20 mg/L (U) [Mass ratio] 9.0 mg/g 0.0-30.0 [facility] Comment on above: 30-300 mg/g indicate s an increased risk for diabetic nephropathy. Greater than 300 mg/g is consistent with clinical nephropathy. (Am. J. 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 : No What are the patient's signs and symptoms? : melanoma of left ear, evaluate for disease PET/CT Melanoma Initial; Status:Active; Requested for:[id number]; Radiologist to Determine Optimal Study : Y [...] Melanoma left posterior ear History of Present Utikdcy40-spcz-jkz male referred by Nemo Smith for management [...] DAILY Potassium TABS Vitals Vital Signs Recorded: [id number] 10:04AM Fbzcqfzpyyt98.3 F Height5 ft 7 in Htwfow887 lb 6 oz BMI Znzpznimtx07.18 kg/m2 BSA Calculated2.17 Tobacco Useb) No Falls Screening (Age 18+)a) No falls within the last year Pain Scale0/10 Physical Exam neck and ear incisions healing well, no sign of infection 'Scores and Scales' Signatures Electronically signed by : Aman Beck MD; May 12 2022 8:01AM EST (Author) Normal [facility] Tobacco Screening.on 022 Fall risk assessment a) No falls within the last year [facility] Work Phone: Tobacco use status [facility] b) No [facility] Work Phone: CORONAVIRUS 2019, SCREEN ASY MPTOMATICon 04-24-2022 SARS-CoV-2 (COVID-19) RNA ARIANNE+probe Ql (Unsp spec) Not detected Normal Not Detected [facility] Comment on above: Result Comment: . This [...] patient management decisions. Fact sheet for providers: https://www.fda.gov/media/180204/download Fact sheet for patients: https://www.fda.gov/media/585827/download This test has received FDA Emergency Use Authorization (EUA) and has been verified by [facility] ([facility]). This test is only authorized for the duration of time that circumstances exist to justify the authorization of the emergency use of in vitro diagnostic tests for the detection of SARS-CoV-2 virus and/or diagnosis of COVID-19 infection under section 564(b)(1) of the Act, 21 U.S.C. 360bbb-3(b)(1), unless the authorization is terminated or revoked sooner. [facility] is certified under CLIA-88 as qualified to perform high complexity testing. Testing is performed in the [facility] laboratories located at [address] [place] [address]. Performed By: #### C OVSC #### [facility] [id number] [place] [address]. [place] [address] Covid 19 Resultson 2 SARS-CoV-2 (COVID-19) RNA [...] You may also be contacted by the [facility] to see if any of your close [...] or Naproxen (Aleve) can also be used. Wsot-dvh-dfelcrk cough and cold medicines can be used according to the instructions on the package. Some tgem-kyx-vfvuyea medicines also contain acetaminophen. Make sure you [...] water are not available, use alcohol-based hand policy change clerk. Avoid touching your eyes, nose, and mouth [...] respiratory symptoms have been gone for 24 aly (more content not included)... Normal [facility] Dermatopathologyon 2 Dermatopathology Name PAU BAUER Pathologist: [...] determined by the Department of Pathology at [facility]. The FDA does not require this [...] MELANOMA OF LEFT EAR: SPECIMEN Procedure: Re-excision Edon node(s) biopsy Specimen Laterality: Left TUMOR Tumor [...] Lymph Nodes with Tumor: 1 Number of Edon Lymph Nodes with Tumor: 1 [place] Site(s) with Tumor: Subcapsular Size of Largest Edon Node Metastatic Deposit: 0.03 mm Size of Largest [place] Metastatic Deposit: 0.03 mm Extranodal Extension: Not identified Matted Nodes: Not identified Total Number of Lymph Nodes Examined: 3 Number of Edon Nodes Examined: 3 DISTANT METASTASIS PATHOLOGIC STAGE CLASSIFICATION (pTNM, AJCC 8th Edition) Reporting of pT, pN, and (when applicable) pM categories is based on information available to the pathologist at the time the report is issued. As per the AJCC (Chapter 1, 8th Ed.) it (more content not included)... Normal [facility] Comment on above: Performed By: #### D ####Dermatopathology GLUCOSE-POCTon 04-24-2022 Glucose [Mass/Vol] 164 mg/dL High 74 - 99 [facility] Comment on above: Performed By: #### G COURTNEY #### [facility] [address] [place] [address] Glucose [Mass/Vol] 118 mg/dL High 74 - 99 [facility] Comment on above: Performed By: #### G COURTNEY #### [facility] [address] [place] [address] LYMPH GLANDon 04-24-2022 LYMPH GLAND Patient Name: PAU BAUER STUDY: LYMPH GLAND; 04/24/2022 9:57 am INDICATION: 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 COMPARISON: None. ACCESSION NUMBER(S): [id number] ORDERING CLINICIAN: AMAN BECK TECHNIQUE: DIVISION OF [...] to PACS. This study was interpreted at [facility]. Electronically signed by: COREY SELLERS MD Normal [facility] - Chemistry and C hemistry - challengeon 04-24-2022 Glucose [Mass/Vol] 164 mg/dL above high threshold 74 - 99 [facility] Work Phone: Glucose [Mass/Vol] 118 mg/dL above high threshold 74 - 99 [facility] Work Phone: NM Lymph Glandon 04-24-2022 NM Lymph node Views Normal [facility] Work Phone: NM Tumor Loc Spec/CTon 04-24 NM Tumor Loc Spec/CT Normal [facility] Work Phone: No Panel Informationon 04-24 [facility] Work Phone: Order Reconciliationon 04-24 Order Reconciliation Page 1 Discharge Reconciliation Document Reconciliation Type: Discharge requested on behalf of Brad Chandler (Resident) done by Brad Chandler ( (Resident)) Discharge - Partial Reconciliation: 24-Apr-2022 07:47 by: Brad Chandler ( (Resident)) Discharge - Reconciliation: 24-Apr-2022 12:53 by: Brad Chandler ( (Resident)) Discharge - Reset to Incomplete: 24-Apr-2022 13:33 by: Brad Chandler ( (Resident)) Discharge - Reconciliation: 24-Apr-2022 13:34 by: Brad Chandler ( (Resident)) Home Medications EnteredHOME MEDICATIONS AT DISCHARGE [...] tab(s) orally 2 times a day restart 04/26/2226-Apr-2022 12:51 Discontinued; Copy/Discontinue Eliquis is continued and [...] (PACU) when able to take OralClinician Notes: Dayis-operative order ONLY 24-Apr-2022 11:37 Acetaminophen is not [...] cap(s) or (more content not included)... Normal [facility] Patient Profile - Preop v3on 04-24-2022 Patient Profile - Preop v3 Patient Profile - Preop: Initial Info: Patient DemographicsName: PAU BAUER Date: 1950 Address: [address] [place] [address] Primary Phone [phone] How to be Addressedgeorge Spoken Language PreferredEnglish Stated Reason for Admissionlet ear Primary Contact Name and [id number] Medications Brought to Hospital[facility] General Health: Weight in kg104.1 kilogram(s) Weight in imm165.5 pound(s) Weight Methodactual (measured) Scale Typestanding Height in feet5 feet Height in inches0 inch(es) Height in cm152.4 centimeter(s) Height Methodstated BMI (kg/m2)44.82 square meter Patient or Family Member Reaction to Anesthesiano previous reaction Blood Avoidance/Restrictionsnon e Previous Transfusion Reactionnot applicable Health Mgmt: Symptoms/Conditions Managed at Homecardiovascular Cardiovascular Symptoms/Conditions CommentHTN Barriers to Managing Healthnone Relationship/Environ: Lives Withalone Living Arrangementsmobile home Resource/Environmental Concernsnone [place]ticipated [place] [facility] Anticipated at Transitionnone Tobacco Use: Tobacco Useno Pre-op Checklist: Arrival [id number] Arrival Time10:00 Procedure Typeleft auriculectomy lymph node bx NPOyes Last Food Gpjfip94-Yme-2596 20:00 Last Clear Fluid Qywyya79-Rdb-7968 23:59 ID Band On Patientpatient ID (name) Consent Signedyes H&P Completeyes Anesthesia Assessment Completedyes EKG Performednot ordered Chest X-Ray Performednot ordered Beta-rubens Last Dose Date/Klbj33-Fhv-5683 09:00 Beta-rubens Commentmetoprolol COVID 19 Results in Last 7 daysnegative 6-27 Glucose Upotpn391 Type and Screen Resultedyes Chlorhexadine Bath Givennot [...] Past Medical History, Active Electronic Signatures: Rachel Friedman) (Signed 24-Apr-2022 10:26) Authored: Initial Info, General Health, Health Mgmt, Relationship/Environ, Tobacco Use, Pre-op Checklist, Additional Information Last Updated: 24-Apr-2022 10:26 by Rachel Friedman) Normal [facility] TUMOR LOC SPECT/CTon 022 TUMOR LOC SPECT/CT Patient Name: PAU BAUER STUDY: LYMPH GLAND; 04/24/2022 9:57 am INDICATION: 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 COMPARISON: None. ACCESSION NUMBER(S): [id number] ORDERING CLINICIAN: AMAN BECK TECHNIQUE: DIVISION OF [...] to PACS. This study was interpreted at [facility]. Electronically signed by: COREY SELLERS MD Normal [facility] CORONAVIRUS 2019, SCREEN ASY MPTOMATICon 04-23-2022 Lab Specimen Source Nasal, Nasopharyngeal Normal [facility] Comment on above: Performed By: #### C OVSC #### [facility] [address] [place] [address] Coronavirus 2019 RNA by PCR, Screening Asymptomticon 04-23-2022 Coronavirus 2019 RNA by PCR, Screening Asymptomtic Not detected Normal See Below [facility] [employer] Work Phone: Comment on above: SOURCE: Nasal, [...] make patient management decisions.Fact sheet for providers: https://www.fda.gov/media/568398/downloadFact sheet for patients: https://www.fda.gov/media/170161/downloadThis test has received FDA Emergency Use Authorization (EUA) and has been verified by [facility] ([facility]). This test is only authorized for the duration of time that circumstances exist to justify the authorization of the emergency use of in vitro diagnostic tests for the detection of SARS-CoV-2 virus and/or diagnosis of COVID-19 infection under section 564(b)(1) of the Act, 21 U.S.C. 360bbb-3(b)(1), unless the authorization is terminated or revoked sooner. [facility] is certified under CLIA-88 as qualified to perform high complexity testing. Testing is performed in the [facility] laboratories located at [address] [place] [address]. CBC AND DIFFERENTIALon 04-18 % AUTOMATED IMMATURE GRAN 0.4 % Normal 0.0 - 0.9 [facility] Comment on above: Result Comment: Joycelyn ture Granulocyte Count (IG) includes promyelocytes, myelocytes and metamyelocytes but does not include bands. Percent differential counts (%) should be interpreted in the context of the absolute cell counts (cells/L). Performed By: #### C BCDF #### [address] [place] [address] Basophils (Bld) [#/Vol] 0.04 10*3/uL Normal 0.00 - 0.10 [facility] Comment on above: Performed By: #### C BCDF #### [facility] [address] [place] [address] Basophils/100 WBC (Bld) 0.5 % Normal 0.0 - 2.0 [facility] Comment on above: Performed By: #### C BCDF #### [facility] [address] [place] [address] Eosinophils (Bld) [#/Vol] 0.07 10*3/uL Normal 0.00 - 0.40 [facility] Comment on above: Performed By: #### C BCDF #### [facility] [address] [place] [address] Eosinophils/100 WBC (Bld) 1.0 % Normal 0.0 - 6.0 [facility] Comment on above: Performed By: #### C BCDF #### [facility] [address] [place] [address] Erythrocyte distribution width (RBC) [Ratio] 12.7 % Normal 11.5 - 14.5 [facility] Comment on above: Performed By: #### C BCDF #### [facility] [address] [place] [address] Hematocrit (Bld) [Volume fraction] 43.6 % Normal 41.0 - 52.0 [facility] Comment on above: Performed By: #### C BCDF #### [facility] [address] [place] [address] Hemoglobin (Bld) [Mass/Vol] 13.9 g/dL Normal 13.5 - 17.5 [facility] Comment on above: Performed By: #### C BCDF #### [facility] [address] [place] [address] Lymphocytes (Bld) [#/Vol] 1.70 10*3/uL Normal 0.80 - 3.00 [facility] Comment on above: Performed By: #### C BCDF #### [facility] [address] [place] [address] Lymphocytes/100 WBC (Bld) 23.2 % Normal 13.0 - 44.0 [facility] Comment on above: Performed By: #### C BCDF #### [facility] [address] [place] [address] MCHC (RBC) [Mass/Vol] 31.9 g/dL Low 32.0 - 36.0 [facility] Comment on above: Performed By: #### C BCDF #### [facility] [address] [place] [address] MCV (RBC) [Entitic vol] 84 fL Normal 80 - 100 [facility] Comment on above: Performed By: #### C BCDF #### [facility] [address] [place] [address] Monocytes (Bld) [#/Vol] 0.54 10*3/uL Normal 0.05 - 0.80 [facility] Comment on above: Performed By: #### C BCDF #### [facility] [address] [place] [address] Monocytes/100 WBC (Bld) 7.4 % Normal 2.0 - 10.0 [facility] Comment on above: Performed By: #### C BCDF #### [facility] [address] [place] [address] Neutrophils (Bld) [#/Vol] 4.95 10*3/uL Normal 1.60 - 5.50 [facility] Comment on above: Performed By: #### C BCDF #### [facility] [address] [place] [address] Neutrophils/100 WBC (Bld) 67.5 % Normal 40.0 - 80.0 [facility] Comment on above: Performed By: #### C BCDF #### [facility] [address] [place] [address] NUCLEATED RBC 0.0 /100 WBC Normal 0.0-0.0 [facility] Comment on above: Performed By: #### C BCDF #### [facility] [address] [place] [address] Platelets (Bld) [#/Vol] 230 10*3/uL Normal 150 - 450 [facility] Comment on above: Performed By: #### C BCDF #### [facility] [address] [place] [address] RBC 5.19 x10E12/L Normal 4.50 - 5.90 [facility] Comment on above: Performed By: #### C BCDF #### [facility] [address] [place] [address] WBC (Bld) [#/Vol] 7.3 10*3/uL Normal 4.4 - 11.3 [facility] Comment on above: Performed By: #### C BCDF #### [facility] [address] [place] [address] COMPREHENSIVE PANELon 2021 Albumin [Mass/Vol] 4.0 g/dL Normal 3.4 - 5.0 [facility] Comment on above: Performed By: #### C MP #### [facility] [address] [place] [address] ALP [Catalytic activity/Vol] 122 U/L Normal 33 - 136 [facility] Comment on above: Performed By: #### C MP #### [facility] [address] [place] [address] ALT [Catalytic activity/Vol] 9 U/L Low 10 - 52 [facility] Comment on above: Result Comment: Chloé ents treated with Sulfasalazine may generate falsely decreased results for ALT. Performed By: #### C MP #### [facility] [address] [place] [address] Anion gap [Moles/Vol] 12 mmol/L Normal 10 - 20 [facility] Comment on above: Performed By: #### C MP #### [facility] [address] [place] [address] AST [Catalytic activity/Vol] 14 U/L Normal 9 - 39 [facility] Comment on above: Performed By: #### C MP #### [facility] [address] [place] [address] Bilirubin [Mass/Vol] 1.4 mg/dL High 0.0 - 1.2 [facility] [place] Comment on above: Performed By: #### C MP #### [facility] [address] [place] [address] Calcium [Mass/Vol] 9.6 mg/dL Normal 8.6 - 10.6 [facility] Comment on above: Performed By: #### C MP #### [facility] [address] [place] [address] Chloride [Moles/Vol] 102 mmol/L Normal 98 - 107 [facility] [place] Comment on above: Performed By: #### C MP #### [facility] [address] [place] [address] Creatinine [Mass/Vol] 0.99 mg/dL Normal 0.50 - 1.30 [facility] Comment on above: Performed By: #### C MP #### [facility] [address] [place] [address] GFR/1.73 sq M.predicted among non-blacks MDRD (S/P/Bld) [Vol rate/Area] 81 mL/min/{1.73_m2} Normal >90 [facility] Comment on above: Result Comment: CALC ULATIONS OF ESTIMATED GFR ARE PERFORMED USING THE 2020 CKD-EPI STUDY REFIT EQUATION WITHOUT THE RACE VARIABLE FOR THE IDMS-TRACEABLE CREATININE METHODS. https://jasn.asnjournals.org/content//ASN.45058 76867 Performed By: #### C MP #### [facility] [address] [place] [address] Glucose [Mass/Vol] 147 mg/dL High 74 - 99 [facility] Comment on above: Performed By: #### C MP #### [facility] [address] [place] [address] HCO3 (Bld) [Moles/Vol] 29 mmol/L Normal 21 - 32 [facility] Comment on above: Performed By: #### C MP #### [facility] [address] [place] [address] Potassium [Moles/Vol] 3.9 mmol/L Normal 3.5 - 5.3 [facility] Comment on above: Performed By: #### C MP #### [facility] [address] [place] [address] Protein [Mass/Vol] 6.7 g/dL Normal 6.4 - 8.2 [facility] Comment on above: Performed By: #### C MP #### [facility] [address] [place] [address] Sodium [Moles/Vol] 139 mmol/L Normal 136 - 145 [facility] Comment on above: Performed By: #### C MP #### [facility] [address] [place] [address] Urea nitrogen [Mass/Vol] 15 mg/dL Normal 6 - 23 [facility] Comment on above: Performed By: #### C MP #### [facility] [address] [place] [address] Complete Blood Count + Diffe rentialon 04-18-2021 Basophils/100 WBC (Bld) 0.5 % 0.0 - 2.0 [place] [place] [employer] Work Phone: Erythrocyte distribution width (RBC) [Ratio] 12.7 % See Below [facility] Work Phone: Comment on above: Reference Range: 11. 5 - 14.5 Hematocrit (Bld) [Volume fraction] 43.6 % See Below [facility] [employer] Work Phone: Comment on above: Reference Range: 41. 0 - 52.0 Hemoglobin (Bld) [Mass/Vol] 13.9 g/dL See Below [employer] [employer] Work Phone: Comment on above: Reference Range: 13. 5 - 17.5 Lymphocytes/100 WBC (Bld) 23.2 % See Below [employer] Work Phone: Comment on above: Reference Range: 13. 0 - 44.0 MCHC (RBC) [Mass/Vol] 31.9 g/dL below low threshold See Below [facility] [employer] Work Phone: Comment on above: Reference Range: 32. 0 - 36.0 MCV (RBC) [Entitic vol] 84 fL 80 - 100 [facility] [employer] Work Phone: Monocytes/100 WBC (Bld) 7.4 % 2.0 - 10.0 [facility]tolaryngo [facility] Work Phone: Neutrophils/100 WBC (Bld) 67.5 % See Below [facility] [employer] Work Phone: Comment on above: Reference Range: 40. 0 - 80.0 Platelets (Bld) [#/Vol] 230 10*3/uL 150 - 450 [facility] [employer] Work Phone: RBC (Bld) [#/Vol] 5.19 {x10E12/L} See Below [facility] Work Phone: Comment on above: Reference Range: 4.5 0 - 5.90 WBC (Bld) [#/Vol] 7.3 10*3/uL 4.4 - 11.3 [facility] l[facility] [employer] Work Phone: Complete Blood Count + Differential 0.04 {x10E9/L} See Below [facility] [employer] Work Phone: Comment on above: Reference Range: 0.0 0 - 0.10 Complete Blood Count + Differential 0.07 {x10E9/L} See Below [facility] Work Phone: Comment on above: Reference Range: 0.0 0 - 0.40 Complete Blood Count + Differential 0.54 {x10E9/L} See Below [facility] [employer] Work Phone: Comment on above: Reference Range: 0.0 5 - 0.80 Complete Blood Count + Differential 1.70 {x10E9/L} See Below [facility] [employer] Work Phone: Comment on above: Reference Range: 0.8 0 - 3.00 Complete Blood Count + Differential 4.95 {x10E9/L} See Below [place] Work Phone: Comment on above: Reference Range: 1.6 0 - 5.50 Complete Blood Count + Differential 1.0 % 0.0 - 6.0 [facility] Work Phone: Complete Blood Count + Differential 0.4 % 0.0 - 0.9 [facility] Work Phone: Comment on above: Immature Granulocyte Count (IG) includes promyelocytes, myelocytes and metamyelocytes but does not include bands. Percent differential counts (%) should be interpreted in the context of the absolute cell counts (cells/L). Complete Blood Count + Differential 0.0 {/100_WBC} 0.0-0.0 [facility] Work Phone: Laboratory - Chemistry and C hemistry - challengeon 04-18-2022 Albumin BCP dye [Mass/Vol] 4.0 g/dL 3.4 - 5.0 [facility] Work Phone: ALP [Catalytic activity/Vol] 122 U/L 33 - 136 [facility] Work Phone: ALT With P-5'-P [Catalytic activity/Vol] 9 U/L below low threshold 10 - 52 [facility] Work Phone: Comment on above: Patients treated wit h Sulfasalazine may generate falsely decreased results for ALT. Anion gap [Moles/Vol] 12 mmol/L 10 - 20 [facility] Work Phone: AST With P-5'-P [Catalytic activity/Vol] 14 U/L 9 - 39 [facility] Work Phone: Bilirubin [Mass/Vol] 1.4 mg/dL above high threshold 0.0 - 1.2 [facility] Work Phone: [phone] Calcium [Mass/Vol] 9.6 mg/dL 8.6 - 10.6 [facility] Work Phone: Chloride [Moles/Vol] 102 mmol/L 98 - 107 [facility]O tolaryngo [facility] Work Phone: CO2 [Moles/Vol] 29 mmol/L 21 - 32 [facility]-Otolar yngo [facility] Work Phone: Creatinine [Mass/Vol] 0.99 mg/dL See Below [facility]- Otolaryngo [facility] Work Phone: Comment on above: Reference Range: 0.5 0 - 1.30 Glucose [Mass/Vol] 147 mg/dL above high threshold 74 - 99 [facility] Work Phone: [phone] Potassium [Moles/Vol] 3.9 mmol/L 3.5 - 5.3 [facility] Work Phone: [phone] Protein [Mass/Vol] 6.7 g/dL 6.4 - 8.2 [facility] Work Phone: Sodium [Moles/Vol] 139 mmol/L 136 - 145 [facility] Work Phone: Urea nitrogen [Mass/Vol] 15 mg/dL 6 - 23 [facility] Work Phone: No Panel Informationon 04-18 81 {mL/min/1.73m2} >90 [facility]-Darryl laryngo [facility] Work Phone: Comment on above: CALCULATIONS OF AXEL MATED GFR ARE PERFORMED USING THE 2020 CKD-EPI STUDY REFIT EQUATION WITHOUT THE RACE VARIABLE FOR THE IDMS-TRACEABLE CREATININE METHODS.https://jasn.asnjournals.org/content//A SN.9803732043 Initial Visit (Otolaryngolog y)on 04-08-2022 Initial Visit [...] Melanoma left posterior ear History of Present Jzwrigb03-uylk-zrx male referred by Nemo Smith for management [...] TABS Vitals Vital Signs Recorded: 08Apr2022 03:13PM Lhzkxvnetna78 F Height5 ft 7.72 in Flyukl188 lb BMI Ckrmmmcyrc75.25 kg/m2 BSA Calculated2.21 Tobacco Useb) No Fall [...] Apr 12 2022 5:14AM EST (Author) Normal [employer] Tobacco Screening.on 022 Fall risk assessment a) No falls within the last year [facility]Otolaryngo [facility] Work Phone: Tobacco use status CPHS b) No [facility]Otolaryngo [facility] Work Phone: Dermatopathologyon 2 Dermatopathology Name: PAU BAUER Pathologist: MONET MORGAN MD Date of Procedure: 04/05/2022 Date Received: 04/05/2022 Date Reported 04/11/2022 Submitting Physician: AMAN BECK MD Location: [facility] Copy To/Referring/Attending: FELIPE FAJARDO MD FINAL DIAGNOSIS 1 SLIDE/5 UNSTAINED SLIDES, [facility] #[id number] (BX: 03/27/2022) SKIN, LEFT POST EAR, SHAVE [...] determined by the Department of Pathology at [facility]. The FDA does not require this [...] SUMMARY REPORT A. 1 SLIDE/5 UNSTAINED SLIDES, [facility] #[id number] (BX: 03/27/2022): SPECIMEN Procedure: Biopsy, shave Specimen [...] Findings: Associated nevus: Dermal nevus ADDITIONAL TESTING Estimator Lumber Blocks: Normal Block: None Tumor Block: A1 Electronically Signed Out By MONET MORGAN MD/[facility] Diagnostic interpretation performed at [facility] [id number] [place] [address] [id number], [facility] [address] Clinical History: SHAVE/ 2.5X2.5CM KA VS. SCC VS. BCC Specimens Submitted As: A: 1 SLIDE/5 UNSTAINED SLIDES, [facility] #[id number] (BX: 03/27/2022) Gross Description: Received for consultation from [facility] is one slide labeled [id number] (BX: 03/27/2022) along with the corresponding pathology report. Received five unstained slides 04/10/22 upon request. Slide/Block Description 1 SLIDE/5 UNSTAINED SLIDES, [id number]. Keep Slides: N Slides Returned: N Personal Consult: N Ketty [facility] Comment on above: Performed By: #### D ####Dermatopathology No Panel Informationon 04-05 [facility]tol[facility]o [facility] Work Phone: A1C HEMOGLOBINon 03-06-2022 HbA1c (Bld) [Mass fraction] 6.7 % [employer] Other HbA1c (Bld) [Mass fraction]o n 03-06-2022 A1C HEMOGLOBIN [place] [employer] Other PROGRESSon 11-26-2019 PROGRESS HNO ID: [id number] Author: Mukund Phipps V Service: ? Author Type: Physician Type: Progress Notes Filed: 11/26/2019 1:38 PM Note Text: HPI Patient is seen in follow up. Last visit , vital signs, labs , Xrays ( if applicable) reviewed. Moving back to [place], Patient has no new cardiac symptoms since [...] complication, without long-term current use of insulin ([facility]) E11.9 4. Mixed hyperlipidemia E78.2 5. Morbid obesity due to excess calories ([facility]) E66.01 Suggest: Continue current medications. CHF stable OK ASA [address] [facility] Vital Signs Date Time Vital Sign Value Performing Clinician Facility 07-29-2025 10: Body height 174.63 cm Sheree Greco DO Work Phone: [facility] 07-29-2025 10:040 Body mass index (BMI) [Ratio] 29.2 kg/m2 Sheree Greco DO Work Phone: [facility] 07-29-2025 10:27-0400 Body weight 89.35 kg Sheree Greco DO Work Phone: [facility] 07-29-2025 10:27-0400 Diastolic blood pressure 75 mm[Hg] Sheree Greco DO Work Phone: [facility] 07-29-2025 10:27-0400 Heart rate 78 /min Sheree Greco DO Work Phone: [facility] 07-29-2025 10:27-0400 Respiratory rate 16 /min Sheree Greco DO Work Phone: [facility] 07-29-2025 10:27-0400 SaO2% (BldA) [Mass fraction] 98 % Sheree Greco DO Work Phone: [facility] 07-29-2025 10:27-0400 Systolic blood pressure 118 mm[Hg] Sheree Greco DO Work Phone: [facility] 01-25-2025 10:56-0400 Body height 174.63 cm [facility] 01-25-2025 10:56-0400 Body mass index (BMI) [Ratio] 30.9 kg/m2 [facility] 01-25-2025 10:56-0400 Body weight 94.34 kg [facility] 01-25-2025 10:56-0400 Diastolic blood pressure 82 mm[Hg] [facility] 01-25-2025 10:56-0400 Heart rate 88 /min [facility] 01-25-2025 10:56-0400 SaO2% (BldA) [Mass fraction] 99 % [facility] 01-25-2025 10:56-0400 Systolic blood pressure 118 mm[Hg] [facility] 06-11-2024 10:37-0400 Body height 174.63 cm DO Sheree Greco Work Phone: [facility] 06-11-2024 10:37-0400 Body mass index (BMI) [Ratio] 31.9 kg/m2 DO Sheree Greco Work Phone: [facility] 06-11-2024 10:37-0400 Body weight 97.52 kg DO Sheree Greco Work Phone: [facility] 06-11-2024 10:37-0400 Diastolic blood pressure 78 mm[Hg] DO Sheree Greco Work Phone: [facility] 06-11-2024 10:37-0400 Heart rate 70 /min DO Sheree Greco Work Phone: [facility] 06-11-2024 10:37-0400 Respiratory rate 16 /min DO Sheree rGeco Work Phone: [facility] 06-11-2024 10:37-0400 SaO2% (BldA) [Mass fraction] 92 % DO Sheree Greco Work Phone: [facility] 06-11-2024 10:37-0400 Systolic blood pressure 114 mm[Hg] DO Sheree Greco Work Phone: [facility] 03-15-2024 09:49-0400 Body height 174.63 cm [facility] 03-15-2024 09:49-0400 Body mass index (BMI) [Ratio] 35.2 kg/m2 [facility] 03-15-2024 09:49-0400 Body weight 107.5 kg [facility] 03-15-2024 09:49-0400 Diastolic blood pressure 84 mm[Hg] [facility] 03-15-2024 09:49-0400 Heart rate 81 /min [facility] 03-15-2024 09:49-0400 Respiratory rate 18 /min [facility] 03-15-2024 09:49-0400 SaO2% (BldA) [Mass fraction] 94 % [facility] 03-15-2024 09:49-0400 Systolic blood pressure 121 mm[Hg] [facility] 09-08-2023 10:30-0500 Body height 174.63 cm Sheree Greco Other [employer] Other 09-08-2023 10:30-0500 Body mass index (BMI) [Ratio] 33.91 kg/m2 Sheree Greco Other [employer] Other 09-08-2023 10:30-0500 Body weight 103.42 kg Sheree Greco Other [employer] Other 09-08-2023 10:30-0500 Diastolic blood pressure 79 mm[Hg] Sheree Greco Other [employer] Other 09-08-2023 10:30-0500 Respiratory rate 16 /min Sheree Greco Other [employer] Other 09-08-2023 10:30-0500 SaO2% (BldA) [Mass fraction] 96 % Sheree Greco Other [employer] Other 09-08-2023 10:30-0500 Systolic blood pressure 119 mm[Hg] Sheree Greco Other [employer] Other 09-01-2023 15:00-0500 Body height 174.63 cm Lottie Tompkinsratil Other [employer] Other 09-01-2023 15:00-0500 Body mass index (BMI) [Ratio] 34.21 kg/m2 Lottie Navratil Other [employer] Other 09-01-2023 15:00-0500 Body weight 104.33 kg Lottie Navratil Other [employer] Other 09-01-2023 15:00-0500 Diastolic blood pressure 88 mm[Hg] Lottie Castillo Other [employer] Other 09-01-2023 15:00-0500 SaO2% (BldA) [Mass fraction] 98 % Lottie Castillo Other [employer] Other 09-01-2023 15:00-0500 Systolic blood pressure 124 mm[Hg] Lottie Castillo Other [employer] Other 03-03-2023 16:00-0400 Body height 174.63 cm Sheree Greco Other [employer] Other 03-03-2023 16:00-0400 Body mass index (BMI) [Ratio] 35.25 kg/m2 Sheree Esteschavojosefa Other [employer] Other 03-03-2023 16:00-0400 Body weight 107.5 kg Sheree Greco Other [employer] Other 03-03-2023 16:00-0400 Diastolic blood pressure 70 mm[Hg] Sheree Estescrescencio Other [employer] Other 03-03-2023 16:00-0400 Respiratory rate 18 /min Sheree Esteschavojosefa Other [employer] Other 03-03-2023 16:00-0400 SaO2% (BldA) [Mass fraction] 99 % Sheree Estescrescencio Other [employer] Other 03-03-2023 16:00-0400 Systolic blood pressure 116 mm[Hg] Sheree Greco Other [facility] [employer] Other 05-16-2022 15:30-0400 Body temperature 97.8 [degF] DO Sheree Greco Work Phone: [facility] 05-16-2022 15:30-0400 Body weight 107.5 kg DO Sheree Greco Work Phone: [facility] 05-16-2022 15:30-0400 Diastolic blood pressure 81 mm[Hg] DO Sheree Greco Work Phone: [facility] 05-16-2022 15:30-0400 Heart rate 67 /min DO Sheree Greco Work Phone: [facility] 05-16-2022 15:30-0400 Respiratory rate 16 /min DO Sheree Greco Work Phone: [facility] 05-16-2022 15:30-0400 SaO2% (BldA) [Mass fraction] 98 % DO Sheree Greco Work Phone: [facility] 05-16-2022 15:30-0400 Systolic blood pressure 115 mm[Hg] DO Sheree Greco Work Phone: [facility] 05-16-2022 15:28-0400 Body height 171.45 cm DO Sheree Greco Work Phone: [facility] 05-10-2022 10:04-0400 Body height 170.18 cm Jose Armando De La Cruz Work Phone: NT-Dephsiahkvsvqq-[facility] Work Phone: 05-10-2022 10:04-0400 Body mass index (BMI) [Ratio] 37.18 kg/m2 Jose Armando De La Cruz Work Phone: RL-Lvfeaiheolsjfz-Ks [facility] Work Phone: 05-10-2022 10:04-0400 Body surface area Derived from formula 2.17 m2 Jose Armando De La Cruz Work Phone: DR-Nnhwnmeefnptyy-[facility]n [facility] Work Phone: 05-10-2022 10:04-0400 Body temperature 98.3 [degF] Jose Armando De La Cruz Work Phone: FC-Owxmbqncknjdwz-Gj [facility] Work Phone: 05-10-2022 10:04-0400 Body weight 107.68 kg Jose Armando De La Cruz Work Phone: JN-Lblcsxykftgjlj-Qf [facility] Work Phone: 05-10-2022 10:04-0400 0 1 Jose Armando De La Cruz Work Phone: EM-Rvqahgfkbmonsk-Ua [facility] Work Phone: Comment on above: [employer] 04-08-2022 15:13-0400 Body height 172.01 cm Jose Armando De La Cruz Work Phone: IE-Fdthkythvqmoro-Mg [facility] Work Phone: 04-08-2022 15:13-0400 Body mass index (BMI) [Ratio] 37.25 kg/m2 Jose Armando De La Cruz Work Phone: OG-Pweeewxswqavrp-Zn [facility] Work Phone: 04-08-2022 15:13-0400 Body surface area Derived from formula 2.21 m2 Jose Armando De La Cruz Work Phone: FD-Uydfyuafaysxzg-Oj [facility] Work Phone: 04-08-2022 15:13-0400 Body temperature 98 [degF] Jose Armando De La Cruz Work Phone: CX-Duvkdglskdevlq-Mc [facility] Work Phone: 04-08-2022 15:13-0400 Body weight 110.22 kg Jose Armando De La Cruz Work Phone: CQ-Tjpbxrqzwmgmvn-Lz [facility] Work Phone: 04-08-2022 15:13-0400 0 1 Jose Armando De La Cruz Work Phone: WS-Mmdknhysujvacv-Gh [facility] Work Phone: Comment on above: [employer] 03-06-2022 16:00-0400 Body height 174.63 cm Sheree Fannie Other [employer] Other 03-06-2022 16:00-0400 Body mass index (BMI) [Ratio] 36.14 kg/m2 Sheree Fannie Other [employer] Other 03-06-2022 16:00-0400 Body weight 110.22 kg Sheree Frankeldianna Other [employer] Other 03-06-2022 16:00-0400 Diastolic blood pressure 64 mm[Hg] Sheree Fannie Other [employer] Other 03-06-2022 16:00-0400 SaO2% (BldA) [Mass fraction] 97 % Sheree Fannie Other [employer] Other 03-06-2022 16:00-0400 Systolic blood pressure 102 mm[Hg] Shereelori Greco Other [employer] Other 1950 23:00-0500 >na< Felipe Fajardo Dept. of Dermato logy Encounters Encounter Date Encounter Type Care Provider Facility Start: 07-29-2025 End: 07-29-2025 ambulatory Sheree Estescrescencio DO Work Phone: [facility] Work Phone: Start: 07-29-2025 End: 07-29-2025 Patient encounter procedure Sheree Narayanan Jostinloidachavojosefa DO -[facility] Work Phone: Start: 06-29-2025 Non-patient / Non-visit Laney Fields [employer]INATE MEASURING EQUIPMENT OPERATOR -[facility] Work Phone: Start: 06-27-2025 Emergency department patient visit SHEREE Lady FANNIE Facility:[facility] Start: 06-24-2025 Emergency department patient visit Dioni Ramirez Ligia Facility:[facility] Start: 05-26-2025 End: 05-26-2025 ambulatory [facility] Start: 04-13-2025 End: 04-13-2025 [facility] Start: 04-08-2025 End: 04-08-2025 ambulatory SHEREE Lady FANNIE [facility] [facility] Start: 03-31-2025 End: 03-31-2025 ambulatory [facility] Start: 03-24-2025 End: 03-28-2025 ambulatory [facility] Facility:[facility] Start: 01-25-2025 End: 01-25-2025 ambulatory [facility] Work Phone: Start: 01-25-2025 End: 01-25-2025 Patient encounter procedure [facility] Work Phone: Start: 01-14-2025 End: 01-14-2025 ambulatory [facility] Start: 01-11-2025 End: 01-11-2025 ambulatory [facility] Start: 12-24-2024 Non-patient / Non-visit [facility] Work Phone: Start: 12-23-2024 ambulatory SHEREE GRECO Fac ility:[facility] Start: 12-17-2024 End: 12-17-2024 ambulatory SHEREE Narayanan JOSTINDIANNA Facility:[facility] Start: 06-16-2024 End: 06-16-2024 [facility] Start: 06-11-2024 End: 06-11-2024 ambulatory DO Sheree Greco Work Phone: [facility] Work Phone: Start: 06-11-2024 End: 06-11-2024 Patient encounter procedure DO Sheree Greco Work Phone: [facility] Work Phone: Start: 05-24-2024 Non-patient / Non-visit DO Sheree Greco Work Phone: [facility] Work Phone: Start: 05-05-2024 End: 05-05-2024 Patient encounter procedure DO Sheree Greco Work Phone: [facility] Work Phone: Start: 05-05-2024 End: 05-05-2024 ambulatory DO Sheree Greco Work Phone: [facility] Work Phone: Start: 03-15-2024 Non-patient / Non-visit DO Sheree Greco Work Phone: [facility] Work Phone: Start: 03-15-2024 End: 03-15-2024 ambulatory [facility] Work Phone: Start: 03-15-2024 End: 03-15-2024 Patient encounter procedure [facility] Work Phone: Start: 10-14-2023 End: 10-14-2023 ambulatory Sheree Greco Other [employer] Other Start: 10-14-2023 Telephone encounter Sheree Rojas i [facility] Start: 09-22-2023 End: 09-22-2023 ambulatory Sheree Greco Other [employer] Other Start: 09-22-2023 Telephone encounter Sheree Rojas i [facility] Start: 09-08-2023 End: 09-08-2023 ambulatory Sheree Greco Other [employer] Other Start: 09-08-2023 Office outpatient visit [address] [facility] Start: 09-08-2023 Telephone encounter Sheree Rojas i [facility] Start: 09-01-2023 End: 09-01-2023 ambulatory Lottie Castillo Other [employer] Other Start: 09-01-2023 Office outpatient visit [address] [facility] Start: 03-10-2023 Telephone encounter Sheree Rojas i [employer] Start: 03-10-2023 End: 03-10-2023 ambulatory DO Sheree Greco Work Phone: [facility] Work Phone: Start: 03-10-2023 End: 03-10-2023 Patient encounter procedure DO Sheree Greco Work Phone: [facility] Work Phone: Start: 03-03-2023 End: 03-03-2023 ambulatory Sheree Greco Other [employer] Other Start: 03-03-2023 Patient encounter procedure Sheree Greco [facility] Start: 05-18-2022 Chart Update Jose Armando mann Work Phone: [facility]cy[facility] Work Phone: Start: 05-16-2022 End: 05-16-2022 Registered Recurring DO Sheree Greco [facility] Start: 05-14-2022 Felipe Fajardo Dept. of D ermatology Start: 05-10-2022 Postop follow up vis it related to original px Jose Armando De La Cruz Work Phone: VR-Ehltayhvfpnjmu-Sbwhb day Work Phone: Start: 04-29-2022 Chart Update Jose Armando mann Work Phone: NK-Lojtfisroydofm-Uruit day Work Phone: Start: 04-24-2022 Chart Update Jose Armando mann Work Phone: TN-Urwvtdwxmuclwl-Ctzek day Work Phone: Start: 04-16-2022 Felipe Fajardo Dept. of D ermatology Start: 04-08-2022 Office outpatient ne w 45 minutes Jose Armando De La Cruz Work Phone: FF-Tjpuyborsdnjsk-Tbrnk day Work Phone: Start: 04-08-2022 Patient encounter procedure Jose Armando De La Cruz Work Phone: LS-Gjtfzycywhtluk-Rkgvy an Work Phone: Start: 03-06-2022 End: 03-06-2022 ambulatory Sheree Greco Other [employer] Other Start: 03-06-2022 Office outpatient visit 25 minutes Sheree Greco [facility] Start: 03-09-2019 End: 03-10-2019 Patient encounter procedure DEFAULT PHYSICIAN Facility:[facility] Start: 03-01-2019 End: 03-02-2019 Patient encounter procedure DEFAULT PHYSICIAN Facility:[facility] Start: 02-09-2019 End: 02-10-2019 Patient encounter procedure DEFAULT PHYSICIAN Facility:[facility] Procedures Date Procedure Procedure Detail Performing Clinician Start: 05-14-2022 Felipe amaya Start: 04-16-2022 Felipe amaya Operation on gastroi ntestinal tract Jose Armando De La Cruz Work Phone: Operative procedure on knee Jose Armando De La Cruz Work Phone: Plan of Treatment Date Care Activity Detail Author Start: 06-11-2024 Patient referral [facility] Work Phone: Start: 06-21-2022 [facility], Provider: Aman Beck, Status: Pen, Time: 11:00 AM [facility], Provider: Aman Beck, Status: Pen, Time: 11:00 AM [facility] Work Phone: Start: 04-25-2022 [facility], Provider: Aman Beck, Status: Pen, Time: 9:00 AM [facility] Work Phone: Start: 04-24-2022 [facility], Provider: Aman Beck, Status: Pen, Time: 12:00 PM [facility], Provider: Aman Beck, Status: Pen, Time: 12:00 PM [facility] [facility] Work Phone: Comprehensive metabo lic 2000 panel - Serum or Plasma [facility] CT Abdomen and Pelvi s W contrast IV [facility] MR Unspecified body region F [facility] Work Phone: Patient referral [facility] Work Phone: [facility] Immunizations Immunization Date Immunization Notes Care Provider Fa karma 1950 pneumococcal conjuga te vaccine, 7 valent Felipe Fajardo Dept. of Dermatology Payers Date Payer Category Payer Private Health Insurance [id number] 2021 Medicare [id number] 1950 Unknown [id number] 1950 Unknown [id number] 1950 Unknown [id number] 1950 Unknown [id number] 1950 Unknown [id number] 1950 Unknown [id number] 1950 Unknown [id number] 1950 Unknown [id number] 1950 Unknown [id number] Medicare [id number] Medicare [place] M[facility] [id number] Medicare Medicare [id number] Self-pay Self Pay [id number] Unknown Social History Date Type Detail Facility Former smoker Former smoker [facility] Work Phone: Start: 04-16-2022 Dept. of D ermatology Start: 1950 Sex Assigned At Male [facility] Sex Assigned At Sex Assigned At [facility] [employer] Other Start: 10-28-2018 Tobacco smoking status NHIS Never smoked tobacco (finding) [facility] Start: 01-25-2025 Sex Male (finding) [facility] Goals Date Patient Goal Desired Activity /State Clinical Notes 03-06-2022 to 06-27-2025 Note Date & Type Note Facility 06-27-2025 Note Education Materials ENT Nosebleed, Adult A nosebleed is when blood comes out of the nose. Nosebleeds are common and can be caused by many things. They are usually not a sign of a serious medical problem. Follow these instructions at home: When you have a nosebleed: ? Sit down. ? Tilt your head forward a little. ? Follow these steps: 1. Pinch your nose with a clean towel or tissue. 2. Keep pinching your nose for 5 minutes. Do not let go. 3. After 5 minutes, let go of your nose. 4. Keep doing these steps until the bleeding stops. ? Do not put tissues or other things in your nose to stop the bleeding. ? Avoid lying down or putting your head back. ? Use a nose spray decongestant as told by your doctor. After a nosebleed: ? Try not to blow your nose or sniffle for several hours. ? Try not to strain, lift, or bend at the waist for several days. ? Aspirin and medicines that thin your blood make bleeding more likely. If you take these medicines: ? Ask your doctor if you should stop taking them or if you should change how much you take. ? Do not stop taking the medicine unless your doctor tells you to. ? If your nosebleed was caused by dryness, use pdvx-eyu-boomewu saline nasal spray or gel and a humidifier as told by your doctor. This will keep the inside of your nose moist and allow it to heal. If you need to use nasal spray or gel: ? Choose one that is water-soluble. ? Use only as much as you need and use it only as often as needed. ? Do not lie down right away after you use it. ? If you get nosebleeds often, talk with your doctor about treatments. These may include: ? Nasal cautery. A chemical swab or electrical device is used to lightly burn tiny blood vessels inside the nose. This helps stop or prevent nosebleeds. ? Nasal packing. A gauze or other material is placed in the nose to keep constant pressure on the bleeding area. Contact a doctor if: ? You have a fever. ? You get nosebleeds often. ? You get nosebleeds more often than usual. ? You bruise very easily. ? You have something stuck in your nose. ? You are bleeding in your mouth. ? You vomit or cough up brown material. ? You get a nosebleed after you start a new medicine. Get help right away if: ? You have a nosebleed after you fall or hurt your head. ? Your nosebleed does not go away after 20 minutes. ? You feel dizzy or weak. ? You have unusual bleeding from other parts of your body. ? You have unusual bruising on other parts of your body. ? You get sweaty. ? You vomit blood. Summary ? Nosebleeds are common. They are usually not a sign of a serious medical problem. ? When you have a nosebleed, sit down and tilt your head a little forward. Pinch your nose with a clean tissue for 5 minutes. ? Use saline spray or saline gel and a humidifier as told by your doctor. ? Get help right away if your nosebleed does not go away after 20 minutes. This information is not intended to replace advice given to you by your health care provider. Make sure you discuss any questions you have with your health care provider. Document Revised: 10/22/2022 Document Reviewed: 10/22/2022 [employer] Patient Education ? 2024 [employer]. [facility] 06-24-2025 Note Education Materials ENT Nosebleed, Adult A nosebleed is when blood comes out of the nose. Nosebleeds are common and can be caused by many things. They are usually not a sign of a serious medical problem. Follow these instructions at home: When you have a nosebleed: ? Sit down. ? Tilt your head forward a little. ? Follow these steps: 1. Pinch your nose with a clean towel or tissue. 2. Keep pinching your nose for 5 minutes. Do not let go. 3. After 5 minutes, let go of your nose. 4. Keep doing these steps until the bleeding stops. ? Do not put tissues or other things in your nose to stop the bleeding. ? Avoid lying down or putting your head back. ? Use a nose spray decongestant as told by your doctor. After a nosebleed: ? Try not to blow your nose or sniffle for several hours. ? Try not to strain, lift, or bend at the waist for several days. ? Aspirin and medicines that thin your blood make bleeding more likely. If you take these medicines: ? Ask your doctor if you should stop taking them or if you should change how much you take. ? Do not stop taking the medicine unless your doctor tells you to. ? If your nosebleed was caused by dryness, use qirr-fxa-yheywwf saline nasal spray or gel and a humidifier as told by your doctor. This will keep the inside of your nose moist and allow it to heal. If you need to use nasal spray or gel: ? Choose one that is water-soluble. ? Use only as much as you need and use it only as often as needed. ? Do not lie down right away after you use it. ? If you get nosebleeds often, talk with your doctor about treatments. These may include: ? Nasal cautery. A chemical swab or electrical device is used to lightly burn tiny blood vessels inside the nose. This helps stop or prevent nosebleeds. ? Nasal packing. A gauze or other material is placed in the nose to keep constant pressure on the bleeding area. Contact a doctor if: ? You have a fever. ? You get nosebleeds often. ? You get nosebleeds more often than usual. ? You bruise very easily. ? You have something stuck in your nose. ? You are bleeding in your mouth. ? You vomit or cough up brown material. ? You get a nosebleed after you start a new medicine. Get help right away if: ? You have a nosebleed after you fall or hurt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 Primary Care Provider Active Start: May 24, 2024 Laney Fields LPN Attending Provider Active Star t: May 24, 2024 Team Status: Inactive Member Role Status Dates Sheree Greco , DO Primary Care Prov ider, Attending Provider Active Start: June 11, 2024 End: June 11, 2024 Team Status: Active Member Role Status Dates Sheree Greco , DO Primary Care Provider Active Start: June 29, 2025 Laney Fields LPN Attending Provider Active Star t: June 29, 2025 Team Status: Inactive Member Role Status Dates Sheree Greco , DO Primary Care Provider Active Start: July 29, 2025 End: July 29, 2025 Sheree Greco , DO Attending Provider Active Start: July 29, 2025 End: July 29, 2025 Goals (unrecognized section and content) Goals may [...] BE BASED ON THE PRIMARY CLINICAL RECORDS. [facility] [employer] [facility]. provides no warranty or guarantee of the accuracy or completeness of information in this document.
--- NOTE | 2025-08-04 13:00 | CA_ITS ---
Patient Name: PAU BAUER MR#: [id number] : 1950 Exam Date: 08/04/2025 Ordering Doctor: MADHAVI CHAU ECHOCARDIOGRAM REPORT PROCEDURE: CA ECHO DOPPLER COMPLETE INDICATIONS: Heart failure, atrial fibrillation COMPARISON: None. DESCRIPTION: COMPLETE ECHOCARDIOGRAM Real-time transthoracic echocardiography with 2D, M-mode, spectral and color flow Doppler performed. QUALITY: Technical quality was good. LEFT VENTRICLE: Normal chamber size. Mild concentric left ventricular hypertrophy. Systolic function is at the lower limits of normal. Calculated left ventricular ejection fraction is 53%. LV EF: Lower limits of normal left ventricular ejection fraction, (50-55%). DIASTOLIC: Not adequately assessed due to heart rhythm. ATRIAL SEPTUM: Visually appears intact. LEFT ATRIUM: Severe dilatation. RIGHT ATRIUM: Severe dilatation. RIGHT VENTRICLE: Mild dilatation. Low normal systolic function. TRICUSPID VALVE: Normal mobility and thickness. No stenosis with moderate regurgitation. Doppler studies reveal severely (>60) elevated right sided pressures. RVSP 60 mmHg MITRAL VALVE: Normal mobility and thickness. No evidence of mitral valve stenosis. There is no mitral annular calcification. Moderate mitral regurgitation. AORTIC VALVE: Normal trileaflet appearance. No visible sclerosis. Normal leaflet mobility. No evidence of aortic valve stenosis. No aortic regurgitation. AORTIC ROOT: Normal diameter and appearance, measuring 3.4 cm. Ascending aorta is normal in size, measuring 2.7 cm. PULMONIC VALVE: Normal thickness and mobility. No stenosis. Trivial regurgitation. PERICARDIUM: No evidence of pericardial effusion. IVC: Normal in size. IVC does not fully collapse. PLEURA: CONCLUSION: 1. Mild concentric left ventricular hypertrophy with low normal systolic function. Estimated LVEF is 50 to 55%. 2. Mildly dilated right ventricle with low normal systolic function. 3. Severe biatrial dilatation. 4. Moderate mitral and tricuspid regurgitation. 5. Severely elevated right-sided pressures. RVSP is 60 mmHg. Adult Echocardiography Procedure Report Left Ventricle LVEDD (3.7 - 5.6 cm): 4.99 cm LVESD (2.2 - 4.0 cm): 4.19 cm LVIVS thickness (0.6 - 1.2 cm): 1.27 cm LVPW thickness (0.5 - 1.0 cm): 1.23 cm LVOT Max Gradient: 1.38 mm[Hg], 1.24 mm[Hg] LVOT Area (cm2): 0.57 m/s Peak Velocity (LVOT): 0.59 m/s, 0.56 m/s LVOT Diameter 2.40 cm Left Ventricular Ejection Fraction: 50-55 % Left Atrium LA Volume Index (2D A2C): 79.12 ml/m2 Left Atrium Systolic Dimension: 5.60 cm Mitral Valve Mitral Valve E-Wave Peak Velocity: 0.63 m/s Right Ventricle Aorta AO Root Diam: 3.38 cm Ascending Ao Diam: 2.74 cm Aortic Valve AoV Area (Peak Jaguar): 2.86 cm2, 3.18 cm2, 2.58 cm2 Peak Velocity(Antegrade Flow): 0.84 m/s, 0.98 m/s Peak Gradient(Antegrade Flow): 2.82 mm[Hg], 3.83 mm[Hg] Tricuspid Valve Peak Velocity (Regurgitant Flow): 3.00 m/s, 3.54 m/s, 3.62 m/s Pulmonic Valve Peak Velocity: 0.70 m/s Peak Gradient: 1.86 mm[Hg], 2.38 mm[Hg], 1.67 mm[Hg] Right Atrium Right Atrium Systolic Pressure: 154.57 ml, 154.57 ml Dictated by: Pau Gordillo M.D. on 08/04/2025 at 13:54 Approved by: Pau Gordillo M.D. on 08/04/2025 at 14:00
== END 2025-08-04 12:09 | disposition home or self-care (01) ==
LOC: CARD 12:11
PROVIDERS: PCP Student in an Organized Health Care Education/Training Program; Visit Provider Internal Medicine Cardiovascular Disease
DX: I50.41 Acute combined systolic (congestive) and diastolic (congestive) heart failure (principal)
CPT/HCPCS: 93306